=== PATIENT | female | born 1985 | race Caucasian/White ===

== ENCOUNTER → 2017-05-18 09:10 | Outpatient (CLI) | payer MEDICARE, MEDICAID, SELFPAY ==
--- NOTE | 2017-05-18 09:31 | MRI_ITS ---
STUDY: EXAMINATION - MRV BRAIN WITHOUT CONTRAST REASON FOR EXAM: Female, 31 years old. PSEUDOTUMOR CEREBRI, OPTIC DISC EDEMA -- vision changes,episodes of loss of vision, 1/2 months, patient of renal dialysis and having dialysis after MRI TECHNIQUE: 3D [id number] (TOF) imaging was performed in a chary MRI scanner. COMPARISON: None. FINDINGS: Normal flow within the superior sagittal sinus. Normal flow within the superficial cortical veins. Normal flow within the paired internal cerebral veins, vein of Iggy and straight sinus. Normal flow within the bilateral transverse and sigmoid sinuses. Normal flow within the bilateral jugular bulbs. MRI/MRV Head Without Contrast IMPRESSION: Normal unenhanced MRV of the brain. Electronically Signed: Arslan Link MD at 8:22 EDT Tel , Service support ,
--- NOTE | 2017-05-18 09:31 | MRI_ITS ---
STUDY: MRI BRAIN WITH AND WITHOUT CONTRAST REASON FOR EXAM: Female, 31 years old. PSEUDOTUMOR CEREBRI, OPTIC DISC EDEMA -- vision changes,episodes of loss of vision, 1/2 months, patient of renal dialysis and having dialysis after MRI TECHNIQUE: Standardized multiplanar fat and water weighted pulse sequences were obtained. 10 ml of Gadavist contrast material was administered intravenously for the contrast portion of the examination. COMPARISON: None. FINDINGS: Normal size of the ventricles and extra-axial spaces for the patient's age. Normal white matter tracts of the supratentorial brain. Normal bilateral basal ganglia. Normal thalami. There is no extra-axial fluid accumulation. Normal flow voids within the major intracranial circulation suggesting patency by spin echo criteria. Normal venous enhancement. There is no enhancing intra-axial or extra-axial abnormality. Normal sella turcica, pituitary gland, infundibular stalk, optic chiasm and hypothalamus. Normal tectal plate and pineal gland. Normal midbrain, joseph and medulla. Normal cerebellum. Normal basal cisterns. Normal bilateral temporal bones. Normal bilateral internal auditory canals. The optic sheaths are slightly prominent and slightly tortuous. There are no masses or infiltration. No demonstrated orbital abnormality, within the constraints of a routine brain study. Normal visualized paranasal sinuses. Normal calvarium and skull base. Normal visualized soft tissue structures. Normal visualized upper cervical spine. MRI/Brain W/WO Contrast IMPRESSION: Minimally prominent optic sheath. Otherwise unremarkable examination. Electronically Signed: Arslan Link MD at 13:53 EDT Tel , Service support ,
== END | disposition home or self-care (01) ==
PROVIDERS: Family Provider Internal Medicine; PCP Internal Medicine; Visit Provider Internal Medicine Nephrology
DX: G93.2 Benign intracranial hypertension (principal); H47.10 Unspecified papilledema
CPT/HCPCS: 70544; 70553; A9585

== ENCOUNTER 2018-12-06 02:56 | Emergency (ER) | payer MEDICARE, SELFPAY ==
[2018-12-06 02:58] VITALS: BP 197/125; PULSE 96; RESP 18; TEMP 36.7; O2SAT 99; BMI 55.0
--- NOTE | 2018-12-06 03:23 | CT_ITS ---
STUDY: CT BRAIN WITHOUT CONTRAST REASON FOR EXAM: Female, 33 years old. Worst headache ever, status post lumbar puncture Thursday for intracranial hypertension, dialysis patient, history of asthma and hypertension. RADIATION DOSAGE (If Supplied By Facility): CTDIvol = ( 44.99 ) mGy, DLP = ( 900.16 ) mGycm TECHNIQUE: Transaxial CT imaging of the brain was performed without administration of intravenous contrast material. Multiplanar coronal and sagittal images were reformatted. Individualized dose optimization techniques were used for this CT. COMPARISON: MRI brain 05/18/2017 FINDINGS: Normal soft tissue structures. Normal calvarium. Normal size ventricles and extra-axial spaces for the patient's age. Normal white matter tracts of the cerebral hemispheres. Normal basal ganglia and thalami. Normal brainstem. Normal cerebellum. There is no intracranial hemorrhage. There are no findings of an acute ischemic infarction. Normal visualized paranasal sinuses. The bilateral mastoid air cells are clear. CT/Brain/Head without Contrast IMPRESSION: There is no acute intracranial pathology. There is no significant interval change. Electronically Signed: Breanne Berger MD at 4:01 EST , Service support ,
--- NOTE | 2018-12-06 03:26 | ED.DCSUM_ITS ---
- ER Visit Summary Date of Service: 12/06/18 Chief Complaint: [] Headache History of Present Illness: The patient is a 33 F with a headache for the last 2 days. Actually she is been having daily headaches for the last couple months. She has a history of pseudotumor cerebri. She had a therapeutic LP 2 days ago. She is not sure how much fluid was removed. It is not positional. It is an intermittent headache that is been lasting hours. She tried Fioricet and Zofran. There is a diffuse headache. Worsened by light. No history of migraines. Associated nausea and one episode of emesis. She has photophobia. She does have chronic hypertension due to chronic kidney disease. She gets dialysis Thursday for end-stage kidney disease. Stated she had some abnormal vision prior to her therapeutic tap that resolved. This is how she was diagnosed with pseudotumor cerebri 18 months ago. Physical Examination: Vital signs reviewed General: Well-nourished well-developed Head: Normocephalic atraumatic Eyes: Pupils equal round and reactive to light extraocular movements intact ENT: TMs clear no hemotympanum no trauma Neck: Nontender. No meningeal signs. Her range of motion Cardiovascular: Regular rate rhythm no murmurs normal S1-S2 Respiratory: No distress clear to auscultation bilaterally chest nontender Abdomen: Soft nontender nondistended normal bowel sounds no masses Back: Nontender no CVA tenderness Extremities: Nontender active range of motion ?4 extremities no trauma Skin: Normal color no trauma Neuro alert oriented cranial nerves II through XII intact normal strength sensation reflexes Test Results: [] Emergency Department Course and Treatment: [] She given IV fluids, Compazine, Toradol, Benadryl. CT head obtained. CT head negative. Patient felt much better after treatment. Her headache has almost completely resolved. I do not think she has an intracranial hemorrhage. Nothing seen on CAT scan. I do not think she has meningitis. This could be a post LP headache but this sounds more like a migraine. It is not positional. Feel she has a meningitis. Due to the fact that it is better after migraine cocktail for the patient can be discharged to follow-up. Treatment Plan: [] Disposition: [] Impression: [] Acute on chronic headache This note was generated with [employer] software. It may contain incorrect words, spelling, and punctuation that were not noted in review of the chart prior to signing ED Disposition - Plan for ED Patient: Referrals: Bethany Coughlin MD [Primary Care Provider] -
[2018-12-06] MEDS: proCHLORPERazine 10 MG/2 ML Vial IV (03:28)
[2018-12-06] MEDS: DiphenhydrAMINE 50 MG/ML Syringe IV (03:28)
[2018-12-06] MEDS: Ketorolac 30 MG/ML Syringe IV (03:28)
--- NOTE | 2018-12-06 04:21 | ED.DEP ---
ED Disposition - Plan for ED Patient: Disposition: Home or Assisted Living Instructions: ED Headache Post Spinal Tap No Patc, ED Headache Migraine Referrals: Bethany Coughlin MD [Primary Care Provider] -
[2018-12-06 04:30] VITALS: BP 174/86; PULSE 85; RESP 15; O2SAT 96
== END 2018-12-06 04:34 | disposition home or self-care (01) ==
PROVIDERS: Emergency Provider Emergency Medicine; Family Provider Internal Medicine; PCP Internal Medicine
DX: R51 Headache (principal); G89.29 Other chronic pain; R11.2 Nausea with vomiting, unspecified; I12.0 Hypertensive chronic kidney disease with stage 5 chronic kidney disease or end stage renal disease; N18.6 End stage renal disease; Z99.2 Dependence on renal dialysis; E66.9 Obesity, unspecified; Z79.899 Other long term (current) drug therapy
CPT/HCPCS: 70450; 96361; 96374; 96375; 99284; J7040; A4216

== ENCOUNTER 2019-04-02 09:01 | Emergency (ER) | payer MEDICARE, MEDICAID, SELFPAY ==
[2019-04-02 09:02] VITALS: BP 158/105; PULSE 109; RESP 18; TEMP 37.2; O2SAT 98; BMI 51.4
[2019-04-02 09:18] VITALS: BP 152/98; PULSE 92; RESP 16; TEMP 37.2; O2SAT 98
--- NOTE | 2019-04-02 09:29 | EKG12_ITS ---
Test Reason : FEVER Blood Pressure : / mmHG Vent. Rate : 093 BPM Atrial Rate : 093 BPM P-R Int : 142 ms QRS Dur : 086 ms QT Int : 396 ms P-R-T Axes : 016 -39 064 degrees QTc Int : 492 ms Normal sinus rhythm Left axis deviation Low voltage QRS Septal infarct , age undetermined Abnormal ECG Confirmed by LINDA PATEL ([id number]), news videotape editor JAMES MARCELINO ([id number]) on 04/06/2019 2:01:47 PM Referred By: JAZMIN Confirmed By:LINDA PATEL
--- NOTE | 2019-04-02 09:37 | ED.DCSUM_ITS ---
History of Present Illness <Haleigh Hameed - Last Filed: 04/02/19 10:15> Informant: Patient Limited by: - Onset: Days Current Severity: Mild Worsened by: Movement Relieved by: Nothing Associated Symptoms: She denies chest pain or shortness of breath. Narrative: Left shoulder pain without injury. She has increased pain with movement of her shoulder. She denies chest pain or shortness of breath. Prior similar symptoms: Yes Recent Illness/Hospitalization: No <Fany Jacobson - Last Filed: 06/19/19 16:03> Chief Complaint: Fever Past Medical History <Haleigh Hameed - Last Filed: 04/02/19 10:15> Prior records reviewed: Yes - PCOS, HTN, CAP, ESRD Surgical History: - - Recent left arm AV fistula Smoking Status: Never smoker Alcohol: None Drugs: None - Family History Maternal Family History: Reports: No pertinent history Additional Family History: Maternal Aunt - renal disease. <Fany Jacobson - Last Filed: 06/19/19 16:03> - Allergies and Home Meds Allergies/Adverse Reactions: Allergies cat dander Allergy (Verified 04/02/19 09:05) Other hydrocodone Adverse Reaction (Verified 04/02/19 09:05) Nausea Primary Care Physician: Bethany Coughlin MD [Primary Care Provider] - Michael Krishna MD [STAFF PHYSICIAN] - Review of Systems All systems negative except as indicated General: Reports: Fever. Denies: Chills, Sweats Eyes: Denies: Visual changes - bilaterally, Diplopia ENT: Denies: Rhinorrhea, Sore throat Cardiovascular: Denies: Chest pain, Palpitations Respiratory: Denies: Dyspnea, Cough, Dyspnea on exertion Gastrointestinal: Denies: Abdominal pain, Nausea, Vomiting, Diarrhea, Melena, Hematochezia Genitourinary: Denies: Dysuria, Hematuria, Frequency Musculoskeletal: Reports: Extremity Pain, - - Left shoulder pain x4 to days with movement. No history of injury.. Denies: Back pain Skin: Denies: Rash, Wounds Neurological: Denies: Headache, Weakness, Numbness <Fany Jacobson - Last Filed: 06/19/19 16:03> Physical Exam Vital Signs/Narrative: Vital Signs Temp Pulse Resp BP Pulse Ox 04/02/19 09:18 98.9 F 92 16 152/98 H 98 04/02/19 09:02 98.9 F 109 H 18 158/105 H 98 <Haleigh Hameed - Last Filed: 04/02/19 10:15> Vital Signs/Narrative: Vital Signs Temp Pulse Resp BP Pulse Ox 04/02/19 09:18 98.9 F 92 16 152/98 H 98 04/02/19 09:02 98.9 F 109 H 18 158/105 H 98 General: Well nourished, Well developed, No Acute Distress Head: Normocephalic, Atraumatic Eyes: Perrl, EOMI ENT: Moist mucous membranes, No rhinorrhea Neck: Supple, Nontender Cardiovascular: Regular rate, Regular rhythm, No murmurs Respiratory: No distress, CTA bilaterally, Chest nontender Abdomen: Soft, Nontender, Nondistended, Normal bowel sounds Back: Nontender, Normal Inspection Extremities: No edema, Tenderness, - - Reproducible left shoulder pain to palpation mostly in the soft tissue area. No warmth or redness appreciated. Pain with any attempt of range of motion. Left forearm fistula has a good thrill without tenderness or warmth or redness. MSP is intact. Strong distal pulses present. No pain with range of motion of wrist or hand. Skin: Normal color, No rash Neurological: Alert, Oriented x3, Cranial nerves II-XII grossly intact, Normal Strength, Normal Sensation Psychological: Normal affect, Normal Mood <Fany Jacobson - Last Filed: 06/19/19 16:03> Diagnostic/Tx/Re-eval - Medical Decision Making The patient was seen with nurse practitioner I agree with history and physical exam as document above, she has extensive history of end-stage renal disease she complains of left shoulder pain and sense of fevers dialyzed recently without difficulty, Physical exam shows a very nonspecific diffuse left shoulder discomfort no signs of swelling trauma or infection distal hand exam fistula exam all unremarkable neurovascular function normal, screening labs other management options are obtained please see the full note for details <Haleigh Hameed - Last Filed: 04/02/19 10:15> Chest X-Ray - ED: 2 View, No Acute Disease - Rhythm Strip Rhythm Strip: Sinus Rhythm - Medical Decision Making She presents with left shoulder pain without injury. Has a history of diffuse arthralgias and she is scheduled to see a [facility] tutor nursery in June. Her PCP and reimbursement rep are aware of these diffuse arthralgias and have attempted to treat her pain. The concern is that she may have lupus versus rheumatoid arthritis according to the patient. This left shoulder pain is not new but it is exacerbated over the last several days. She denied chest pain or dyspnea concerning for cardiac origin of her pain. She was instructed to return for worsening fever this origin of her fever Thursday is unclear. She is afebrile nontoxic in the emergency department. She does have an elevation of her sed rate at 47 and her CRP at 64. EKG: Normal sinus rhythm Ventricular rate 93 [place] interval 142 QRS duration 86 QT/QTc 396/492 No acute STEMI or ectopy. Dr Hameed reviewed. She was treated with IV morphine and Zofran for her pain and nausea. She had mild elevation of inflammatory markers which would be consistent with her diffuse arthralgias. X-ray of her chest and shoulder showed no acute process. She had no evidence of cardiac disease or reason for fever. Her fistula site looked uninfected. She remained afebrile and nontoxic in the emergency department. She does have an upcoming appointment with rheumatology and she was encouraged to keep this appointment as well as call for cancellations to be seen earlier. She was also encouraged to talk with her primary care provider about her pain and possible pain management. She was requesting stronger pain medicine and Percocet for home. I explained to her that we do not write for stronger medicines and Percocet and that we do not manage chronic pain from the emergency department. She was instructed to return if she develops high fever or worsening symptoms. She is referred to orthopedics for her left shoulder pain and diffuse arthralgias as well. She was discharged home in stable condition. She is agreeable to discharge instructions. Final impression: Left shoulder sprain chronic arthralgias <Fany Jacobson - Last Filed: 06/19/19 16:03> ED Disposition <Haleigh Hameed - Last Filed: 04/02/19 10:15> <Fany Jacobson - Last Filed: 06/19/19 16:03> - Plan for ED Patient: Disposition: Home or Assisted Living Diagnosis: Left shoulder strain, Arthralgia Instructions: Shoulder Sprain Referrals: Bethany Coughlin MD [Primary Care Provider] - Michael Krishna MD [STAFF PHYSICIAN] -
[2019-04-02] MEDS: Ondansetron 4 MG/2 ML Vial IV (09:51)
[2019-04-02] MEDS: morphine 8 MG/ML Syringe IV (09:52)
[2019-04-02 09:57] LABS: Absolute Lymphocyte Count 2.08 X10^3/ul (0.83-4.51); Absolute Neutrophil Count 4.7 X10^3/uL (2.0-7.7); Basophil# 0.02 X10^3/uL; Basophil% 0.3 % (0-1); Eosinophil# 0.08 X10^3/uL; Eosinophils% 1.1 % (0-5); Hematocrit 37.7 % (37-47); Hemoglobin 12.2 g/dl (12.0-15.0); Lymphocyte # 2.08 X10^3/ul (4.0); Mean Corp Hgb Conc 32.4 g/gl (32-36); Mean Corpuscular Hgb 32.3 pg (27.0-32.0); Mean Corpuscular Volume 99.7 fL (81-99); Mean Platelet Vol. 9.6 fl (6.2-12.0); Monocyte# 0.56 X10^3/uL; Monocyte% 7.5 % (0-10); Neutrophil # 4.66 X10^3/uL (2.7-7.7); Neutrophil % 62.7 % (47-70); Platelet Count 213 K/mm3 (150-450); RBC Distribution Width CV 12.5 % (11.6-14.6); Red Blood Count 3.78 M/mm3 (4.2-5.4); White Blood Count 7.4 K/mm3 (4.4-11.0)
[2019-04-02 09:58] LABS: POSITIVE COUNT NO; POSITIVE DIFFERENTIAL NO; POSITIVE MORPHOLOGY NO
[2019-04-02 09:59] LABS: Erythrocyte Sedimentation Rate 47 mm/hr (0-20)
--- NOTE | 2019-04-02 10:00 | RAD_ITS ---
STUDY: X-RAY CHEST REASON FOR EXAM: Female, 33 years old. TECHNIQUE: 2 Views COMPARISON: February 15, 2016. FINDINGS: There is poor inspiration The lungs are clear and expanded. There is no demonstrated pleural abnormality. Normal size heart. Normal mediastinum and tyron. Normal visualized pulmonary arteries. Normal visualized aortic arch and descending thoracic aorta. Normal visualized thoracic spine. Normal visualized ribs, clavicles, and shoulders. There is no demonstrated abnormality of the visualized soft tissue structures of the upper abdomen. RAD/Chest PA and Lateral IMPRESSION: Normal x-ray examination of the chest with significant improvement since February 15, 2016. Electronically Signed: Matthew Agrawal, at 11:36 EDT Tel , Service support ,
--- NOTE | 2019-04-02 10:00 | RAD_ITS ---
STUDY: X-RAY - LEFT SHOULDER REASON FOR EXAM: Female, 33 years old. TECHNIQUE: 4 view(s) of the shoulder. COMPARISON: None. FINDINGS: Normal glenohumeral articulation. Normal acromioclavicular joint. Normal acromion. Normal humeral head and visualized proximal humerus. The soft tissue structures are unremarkable. Normal visualized pulmonary apex. RAD/Shoulder min 2 Views IMPRESSION: Normal x-ray examination of the shoulder. Electronically Signed: Matthew Agrawal, at 11:46 EDT Tel , Service support ,
[2019-04-02 10:21] LABS: Anion Gap 8 (5-15); BUN 42 mg/dL (7-18); BUN/Creat Ratio 4.8 RATIO (10-20); Calcium,Total 8.6 mg/dL (8.5-10.1); Chloride 96 mmol/L (98-107); Creatinine, Serum 8.76 mg/dL (0.55-1.02); EST Glomerular Filtration Rate 6 mL/min (>60); Est Glom Filt Rate - Afr Amer 7 mL/min (>60); Estimated Creatinine Clearance 9.21 ml/min; Glucose 96 mg/dL (74-106); Potassium 5.2 mmol/L (3.5-5.1); Sodium Level 137 mmol/L (136-145)
[2019-04-02] MEDS: Ketorolac 15 MG/ML Vial IV (12:17)
[2019-04-02 13:03] VITALS: BP 146/106; BP 149/106; RESP 17
== END 2019-04-02 13:04 | disposition home or self-care (01) ==
PROVIDERS: Emergency Provider Nurse Practitioner; Family Provider Internal Medicine; PCP Internal Medicine
DX: S46.912A Strain of unspecified muscle, fascia and tendon at shoulder and upper arm level, left arm, initial encounter (principal); X58.XXXA Exposure to other specified factors, initial encounter; Y93.9 Activity, unspecified; Y92.9 Unspecified place or not applicable; Y99.9 Unspecified external cause status; R50.9 Fever, unspecified; N18.6 End stage renal disease; Z79.899 Other long term (current) drug therapy; Z99.2 Dependence on renal dialysis
CPT/HCPCS: 71046; 73030; 80048; 84484; 85025; 85652; 86140; 93005; 96374; 96375; 99283; A4216; J2405

== ENCOUNTER 2020-03-02 04:21 | Emergency (ER) | payer MEDICARE, SELFPAY ==
[2020-03-02 04:21] VITALS: BP 113/63; PULSE 112; RESP 24; TEMP 36.9; O2SAT 98; BMI 58.6
[2020-03-02 04:26] VITALS: O2SAT 100
--- NOTE | 2020-03-02 04:46 | EKG12_ITS ---
Test Reason : DYSRHYTHMIA Blood Pressure : / mmHG Vent. Rate : 104 BPM Atrial Rate : 104 BPM P-R Int : 146 ms QRS Dur : 082 ms QT Int : 382 ms P-R-T Axes : 003 -35 042 degrees QTc Int : 502 ms Sinus tachycardia Left axis deviation Low voltage QRS Abnormal ECG Confirmed by KLAUS LOZANO, VENKATESH ([id number]), associate entertainment editor KAREN PIEDRA ([id number]) on 03/06/2020 3:25:35 PM Referred By: LUZ MARINA Confirmed By:VENKATESH ENRIQUE MD
--- NOTE | 2020-03-02 04:50 | ED.VISSUMM ---
- ER Visit Summary Date of Service: 03/02/20 Chief Complaint: Shortness of breath History of Present Illness: The patient is a 34 F who presents with shortness of breath that began today. Patient states she feels like she has an infection in her low back that is causing her to become more short of breath. Patient states nothing makes her breathing better or worse. Patient denies any fevers or chills. Patient denies any cough. Patient denies any sore throat or rhinorrhea. Patient does admit to some chest pain and palpitations. Patient admits to nausea but denies any vomiting. Patient admits to a headache. Physical Examination: Vital signs are stable except for mild tachycardia of 112 and a mild tachypnea of 24. Patient is afebrile. Patient is in no acute distress. Oral mucosa is pink and moist. Neck is supple. Trachea is midline. There is no JVD. Heart was regular rate and rhythm. Lungs are clear but diminished bilaterally. There is good respiratory effort noted. Abdomen is soft. Bowel sounds are normal. There is mild diffuse tenderness. There is no rebound or guarding noted. Cranial nerves II through XII are intact. There are no focal motor or sensory deficits noted. Skin is warm and dry. There is a tender indurated area over the lower lumbar area. There is no fluctuance. There is no definite abscess formation. There is a small erythematous area approximately 5 mm in diameter. There is tenderness over this area. Test Results: EKG showed sinus tachycardia with a rate of 104. There is left axis deviation. There is no acute ST or T wave changes. It was unchanged compared to previous EKG dated 04/02/2019. Portable chest x-ray shows a right lower lobe pneumonia. CBC shows a slight leukocytosis of 13.5. There is a mild anemia with a hemoglobin of 9.1 and hematocrit 27.4. Creatinine was elevated at 10.5 which is chronic. BUN was 69. Troponin was normal. hCG was negative. RSV and influenza swabs were obtained were negative. Rapid strep was negative. Emergency Department Course and Treatment: Patient was initially started on Keflex for the possible skin infection in her back. Patient was also given a dose of Zithromax for her pneumonia. Patient was given a dose of morphine for her joint pain. Patient was given a prescription for Zithromax. Patient was instructed to follow-up with her primary care physician in 5 to 7 days. Patient was instructed to continue her dialysis as scheduled. Patient understood and was agreeable with the plan. All questions were answered. Disposition: Discharge home Impression: 1. Pneumonia This note was generated with [employer] dictation software. It may contain incorrect words, spelling, and punctuation that were not noted in review of the chart prior to signing ED Disposition - Plan for ED Patient: Disposition: Home or Assisted Living Diagnosis: Pneumonia Instructions: ED PNEUMONITIS Adult Prescriptions: Azithromycin [Zithromax] 250 mg PO DAILY #4 tab Prescription Printed Referrals: Bethany Coughlin MD [Primary Care Provider] - 3-5 Days
[2020-03-02 04:54] LABS: Absolute Lymphocyte Count 2.15 X10^3/uL (0.83-4.51); Absolute Neutrophil Count 10.3 X10^3/uL (2.0-7.7); Basophil# 0.04 X10^3/uL; Basophil% 0.3 % (0-1); Eosinophil# 0.09 X10^3/uL; Eosinophils% 0.7 % (0-5); Hematocrit 27.4 % (37-47); Hemoglobin 9.1 g/dL (12.0-15.0); Lymphocyte # 2.15 X10^3/ul (4.0); Lymphocyte % 15.9 % (19-41); Mean Corp Hgb Conc 33.2 g/dL (32-36); Mean Corpuscular Hgb 35.4 pg (27.0-32.0); Mean Corpuscular Volume 106.6 fL (81-99); Mean Platelet Vol. 9.7 fl (6.2-12.0); Monocyte# 0.62 X10^3/uL; Monocyte% 4.6 % (0-10); NRBC Flagged by Analyzer 0.1 % (0-5); Neutrophil # 10.34 X10^3/uL (2.7-7.7); Neutrophil % 76.4 % (47-70); Platelet Count 262 K/mm3 (150-450); RBC Distribution Width CV 13.8 % (11.6-14.6); RBC Distribution Width SD 52.1 fl (35.1-43.9); Red Blood Count 2.57 M/mm3 (4.2-5.4); White Blood Count 13.5 K/mm3 (4.4-11.0)
[2020-03-02] MEDS: Cephalexin 250 MG Capsule 500 MG PO (05:00)
[2020-03-02 05:05] LABS: Internal QC Validated? YES +Cl - CLEAR BKGD; Pregnancy, Serum, hCG Quali. NEGATIVE Negative
--- NOTE | 2020-03-02 05:10 | RAD_ITS ---
STUDY: X-RAY CHEST REASON FOR EXAM: Female, 34 years old. Shortness of breath TECHNIQUE: Frontal view COMPARISON: 04/02/2019 FINDINGS: Lungs are expanded. There are opacities at the RIGHT lung base which could be infiltrates. There are NO pleural effusions. There is NO pneumothorax. Normal size heart. Normal mediastinum and tyron. Normal visualized pulmonary arteries. Normal visualized aortic arch and descending thoracic aorta. Normal visualized thoracic spine. Normal visualized ribs, clavicles, and shoulders. There is no demonstrated abnormality of the visualized soft tissue structures of the upper abdomen. RAD/Chest 1 View (Portable) IMPRESSION: Suspected RIGHT lower lobe infiltrates. Electronically Signed: Gabriel Warner MD at 5:25 EDT , Service support ,
[2020-03-02 05:14] LABS: Anion Gap 14 (5-15); BUN 69 mg/dL (7-18); BUN/Creat Ratio 6.6 RATIO (10-20); Calcium,Total 7.1 mg/dL (8.5-10.1); Chloride 94 mmol/L (98-107); EST Glomerular Filtration Rate 5 mL/min (>60); Est Glom Filt Rate - Afr Amer 5 mL/min (>60); Estimated Creatinine Clearance 7.62 ml/min; Glucose 133 mg/dL (74-106); Potassium 4.9 mmol/L (3.5-5.1); Sodium Level 136 mmol/L (136-145)
[2020-03-02 05:24] VITALS: BP 118/73; PULSE 94; RESP 24; TEMP 36.6; O2SAT 98
[2020-03-02] MEDS: Azithromycin 250 MG Tablet 500 MG PO (05:45)
[2020-03-02 05:49] VITALS: BP 102/65; PULSE 92; RESP 24; TEMP 37.3; O2SAT 95
[2020-03-02] MEDS: Morphine 4 MG/ML Syringe IV (05:52)
[2020-03-02 06:17] VITALS: BP 134/71; PULSE 92; RESP 18; O2SAT 94
== END 2020-03-02 06:18 | disposition home or self-care (01) ==
PROVIDERS: Emergency Provider Emergency Medicine; PCP Internal Medicine
DX: J18.9 Pneumonia, unspecified organism (principal); N18.6 End stage renal disease; R00.0 Tachycardia, unspecified; R06.82 Tachypnea, not elsewhere classified; M25.50 Pain in unspecified joint; D64.9 Anemia, unspecified; Z99.2 Dependence on renal dialysis; E66.9 Obesity, unspecified; Z79.899 Other long term (current) drug therapy
CPT/HCPCS: 71045; 80048; 84484; 84703; 85025; 87804; 87807; 87880; 93005; 96374; 99285; A4216

== ENCOUNTER → 2020-06-07 10:00 | Outpatient (CLI) | payer MEDICARE, MEDICAID, SELFPAY | PROVIDERS: PCP Internal Medicine | DX: Z11.59 Encounter for screening for other viral diseases (principal) | CPT/HCPCS: 87635; 94799; U0003 ==

== ENCOUNTER 2020-12-27 22:05 | Inpatient (IN) | payer MEDICARE, MEDICAID, SELFPAY ==
[2020-12-27 22:06] VITALS: BP 122/76; PULSE 116; RESP 20; TEMP 37.7; O2SAT 92; BMI 53.4
--- NOTE | 2020-12-27 22:15 | EKG12_ITS ---
Test Reason : FEVER Blood Pressure : / mmHG Vent. Rate : 106 BPM Atrial Rate : 106 BPM P-R Int : 150 ms QRS Dur : 092 ms QT Int : 360 ms P-R-T Axes : -06 -28 041 degrees QTc Int : 478 ms Sinus tachycardia Otherwise normal ECG Confirmed by KLAUS LOZANO, VENKATESH ([id number]), film or videotape editor MARTHA NERI ([id number]) on 12/31/2020 10:31:43 AM Referred By: CL Confirmed By:VENKATESH ENRIQUE MD
--- NOTE | 2020-12-27 22:17 | ED.VIS.GEN ---
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 States is been intermittent in nature. Admits to cough. Admits to nausea without vomiting. Denies any urinary symptoms. Patient received dialysis today. Patient was getting dialysis at home but feels that she may not have been doing this correctly. Did receive her coronavirus vaccine yesterday. Past Medical History - Allergies and Home Meds Allergies/Adverse Reactions: Allergies cat dander Allergy (Verified 12/27/20 22:09) Other hydrocodone Adverse Reaction (Verified 12/27/20 22:09) Nausea Primary Care Physician: Bethany Coughlin MD [Primary Care Provider] - Prior records reviewed: Yes Past Medical History: - - FSGS, ESRD, IIH Surgical History: - - Recent left arm AV fistula Lives: Spouse/ Significant Other Smoking Status: Never smoker Alcohol: None Drugs: None - Family History Maternal Family History: Reports: No pertinent history Additional Family History: Maternal Aunt - renal disease. Review of Systems General: Reports: Fever. Denies: Chills, Sweats Eyes: Denies: Visual changes - bilaterally, Diplopia ENT: Denies: Rhinorrhea, Sore throat Cardiovascular: Denies: Chest pain, Palpitations Respiratory: Denies: Dyspnea, Cough, Dyspnea on exertion Gastrointestinal: Reports: Nausea. Denies: Abdominal pain, Vomiting, Diarrhea, Melena, Hematochezia Genitourinary: Denies: Dysuria, Hematuria, Frequency Musculoskeletal: Denies: Back pain, Extremity Pain Skin: Denies: Rash, Wounds Neurological: Denies: Headache, Weakness, Numbness Physical Exam Vital Signs/Narrative: Vital Signs Temp Pulse Resp BP Pulse Ox 12/27/20 22:06 100 F H 116 H 20 H 122/76 H 92 Inital Vital Signs reviewed: Yes General: Well nourished, Well developed, No Acute Distress Head: Normocephalic, Atraumatic Eyes: Perrl, EOMI ENT: Moist mucous membranes, No rhinorrhea Neck: Supple, Nontender Cardiovascular: Regular rhythm, No murmurs, Tachycardia Respiratory: No distress, CTA bilaterally, Chest nontender Abdomen: Soft, Nontender, Nondistended, Normal bowel sounds Back: Nontender, Normal Inspection Extremities: Nontender, No edema Skin: Normal color, No rash Neurological: Alert, Oriented x3, Cranial nerves II-XII grossly intact, Normal Strength, Normal Sensation Psychological: Normal affect, Normal Mood Diagnostic/Tx/Re-eval Chest X-Ray - ED: 1 View, Read by ED Physician, Read by Radiologist, - - Bilateral diffuse patchy infiltrates. - Rhythm Strip Rhythm Strip: Sinus Tach Rate: 106 Ectopy: None - EKG Initial EKG Interpretation: Sinus Tachycardia - Sinus tachycardia at 106 bpm. AK interval of 150 ms. QTC of 478 ms. No evidence of acute ischemia. - Medical Decision Making Patient tachycardic and normotensive upon arrival. Febrile. Patient given small fluid bolus and Tylenol. Chest x-ray concerning for bilateral viral pneumonia. Patient coronavirus positive. Patient desaturated to 88% on room air and was given Decadron. Lactic acidosis. Patient will require gentle hydration given her end-stage renal disease. Spoke with hospitalist who is agreeable with admission. Patient admitted in stable condition. Impression: 1. COVID-19 2. Hypoxemia 3. Lactic acidosis ED Disposition - Plan for ED Patient: Disposition: Acute Care Hospital [facility] Referrals: Bethany Coughlin MD [Primary Care Provider] -
[2020-12-27 22:19] VITALS: PULSE 108; RESP 29; TEMP 37.7; O2SAT 88; O2SAT 96
[2020-12-27] MEDS: Acetaminophen 500 MG Tablet 1000 MG PO (22:29)
[2020-12-27 22:33] LABS: Absolute Lymphocyte Count 0.57 X10^3/uL (0.83-4.51); Absolute Neutrophil Count 3.2 X10^3/uL (2.0-7.7); Basophil# 0.01 X10^3/uL; Basophil% 0.2 % (0-1); Eosinophil# 0.01 X10^3/uL; Eosinophils% 0.2 % (0-5); Hematocrit 30.3 % (37-47); Lymphocyte # 0.57 X10^3/ul (4.0); Mean Corpuscular Hgb 32.1 pg (27.0-32.0); Mean Corpuscular Volume 97.1 fL (81-99); Mean Platelet Vol. 10.1 fl (6.2-12.0); Monocyte# 0.18 X10^3/uL; Monocyte% 4.4 % (0-10); NRBC Flagged by Analyzer 0 % (0-5); Neutrophil # 3.22 X10^3/uL (2.7-7.7); POSITIVE DIFFERENTIAL YES; Platelet Count 145 K/mm3 (150-450); RBC Distribution Width CV 13.5 % (11.6-14.6); RBC Distribution Width SD 48.2 fl (35.1-43.9); Red Blood Count 3.12 M/mm3 (4.2-5.4); White Blood Count 4.1 K/mm3 (4.4-11.0)
[2020-12-27 22:34] LABS: Differential Indicated SCAN CRITERIA MET
--- NOTE | 2020-12-27 22:36 | RAD_ITS ---
STUDY: X-RAY CHEST REASON FOR EXAM: Female, 35 years old. fever TECHNIQUE: Single AP portable view of the chest. COMPARISON: 03/02/2020 FINDINGS: Development of masslike consolidation in the right lower lobe compatible with infection. Lungs are otherwise clear. There is no demonstrated pleural abnormality. Normal size heart. Normal mediastinum and tyron. Normal visualized pulmonary arteries. Normal visualized aortic arch and descending thoracic aorta. Normal visualized thoracic spine. Normal visualized ribs, clavicles, and shoulders. There is no demonstrated abnormality of the visualized soft tissue structures of the upper abdomen. RAD/Chest 1 View (Portable) IMPRESSION: Masslike consolidation in the right lower lobe. Compatible with infection. Repeat chest x-ray to resolution is recommended Electronically Signed: José Antonio Max DO at 23:25 EDT Tel , Service support ,
[2020-12-27 22:42] LABS: Prothrombin Time (Protime)PT. 12.9 SECONDS (11.7-14.9)
[2020-12-27 22:43] LABS: Partial Thromboplast Time 32.4 Seconds (24.1-36.2)
[2020-12-27 22:54] LABS: Anisocytosis RARE; Macrocytosis RARE; Platelet Estimate SLT DEC (ADEQ); Red Cell Morphology N CHROM NORMAL (NORM C&C)
[2020-12-27 23:04] VITALS: BP 120/66; PULSE 95; RESP 20; TEMP 38.1; O2SAT 96
[2020-12-27 23:05] LABS: ALB/GLOB Ratio 0.9 RATIO (0.9-2.4); AST(SGOT) 42 U/L (15-37); Alanine Aminotransfer ALT/SGPT 59 U/L (13-56); Albumin, Serum 3.7 g/dL (3.2-5.0); Alkaline Phosphatase 52 U/L (45-117); Anion Gap 10 (5-15); BUN 31 mg/dL (7-18); BUN/Creat Ratio 3.6 RATIO (10-20); Calcium,Total 8.2 mg/dL (8.5-10.1); Chloride 89 mmol/L (98-107); Creatinine, Serum 8.56 mg/dL (0.55-1.02); EST Glomerular Filtration Rate 6 mL/min (>60); Est Glom Filt Rate - Afr Amer 7 mL/min (>60); Estimated Creatinine Clearance 9.59 ml/min; Globulin 4.3 g/dL (2.2-4.2); Glucose 117 mg/dL (74-106); Potassium 3.2 mmol/L (3.5-5.1); Sodium Level 129 mmol/L (136-145)
[2020-12-27 23:10] LABS: Lactic Acid 4.3 mmol/L (0.4-1.9)
[2020-12-27 23:31] VITALS: BP 120/66; PULSE 97; RESP 19; TEMP 38.1; O2SAT 96
[2020-12-27] MEDS: dexAMETHasone 10 MG/ML Vial 6 MG IV (23:32)
--- NOTE | 2020-12-27 23:41 | ED.RN ---
pt triggers sepsis protocol for fluid resuscitation but due to ESRD fluid resuscitation is contraindicated
[2020-12-27 23:47] VITALS: BP 113/65; PULSE 97; RESP 22; O2SAT 96
--- NOTE | 2020-12-27 23:54 | PCM.HP.STD ---
Problem List (1) FSGS (focal segmental glomerulosclerosis) Status: Acute (2) Community acquired bacterial pneumonia Status: Acute (3) Chronic kidney disease (CKD) Status: Chronic Qualifiers: Chronic kidney disease stage: stage 5 History of Present Illness Date of Admission: 12/27/20 Chief Complaint: fever The patient is a 35 year old F with a significant history of end-stage renal disease secondary to FSGS; idiopathic intracranial hypertension; multiple pneumonia; and morbid obesity who presents to the emergency department with 1 week history of episodic fever. Associated with her symptoms is malaise; shortness of breath; nonproductive cough; and headaches. Of note, patient had Covid vaccination a day before presentation. Past Medical History Past Medical History (Chronic Problems): Chronic Problems Chronic kidney disease (CKD) (Chronic) Allergies cat dander Allergy (Verified 12/27/20 22:09) Other hydrocodone Adverse Reaction (Verified 12/27/20 22:09) Nausea Home Medications: Ambulatory Orders Medication Instructions Recorded Albuterol Inhaler [Ventolin Hfa] 1 - 2 puff INHALATION Q4H PRN PRN 11/26/13 Amlodipine [Norvasc] 10 mg PO QHS 06/30/14 Oxycodone HCl/Acetaminophen 2 tablet PO Q4H PRN PRN #30 tablet 01/31/15 [Percocet 5-325] Butalb/Acetaminophen/Caffeine 1 tab PO Q12H PRN PRN 12/06/18 [Ogbddh-Nilflhiu-Dxqq 50-325-40] Ondansetron [Zofran Odt] 4 mg PO Q8H PRN PRN 12/06/18 Zonisamide 150 mg PO QHS 12/06/18 Diazepam [Valium] 5 mg PO DAILY PRN 12/27/20 Surgical History: - - Recent left arm AV fistula; parathyroidectomy; IUD Lives: Spouse/ Significant Other Smoking Status: Never smoker Alcohol: None Drugs: None - *Family History Maternal History Items: - - Denies knowledge of maternal medical history Paternal History Items: - - Denies knowledge of paternal medical history Review of Systems Constitutional: Reports: Anorexia, Fever, Malaise, Fatigue. Denies: Chills, Weight Change HEENT: Reports: Head Aches. Denies: Sinus Congestion, Sinus Drainage Cardiovascular: Denies: Chest Pain, Palpitations Respiratory: Reports: Cough, Shortness of Breath. Denies: Shortness of breath at rest Gastrointestinal: Denies: Abdominal Pain, Nausea, Vomiting Genitourinary: Denies: Dysuria Musculoskeletal: Denies: Joint Pain, Joint Tenderness Skin: Denies: Rash, Wounds Neurological: Denies: Numbness, Tingling, Focal weakness Psychiatric: Denies: Anxiety, Depression, Homicidal Ideations, Suicidal Ideations Hematologic/ Lymphatic: Denies: Easy Bruising, Easy Bleeding VTE Information - Inpt Only VTE Present on Admission: No VTE Mechan Device Prophylaxis: None VTE Pharm Prophylaxis ordered?: Yes Patient Problems: Active and Suspected Problems FSGS (focal segmental glomerulosclerosis) (Acute) Community acquired bacterial pneumonia (Acute) - Physical Exam Vitals/I&O's: Vital Signs Temp Pulse Resp BP Pulse Ox 100.6 F H 97 22 H 113/65 96 12/27/20 23:31 12/27/20 23:47 12/27/20 23:47 12/27/20 23:47 12/27/20 23:47 Oxygen Flow Rate (L/min) 2 Oxygen Delivery Method Nasal Cannula Weight: 164.1 kg Body Mass Index (BMI) 53.4 Intake and Output for Last 24 Hours 12/25/20 12/26/20 12/27/20 23:59 23:59 23:59 Intake Total 500 / 500 Balance 500 / 500 General: Alert, Oriented x3, Cooperative HEENT: Atraumatic, PERRLA, EOMI, Normocephalic Neck: Supple, Trachea Midline Lungs: Diminished Cardiovascular: Normal S1, Normal S2, No murmurs Abdomen: Bowel Sounds Present, Soft, Non Tender Extremities: No edema, Capillary Refill Less than 3 Seconds Skin: No rashes, No breakdown Musculoskeletal: No Tenderness to Palpation of Joints or Extremities Neurological: Cranial nerves II-XII grossly intact Psych/Mental Status: Normal Affect, Appropriate Microbiology Past 72 Hours 12/27/20 22:20 Mucosa - Nasopharyngeal SARS-CoV-2 Antigen (Rapid) - Final SARS-CoV-2 (COVID 19) 12/27/20 22:20 Mucosa - Nasopharyngeal Influenza Types A,B Direct FA ([facility]) - Final Laboratory Results 12/27/20 22:15: WBC 4.1 L, RBC 3.12 L, Hgb 10.0 L, Hct 30.3 L, MCV 97.1, MCH 32.1 H, MCHC 33.0, RDW Std Deviation 48.2 H, RDW Coeff of Braulio 13.5, Plt Count 145 L, MPV 10.1, Immature Gran % (Auto) 2.200 H, Neut % (Auto) 79.0 H, Lymph % (Auto) 14.0 L, [place] % (Auto) 4.4, Eos % (Auto) 0.2, Baso % (Auto) 0.2, Absolute Neuts (auto) 3.2, Absolute Lymphs (auto) 0.57 L, Nucleated RBC % 0, Differential Comment SEE COMMENT, Diff Path Review February foll, Platelet Estimate SLT DEC, RBC Morphology N CHROM, Anisocytosis RARE, Macrocytosis RARE 12/27/20 22:15: PT 12.9, INR 1.0, APTT 32.4 12/27/20 22:15: Sodium 129 L, Potassium 3.2 L, Chloride 89 L, Carbon Dioxide 30.0, Anion Gap 10, BUN 31 H, Creatinine 8.56 H*, Estim Creat Clear Calc 9.59, Est GFR (MDRD) Af Amer 7 L, Est GFR (MDRD) Non-Af 6 L, BUN/Creatinine Ratio 3.6 L, Glucose 117 H, Calcium 8.2 L, Total Bilirubin 0.40, AST 42 H, ALT 59 H, Alkaline Phosphatase 52, Total Protein 8.0, Albumin 3.7, Globulin 4.3 H, Albumin/Globulin Ratio 0.9 12/27/20 22:15: Lactic Acid 4.3 H* Assessment/Plan All Active Problems Septic shock (Acute) FSGS (focal segmental glomerulosclerosis) (Acute) Community acquired bacterial pneumonia (Acute) The patient is a 35 year old F with a significant history of end-stage renal disease FSGS; idiopathic intracranial hypertension; multiple pneumonia; and morbid obesity who presents emergency department with 1 week history of episodic fever; malaise; shortness of breath; nonproductive cough; and headaches; and with radiographic evidence of masslike consolidation in the right lower lobe; and some diffuse opacities. Acute hypoxemic respiratory insufficiency secondary to Community Acquired pneumonia and Covid 19 pneumonia/septic shock SIRS CRITERIA: Respiratory rate of more than 20; heart rate of more than 90. T-max of 100.6 F. Lactic acid of 4.3. Trend lactic acid. Noted to have 2.2% bands. Reportedly her oxygen saturation was 88 % on room air at the emergency department. Patient required nasal cannula oxygen at the ED. Oxygen supplementation continued. Rapid Covid antigen was positive at the ED. Rapid influenza test was negative at the ED. Impression of chest x-ray by radiologist: Masslike consolidation in the right lower lobe. Compatible with infection. Actual chest x-ray image was independently interpreted. Masslike consolidation in the right lower lobe noted. Also there are some diffuse opacities. Procalcitonin ordered. However procalcitonin will be likely elevated in the setting of end-stage renal disease. However could trend. Received dexamethasone IV at emergency department. Dexamethasone 6 mg p.o. daily ordered. Patient is not a candidate of remdesivir in the setting of end-stage renal disease. Strep pneumonia antigen and Legionella urine antigen ordered: Patient is a dialysis patient but this can be obtained at dialysis. We will start patient on ceftriaxone and azithromycin. Blood culture x2 was obtained at emergency department. Received normal saline bolus 500 mL at emergency department. Because patient is a dialysis patient who gets dialysis at home 5 times in a week will avoid further IV fluids at this time. Medical contraindication to give IV fluid boluses Noted to have elevated liver enzymes; likely secondary to Covid; trend. Hyponatremia; likely secondary to pulmonary infection; Trend BMP. Mucinex ordered Hypertension Blood pressure is not within goal Amlodipine continued. Trend blood pressure and adjust blood pressure medications. Hypokalemia Replace. Trend CMP. Anxiety disorder Valium as needed continued End-stage renal disease secondary to FSGS Renal diet ordered Nephrology consult Chronic anemia secondary to end-stage renal disease Stable DVT prophylaxis Heparin subcutaneous ordered. Inpatient E&M: 18424 Init Hosp L3
[2020-12-28] VITALS (12 sets, daily range): BP systolic 115–138; BP diastolic 49–73; PULSE 75–105; RESP 16–22; TEMP 36.6–37.3; O2SAT 95–98; BMI 52.2; BMI 52.3
--- NOTE | 2020-12-28 00:19 | SEPSISNOTE ---
Sepsis Note - Physical Exam/Vitals Objective: Chest X-Ray 12/27/20 22:36 IMPRESSION: Masslike consolidation in the right lower lobe. Compatible with infection. Repeat chest x-ray to resolution is recommended Electronically Signed: José Antonio Max DO at 23:25 EDT Tel , Service support , Temp Pulse Resp BP Pulse Ox 100.6 F H 97 22 H 113/65 96 12/27/20 23:31 12/27/20 23:47 12/27/20 23:47 12/27/20 23:47 12/27/20 23:47 12/27/20 12/27/20 12/27/20 22:15 22:15 22:15 WBC RBC Hgb Hct MCV MCH MCHC RDW Std Deviation RDW Coeff of Braulio Plt Count MPV Immature Gran % (Auto) Neut % (Auto) Lymph % (Auto) [place] % (Auto) Eos % (Auto) Baso % (Auto) Absolute Neuts (auto) Absolute Lymphs (auto) Nucleated RBC % Differential Comment Diff Path Review Platelet Estimate RBC Morphology Anisocytosis Macrocytosis PT 12.9 INR 1.0 APTT 32.4 Sodium 129 L Potassium 3.2 L Chloride 89 L Carbon Dioxide 30.0 Anion Gap 10 BUN 31 H Creatinine 8.56 H* Estim Creat Clear Calc 9.59 Est GFR (MDRD) Af Amer 7 L Est GFR (MDRD) Non-Af 6 L BUN/Creatinine Ratio 3.6 L Glucose 117 H Lactic Acid 4.3 H* Calcium 8.2 L Total Bilirubin 0.40 AST 42 H ALT 59 H Alkaline Phosphatase 52 Total Protein 8.0 Albumin 3.7 Globulin 4.3 H Albumin/Globulin Ratio 0.9 12/27/20 22:15 WBC 4.1 L RBC 3.12 L Hgb 10.0 L Hct 30.3 L MCV 97.1 MCH 32.1 H MCHC 33.0 RDW Std Deviation 48.2 H RDW Coeff of Braulio 13.5 Plt Count 145 L MPV 10.1 Immature Gran % (Auto) 2.200 H Neut % (Auto) 79.0 H Lymph % (Auto) 14.0 L [place] % (Auto) 4.4 Eos % (Auto) 0.2 Baso % (Auto) 0.2 Absolute Neuts (auto) 3.2 Absolute Lymphs (auto) 0.57 L Nucleated RBC % 0 Differential Comment SEE COMMENT Diff Path Review May foll Platelet Estimate SLT DEC RBC Morphology N CHROM Anisocytosis RARE Macrocytosis RARE PT INR APTT Sodium Potassium Chloride Carbon Dioxide Anion Gap BUN Creatinine Estim Creat Clear Calc Est GFR (MDRD) Af Amer Est GFR (MDRD) Non-Af BUN/Creatinine Ratio Glucose Lactic Acid Calcium Total Bilirubin AST ALT Alkaline Phosphatase Total Protein Albumin Globulin Albumin/Globulin Ratio - Attestation Sepsis Attestation: Sepsis re-evaluation was performed
[2020-12-28] MEDS: Potassium Chloride Oral Tablet 10 MEQ PO (00:44)
[2020-12-28] MEDS: Ceftriaxone 1 GM/50 ML BAG IV (00:45)
[2020-12-28] MEDS: guaiFENesin 1,200 MG Tablet 1200 MG PO ×3 (01:17→20:33)
[2020-12-28] MEDS: Zonisamide 50 MG Capsule 150 MG PO ×2 (01:17→20:33)
[2020-12-28] MEDS: amLODIPine 10 MG Tablet PO ×2 (01:18→20:34)
[2020-12-28 01:34] LABS: Procalcitonin 1.09 ng/mL (0.00-0.09)
[2020-12-28] MEDS: diazePAM 5 MG Tablet PO (02:21)
[2020-12-28 02:28] LABS: Reflex Lactate? Y
[2020-12-28 03:33] LABS: Lactic Acid 1.1 mmol/L (0.4-1.9)
[2020-12-28] MEDS: Heparin Injection (Vial) 5,000 UNIT/ML VIAL 5000 UNIT SC ×3 (04:39→20:34)
[2020-12-28 04:55] LABS: Absolute Lymphocyte Count 0.42 X10^3/uL (0.83-4.51); Absolute Neutrophil Count 2.4 X10^3/uL (2.0-7.7); Basophil# 0.01 X10^3/uL; Basophil% 0.3 % (0-1); Hematocrit 32.3 % (37-47); Hemoglobin 10.9 g/dL (12.0-15.0); Lymphocyte # 0.42 X10^3/ul (4.0); Lymphocyte % 13.6 % (19-41); Mean Corp Hgb Conc 33.7 g/dL (32-36); Mean Corpuscular Hgb 32.3 pg (27.0-32.0); Mean Corpuscular Volume 95.8 fL (81-99); Monocyte# 0.11 X10^3/uL; Monocyte% 3.6 % (0-10); NRBC Flagged by Analyzer 0 % (0-5); Neutrophil # 2.44 X10^3/uL (2.7-7.7); Neutrophil % 79.3 % (47-70); POSITIVE DIFFERENTIAL YES; Platelet Count 105 K/mm3 (150-450); RBC Distribution Width CV 13.2 % (11.6-14.6); RBC Distribution Width SD 46.5 fl (35.1-43.9); Red Blood Count 3.37 M/mm3 (4.2-5.4); White Blood Count 3.1 K/mm3 (4.4-11.0)
[2020-12-28 05:23] LABS: ALB/GLOB Ratio 0.8 RATIO (0.9-2.4); AST(SGOT) 33 U/L (15-37); Alanine Aminotransfer ALT/SGPT 53 U/L (13-56); Albumin, Serum 3.3 g/dL (3.2-5.0); Alkaline Phosphatase 48 U/L (45-117); Anion Gap 12 (5-15); BUN 35 mg/dL (7-18); BUN/Creat Ratio 3.7 RATIO (10-20); Calcium,Total 7.7 mg/dL (8.5-10.1); Chloride 89 mmol/L (98-107); Differential Indicated SCAN CRITERIA MET; EST Glomerular Filtration Rate 5 mL/min (>60); Est Glom Filt Rate - Afr Amer 6 mL/min (>60); Estimated Creatinine Clearance 8.64 ml/min; Globulin 3.9 g/dL (2.2-4.2); Glucose 174 mg/dL (74-106); Potassium 3.4 mmol/L (3.5-5.1); Protein, Total 7.2 g/dL (6.4-8.2); Sodium Level 133 mmol/L (136-145)
[2020-12-28 05:27] LABS: Differential Comment SCANNED; Platelet Estimate SLT DEC (ADEQ); Stomatocyte RARE
[2020-12-28] MEDS: dexAMETHasone 2 MG TABLET 6 MG PO (08:27)
[2020-12-28] MEDS: 0.9% Saline Lock 10 ML Syringe IV ×2 (08:27→10:35)
[2020-12-28] MEDS: Loperamide 2 MG Capsule PO (10:29)
[2020-12-28] MEDS: Ondansetron 4 MG/2 ML Vial IV (10:35)
[2020-12-28] MEDS: Acetaminophen 325 MG Tablet 650 MG PO (10:35)
[2020-12-28 10:57] LABS: D-Dimer Quantitative (DVT/PE) 0.89 FEU/ug/m (0.27-0.49)
[2020-12-28 11:21] LABS: Pathologist Review Reviewed
--- NOTE | 2020-12-28 11:23 | CASEMGMT ---
Attempted to call pt in room due to isolation precautions. Pt states she would prefer not to talk at this time as she needs to rest. CM to call after lunch.
[2020-12-28 11:24] LABS: Pathologist Review Reviewed
--- NOTE | 2020-12-28 11:28 | CON.PCM_ITS ---
Consultation - Renal 12/28/20 PCP/ Referring MD: Requesting physician: [] Primary care physician: Dr. Bethany Coughlin MD Reason for Consultation:: ESRD on HHD - History of Present Illness History of Present Illness: The patient is a 35 year old F with a significant history of end-stage renal disease secondary to FSGS; idiopathic intracranial hypertension; multiple pneumonia; and morbid obesity who presents to the emergency department with 1 week history of episodic fever. Associated with her symptoms is malaise; shortness of breath; nonproductive cough; and headaches. Of note, patient had Covid vaccination a day before presentation.She is now COVI19 +, has RLML PNA.[] - Allergies Allergies: Allergies cat dander Allergy (Verified 12/27/20 22:09) Other hydrocodone Adverse Reaction (Verified 12/27/20 22:09) Nausea - Current Medications Current Medications: Current Medications Acetaminophen (Acetaminophen 325 Mg Tablet) 650 mg PO Q6H PRN PRN PRN Reason: Pain Score 1-10/Temp > 100.7 F Last Admin: 12/28/20 10:35 Dose: 650 mg Documented by: Albuterol Sulfate (Albuterol Sulfate 18 Gm Inhaler (200 Puffs)) 2 puff INHALATION Q2H PRN PRN PRN Reason: sob/wheezing Amlodipine Besylate (Amlodipine 10 Mg Tablet) 10 mg PO QHS [facility] Last Admin: 12/28/20 01:18 Dose: 10 mg Documented by: Dexamethasone (Dexamethasone 2 Mg Tablet) 6 mg PO DAILY [facility] Last Admin: 12/28/20 08:27 Dose: 6 mg Documented by: Diazepam (Diazepam 5 Mg Tablet) 5 mg PO DAILY PRN PRN PRN Reason: ANXIETY Last Admin: 12/28/20 02:21 Dose: 5 mg Documented by: Guaifenesin (Guaifenesin 1,200 Mg Tablet) 1,200 mg PO BID [facility] Last Admin: 12/28/20 08:27 Dose: 1,200 mg Documented by: Heparin Sodium (Porcine) (Heparin Injection (Vial) 5,000 Unit/Ml Vial) 5,000 unit SC Q8 [facility] Last Admin: 12/28/20 04:39 Dose: 5,000 unit Documented by: Azithromycin 500 mg/ Dextrose 255 mls @ 250 mls/hr IV Q24@2200 [facility] Last Infusion: 12/28/20 02:20 Dose: Infused Documented by: Ceftriaxone Sodium (Rocephin) 1 gm in 50 mls @ 100 mls/hr IV Q24@2200 [facility] Last Infusion: 12/28/20 01:15 Dose: Infused Documented by: Sodium Chloride () 250 mls @ 15 mls/hr IV .[id number] PRN PRN Reason: Saline Flush Last Infusion: 12/28/20 08:34 Dose: 0 mls/hr Documented by: Loperamide HCl (Loperamide 2 Mg Capsule) 2 mg PO Q4H PRN PRN PRN Reason: DIARRHEA Last Admin: 12/28/20 10:29 Dose: 2 mg Documented by: Miscellaneous Information (Inhaler, Assist Devices 1 Each Spacer) 1 each INHALATION PRN PRN PRN Reason: WITH ALBUTEROL INHALER Ondansetron HCl (Ondansetron 4 Mg/2 Ml Vial) 4 mg IV Q8H PRN PRN PRN Reason: NAUSEA/VOMITING Last Admin: 12/28/20 10:35 Dose: 4 mg Documented by: Oxycodone HCl (Oxycodone 5 Mg Tablet) 10 mg PO Q4H PRN PRN PRN Reason: PAIN 1-10 Sevelamer Carbonate (Sevelamer Carbonate 800 Mg Tablet) 2,400 mg PO TIDCM [facility] Sodium Chloride (0.9% Saline Lock 10 Ml Syringe) 10 - 40 ml IV UD PRN PRN Reason: SALINE FLUSH Last Admin: 12/28/20 10:35 Dose: 10 ml Documented by: Zonisamide (Zonisamide 50 Mg Capsule) 150 mg PO QHS [facility] Last Admin: 12/28/20 01:17 Dose: 150 mg Documented by: - Past Medical History Past Medical History (Chronic Problems): Chronic Problems Chronic kidney disease (CKD) (Chronic) - Past Surgical History Surgical History: - - Recent left arm AV fistula; parathyroidectomy; IUD - Social History Smoking Status: Never smoker Alcohol: None Drugs: None - Family History Maternal History Items: - - Denies knowledge of maternal medical history Paternal History Items: - - Denies knowledge of paternal medical history Review of Systems Constitutional: Denies: Chills, Fever, Weight Change Patient Problems: Active and Suspected Problems FSGS (focal segmental glomerulosclerosis) (Acute) Community acquired bacterial pneumonia (Acute) Objective: cannot examine in COVID contact precaution - Physical Exam Vitals/I&O's: Vital Signs Temp Pulse Resp BP Pulse Ox 99.2 F H 86 16 138/63 H 98 12/28/20 08:30 12/28/20 08:30 12/28/20 08:30 12/28/20 08:30 12/28/20 08:30 Oxygen Flow Rate (L/min) 2 Oxygen Delivery Method Nasal Cannula Weight: 160.6 kg Body Mass Index (BMI) 52.2 Intake and Output for Last 24 Hours 12/26/20 12/27/20 12/28/20 23:59 23:59 23:59 Intake Total 500 / 500 306.75 / 306.75 Balance 500 / 500 306.75 / 306.75 Microbiology Past 72 Hours 12/27/20 22:20 Mucosa - Nasopharyngeal SARS-CoV-2 Antigen (Rapid) - Final SARS-CoV-2 (COVID 19) 12/27/20 22:20 Mucosa - Nasopharyngeal Influenza Types A,B Direct FA ([facility]) - Final Laboratory Results 12/27/20 22:15: WBC 4.1 L, RBC 3.12 L, Hgb 10.0 L, Hct 30.3 L, MCV 97.1, MCH 32.1 H, MCHC 33.0, RDW Std Deviation 48.2 H, RDW Coeff of Braulio 13.5, Plt Count 14 5 L, MPV 10.1, Immature Gran % (Auto) 2.200 H, Neut % (Auto) 79.0 H, Lymph % (Auto) 14.0 L, [place] % (Auto) 4.4, Eos % (Auto) 0.2, Baso % (Auto) 0.2, Absolute Neuts (auto) 3.2, Absolute Lymphs (auto) 0.57 L, Nucleated RBC % 0, Differential Comment SEE COMMENT, Diff Path Review Reviewed, Platelet Estimate SLT DEC, RBC Morphology N CHROM, Anisocytosis RARE, Macrocytosis RARE 12/27/20 22:15: PT 12.9, INR 1.0, APTT 32.4 12/27/20 22:15: Sodium 129 L, Potassium 3.2 L, Chloride 89 L, Carbon Dioxide 30.0, Anion Gap 10, BUN 31 H, Creatinine 8.56 H*, Estim Creat Clear Calc 9.59, Est GFR (MDRD) Af Amer 7 L, Est GFR (MDRD) Non-Af 6 L, BUN/Creatinine Ratio 3.6 L, Glucose 117 H, Calcium 8.2 L, Total Bilirubin 0.40, AST 42 H, ALT 59 H, Alkaline Phosphatase 52, Total Protein 8.0, Albumin 3.7, Globulin 4.3 H, Albumin/Globulin Ratio 0.9 12/27/20 22:15: Lactic Acid 4.3 H* 12/28/20 00:40: Procalcitonin 1.09 H 12/28/20 03:00: Lactic Acid 1.1 12/28/20 04:45: WBC 3.1 L, RBC 3.37 L, Hgb 10.9 L, Hct 32.3 L, MCV 95.8, MCH 32.3 H, MCHC 33.7, RDW Std Deviation 46.5 H, RDW Coeff of Braulio 13.2, Plt Count 105 L, MPV 10.0, Immature Gran % (Auto) 3.200 H, Neut % (Auto) 79.3 H, Lymph % (Auto) 13.6 L, [place] % (Auto) 3.6, Eos % (Auto) 0.0, Baso % (Auto) 0.3, Absolute Neuts (auto) 2.4, Absolute Lymphs (auto) 0.42 L, Nucleated RBC % 0, Differential Comment SCANNED, Diff Path Review Reviewed, Platelet Estimate SLT DEC, Stomatocytes RARE 12/28/20 04:45: Sodium 133 L, Potassium 3.4 L, Chloride 89 L, Carbon Dioxide 32.0, Anion Gap 12, BUN 35 H, Creatinine 9.50 H*, Estim Creat Clear Calc 8.64, Est GFR (MDRD) Af Amer 6 L, Est GFR (MDRD) Non-Af 5 L, BUN/Creatinine Ratio 3.7 L, Glucose 174 H, Calcium 7.7 L, Total Bilirubin 0.40, AST 33, ALT 53, Alkaline Phosphatase 48, Total Protein 7.2, Albumin 3.3, Globulin 3.9, Albumin/Globulin Ratio 0.8 L 12/28/20 10:30: D-Dimer Quant (PE/DVT) 0.89 H* Current Medications Acetaminophen (Acetaminophen 325 Mg Tablet) 650 mg PO Q6H PRN PRN PRN Reason: Pain Score 1-10/Temp > 100.7 F Last Admin: 12/28/20 10:35 Dose: 650 mg Documented by: Albuterol Sulfate (Albuterol Sulfate 18 Gm Inhaler (200 Puffs)) 2 puff IN HALATION Q2H PRN PRN PRN Reason: sob/wheezing Amlodipine Besylate (Amlodipine 10 Mg Tablet) 10 mg PO QHS [facility] Last Admin: 12/28/20 01:18 Dose: 10 mg Documented by: Dexamethasone (Dexamethasone 2 Mg Tablet) 6 mg PO DAILY [facility] Last Admin: 12/28/20 08:27 Dose: 6 mg Documented by: Diazepam (Diazepam 5 Mg Tablet) 5 mg PO DAILY PRN PRN PRN Reason: ANXIETY Last Admin: 12/28/20 02:21 Dose: 5 mg Documented by: Guaifenesin (Guaifenesin 1,200 Mg Tablet) 1,200 mg PO BID [facility] Last Admin: 12/28/20 08:27 Dose: 1,200 mg Documented by: Heparin Sodium (Porcine) (Heparin Injection (Vial) 5,000 Unit/Ml Vial) 5,000 unit SC Q8 [facility] Last Admin: 12/28/20 04:39 Dose: 5,000 unit Documented by: Azithromycin 500 mg/ Dextrose 255 mls @ 250 mls/hr IV Q24@2200 [facility] Last Infusion: 12/28/20 02:20 Dose: Infused Documented by: Ceftriaxone Sodium (Rocephin) 1 gm in 50 mls @ 100 mls/hr IV Q24@2200 [facility] Last Infusion: 12/28/20 01:15 Dose: Infused Documented by: Sodium Chloride () 250 mls @ 15 mls/hr IV .[id number] PRN PRN Reason: Saline Flush Last Infusion: 12/28/20 08:34 Dose: 0 mls/hr Documented by: Loperamide HCl (Loperamide 2 Mg Capsule) 2 mg PO Q4H PRN PRN PRN Reason: DIARRHEA Last Admin: 12/28/20 10:29 Dose: 2 mg Documented by: Miscellaneous Information (Inhaler, Assist Devices 1 Each Spacer) 1 each INHALATION PRN PRN PRN Reason: WITH ALBUTEROL INHALER Ondansetron HCl (Ondansetron 4 Mg/2 Ml Vial) 4 mg IV Q8H PRN PRN PRN Reason: NAUSEA/VOMITING Last Admin: 12/28/20 10:35 Dose: 4 mg Documented by: Oxycodone HCl (Oxycodone 5 Mg Tablet) 10 mg PO Q4H PRN PRN PRN Reason: PAIN 1-10 Sevelamer Carbonate (Sevelamer Carbonate 800 Mg Tablet) 2,400 mg PO TIDCM [facility] Sodium Chloride (0.9% Saline Lock 10 Ml Syringe) 10 - 40 ml IV UD PRN PRN Reason: SALINE FLUSH Last Admin: 12/28/20 10:35 Dose: 10 ml Documented by: Zonisamide (Zonisamide 50 Mg Capsule) 150 mg PO QHS [facility] Last Admin: 12/28/20 01:17 Dose: 150 mg Documented by: Assessment/Plan All Active Problems Septic shock (Acute) FSGS (focal segmental glomerulosclerosis) (Acute) Community acquired bacterial pneumonia (Acute) The patient is a 35 year old F with a significant history of end-stage renal disease secondary to FSGS; idiopathic intracranial hypertension; multiple pneumonia; and morbid obesity who presents to the emergency department with 1 week history of episodic fever. Associated with her symptoms is malaise; shortness of breath; nonproductive cough; and headaches. Of note, patient had Covid vaccination a day before presentation ESRD on HHD- no HHD for 2 days solute and volume overload-we will do HD regular today-in house she will get HD today and tomorrow for 3 Hrd 3K bath IUF 2L PNA +COVID 19 ok to use remdesvir dose [id number] Agree with IV steriod Anema on epo we I'll hold in setting of infection HTn controlled
--- NOTE | 2020-12-28 11:48 | PCM.PN.HOSP ---
Subjective: Breathing well on oxygen. Developed diarrhea. Vitals/I&O's: Vital Signs Temp Pulse Resp BP Pulse Ox 37.3 C H 86 16 138/63 H 98 12/28/20 08:30 12/28/20 08:30 12/28/20 08:30 12/28/20 08:30 12/28/20 08:30 Oxygen Flow Rate (L/min) 2 Oxygen Delivery Method Nasal Cannula Weight: 160.6 kg Body Mass Index (BMI) 52.2 Intake and Output for Last 24 Hours 12/26/20 12/27/20 12/28/20 23:59 23:59 23:59 Intake Total 500 / 500 306.75 / 306.75 Balance 500 / 500 306.75 / 306.75 General: Alert, No apparent distress HEENT: Atraumatic, Normocephalic Oral: Moist Mucosa, No Gingival or Mucosal Lesions/ Ulcerations Neck: No Nodes, Thyroid Normal Size and Texture Lungs: Diminished, - - coarse breath sounds bilaterally. Cardiovascular: Regular rate, Regular Rhythm, Normal S1, Normal S2 Abdomen: Bowel Sounds Present, Soft, Non Tender, Non-Distended Extremities: No edema, No Calf Tenderness Skin: No rashes, No breakdown Psych/Mental Status: Normal Affect, Appropriate Microbiology Past 72 Hours 12/27/20 22:20 Mucosa - Nasopharyngeal SARS-CoV-2 Antigen (Rapid) - Final SARS-CoV-2 (COVID 19) 12/27/20 22:20 Mucosa - Nasopharyngeal Influenza Types A,B Direct FA ([facility]) - Final Laboratory Results 12/27/20 22:15: WBC 4.1 L, RBC 3.12 L, Hgb 10.0 L, Hct 30.3 L, MCV 97.1, MCH 32.1 H, MCHC 33.0, RDW Std Deviation 48.2 H, RDW Coeff of Braulio 13.5, Plt Count 145 L, MPV 10.1, Immature Gran % (Auto) 2.200 H, Neut % (Auto) 79.0 H, Lymph % (Auto) 14.0 L, [place] % (Auto) 4.4, Eos % (Auto) 0.2, Baso % (Auto) 0.2, Absolute Neuts (auto) 3.2, Absolute Lymphs (auto) 0.57 L, Nucleated RBC % 0, Differential Comment SEE COMMENT, Diff Path Review Reviewed, Platelet Estimate SLT DEC, RBC Morphology N CHROM, Anisocytosis RARE, Macrocytosis RARE 12/27/20 22:15: PT 12.9, INR 1.0, APTT 32.4 12/27/20 22:15: Sodium 129 L, Potassium 3.2 L, Chloride 89 L, Carbon Dioxide 30.0, Anion Gap 10, BUN 31 H, Creatinine 8.56 H*, Estim Creat Clear Calc 9.59, Est GFR (MDRD) Af Amer 7 L, Est GFR (MDRD) Non-Af 6 L, BUN/Creatinine Ratio 3.6 L, Glucose 117 H, Calcium 8.2 L, Total Bilirubin 0.40, AST 42 H, ALT 59 H, Alkaline Phosphatase 52, Total Protein 8.0, Albumin 3.7, Globulin 4.3 H, Albumin/Globulin Ratio 0.9 12/27/20 22:15: Lactic Acid 4.3 H* 12/28/20 00:40: Procalcitonin 1.09 H 12/28/20 03:00: Lactic Acid 1.1 12/28/20 04:45: WBC 3.1 L, RBC 3.37 L, Hgb 10.9 L, Hct 32.3 L, MCV 95.8, MCH 32.3 H, MCHC 33.7, RDW Std Deviation 46.5 H, RDW Coeff of Braulio 13.2, Plt Count 105 L, MPV 10.0, Immature Gran % (Auto) 3.200 H, Neut % (Auto) 79.3 H, Lymph % (Auto) 13.[address] L, [place] % (Auto) 3.6, Eos % (Auto) 0.0, Baso % (Auto) 0.3, Absolute Neuts (auto) 2.4, Absolute Lymphs (auto) 0.42 L, Nucleated RBC % 0, Differential Comment SCANNED, Diff Path Review Reviewed, Platelet Estimate SLT DEC, Stomatocytes RARE 12/28/20 04:45: Sodium 133 L, Potassium 3.4 L, Chloride 89 L, Carbon Dioxide 32.0, Anion Gap 12, BUN 35 H, Creatinine 9.50 H*, Estim Creat Clear Calc 8.64, Est GFR (MDRD) Af Amer 6 L, Est GFR (MDRD) Non-Af 5 L, BUN/Creatinine Ratio 3.7 L, Glucose 174 H, Calcium 7.7 L, Total Bilirubin 0.40, AST 33, ALT 53, Alkaline Phosphatase 48, Total Protein 7.2, Albumin 3.3, Globulin 3.9, Albumin/Globulin Ratio 0.8 L 12/28/20 10:30: D-Dimer Quant (PE/DVT) 0.89 H* Current Medications Acetaminophen (Acetaminophen 325 Mg Tablet) 650 mg PO Q6H PRN PRN PRN Reason: Pain Score 1-10/Temp > 100.7 F Last Admin: 12/28/20 10:35 Dose: 650 mg Documented by: Albuterol Sulfate (Albuterol Sulfate 18 Gm Inhaler (200 Puffs)) 2 puff INHALATION Q2H PRN PRN PRN Reason: sob/wheezing Amlodipine Besylate (Amlodipine 10 Mg Tablet) 10 mg PO QHS [facility] Last Admin: 12/28/20 01:18 Dose: 10 mg Documented by: Dexamethasone (Dexamethasone 2 Mg Tablet) 6 mg PO DAILY [facility] Last Admin: 12/28/20 08:27 Dose: 6 mg Documented by: Diazepam (Diazepam 5 Mg Tablet) 5 mg PO DAILY PRN PRN PRN Reason: ANXIETY Last Admin: 12/28/20 02:21 Dose: 5 mg Documented by: Guaifenesin (Guaifenesin 1,200 Mg Tablet) 1,200 mg PO BID [facility] Last Admin: 12/28/20 08:27 Dose: 1,200 mg Documented by: Heparin Sodium (Porcine) (Heparin Injection (Vial) 5,000 Unit/Ml Vial) 5,000 unit SC Q8 [facility] Last Admin: 12/28/20 04:39 Dose: 5,000 unit Documented by: Azithromycin 500 mg/ Dextrose 255 mls @ 250 mls/hr IV Q24@2200 [facility] Last Infusion: 12/28/20 02:20 Dose: Infused Documented by: Ceftriaxone Sodium (Rocephin) 1 gm in 50 mls @ 100 mls/hr IV Q24@2200 [facility] Last Infusion: 12/28/20 01:15 Dose: Infused Documented by: Sodium Chloride () 250 mls @ 15 mls/hr IV .[id number] PRN PRN Reason: Saline Flush Last Infusion: 12/28/20 08:34 Dose: 0 mls/hr Documented by: Loperamide HCl (Loperamide 2 Mg Capsule) 2 mg PO Q4H PRN PRN PRN Reason: DIARRHEA Last Admin: 12/28/20 10:29 Dose: 2 mg Documented by: Miscellaneous Information (Inhaler, Assist Devices 1 Each Spacer) 1 each INHALATION PRN PRN PRN Reason: WITH ALBUTEROL INHALER Ondansetron HCl (Ondansetron 4 Mg/2 Ml Vial) 4 mg IV Q8H PRN PRN PRN Reason: NAUSEA/VOMITING Last Admin: 12/28/20 10:35 Dose: 4 mg Documented by: Oxycodone HCl (Oxycodone 5 Mg Tablet) 10 mg PO Q4H PRN PRN PRN Reason: PAIN 1-10 Sevelamer Carbonate (Sevelamer Carbonate 800 Mg Tablet) 2,400 mg PO TIDCM [facility] Sodium Chloride (0.9% Saline Lock 10 Ml Syringe) 10 - 40 ml IV UD PRN PRN Reason: SALINE FLUSH Last Admin: 12/28/20 10:35 Dose: 10 ml Documented by: Zonisamide (Zonisamide 50 Mg Capsule) 150 mg PO QHS [facility] Last Admin: 12/28/20 01:17 Dose: 150 mg Documented by: STROKE Vital Signs/Narrative: Vital Signs Temp Pulse Resp BP Pulse Ox 12/28/20 08:30 37.3 C H 86 16 138/63 H 98 Medical Necessity - Tobacco Use Smoking Status: Never smoker Assessment/Plan All Active Problems COVID-19 (Acute) Septic shock (Acute) 1. acute COVID-19 pneumonia date of onset of symptoms was 12/20/2020. Had 1st vaccination two days ago. on dexamethasone not a candidate for remdesivir given ESRD D-dimer elevated. 2. Septic shock 2/2 COVID 19. lactic acidosis likely partly due to hypoxia stable did receive IVF. hold additional fluids for now 3. Acute hypoxic respiratory insufficiency 2/2 COVID-19. doubt PE, however D-dimer elevated. Check CTA. 4. 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 resume sevelamer 5. Diarrhea: 2/2 COVID-19. PRN imodium. 6. VTE prophylaxis: SQ heparin. Inpatient E&M: 47450 Subs Hosp L2
--- NOTE | 2020-12-28 12:01 | CT_ITS ---
STUDY: CTA PULMONARY ARTERIES REASON FOR EXAM: Female, 35 years old. Septic shock RADIATION DOSAGE (If Supplied By Facility): CTDIvol = ( 49.35 ) mGy, DLP = ( 734.38 ) mGycm TECHNIQUE: Axial CT angiographic images of the chest were obtained. 3D rendering reconstructions of the pulmonary arteries were also performed. The protocol utilizes one or more of the following does reduction techniques: automated exposure control, adjustment of mA and /or kv according to patient size, and/or use of iterative reconstruction technique. Individualized dose optimization techniques were used for this CT. COMPARISON: No relevant priors. FINDINGS: Significantly limited by patient size. Pulmonary Arteries: There is limited enhancement of the main pulmonary artery and right and left pulmonary arteries. There is limited enhancement of the bilateral peripheral pulmonary arteries. Specifically, most of the contrast is seen in the right brachiocephalic vein and SVC, and the aorta is enhanced almost as much as the pulmonary arteries. This indicates a much too broad contrast bolus with improper timing. Pulmonary emboli cannot be excluded beyond the pulmonary trunk. Aorta: Aortic Arch T Great Vessels: Normal. Descending Aorta: Normal. Lungs T Large Airways: Very low lung volumes. There are bilateral widespread streaky and patchy pulmonary opacities, especially in the perihilar regions, consistent with nonspecific multifocal pneumonia. 6 cm bulla of the left apex. Pleura: Normal. Heart T Pericardium: Cardiomegaly. Calcified coronary arteries. Probable left ventricular hypertrophy. All these findings are unusual for a patient this age. Calli: Although no gross mediastinal or hilar mass or adenopathy is seen, adenopathy is difficult to exclude, because of adjacent infiltrates/atelectasis. Mediastinum: Normal. No adenopathy. Normal esophagus and no hiatal hernia. Chest Wall: Ribs: Normal. Muscles: Normal. Spine: Normal. Upper Abdomen: No demonstrated acute abnormality. CT/CTA Chest W/WO Contrast IMPRESSION: Technically inadequate exam for confirming or excluding pulmonary emboli beyond the main pulmonary arteries. Very low lung volumes. Widespread bilateral pulmonary opacifications consistent with nonspecific multifocal bilateral pneumonia. Electronically Signed: Parvez Amaral MD at 13:14 EDT , Service support ,
[2020-12-28] MEDS: SEVELAMER CARBONATE 800 MG TABLET 2400 MG PO ×2 (12:55→17:09)
--- NOTE | 2020-12-28 14:03 | CASEMGMT ---
TC attempt multiple times with no success of reaching pt. Chart review- Pt from home. Currently on 2L O2. [facility] Spoke with nurse Haily. She states pt does dialysis at home. The order is for 5 days/wk. Pt usually gets on 4 days/wk. Her days vary by her sig other's availability. Requested positive covid result faxed. Faxed at this time.
--- NOTE | 2020-12-28 14:07 | CON.PCM_ITS ---
Problem List (1) COVID-19 Status: Acute Reason for Consult: covid Consulted by: Dr. 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 Got 1st dose covid vaccine 12/19. Developed fever, chills, headache, sore throat, cough, dyspnea, aches, fatigue, nausea, diarrhea. No change in taste or smell. Sx worsened, came to ED, found to be hypoxic with high lactate. No sputum. Admitted on dex, azithro, ceftriaxone. Full ROS performed and neg except as noted above. - Medical History Past Medical History (Chronic Problems): Chronic Problems FSGS (focal segmental glomerulosclerosis) (Chronic) Chronic kidney disease (CKD) (Chronic) Allergies/Adverse Reactions: Allergies cat dander Allergy (Verified 12/27/20 22:09) Other hydrocodone Adverse Reaction (Verified 12/27/20 22:09) Nausea Home Medications: Ambulatory Orders Medication Instructions Recorded Albuterol Inhaler [Ventolin Hfa] 1 - 2 puff INHALATION Q4H PRN PRN 11/26/13 Amlodipine [Norvasc] 10 mg PO QHS 06/30/14 Oxycodone HCl/Acetaminophen 2 tablet PO Q4H PRN PRN #30 tablet 01/31/15 [Percocet 5-325] Butalb/Acetaminophen/Caffeine 1 tab PO Q12H PRN PRN 12/06/18 [[id number]-Lqwi 50-325-40] Ondansetron [Zofran Odt] 4 mg PO Q8H PRN PRN 12/06/18 Zonisamide 150 mg PO QHS 12/06/18 Diazepam [Valium] 5 mg PO DAILY PRN 12/27/20 Sevelamer Carbonate [Renvela] 2,400 mg PO 12/28/20 - Social History Tobacco Use: non-smoker Vital Signs Temp Pulse Resp BP Pulse Ox 99.0 F 81 17 134/57 H 95 12/28/20 13:00 12/28/20 13:00 12/28/20 13:00 12/28/20 13:00 12/28/20 13:00 Oxygen Flow Rate (L/min) 2 Oxygen Delivery Method Nasal Cannula Weight: 160.6 kg Body Mass Index (BMI) 52.2 Microbiology Past 72 Hours 12/27/20 22:20 SARS-CoV-2 Antigen (Rapid) - Final Mucosa - Nasopharyngeal SARS-CoV-2 (COVID 19) 12/27/20 22:20 Influenza Types A,B Direct FA ([facility]) - Final Mucosa - Nasopharyngeal Laboratory Tests Past 24 Hrs 12/27/20 12/27/20 12/27/20 22:15 22:15 22:15 WBC 4.1 L RBC 3.12 L Hgb 10.0 L Hct 30.3 L MCV 97.1 MCH 32.1 H MCHC 33.0 RDW Std Deviation 48.2 H RDW Coeff of Braulio 13.5 Plt Count 145 L MPV 10.1 Immature Gran % (Auto) 2.200 H Neut % (Auto) 79.0 H Lymph % (Auto) 14.0 L [place] % (Auto) 4.4 Eos % (Auto) 0.2 Baso % (Auto) 0.2 Absolute Neuts (auto) 3.2 Absolute Lymphs (auto) 0.57 L Nucleated RBC % 0 Differential Comment SEE COMMENT Diff Path Review Reviewed Platelet Estimate SLT DEC RBC Morphology N CHROM Anisocytosis RARE Macrocytosis RARE Stomatocytes PT 12.9 INR 1.0 APTT 32.4 D-Dimer Quant (PE/DVT) Sodium 129 L Potassium 3.2 L Chloride 89 L Carbon Dioxide 30.0 Anion Gap 10 BUN 31 H Creatinine 8.56 H* Estim Creat Clear Calc 9.59 Est GFR (MDRD) Af Amer 7 L Est GFR (MDRD) Non-Af 6 L BUN/Creatinine Ratio 3.6 L Glucose 117 H Lactic Acid Calcium 8.2 L Total Bilirubin 0.40 AST 42 H ALT 59 H Alkaline Phosphatase 52 Total Protein 8.0 Albumin 3.7 Globulin 4.3 H Albumin/Globulin Ratio 0.9 Procalcitonin 12/27/20 12/28/20 12/28/20 22:15 00:40 03:00 WBC RBC Hgb Hct MCV MCH MCHC RDW Std Deviation RDW Coeff of Braulio Plt Count MPV Immature Gran % (Auto) Neut % (Auto) Lymph % (Auto) [place] % (Auto) Eos % (Auto) Baso % (Auto) Absolute Neuts (auto) Absolute Lymphs (auto) Nucleated RBC % Differential Comment Diff Path Review Platelet Estimate RBC Morphology Anisocytosis Macrocytosis Stomatocytes PT INR APTT D-Dimer Quant (PE/DVT) Sodium Potassium Chloride Carbon Dioxide Anion Gap BUN Creatinine Estim Creat Clear Calc Est GFR (MDRD) Af Amer Est GFR (MDRD) Non-Af BUN/Creatinine Ratio Glucose Lactic Acid 4.3 H* 1.1 Calcium Total Bilirubin AST ALT Alkaline Phosphatase Total Protein Albumin Globulin Albumin/Globulin Ratio Procalcitonin 1.09 H 12/28/20 12/28/20 12/28/20 04:45 04:45 10:30 WBC 3.1 L RBC 3.37 L Hgb 10.9 L Hct 32.3 L MCV 95.8 MCH 32.3 H MCHC 33.7 RDW Std Deviation 46.5 H RDW Coeff of Braulio 13.2 Plt Count 105 L MPV 10.0 Immature Gran % (Auto) 3.200 H Neut % (Auto) 79.3 H Lymph % (Auto) 13.6 L [place] % (Auto) 3.6 Eos % (Auto) 0.0 Baso % (Auto) 0.3 Absolute Neuts (auto) 2.4 Absolute Lymphs (auto) 0.42 L Nucleated RBC % 0 Differential Comment SCANNED Diff Path Review Reviewed Platelet Estimate SLT DEC RBC Morphology Anisocytosis Macrocytosis Stomatocytes RARE PT INR APTT D-Dimer Quant (PE/DVT) 0.89 H* Sodium 133 L Potassium 3.4 L Chloride 89 L Carbon Dioxide 32.0 Anion Gap 12 BUN 35 H Creatinine 9.50 H* Estim Creat Clear Calc 8.64 Est GFR (MDRD) Af Amer 6 L Est GFR (MDRD) Non-Af 5 L BUN/Creatinine Ratio 3.7 L Glucose 174 H Lactic Acid Calcium 7.7 L Total Bilirubin 0.40 AST 33 ALT 53 Alkaline Phosphatase 48 Total Protein 7.2 Albumin 3.3 Globulin 3.9 Albumin/Globulin Ratio 0.8 L Procalcitonin - Other Studies Radiology: [] reviewed images of cxr and CT Other Studies: [] Route of nutrition/ use of supplements: [] Nutritional Intake: [] IV Site: [] [place] Catheter: [] - Physical Exam General: Alert, Oriented x3, Cooperative HEENT: Atraumatic, PERRLA, EOMI Neck: Supple, No Nodes Lungs: Diminished Cardiovascular: Regular rate, Regular Rhythm Abdomen: Soft, Non Tender, Non-Distended, Obese Extremities: No cyanosis, Edema Skin: No rashes IV Site: Peripheral, without redness Musculoskeletal: No Tenderness to Palpation of Joints or Extremities Neurological: Cranial nerves II-XII grossly intact - Assessment/Plan Antibiotics: [] Assessment/Plan: [] covid with hypoxia, ESRD - 1st covid vaccine 12/19. Sx started 12/20. On 10 day course of dex. D-dimer at 0.9. Given early in the course of covid and severity of illness, risks of remdesivir in someone on HD is far outweighed by potential benefit. Discussed with her and she is in agreement. Will start remdesivir, closely follow daily labs, ordered cbc and cmp. Quarantine for 20 days until 01/09. Ok for 2nd dose of vaccine at that point. Low suspicion for bacterial pneumonia given symptoms and chest imaging, will stop azithro and ceftriaxone. Will follow, thank you. D/w Dr. Drake.
--- NOTE | 2020-12-28 14:20 | NURSING ---
Spoke with Madelaine at [facility], she will contact Acute dialysis and have them call unit for ETA.
[2020-12-28 15:28] LABS: Alkaline Phosphatase 43 U/L (45-117)
--- NOTE | 2020-12-28 17:33 | NURSING ---
1727-Called [facility] for ETA of dialysis, spoke with Madelaine who was calling Acute Dialysis at this time 1730- Madelaine called back and stated she talked to Acute Dialysis and they will call this unit in approx 15 minutes
--- NOTE | 2020-12-28 18:02 | NURSING ---
9532-called Acute Dialysis unit at [phone], with no response, voicemail left. Call placed to [phone] to Acute nurse control systems developer, nurse communicated that Dr. Mcgraw did not inform Acute Center that dialysis was needing to be ran today, unable to run dialysis tonight, this RN reviewed labs with control systems developer dialysis nurse who then called Marylu to inform of current labs and situation, Marylu stated ok to run first thing tomorrow morning.
[2020-12-29] VITALS (13 sets, daily range): BP systolic 132–168; BP diastolic 47–76; PULSE 75–99; RESP 14–21; TEMP 36.2–37.8; O2SAT 94–100
[2020-12-29] MEDS: Acetaminophen 325 MG Tablet 650 MG PO (01:42)
[2020-12-29] MEDS: diazePAM 5 MG Tablet PO ×2 (01:42→09:19)
[2020-12-29] MEDS: Heparin Injection (Vial) 5,000 UNIT/ML VIAL 5000 UNIT SC ×2 (04:50→20:50)
[2020-12-29 07:20] LABS: Hematocrit 25.5 % (37-47); Hemoglobin 8.4 g/dL (12.0-15.0); Mean Corp Hgb Conc 32.9 g/dL (32-36); Mean Corpuscular Hgb 32.2 pg (27.0-32.0); Mean Corpuscular Volume 97.7 fL (81-99); Mean Platelet Vol. 10.2 fl (6.2-12.0); Platelet Count 140 K/mm3 (150-450); RBC Distribution Width SD 46.3 fl (35.1-43.9); Red Blood Count 2.61 M/mm3 (4.2-5.4); White Blood Count 5.1 K/mm3 (4.4-11.0)
[2020-12-29 08:05] LABS: ALB/GLOB Ratio 0.9 RATIO (0.9-2.4); AST(SGOT) 20 U/L (15-37); Alanine Aminotransfer ALT/SGPT 41 U/L (13-56); Albumin, Serum 3.1 g/dL (3.2-5.0); Alkaline Phosphatase 43 U/L (45-117); Anion Gap 13 (5-15); BUN 51 mg/dL (7-18); BUN/Creat Ratio 4.2 RATIO (10-20); Calcium,Total 6.5 mg/dL (8.5-10.1); Chloride 89 mmol/L (98-107); EST Glomerular Filtration Rate 4 mL/min (>60); Est Glom Filt Rate - Afr Amer 5 mL/min (>60); Estimated Creatinine Clearance 6.78 ml/min; Globulin 3.6 g/dL (2.2-4.2); Glucose 110 mg/dL (74-106); Potassium 3.3 mmol/L (3.5-5.1); Protein, Total 6.7 g/dL (6.4-8.2); Sodium Level 130 mmol/L (136-145)
[2020-12-29] MEDS: dexAMETHasone 2 MG TABLET 6 MG PO (08:34)
[2020-12-29] MEDS: guaiFENesin 1,200 MG Tablet 1200 MG PO ×2 (08:34→20:49)
[2020-12-29] MEDS: oxyCODONE 5 MG Tablet 10 MG PO ×2 (09:19→21:26)
--- NOTE | 2020-12-29 09:57 | DIALYSIS ---
Report from primary RNBenji Access: Left forearm AVF: Site bruised, thrill and bruit present, cannulated with 15 gauge needles x 2. [place] secured to patient's arm with tape.
--- NOTE | 2020-12-29 10:42 | PCM.PN.HOSP ---
Patient Problems: Active and Suspected Problems COVID-19 (Acute) Subjective: Slept well last night. Still on 2 liters NC, breathing well. Vitals/I&O's: Vital Signs Temp Pulse Resp BP Pulse Ox 37.0 C 91 21 H 150/47 H 100 12/29/20 09:12 12/29/20 09:12 12/29/20 09:12 12/29/20 09:12 12/29/20 09:12 Oxygen Flow Rate (L/min) 1 Oxygen Delivery Method Nasal Cannula Weight: 161.6 kg Body Mass Index (BMI) 52.2 Intake and Output for Last 24 Hours 12/27/20 12/28/20 12/29/20 23:59 23:59 23:59 Intake Total 500 / 500 866.75 / 866.75 Balance 500 / 500 866.75 / 866.75 General: Alert, No apparent distress HEENT: Atraumatic, Normocephalic Oral: Moist Mucosa, No Gingival or Mucosal Lesions/ Ulcerations Neck: No Nodes, Thyroid Normal Size and Texture Lungs: Normal air movement, No rhonchi, No wheeze, Diminished Cardiovascular: Regular rate, Regular Rhythm, Normal S1, Normal S2, No murmurs Abdomen: Bowel Sounds Present, Soft, Non Tender, Non-Distended, No Hepato-splenomegaly Extremities: No edema, No Calf Tenderness Psych/Mental Status: Normal Affect, Appropriate Microbiology Past 72 Hours 12/27/20 22:20 Mucosa - Nasopharyngeal SARS-CoV-2 Antigen (Rapid) - Final SARS-CoV-2 (COVID 19) 12/27/20 22:20 Mucosa - Nasopharyngeal Influenza Types A,B Direct FA ([facility]) - Final Laboratory Results 12/27/20 22:15: Diff Path Review Reviewed 12/28/20 04:45: Diff Path Review Reviewed 12/28/20 10:30: D-Dimer Quant (PE/DVT) 0.89 H* 12/28/20 14:45: Alkaline Phosphatase 43 L 12/29/20 06:00: WBC 5.1, RBC 2.61 L, Hgb 8.4 L, Hct 25.5 L, MCV 97.7, MCH 32.2 H, MCHC 32.9, RDW Std Deviation 46.3 H, RDW Coeff of Braulio 13.0, Plt Count 140 L, MPV 10.2 12/29/20 06:00: Sodium 130 L, Potassium 3.3 L, Chloride 89 L, Carbon Dioxide 28.0, Anion Gap 13, BUN 51 H, Creatinine 12.10 H*, Estim Creat Clear Calc 6.78, Est GFR (MDRD) Af Amer 5 L, Est GFR (MDRD) Non-Af 4 L, BUN/Creatinine Ratio 4.2 L, Glucose 110 H, Calcium 6.5 L*, Total Bilirubin 0.60, AST 20, ALT 41, Alkaline Phosphatase 43 L, Total Protein 6.7, Albumin 3.1 L, Globulin 3.6, Albumin/Globulin Ratio 0.9 Current Medications Acetaminophen (Acetaminophen 325 Mg Tablet) 650 mg PO Q6H PRN PRN PRN Reason: Pain Score 1-10/Temp > 100.7 F Last Admin: 12/29/20 01:42 Dose: 650 mg Documented by: Albuterol Sulfate (Albuterol Sulfate 18 Gm Inhaler (200 Puffs)) 2 puff INHALATION Q2H PRN PRN PRN Reason: sob/wheezing Amlodipine Besylate (Amlodipine 10 Mg Tablet) 10 mg PO QHS [facility] Last Admin: 12/28/20 20:34 Dose: 10 mg Documented by: Dexamethasone (Dexamethasone 2 Mg Tablet) 6 mg PO DAILY [facility] Stop: 01/05/21 10:01 Last Admin: 12/29/20 08:34 Dose: 6 mg Documented by: Diazepam (Diazepam 5 Mg Tablet) 5 mg PO DAILY PRN PRN PRN Reason: ANXIETY Last Admin: 12/29/20 09:19 Dose: 5 mg Documented by: Guaifenesin (Guaifenesin 1,200 Mg Tablet) 1,200 mg PO BID [facility] Last Admin: 12/29/20 08:34 Dose: 1,200 mg Documented by: Heparin Sodium (Porcine) (Heparin Injection (Vial) 5,000 Unit/Ml Vial) 5,000 unit SC Q8 [facility] Last Admin: 12/29/20 04:50 Dose: 5,000 unit Documented by: Sodium Chloride () 250 mls @ 15 mls/hr IV .[id number] PRN PRN Reason: Saline Flush Last Infusion: 12/28/20 08:34 Dose: 0 mls/hr Documented by: Remdesivir 100 mg/ Sodium (Chloride) 250 mls @ 125 mls/hr IV DAILY [facility] Stop: 01/01/21 11:59 Loperamide HCl (Loperamide 2 Mg Capsule) 2 mg PO Q4H PRN PRN PRN Reason: DIARRHEA Last Admin: 12/28/20 10:29 Dose: 2 mg Documented by: Miscellaneous Information (Inhaler, Assist Devices 1 Each Spacer) 1 each INHALATION PRN PRN PRN Reason: WITH ALBUTEROL INHALER Ondansetron HCl (Ondansetron 4 Mg/2 Ml Vial) 4 mg IV Q8H PRN PRN PRN Reason: NAUSEA/VOMITING Last Admin: 12/28/20 10:35 Dose: 4 mg Documented by: Oxycodone HCl (Oxycodone 5 Mg Tablet) 10 mg PO Q4H PRN PRN PRN Reason: PAIN 1-10 Last Admin: 12/29/20 09:19 Dose: 10 mg Documented by: Sevelamer Carbonate (Sevelamer Carbonate 800 Mg Tablet) 2,400 mg PO TIDCM [facility] Last Admin: 12/29/20 08:34 Dose: 2,400 mg Documented by: Sodium Chloride (0.9% Saline Lock 10 Ml Syringe) 10 - 40 ml IV UD PRN PRN Reason: SALINE FLUSH Last Admin: 12/28/20 10:35 Dose: 10 ml Documented by: Zonisamide (Zonisamide 50 Mg Capsule) 150 mg PO QHS [facility] Last Admin: 12/28/20 20:33 Dose: 150 mg Documented by: STROKE Vital Signs/Narrative: Vital Signs Temp Pulse Resp BP Pulse Ox 12/29/20 09:12 37.0 C 91 21 H 150/47 H 100 12/29/20 08:13 96 12/29/20 08:00 36.2 C L 92 18 134/71 H 100 Medical Necessity - Tobacco Use Smoking Status: Never smoker Assessment/Plan All Active Problems COVID-19 (Acute) Septic shock (Acute) 1. acute COVID-19 pneumonia date of onset of symptoms was 12/20/2020. Had 1st vaccination two days ago. on dexamethasone on remdesivir ID following. 2. Septic shock improving 2/2 COVID 19. lactic acidosis likely partly due to hypoxia stable did receive IVF. hold additional fluids for now 3. Acute hypoxic respiratory insufficiency 2/2 COVID-19. doubt PE, however D-dimer elevated. CTA incomplete opacification, but no large PE 4. 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 resume sevelamer 5. Diarrhea: 2/2 COVID-19. PRN imodium. 6. VTE prophylaxis: SQ heparin. Inpatient E&M: 28812 Subs Hosp L2
--- NOTE | 2020-12-29 13:49 | CM.UR ---
Attempted to call patient a couple times throughout today to perform Case mgmt assessment however no answer. Pricilla Hewitt RN, CCM.
--- NOTE | 2020-12-29 14:30 | DIALYSIS ---
Hemodialysis complete. 4 hour run, net fuid removed = 1800 ml. Patient tolerated HD tx fairly well. Patient cramping during HD tx. Left forearm AVF: Site benign, thrill and bruit present, needle site pressure held 10 min each. Hemostasis achieved. Patient's temp 100.1f oral. Next HD tx Thursday Report given to primary RN, Benji Blackman
--- NOTE | 2020-12-29 15:51 | PCM.PN.REN ---
Patient Problems: Active and Suspected Problems COVID-19 (Acute) Subjective: No new events - Physical Exam Vitals/I&O's: Vital Signs Temp Pulse Resp BP Pulse Ox 100.1 F H 89 15 142/75 H 95 12/29/20 14:28 12/29/20 14:28 12/29/20 14:28 12/29/20 14:28 12/29/20 12:39 Oxygen Flow Rate (L/min) 2 Oxygen Delivery Method Nasal Cannula Weight: 161.6 kg Body Mass Index (BMI) 52.2 Intake and Output for Last 24 Hours 12/27/20 12/28/20 12/29/20 23:59 23:59 23:59 Intake Total 500 / 500 866.75 / 866.75 Output Total 1800 / 1800 Balance 500 / 500 866.75 / 866.75 -1800 / -1800 Comment: Exam minimalized due to Covid status. On 1 L of nasal cannula. Had dialys Microbiology Past 72 Hours 12/27/20 22:20 Mucosa - Nasopharyngeal SARS-CoV-2 Antigen (Rapid) - Final SARS-CoV-2 (COVID 19) 12/27/20 22:20 Mucosa - Nasopharyngeal Influenza Types A,B Direct FA ([facility]) - Final Laboratory Results 12/29/20 06:00: WBC 5.1, RBC 2.61 L, Hgb 8.4 L, Hct 25.5 L, MCV 97.7, MCH 32.2 H, MCHC 32.9, RDW Std Deviation 46.3 H, RDW Coeff of Braulio 13.0, Plt Count 140 L, MPV 10.2 12/29/20 06:00: Sodium 130 L, Potassium 3.3 L, Chloride 89 L, Carbon Dioxide 28.0, Anion Gap 13, BUN 51 H, Creatinine 12.10 H*, Estim Creat Clear Calc 6.78, Est GFR (MDRD) Af Amer 5 L, Est GFR (MDRD) Non-Af 4 L, BUN/Creatinine Ratio 4.2 L, Glucose 110 H, Calcium 6.5 L*, Total Bilirubin 0.60, AST 20, ALT 41, Alkaline Phosphatase 43 L, Total Protein 6.7, Albumin 3.1 L, Globulin 3.6, Albumin/Globulin Ratio 0.9 Current Medications Acetaminophen (Acetaminophen 325 Mg Tablet) 650 mg PO Q6H PRN PRN PRN Reason: Pain Score 1-10/Temp > 100.7 F Last Admin: 12/29/20 01:42 Dose: 650 mg Documented by: Albuterol Sulfate (Albuterol Sulfate 18 Gm Inhaler (200 Puffs)) 2 puff INHALATION Q2H PRN PRN PRN Reason: sob/wheezing Amlodipine Besylate (Amlodipine 10 Mg Tablet) 10 mg PO QHS [facility] Last Admin: 12/28/20 20:34 Dose: 10 mg Documented by: Dexamethasone (Dexamethasone 2 Mg Tablet) 6 mg PO DAILY [facility] Stop: 01/05/21 10:01 Last Admin: 12/29/20 08:34 Dose: 6 mg Documented by: Diazepam (Diazepam 5 Mg Tablet) 5 mg PO DAILY PRN PRN PRN Reason: ANXIETY Last Admin: 12/29/20 09:19 Dose: 5 mg Documented by: Guaifenesin (Guaifenesin 1,200 Mg Tablet) 1,200 mg PO BID [facility] Last Admin: 12/29/20 08:34 Dose: 1,200 mg Documented by: Heparin Sodium (Porcine) (Heparin Injection (Vial) 5,000 Unit/Ml Vial) 5,000 unit SC Q8 [facility] Last Admin: 12/29/20 14:15 Dose: Not Given Documented by: Sodium Chloride () 250 mls @ 15 mls/hr IV .[id number] PRN PRN Reason: Saline Flush Last Infusion: 12/28/20 08:34 Dose: 0 mls/hr Documented by: Remdesivir 100 mg/ Sodium (Chloride) 250 mls @ 125 mls/hr IV DAILY [facility] Stop: 01/01/21 11:59 Last Admin: 12/29/20 13:59 Dose: 125 mls/hr Documented by: Fentanyl Citrate 1,000 mcg/ (Sodium Chloride) 100 mls @ 5 mls/hr CONT INF .Q20H [facility]; Protocol Loperamide HCl (Loperamide 2 Mg Capsule) 2 mg PO Q4H PRN PRN PRN Reason: DIARRHEA Last Admin: 12/28/20 10:29 Dose: 2 mg Documented by: Miscellaneous Information (Inhaler, Assist Devices 1 Each Spacer) 1 each INHALATION PRN PRN PRN Reason: WITH ALBUTEROL INHALER Ondansetron HCl (Ondansetron 4 Mg/2 Ml Vial) 4 mg IV Q8H PRN PRN PRN Reason: NAUSEA/VOMITING Last Admin: 12/28/20 10:35 Dose: 4 mg Documented by: Oxycodone HCl (Oxycodone 5 Mg Tablet) 10 mg PO Q4H PRN PRN PRN Reason: PAIN 1-10 Last Admin: 12/29/20 09:19 Dose: 10 mg Documented by: Sevelamer Carbonate (Sevelamer Carbonate 800 Mg Tablet) 2,400 mg PO TIDCM [facility] Last Admin: 12/29/20 14:16 Dose: Not Given Documented by: Sodium Chloride (0.9% Saline Lock 10 Ml Syringe) 10 - 40 ml IV UD PRN PRN Reason: SALINE FLUSH Last Admin: 12/28/20 10:35 Dose: 10 ml Documented by: Zonisamide (Zonisamide 50 Mg Capsule) 150 mg PO QHS [facility] Last Admin: 12/28/20 20:33 Dose: 150 mg Documented by: Medical Necessity - Tobacco Use Smoking Status: Never smoker Assessment/Plan All Active Problems COVID-19 (Acute) Septic shock (Acute) ESRD. Dialysis was done earlier this morning. Next dialysis Thursday. Covid pneumonia. Treatment as per primary service.
[2020-12-29] MEDS: amLODIPine 10 MG Tablet PO (20:49)
[2020-12-29] MEDS: Zonisamide 50 MG Capsule 150 MG PO (20:49)
[2020-12-30] VITALS: PULSE 86
[2020-12-30] MEDS: Ondansetron 4 MG/2 ML Vial IV ×2 (00:18→08:38)
[2020-12-30 02:00] VITALS: BP 122/62; PULSE 81; RESP 16; TEMP 36.7; O2SAT 94
[2020-12-30 04:00] VITALS: PULSE 87
[2020-12-30] MEDS: Heparin Injection (Vial) 5,000 UNIT/ML VIAL 5000 UNIT SC (04:54)
[2020-12-30 05:10] LABS: Hematocrit 26.9 % (37-47); Hemoglobin 8.8 g/dL (12.0-15.0); Mean Corp Hgb Conc 32.7 g/dL (32-36); Mean Corpuscular Hgb 32.7 pg (27.0-32.0); Platelet Count 186 K/mm3 (150-450); RBC Distribution Width CV 13.2 % (11.6-14.6); RBC Distribution Width SD 48.1 fl (35.1-43.9); Red Blood Count 2.69 M/mm3 (4.2-5.4); White Blood Count 3.9 K/mm3 (4.4-11.0)
[2020-12-30 06:07] LABS: ALB/GLOB Ratio 0.8 RATIO (0.9-2.4); AST(SGOT) 33 U/L (15-37); Alanine Aminotransfer ALT/SGPT 50 U/L (13-56); Albumin, Serum 3.2 g/dL (3.2-5.0); Alkaline Phosphatase 46 U/L (45-117); Anion Gap 10 (5-15); BUN 33 mg/dL (7-18); Calcium,Total 6.9 mg/dL (8.5-10.1); Chloride 96 mmol/L (98-107); Creatinine, Serum 8.21 mg/dL (0.55-1.02); EST Glomerular Filtration Rate 6 mL/min (>60); Est Glom Filt Rate - Afr Amer 7 mL/min (>60); Globulin 3.9 g/dL (2.2-4.2); Glucose 103 mg/dL (74-106); Potassium 3.8 mmol/L (3.5-5.1); Protein, Total 7.1 g/dL (6.4-8.2); Sodium Level 136 mmol/L (136-145)
[2020-12-30 07:07] VITALS: PULSE 76
[2020-12-30 08:32] VITALS: BP 133/60; PULSE 78; RESP 16; TEMP 36.8; O2SAT 94
[2020-12-30] MEDS: SEVELAMER CARBONATE 800 MG TABLET 2400 MG PO (08:38)
[2020-12-30] MEDS: dexAMETHasone 2 MG TABLET 6 MG PO (08:38)
[2020-12-30] MEDS: oxyCODONE 5 MG Tablet 10 MG PO (08:38)
[2020-12-30] MEDS: 0.9% Saline Lock 10 ML Syringe IV (08:38)
[2020-12-30] MEDS: guaiFENesin 1,200 MG Tablet 1200 MG PO (08:38)
--- NOTE | 2020-12-30 09:01 | DCINST_ITS ---
- Discharge Diagnoses Current Active Problems: Current Active and Chronic Problems COVID-19 (Acute) FSGS (focal segmental glomerulosclerosis) (Chronic) Chronic kidney disease (CKD) (Chronic) You will use the following diet at home:: Renal (restricted protein/sodium) Your food should be the consistency of: Regular Your liquids should be the consistency of: Regular/Thin Discharge Activity: Return to Normal Activity Call your doctor if you observe: Fever of 101 or Higher, Shortness of breath Additional Instructions: Self isolate for at least 21 days since symptoms began 12/20-01/08/2021 AND at least one day (24 hours) have passed since resolution of fever without the use of fever-reducing agents AND improvement of symptoms (e.g., cough, shortness of breath) When around people in the same room, wear a face mask. Individuals also in the room should wear a mask. If possible, use a different bathroom and bedroom. Perform adequate hand hygiene. Avoid sharing dishes, glasses, etc. When you are due for your second COVID-19 vaccination, you may do so as long as you are no longer in isolation. Continue home dialysis as you were previously doing. Allergies/Adverse Reactions: Allergies cat dander Allergy (Verified 12/27/20 22:09) Other hydrocodone Adverse Reaction (Verified 12/27/20 22:09) Nausea Medications to take at Discharge Albuterol Inhaler [Ventolin Hfa] 1 - 2 puff INHALATION Q4H PRN PRN 11/26/13 Amlodipine [Norvasc] 10 mg PO QHS 06/30/14 Oxycodone HCl/Acetaminophen [Percocet 5-325] 2 tablet PO Q4H PRN PRN #30 tablet 01/31/15 Butalb/Acetaminophen/Caffeine [Nftsrj-Dogmnowa-Yvys 50-325-40] 1 tab PO Q12H PRN PRN 12/06/18 Ondansetron [Zofran Odt] 4 mg PO Q8H PRN PRN 12/06/18 Zonisamide 150 mg PO QHS 12/06/18 Diazepam [Valium] 5 mg PO DAILY PRN 12/27/20 Sevelamer Carbonate [Renvela] 2,400 mg PO 12/28/20 Dexamethasone [Decadron] 6 mg PO DAILY 5 Days #5 tablet 12/30/20 Loperamide [Imodium] 2 mg PO Q4H PRN PRN capsule 12/30/20 The following prescriptions were given: Dexamethasone [Decadron] 6 mg PO DAILY 5 Days #5 tablet Transmission Status: Pending to [facility] Primary Care Physician: Bethany Coughlin MD [Primary Care Provider] - Within 2 Weeks Test Results: Test results from this visit will be discussed in further detail at your follow- up appointment, if applicable. Proposed Discharge Date: 12/30/20
--- NOTE | 2020-12-30 09:04 | DS.PCM_ITS ---
Discharge Date and Diagnosis - Problem List Patient Problems: Active and Suspected Problems COVID-19 (Acute) Date of Admission: 12/27/20 Date of Discharge: 12/30/20 - Primary Discharge Diagnosis Acute Problems: Active Problems COVID-19 (Acute) - Secondary Discharge Diagnosis Chronic Problems: Chronic Problems FSGS (focal segmental glomerulosclerosis) (Chronic) Chronic kidney disease (CKD) (Chronic) Hospital Course and Treatment Imaging Results: Clinical Impression(s) from Imaging Studies Chest X-Ray 12/27/20 22:36 IMPRESSION: Masslike consolidation in the right lower lobe. Compatible with infection. Repeat chest x-ray to resolution is recommended Electronically Signed: José Antonio Max DO at 23:25 EDT Tel , Service support , Chest CTA 12/28/20 12:01 IMPRESSION: Technically inadequate exam for confirming or excluding pulmonary emboli beyond the main pulmonary arteries. Very low lung volumes. Widespread bilateral pulmonary opacifications consistent with nonspecific multifocal bilateral pneumonia. Electronically Signed: Parvez Amaral MD at 13:14 EDT , Service support , Zuleyka Bradford, infectious disease Operations: None Procedures: None Summary of Care Provided: The patient is a 35 year old F presented on the with fever. 2 days prior to arrival, patient had a COVID-19 vaccination, however, patient was having symptoms with fever even before her vaccination. Patient was positive for COVID-19. Patient chest x-ray showed patchy infiltrates consider viral pneu monia. Patient was started on dexamethasone and then later started on remdesivir. Patient did receive 2 doses of a remdesivir during this hospitalization. Patient has steadily improved during the course of her hospitalization. Patient is currently on room air and is not having issues ambulating to the bathroom. Patient advised to continue with quarantine for a total of 20 days after onset of her symptoms. The onset of her symptoms was 20 December and patient wanted to quarantine through the . Patient lives with her boyfriend who has had both of his vaccinations. So started that he wear a mask around her. [] Patient Problems: Active and Suspected Problems COVID-19 (Acute) - Physical Exam Vitals/I&O's: Vital Signs Temp Pulse Resp BP Pulse Ox 36.8 C 78 16 133/60 H 94 12/30/20 08:32 12/30/20 08:32 12/30/20 08:32 12/30/20 08:32 12/30/20 08:32 Oxygen Flow Rate (L/min) 2 Oxygen Delivery Method Room Air Weight: 160.2 kg Body Mass Index (BMI) 52.2 Intake and Output for Last 24 Hours 12/28/20 12/29/20 12/30/20 23:59 23:59 23:59 Intake Total 866.75 / 866.75 250 / 370 120 / 120 Output Total 1800 / 1800 Balance 866.75 / 866.75 -1550 / -1430 120 / 120 General: Alert, No apparent distress, - - Patient very focused on TV show on her phone. Had to be asked to turn it off still it could interact with her. Hirsute HEENT: Atraumatic, Normocephalic Oral: Moist Mucosa, No Gingival or Mucosal Lesions/ Ulcerations Neck: No Nodes, Thyroid Normal Size and Texture Lungs: Clear to auscultation, Normal air movement, No rhonchi, No wheeze, No rales Cardiovascular: Regular rate, Regular Rhythm, Normal S1, Normal S2 Abdomen: Bowel Sounds Present, Soft, Non Tender, Non-Distended, No Hepato- splenomegaly Extremities: No edema, No Calf Tenderness Microbiology Past 72 Hours 12/27/20 22:15 Blood Culture (Wb) - Anticubital Right Blood Culture - Preliminary No growth in 48 hours. 12/27/20 22:30 Blood Culture (Wb) - Left Wrist Blood Culture - Preliminary No growth in 48 hours. 12/27/20 22:20 Mucosa - Nasopharyngeal SARS-CoV-2 Antigen (Rapid) - Final SARS-CoV-2 (COVID 19) 12/27/20 22:20 Mucosa - Nasopharyngeal Influenza Types A,B Direct FA ([facility]) - Final Laboratory Results 12/30/20 04:55: WBC 3.9 L, RBC 2.69 L, Hgb 8.8 L, Hct 26.9 L, MCV 100.0 H, MCH 32.7 H, MCHC 32.7, RDW Std Deviation 48.1 H, RDW Coeff of Braulio 13.2, Plt Count 186, MPV 10.0 12/30/20 04:55: Sodium 136, Potassium 3.8, Chloride 96 L, Carbon Dioxide 30.0, Anion Gap 10, BUN 33 H, Creatinine 8.21 H*, Estim Creat Clear Calc 10.00, Est GFR (MDRD) Af Amer 7 L, Est GFR (MDRD) Non-Af 6 L, BUN/Creatinine Ratio 4.0 L, Glucose 103, Calcium 6.9 L, Total Bilirubin 0.60, AST 33, ALT 50, Alkaline Phosphatase 46, Total Protein 7.1, Albumin 3.2, Globulin 3.9, Albumin/Globulin Ratio 0.8 L Current Medications Acetaminophen (Acetaminophen 325 Mg Tablet) 650 mg PO Q6H PRN PRN PRN Reason: Pain Score 1-10/Temp > 100.7 F Last Admin: 12/29/20 01:42 Dose: 650 mg Documented by: Albuterol Sulfate (Albuterol Sulfate 18 Gm Inhaler (200 Puffs)) 2 puff INHALATION Q2H PRN PRN PRN Reason: sob/wheezing Amlodipine Besylate (Amlodipine 10 Mg Tablet) 10 mg PO QHS [facility] Last Admin: 12/29/20 20:49 Dose: 10 mg Documented by: Dexamethasone (Dexamethasone 2 Mg Tablet) 6 mg PO DAILY [facility] Stop: 01/05/21 10:01 Last Admin: 12/30/20 08:38 Dose: 6 mg Documented by: Diazepam (Diazepam 5 Mg Tablet) 5 mg PO DAILY PRN PRN PRN Reason: ANXIETY Last Admin: 12/29/20 09:19 Dose: 5 mg Documented by: Guaifenesin (Guaifenesin 1,200 Mg Tablet) 1,200 mg PO BID [facility] Last Admin: 12/30/20 08:38 Dose: 1,200 mg Documented by: Heparin Sodium (Porcine) (Heparin Injection (Vial) 5,000 Unit/Ml Vial) 5,000 unit SC Q8 [facility] Last Admin: 12/30/20 04:54 Dose: 5,000 unit Documented by: Sodium Chloride () 250 mls @ 15 mls/hr IV .[id number] PRN PRN Reason: Saline Flush Last Infusion: 12/28/20 08:34 Dose: 0 mls/hr Documented by: Remdesivir 100 mg/ Sodium (Chloride) 250 mls @ 125 mls/hr IV DAILY [facility] Stop: 01/01/21 11:59 Last Infusion: 12/29/20 15:59 Dose: Infused Documented by: Loperamide HCl (Loperamide 2 Mg Capsule) 2 mg PO Q4H PRN PRN PRN Reason: DIARRHEA Last Admin: 12/28/20 10:29 Dose: 2 mg Documented by: Miscellaneous Information (Inhaler, Assist Devices 1 Each Spacer) 1 each INHALATION PRN PRN PRN Reason: WITH ALBUTEROL INHALER Ondansetron HCl (Ondansetron 4 Mg/2 Ml Vial) 4 mg IV Q8H PRN PRN PRN Reason: NAUSEA/VOMITING Last Admin: 12/30/20 08:38 Dose: 4 mg Documented by: Oxycodone HCl (Oxycodone 5 Mg Tablet) 10 mg PO Q4H PRN PRN PRN Reason: PAIN 1-10 Last Admin: 12/30/20 08:38 Dose: 10 mg Documented by: Sevelamer Carbonate (Sevelamer Carbonate 800 Mg Tablet) 2,400 mg PO TIDCM [facility] Last Admin: 12/30/20 08:38 Dose: 2,400 mg Documented by: Sodium Chloride (0.9% Saline Lock 10 Ml Syringe) 10 - 40 ml IV UD PRN PRN Reason: SALINE FLUSH Last Admin: 12/30/20 08:38 Dose: 10 ml Documented by: Zonisamide (Zonisamide 50 Mg Capsule) 150 mg PO QHS [facility] Last Admin: 12/29/20 20:49 Dose: 150 mg Documented by: Discharge Diet: Renal Diet Discharge Activity: Return to Normal Activity Call your doctor if you observe: Fever of 101 or Higher, Shortness of breath Home Medications: Medications to take at Discharge Albuterol Inhaler [Ventolin Hfa] 1 - 2 puff INHALATION Q4H PRN PRN 11/26/13 Amlodipine [Norvasc] 10 mg PO QHS 06/30/14 Oxycodone HCl/Acetaminophen [Percocet 5-325] 2 tablet PO Q4H PRN PRN #30 tablet 01/31/15 Butalb/Acetaminophen/Caffeine [Nyyywd-Plevhrjy-Zgxn 50-325-40] 1 tab PO Q12H PRN PRN 12/06/18 Ondansetron [Zofran Odt] 4 mg PO Q8H PRN PRN 12/06/18 Zonisamide 150 mg PO QHS 12/06/18 Diazepam [Valium] 5 mg PO DAILY PRN 12/27/20 Sevelamer Carbonate [Renvela] 2,400 mg PO 12/28/20 Dexamethasone [Decadron] 6 mg PO DAILY 5 Days #5 tablet 12/30/20 Loperamide [Imodium] 2 mg PO Q4H PRN PRN capsule 12/30/20 Following Prescriptions Were Given to Patient: Dexamethasone [Decadron] 6 mg PO DAILY 5 Days #5 tablet Transmission Status: Pending to [facility] [facility] Primary Care Physician: Bethany Coughlin MD [Primary Care Provider] - Within 2 Weeks Disposition: Home Minutes spent on discharge:: 28 Patient Condition:: Good Medical Necessity - Tobacco Use Smoking Status: Never smoker Meaningful Use Info Meaningful Use Diagnoses (Choose all that apply): None applicable Inpatient E&M: [id number] [facility]
--- NOTE | 2020-12-30 09:52 | NURSING ---
per dr stephen pt does not need to receive Remdesivir.
--- NOTE | 2020-12-31 14:20 | CASEMGMT ---
SOFÍA DAVIS Discharge Follow-up Phone Call: LADONNA: Michelle Strata: 3 Call Date: 12/31/20 Discharge Date: 12/30/20 Time of Call: 1420 Duration: 1 min Admitting Diagnosis: Covid SOFÍA DAVIS attempted to complete follow-up phone call after recent hospitalization. No answer, voice message left with return contact information.
== END 2020-12-30 10:08 | disposition home or self-care (01) | DRG 871 ==
LOC: ED 23:35 → ICU 23:37
PROVIDERS: Internal Medicine Infectious Disease; Admitting Provider Hospitalist; Emergency Provider Emergency Medicine; PCP Internal Medicine
DX: A41.89 Other specified sepsis (principal); U07.1 COVID-19; J12.82 Pneumonia due to coronavirus disease 2019; R65.21 Severe sepsis with septic shock; N18.6 End stage renal disease; I12.0 Hypertensive chronic kidney disease with stage 5 chronic kidney disease or end stage renal disease; E87.2 Acidosis; E87.1 Hypo-osmolality and hyponatremia; Z68.43 Body mass index [BMI] 50.0-59.9, adult; D63.1 Anemia in chronic kidney disease; E87.6 Hypokalemia; R19.7 Diarrhea, unspecified; R09.02 Hypoxemia; G93.2 Benign intracranial hypertension; Z99.2 Dependence on renal dialysis; E66.01 Morbid (severe) obesity due to excess calories; F41.9 Anxiety disorder, unspecified; Z79.899 Other long term (current) drug therapy
CPT/HCPCS: 36415; 71045; 71275; 80053; 83605; 84075; 84145; 85025; 85027; 85379; 85610; 85730; 87040; 87426; 87804; 90937; 93005; 99285; J7040; J7050; Q9967; A4216; G0257; J2405

== ENCOUNTER → 2021-07-03 | Outpatient (CLI) | payer MEDICARE, MEDICAID, SELFPAY ==
[2021-07-10 09:28] LABS: HPV APTIMA, High Risk Negative (Negative)
[2021-07-10 09:34] LABS: HPV Reflexed? YES, CHARGE PATIENT
== END | disposition home or self-care (01) ==
PROVIDERS: PCP Internal Medicine; Visit Provider Obstetrics & Gynecology
DX: Z12.4 Encounter for screening for malignant neoplasm of cervix (principal); Z11.3 Encounter for screening for infections with a predominantly sexual mode of transmission
CPT/HCPCS: 87624; 88175; G0145

== ENCOUNTER 2021-09-02 09:14 | Day surgery (SDC) | payer MEDICARE, MEDICAID, SELFPAY ==
[2021-08-29 15:35] LABS: Hematocrit 38.4 % (37-47); Hemoglobin 12.9 g/dL (12.0-15.0); Mean Corp Hgb Conc 33.6 g/dL (32-36); Mean Corpuscular Hgb 34.7 pg (27.0-32.0); Mean Corpuscular Volume 103.2 fL (81-99); Mean Platelet Vol. 9.8 fl (6.2-12.0); Platelet Count 261 K/mm3 (150-450); RBC Distribution Width CV 14.1 % (11.6-14.6); RBC Distribution Width SD 53.1 fl (35.1-43.9); Red Blood Count 3.72 M/mm3 (4.2-5.4); White Blood Count 10.1 K/mm3 (4.4-11.0)
[2021-08-29 15:45] LABS: International Normalized Ratio 0.9
[2021-08-29 16:12] LABS: Magnesium 2.4 mg/dL (1.6-2.6)
[2021-08-29 16:18] LABS: AST(SGOT) 24 U/L (15-37); Alanine Aminotransfer ALT/SGPT 51 U/L (13-56); Albumin, Serum 3.9 g/dL (3.2-5.0); Alkaline Phosphatase 66 U/L (45-117); Anion Gap 14 (5-15); BUN 48 mg/dL (7-18); BUN/Creat Ratio 6.1 RATIO (10-20); Calcium,Total 8.8 mg/dL (8.5-10.1); Chloride 95 mmol/L (98-107); Creatinine, Serum 7.91 mg/dL (0.55-1.02); EST Glomerular Filtration Rate 6 mL/min (>60); Est Glom Filt Rate - Afr Amer 7 mL/min (>60); Globulin 4.1 g/dL (2.2-4.2); Glucose 114 mg/dL (74-106); Potassium 3.3 mmol/L (3.5-5.1); Sodium Level 135 mmol/L (136-145)
[2021-08-29 17:17] LABS: Partial Thromboplast Time 31.5 Seconds (24.1-36.2)
[2021-08-30 09:07] LABS: Thyroid Stim Hormone (TSH) 2.13 uIU/mL (0.358-3.74)
--- NOTE | 2021-08-30 14:36 | RAD_ITS ---
STUDY: X-RAY CHEST REASON FOR EXAM: Female, 36 years old. Preop for pelvic surgery TECHNIQUE: PA and lateral views of the chest. COMPARISON: None. FINDINGS: The lungs are clear and expanded. There is no demonstrated pleural abnormality. Normal size heart. Normal mediastinum and tyron. Normal visualized pulmonary arteries. Normal visualized aortic arch and descending thoracic aorta. Normal visualized thoracic spine. Normal visualized ribs, clavicles, and shoulders. There is no demonstrated abnormality of the visualized soft tissue structures of the upper abdomen. RAD/Chest PA and Lateral IMPRESSION: Normal x-ray examination of the chest. Electronically Signed: Valdemar Ballard MD at 16:28 EST , Service support ,
--- NOTE | 2021-09-01 14:13 | PCM.HP.BLA ---
History and Physical Date of Admission: 09/02/21 Surgical History and Physical Ingris Saez, a 36 year old female 0 1 1 0 0, presents for RAVH/BSO on September 02, 2021. -- Menorrhagia; Renal Failure on Home Dialysis -- Did not get menses after taking provera but likely did not take entire course as felt psychotic on provera. She has not had menses since last May. US with thickened lining. Discussed risks of amenorrhea and endometrial pathology. Mirrena IUD in place for control and cycle control. It always feels like IUD is trying to come out and is rory painful. In 2013 she was diagnosised with FSGS (End Stage Renal Failure). Ingris wants her IUD removed and Hysterectomy. Medical Marijuana to help with pain control. Dialysis patient and adds that she has a brain disease as well. Cardiac Clearance with Dr. Rosa was 08-28-21. Neurologist insists that IUD be removed despite this being the only means of controlling her extremely heavy periods prior to Mirena placement. MEDICATIONS HISTORY: Current medications prescribed by our practice are: 1. estradiol 1 mg tablet, One pill by mouth once a day to start after hysterectomy 2. Ventolin HFA 90 mcg/actuation HFA aerosol inhaler, two puffs q 4 hours prn Patient is also takin. Percocet 5-325 mg tablet, One tablet by mouth twice daily as needed 2. calcium acetate 667 mg capsule, Two caps tid and prn 3. heparin (porcine) 10,000 unit/mL injection solution, As Directed with Dialysis 4. Norvasc 5 mg tablet, One pill by mouth once a day 5. Renvela 800 mg tablet, Three po tid 6. Zofran 4 mg tablet, As Directed prn 7. zonisamide 100 mg capsule, with two 25 mg cap once daily ALLERGIES: Cats, Itchy, stuffy nose, cat dander, Itching of skin, Vicodin and Severe nausea & vomiting Infections - Chicken pox and Pneumonia Illnesses - Morbid Obesity, PCOS, Allergic Rhinitis, Hypertension and Hypothyroidism Accidents - no injuries of consequence Hospitalizations - see surgery Migraine, Intertrigo, Central Sleep Apnea, Bipolar and ADHD; Review of Systems: GENERAL - Denies fever, or chills SKIN - Denies skin changes EYES - Denies visual changes EARS - Denies difficulty hearing NOSE - Denies nasal congestion or bleeding MOUTH - Denies sore throat or difficulty swallowing NECK - Denies pain or swelling RESPIRATORY - Denies shortness of breath or wheezing CARDIOVASCULAR - Denies palpitations or chest pain GASTROINTESTINAL - Denies nausea, vomiting, diarrhea, constipation GENITOURINARY - Denies dysuria, frequency of urination, incontinence of urine MUSCULOSKELETAL - Denies joint or muscle pain NEUROLOGICAL - Denies localized numbness or weakness PSYCHIATRIC - Denies depression or anxiety ENDOCRINE - Denies heat or cold intolerance, weight loss or gain HEMATO-IMMUNOLOGIC - Denies excesive bleeding with cuts SOCIAL HISTORY: Alcohol Use - RARELY Smoking - used to smoke but quit Diet - balanced Diet Lifestyle - engaged Exercise - minimal Seat Belt Use - always Employer - Disability Illicit Drug Use - Medical [place] Sexual Activity - multiple sexual partners Residence - [facility] [facility] - [place] Spouse-Sig Other Name - Ross Arias Spouse-Sig Other Occupation - [employer] -- [employer] Spouse-Sig Other Phone No - [phone] [facility] FAMILY HISTORY: Family history of only child and DM II. Maternal Grandfather: Hypertension. MENSTRUAL HISTORY: LMP Known?- AmenorrheaAmount/Duration - 3 days, Regularity - Regular, LMP - 10/26/16, Age Onset Menarche - 12 PAST PREGNANCIES: Total Pregnancies - 2; Full Term Pregnancies - 0; Premature - 1; Abortions, Induced - 0; Abortions, Spontaneous - 1; Ectopics - 0; Multiple Births - 0; Living Children - 0 SURGICAL HISTORY: 1. 01/31/2015 hysteroscopy, D and C, Mirena IUD and pap ; Dr Aries Payton 2. 09/10/2014 D and E products conception, retained placenta ; Dr. Aries Payton - 16-18 wk fetus, 2nd Trimester Miscarriage 3. 2015 Fistula (L) arm x 2 4. 2016 Port Placed ; Dr. Hanks 5. 2018 Parathyroidectomy 6. Tonsillectomy + Adenoidectomy PHYSICAL EXAM BP- 128/70 Sitting, Right arm, large cuff Weight- 335.0 lbs Height- 68 inch BMI:51.0 CONSTITUTIONAL - NAD, well nourished, and well developed SKIN - Hirsuit HEENT - Normocephalic, PERRLA, EOMI NECK - No nodes, no nuchal rigidity and thyroid normal size and texture LYMPH NODES - Palpation of lymph nodes in neck and groins within normal limits LUNGS - CTA x2 without wheezes, crackles or rales CARDIAC - Regular rate and rhythm without rubs, murmurs, or gallops BREAST - No dominant masses, no tenderness, no axillary adenopathy, no nipple discharge, no skin changes ABDOMEN - Without hepatosplenomegaly, distention, masses, rebound, or guarding; normal bowel sounds; no hernias EXTREMITIES - No edema or calf tenderness NEUROLOGICAL - Cranial nerves II-XII grossly intact PSYCHIATRIC - A and O to time, place, person, mood and affect External Genitial Vagina - non-tender without lesions Urethra/Urethral Meatus - non-tender Bladder - non-tender Vagina - vaginal lovell are pink and moist without loss of rugae and no evidence of atropy Cervix - without cervical motion tenderness and has normal size and features without evident lesions and IUD string in place Uterus - multiparous size 6 cm & wt 75-125 g Adnexa - clear without massess or tenderness ASSESSMENT/PLAN:Premenopause Menorrhagia Well-controlled with Mirena IUD but neurologist desires that she stop all medications including Mirena IUD which she is using for control and menorrhagia control. We discussed options for treatment and patient strongly desires proceeding with hysterectomy. We discussed the risks, benefits, and alternatives of a robotic assisted vaginal hysterectomy and BSO and all questions were answered. We also discussed the possibility of laparotomy should we be unable to complete the procedure with the robot.
[2021-09-02] VITALS (13 sets, daily range): BP systolic 103–131; BP diastolic 53–88; PULSE 80–103; RESP 14–17; TEMP 36.1–36.8; O2SAT 16–100; BMI 50.9
--- NOTE | 2021-09-02 | HYST_PTH ---
PATIENT: LOBO REYES LOC: [facility] [place] U#:[id number] AGE/SX: 36/F ROOM: RE09/02/[address]: Dr. Jerry Burroughs MD : 1985 BED: DIS: 09/02/2021 SPEC #: [id number] RECD: 09/02/21 14:36 STATUS: DORIS JASMINE #: [id number] RIGO: 09/02/21 00:[address]: Jerry Burroughs DEPT: SURGICAL PATHOLOGY RECD BY: Benji Holliday ENTERED: 09/03/21 09:11 SP TYPE: HYSTERECT OTHR DR: Dr. Bethany Coughlin MD Tissues: Uterus, NOS Procedures: Surgery Specimen Level V HEADER OPERATION: ERAS, laparoscopic robotic assisted vaginal hysterectomy PRE-OP DIAGNOSIS: Menorrhagia, renal failure on home dialysis TISSUE SUBMITTED: Uterus, cervix, bilateral fallopian tubes, bilateral ovaries MICROSCOPIC DIAGNOSIS Uterus, hysterectomy: Cervix ? Nabothian cysts, squamous ,metaplasia and mil chronic inflammation. Endometrium ? Weakly proliferative with focal cystic change. Intact IUD. Myometrium - Leiomyoma and focal adenomyosis. Right and left fallopian tubes ? no pathologic change. Right and left ovaries ? Follicular cysts and follicular cysts AM:ovidio 09/04/21 MICROSCOPIC DESCRIPTION Slides are reviewed. GROSS DESCRIPTION Received in fixative is one container labeled with the patient's name and designated uterus, cervix, bilateral fallopian tubes, bilateral ovaries. The specimen consists of a hysterectomy specimen consisting of uterus with cervix, attached right fallopian tube and right ovary, attached left fallopian tube and detached left ovary. Also present in the container is a detached piece of pink soft tissue measuring 4 x 3 x 0.2 cm. The uterus with cervix weighs 67 gm and measures 8.5 x 6 x 4 cm. The serosal surface is euceda, glistening. The subserosal nodule is noted. The external os is circular in contour. The endocervical canal measures 3 cm in length. Sections reveal a few cysts filled with mucoid material. The triangular endometrial cavity measures 4.5 cm in length and up to 1.5 cm in width. The endometrium is euceda, glistening without any mass lesion and measures <0.1 cm in thickness. Serial sections of the uterine wall reveal an intramural to subserosal nodular mass measuring 1.2 cm in diameter. Sections of this mass reveals euceda whorled cut surfaces without areas of hemorrhage, necrosis or cystic degeneration. The uninvolved uterine wall measures up to 2 cm in thickness. The right fallopian tube measures 6 cm in length and up to 0.6 cm in diameter. The fimbrial end is identified. Sections reveal unremarkable cut surfaces. The soft to cystic right ovary measures 4 x 4 x 3 cm. Sections reveal multiple cysts filled with clear to hemorrhagic fluid. The largest cyst measures 0.5 cm in greatest dimension. The left fallopian tube is similar appearance to right and measures 5 cm in length and 0.5 cm in diameter. The soft to cystic left ovary measures 6 x 4 x 3.5 cm. Sections reveal multiple cysts filled with clear to hemorrhagic fluid. The largest cyst measures 0.5 cm in greatest dimension. Several hemorrhagic corpus lutea are also noted, the largest measuring 1.5 cm in greatest dimension. A T-shaped intrauterine device is noted in the container. The horizontal part measures 2.5 cm in greatest length and vertical part measures 2.2 cm in length and a string is also attached to it. Paraprofessional Education Assistant sections are submitted in 12 cassettes as follows: 1 - anterior cervix, 2 - posterior cervix, 3 & 4 - anterior uterine wall, 5 & 6 - posterior uterine wall, 7 ? nodular mass, 8 ? right fallopian tube and ovary, 9 ? more section of right ovary, 10 ? left fallopian tube and ovary, 11 & 12 ? more sections of left ovary. / EM:lacie 09/03/2021 TC:5 CPT: 95184,76411
[2021-09-02] MEDS: Acetaminophen 500 MG Tablet 1000 MG PO ×2 (07:00→16:16)
[2021-09-02] MEDS: Gabapentin 600 MG Tablet PO (07:00)
[2021-09-02] MEDS: Lactated Ringers 1,000 ML 40 ML IV (07:00)
[2021-09-02] MEDS: 0.9% Normal Saline 1,000 ML 15 ML IV (10:18)
[2021-09-02 10:41] LABS: Bedside Glucose 140 mg/dL (70-110)
[2021-09-02 10:43] LABS: Anion Gap 15 (5-15); BUN 59 mg/dL (7-18); BUN/Creat Ratio 6.7 RATIO (10-20); Calcium,Total 8.2 mg/dL (8.5-10.1); Chloride 100 mmol/L (98-107); Creatinine, Serum 8.81 mg/dL (0.55-1.02); EST Glomerular Filtration Rate 5 mL/min (>60); Est Glom Filt Rate - Afr Amer 7 mL/min (>60); Estimated Creatinine Clearance 8.91 ml/min; Glucose 126 mg/dL (74-106); Potassium 3.6 mmol/L (3.5-5.1); Sodium Level 138 mmol/L (136-145)
[2021-09-02 10:45] LABS: Internal QC Validated? YES +Cl - CLEAR BKGD; Pregnancy, Serum, hCG Quali. NEGATIVE Negative
[2021-09-02] MEDS: Ropivacaine 0.5% 30 ML Vial (11:35)
--- NOTE | 2021-09-02 13:04 | PCM.OPRPT ---
Report of Operation Date of Procedure: 09/02/21 Pre-Operative Diagnosis: Menorrhagia, Polycystic Ovarian Syndrome, Renal Failure Post-Operative Diagnosis: Menorrhagia, Polycystic Ovarian Syndrome, Renal Failure Surgery/Procedure Performed:: Robotic Assisted Vaginal Hysterectomy and Bilateral Salpingo-Oophorectomy Description of Surgical Findings:: 10 cm uterus with polycystic appearing ovaries bilaterally. Normal fallopian tubes. Small adhesion of the rectosigmoid to the left ovary. Mirena IUD in place and removed at the beginning of surgery. Surgeon: Jerry Burroughs air launch weapons technician: Palma Benavidez Type of Anesthesia: General (Endotracheal) Anesthesiologist: Veronica Motley Specimen's removed: Uterus and bilateral fallopian tubes and ovaries Drains: Stallworth to straight drain removed at end of case Estimated Blood Loss (mL): Minimal Fluids Replaced: 150 cc of crystalloid Description of Procedure: Surgeon: Jerry Burroughs MD, FACOG Indication: This is a 36 year old patient who has been having problems with menorrhagia. A Mirena IUD control her bleeding but her neurologist recommended this be removed. Patient has end-stage renal disease and does dialysis at home with a left arm shunt. Conservative measures have not been helpful. The patient has been counseled regarding the risks, benefits and alternatives of this procedure including the possibility of bleeding, infection, and injury to surrounding structures such as bowel bladder and all questions were answered. She understands that if BSO is needed that she will need to be on HRT for an indefinite period of time. Procedure: Pt taken to the operating room where, after induction of general anesthesia, the patient was prepped and draped in the usual sterile fashion and placed on a non-slip Huggy-u-vac device. Trendelenburg test was satisfactory. Bladder was drained of urine with a Stallworth catheter which was left in place. Anterior cervix grasped and cervix was dilated to about 3-4 mm. Uterus sounded to 8 cms. 0-Vicryl suture was placed at the 3:00 and 9:00 position of the cervix. A small Advincula Consumer Lender Uterine Manipulator was then placed in the uterus and attention was turned to the laparoscopic portion of the procedure. Ropivocaine 0.5% was injected approximately 2-3 cm superior to the umbilicus and an 8 mm robotic camera port was introduced directly with intraperitoneal placement confirmed with CO2 insufflation. 8 mm robotic side ports were introduced under direct visualization approximately 11 cm lateral and 2 cm inferior to the umbilical port. A 5 mm left upper quadrant port was introduced and airseal insufflation with CO2 was started. The above findings were noted. Robot was docked without difficulty and attention turned to the robotic portion of the procedure. Approximately 30 cc of Ropivicaine was used. Bilateral infundibulopelvic ligaments were ligated with 35 regan bipolar coagulation to the level of the round ligament. The posterior aspect of the cervix was identified and then opened for about 1 cm using 25 watt monopolar cautery. Bladder flap was opened and divided to the level of the round ligaments using monopolar cautery. Progressive bites were then ligated on each side of the cervix with 35 regan bipolar cautery to the uterine arteries. The anterior vaginal mucosa was entered and cervix circumscribed with monopolar cautery. Uterus and attached tubes and ovaries were removed through the vagina. Vaginal cuff was closed first with 0-Vicryl Jordan stitches placed at each angle followed by closure of the mid-cuff with 0-Monocryl V-lock suture in two layers. Pelvis was minimally irrigated with saline. A small amount of Anabel was placed across the vaginal cuff to help with postoperative hemostasis. Robot was undocked and trocars were removed with as much gas as possible. Incisions were closed with 4-0 Monocryl subcuticular sutures and incisions covered with steri-strips. The patient tolerated the procedure well and was taken to the recovery room in satisfactory condition. Sponge, instruments and needle counts were all correct. There were no apparent complications of the surgery. Ancef 3 gms IV was given prior to the procedure. Estimated Blood Loss: Minimal Grafts/Implants Used: None Complications None Admit VTE Documentation VTE Present on Admission: Yes VTE Mechan Device Prophylaxis: SCD's
--- NOTE | 2021-09-02 13:11 | PCM.DC ---
Discharge Instructions Diet Discharge Diet: No restrictions Activity Discharge Activity: May Shower and May Take a Tub Bath May resume sexual activity in: 6 weeks (nothing in the vagina.) Lifting Restrictions: 25 pounds for 6 weeks. Additional Activity Instructions:: Nothing in the vagina for 6 weeks please; no lifting more than 20-25 lbs for 6 weeks. Can also add Tylenol 1000 mg every 8 hours if needed for pain. If Tylenol is not effective then use the Oxycodone but keep in mind it can cause serious constipation issues. Drink water and dialyze consistent with your renal balance needs. Call if bleeding more than a pad per hour. Use the colace as constipation is a big issue after this type of surgery. Steps and walking are OK. Activity is encouraged but do not over do it !! Dressing / Incision Call your doctor if your incision/area has: Continuous Slow Oozing, Sudden Increased Bleeding, Increased Pain/ Swelling, Increased Redness and Foul Smelling Discharge Call your doctor if you observe: Fever of 101 or Higher, Inability to urinate, Inability to have a bowel movement, Using more than 1 pad per hour and - (Some vaginal bleeding may be noted for up to 4-8 weeks.) Cleanse incision/area with: - (Let the soapy water run over your incision, rinse and pat dry.) Additional Dressing/Incision Instructions:: The white strips (Steri Strips) on your incisions will fall off on their own. If they fall off and it bothers you it is okay to put Band-Aids across the incisions. Follow Up Care Please Follow Up With: Jerry Burroughs MD When: Call [phone] for an appointment to be seen in 2 weeks. Test Results: Test results from this visit will be discussed in further detail at your follow-up appointment, if applicable. Discharge Plan Admission Primary Reason for Your Visit: Robotic Vaginal Hysterectomy Attending Provider: Jerry Burroughs Primary Care Provider: Bethany Coughlin Discharge Orders/Prescriptions Prescriptions: New oxycodone 5 mg capsule 5 mg PO Q6H PRN (Reason: pain) 7 Days Qty: 10 RF: 0 docusate sodium 100 mg tablet 100 mg PO BID PRN (Reason: constipation) Qty: 60 RF: 1 Continued calcium acetate 667 mg tablet 1,334 mg PO TID PRN (Reason: Systemic Signs And Symptoms) RF: 0 albuterol sulfate [Ventolin HFA] 1 INHALER inhaler 1 - 2 puff inhalation Q4H PRN PRN (Reason: Sob Or Anxiety) RF: 0 oxycodone-acetaminophen 1 TABLET tablet 2 tab PO Q4H PRN PRN (Reason: Pain) Qty: 30 RF: 0 zonisamide 100 MG capsule 150 mg PO QHS RF: 0 ondansetron 4 MG tablet 4 mg PO Q8H PRN PRN (Reason: Nausea) RF: 0 ayjojygwzd-xamajlznrhyzc-dzrc 50-325-40 mg tablet 1 tab PO Q12H PRN PRN (Reason: Headache) RF: 0 diazepam 5 MG tablet 5 mg PO DAILY PRN (Reason: Anxiety) RF: 0 loperamide 2 MG capsule 2 mg PO Q4H PRN PRN (Reason: DIARRHEA) RF: 0 sevelamer carbonate 800 mg tablet 2,400 mg PO TIDCM RF: 0 heparin (porcine) in 0.9% NaCl 2 unit/mL Parenteral Solution 3 ml IV MOTUWETHFR RF: 0 Marijuana 10 mg PO/SL Q4H PRN PRN (Reason: Pain) RF: 0 Other Ambulatory Orders: 12 Lead EKG (Routine) Timeframe: [id number] Facility: [facility] - Location: Cardiovascular Services Ordered By: Dr. Chad Castro Referrals / Follow Up: Bethany Coughlin MD [Primary Care Provider] - Disposition Disposition (needs filled in before D/C Order can be placed): Home, Self Care
[2021-09-02] MEDS: Ondansetron 4 MG/2 ML Vial IV (13:54)
== END 2021-09-02 17:27 | disposition home or self-care (01) ==
LOC: SDC 09:15 → AC 09:16
PROVIDERS: Anesthesiology; PCP Internal Medicine; Referring Provider Obstetrics & Gynecology; Visit Provider Obstetrics & Gynecology
PROC: 0UT90ZZ Resection of Uterus, Open Approach (ICD-10-PCS; CPT 58571; principal; 2021-09-02 11:05)
DX: D25.9 Leiomyoma of uterus, unspecified (principal); E28.2 Polycystic ovarian syndrome; N92.0 Excessive and frequent menstruation with regular cycle; N88.8 Other specified noninflammatory disorders of cervix uteri; N85.8 Other specified noninflammatory disorders of uterus; I12.0 Hypertensive chronic kidney disease with stage 5 chronic kidney disease or end stage renal disease; N18.6 End stage renal disease; E03.9 Hypothyroidism, unspecified; J30.9 Allergic rhinitis, unspecified; G47.31 Primary central sleep apnea; G43.909 Migraine, unspecified, not intractable, without status migrainosus; F31.9 Bipolar disorder, unspecified; F90.9 Attention-deficit hyperactivity disorder, unspecified type; Z99.2 Dependence on renal dialysis; Z79.899 Other long term (current) drug therapy; E66.01 Morbid (severe) obesity due to excess calories; Z68.43 Body mass index [BMI] 50.0-59.9, adult; Z97.5 Presence of (intrauterine) contraceptive device; Z86.16 Personal history of COVID-19; Z87.891 Personal history of nicotine dependence
CPT/HCPCS: 00840; 58571; S2900; 36415; 71046; 80048; 80053; 82962; 83735; 84443; 84703; 85027; 85610; 85730; 86850; 86900; 86901; 88307; J7030; J7120; A4216; J2405

== ENCOUNTER → 2021-10-03 | Outpatient (CLI) | payer MEDICARE, MEDICAID, SELFPAY | END | disposition home or self-care (01) | LOC: LABSPEC 10:52 | PROVIDERS: PCP Internal Medicine; Referring Provider Physician Assistant Medical; Visit Provider Physician Assistant Medical | DX: Z11.52 Encounter for screening for COVID-19 (principal) | CPT/HCPCS: 87635; U0005; U0003 ==

== ENCOUNTER 2022-06-23 15:29 | Emergency (ER) | payer MEDICARE, MEDICAID, SELFPAY ==
[2022-06-23 15:30] VITALS: BP 124/79; PULSE 110; RESP 15; TEMP 36.1; O2SAT 97; BMI 53.9
--- NOTE | 2022-06-23 15:53 | EX.ED.DYSGE1 ---
HPI History of Present Illness Chief Complaint: Abscess PFSH [facility] Medical History (Updated 09/02/21 @ 13:[address] Jerry Burroughs MD) Anxiety Asthma Cardiology follow-up encounter Chronic kidney disease (CKD) CKD (chronic kidney disease) stage 4, GFR 15-29 ml/min COVID-19 Depression ESRD (end stage renal disease) on dialysis Essential hypertension Exercise-induced asthma FSGS (focal segmental glomerulosclerosis) Herniated disc History of renal dialysis History of renal disease History of stress test History of use of contraceptive intrauterine device (IUD) IIH (idiopathic intracranial hypertension) Left ventricular hypertrophy Loss of consciousness Non-smoker Pre-op evaluation Shortness of breath on exertion Wears glasses Home Medications albuterol sulfate 90 mcg/actuation aerosol inhaler (Ventolin HFA) 1 - 2 puff inhalation Q4H PRN PRN Sob Or Anxiety 11/26/13 [History Last Taken 04/02/19] oxycodone-acetaminophen 5 mg-325 mg tablet 2 tab PO Q4H PRN PRN Pain #30 TABLETS 01/31/15 [Rx Last Taken 04/02/19] ondansetron 4 mg disintegrating tablet 4 mg PO Q8H PRN PRN Nausea 12/06/18 [History Last Taken 04/02/19] zonisamide 100 mg capsule 150 mg PO QHS IIH 12/06/18 [History Last Taken 04/02/19] diazepam 5 mg tablet 5 mg PO DAILY PRN Anxiety 12/27/20 [History Last Taken Unknown] loperamide 2 mg capsule 2 mg PO Q4H PRN PRN DIARRHEA 12/30/20 [Rx Last Taken Unknown] Marijuana 10 mg PO/SL Q4H PRN PRN Pain 08/26/21 [History Last Taken Unknown] calcium acetate 667 mg tablet 1,334 mg PO TID PRN Systemic Signs And Symptoms 08/26/21 [History Last Taken Unknown] heparin (porcine) 2 unit/mL in 0.9 % sodium chloride intravenous soln 3 ml IV MOTUWETHFR with dialysis 08/26/21 [History Last Taken Unknown] sevelamer carbonate 800 mg tablet 2,400 mg PO TIDCM binds with phosphorus 08/26/21 [History Last Taken Unknown] bqgdyopvts-ssqbqohfphxox-elgdyhuu 50 mg-325 mg-40 mg tablet 1 tab PO Q12H PRN PRN Headache 08/28/21 [History Last Taken Unknown] docusate sodium 100 mg tablet 100 mg PO BID PRN constipation #60 tabs 09/02/21 [Rx Last Taken Unknown] oxycodone 5 mg capsule 5 mg PO Q6H PRN pain 7 days #10 caps 09/02/21 [Rx Last Taken Unknown] Allergy/AdvReac Type Severity Reaction Status Date / Time cat dander Allergy Other Verified 06/23/22 15:30 hydrocodone AdvReac Nausea Verified 06/23/22 15:30 Surgical History History of arteriovenostomy for renal dialysis History of D&C History of parathyroidectomy History of tonsillectomy Social History Smoking Status: Never smoker alcohol intake: current details: Rare caffeine: Yes EXAM Physical Exam Const Vital Signs: 06/23/22 15:30 Temperature 96.9 F L Temperature Source Temporal Pulse Rate 110 H Respiratory Rate 15 Blood Pressure 124/79 H Blood Pressure Mean 94 Pulse Ox 97 Oxygen Delivery Method Room Air Positive well nourished General Appearance ED: NAD HEENT Reports moist mucous membranes trauma Eyes PERRL and EOMs intact bilaterally Chest Wall inspection of chest normal Resp normal respiratory effort Auscultation: Negative for rales, rhonchi or wheezes Cardio regular rhythm Rate: tachycardic GI normal to inspection, nondistended, normoactive bowel sounds Neuro oriented x3 and CN's II-XII intact bilaterally Sensorium / Orientation: alert Skin Skin Narrative: Mild cellulitis overlying the right cheek. There is focal area of abscess beginning above the top lip on the right which extends down around the side of her mouth and down into the angle of the mandible. There is no drainage. There is tenderness to palpation and lymphadenopathy in the right cervical anterior lymph nodes. MDM MDM MDM Narrative Medical decision making narrative: Patient was sent in for IV antibiotics and surgical consult by general surgery. I spoke with Dr. Mckeon who is on-call that states he does not do facial surgery. He recommended calling Dr. Jurado back. I spoke with Dr. Jurado who stated she did not facial surgery either. She recommended transfer to a tertiary facility where she could see a plastic surgeon or something similar. The patient does not want to be transferred by ambulance. She states that she can drive wherever she needs to go. She did already have several days of Bactrim already and is not improving. She is not toxic appearing. She is alert and awake and in no acute distress. I feel she has the capacity to make this decision and there is not necessarily a need to transfer her by ambulance. I spoke with [facility] and the patient was declined by plastic surgery and by maxillofacial surgery but was excepted by Dr. Oh the general surgeon from ER to ER. I spoke with Dr. Moises Hobson the on-call ER physician to give report. Patient counseled not to eat or drink on the way to the ER because she made a conscious sedation. They will get blood work and imaging as needed. Patient stable on transfer. Impression: 1. Right-sided facial abscess 2. Right-sided facial cellulitis 3. Failure of outpatient Discharge Plan Triage Chief Complaint: Abscess ED Provider: Tarik Marks Dx/Rx/DC Orders Instructions: ED Abscess Antibiotic Treatment Only Prescriptions: No Action calcium acetate 667 mg tablet 1,334 mg PO TID PRN (Reason: Systemic Signs And Symptoms) albuterol sulfate [Ventolin HFA] 1 INHALER inhaler 1 - 2 puff inhalation Q4H PRN PRN (Reason: Sob Or Anxiety) Label Comments: sob oxycodone-acetaminophen 1 TABLET tablet 2 tab PO Q4H PRN PRN (Reason: Pain) Qty: 30 0RF Label Comments: pain zonisamide 100 MG capsule 150 mg PO QHS Label Comments: take 1 capsule by mouth once daily ondansetron 4 MG tablet 4 mg PO Q8H PRN PRN (Reason: Nausea) mwlotlyisu-ahehdqlhtyrjs-dlcl 50-325-40 mg tablet 1 tab PO Q12H PRN PRN (Reason: Headache) Label Comments: take 1 tablet by mouth every 12 hours if needed diazepam 5 MG tablet 5 mg PO DAILY PRN (Reason: Anxiety) loperamide 2 MG capsule 2 mg PO Q4H PRN PRN (Reason: DIARRHEA) 0RF sevelamer carbonate 800 mg tablet 2,400 mg PO TIDCM Rx Instructions: TID with each meal, take 30 minutes before or 30 minutes after meals heparin (porcine) in 0.9% NaCl 2 unit/mL Parenteral Solution 3 ml IV MOTUWETHFR Marijuana 10 mg PO/SL Q4H PRN PRN (Reason: Pain) oxycodone 5 mg capsule 5 mg PO Q6H PRN (Reason: pain) 7 Days Qty: 10 0RF docusate sodium 100 mg tablet 100 mg PO BID PRN (Reason: constipation) Qty: 60 1RF Primary Care Provider: Bethany Coughlin Referrals: Bethany Coughlin MD [Primary Care Provider] - Activity Restrictions/Additional Instructions: Dr. Oh the general surgeon excepting do in transfer from ER to ER. You are to go directly to the emergency room. I spoke with the emergency room physician Dr. Moises Hobson who is aware that you are coming. Please do not eat or drink in route. Disposition Disposition: Acute Care Hospital Discharge Location: [facility]
== END 2022-06-23 17:11 | disposition short-term general hospital (02) ==
PROVIDERS: Emergency Provider Student in an Organized Health Care Education/Training Program; PCP Internal Medicine; Visit Provider Student in an Organized Health Care Education/Training Program
DX: L02.01 Cutaneous abscess of face (principal); Z99.2 Dependence on renal dialysis; N18.6 End stage renal disease; I12.0 Hypertensive chronic kidney disease with stage 5 chronic kidney disease or end stage renal disease; L03.211 Cellulitis of face
CPT/HCPCS: 99282

== ENCOUNTER 2022-10-16 07:29 | Outpatient (CLI) | payer MEDICARE, MEDICAID, SELFPAY ==
[2022-10-16 08:21] LABS: Estradiol 50.3 pg/mL
[2022-10-16 08:22] LABS: Progesterone Level 27.31 ng/mL (See Comment)
[2022-10-22 11:08] LABS: Testosterone, Free 0.15 ng/dL (0.10-0.85); Testosterone, Total 7 ng/dL (8-60)
[2022-10-23 21:44] LABS: Testosterone, % Free 2.14 % (0.50-2.80)
== END 2022-10-16 23:59 | disposition home or self-care (01) ==
LOC: LAB 07:33
PROVIDERS: PCP Internal Medicine; Referring Provider Obstetrics & Gynecology; Visit Provider Obstetrics & Gynecology
DX: E66.01 Morbid (severe) obesity due to excess calories (principal); Z79.890 Hormone replacement therapy
CPT/HCPCS: 36415; 82670; 84144; 84402; 84403

== ENCOUNTER 2022-11-21 07:21 | Outpatient (CLI) | payer MEDICARE, MEDICAID, SELFPAY ==
[2022-11-26 12:08] LABS: Testosterone, Free 0.15 ng/dL (0.10-0.85); Testosterone, Total 6 ng/dL (8-60)
[2022-11-28 19:00] LABS: Testosterone, % Free 2.45 % (0.50-2.80)
== END 2022-11-21 23:59 | disposition home or self-care (01) ==
LOC: LAB 07:23
PROVIDERS: PCP Internal Medicine; Visit Provider Obstetrics & Gynecology
DX: R68.82 Decreased libido (principal); Z79.890 Hormone replacement therapy
CPT/HCPCS: 36415; 82670; 84144; 84402; 84403

== ENCOUNTER 2023-01-09 10:11 | Outpatient (CLI) | payer MEDICARE, MEDICAID, SELFPAY ==
[2023-01-09 11:23] LABS: Estradiol 30.2 pg/mL
[2023-01-13 12:09] LABS: Testosterone, Total 171 ng/dL (8-60)
[2023-01-13 16:35] LABS: Testosterone, % Free 3.04 % (0.50-2.80)
== END 2023-01-09 23:59 | disposition home or self-care (01) ==
LOC: LAB 10:14
PROVIDERS: PCP Internal Medicine; Referring Provider Obstetrics & Gynecology; Visit Provider Obstetrics & Gynecology
DX: R68.82 Decreased libido (principal); Z79.890 Hormone replacement therapy
CPT/HCPCS: 36415; 82670; 84402; 84403

== ENCOUNTER → 2023-03-20 | Outpatient (CLI) | payer MEDICARE, MEDICAID, SELFPAY ==
[2023-03-20 09:02] LABS: Estradiol 40.3 pg/mL
[2023-03-26 12:09] LABS: Testosterone, % Free 3.66 % (0.50-2.80); Testosterone, Free < 0.11 ng/dL (0.10-0.85); Testosterone, Total < 3 ng/dL (8-60)
== END | disposition home or self-care (01) ==
LOC: LAB 07:35
PROVIDERS: PCP Internal Medicine; Referring Provider Obstetrics & Gynecology; Visit Provider Obstetrics & Gynecology
DX: R68.82 Decreased libido (principal); Z79.890 Hormone replacement therapy
CPT/HCPCS: 36415; 82670; 84402; 84403

== ENCOUNTER → 2023-04-25 | Outpatient (CLI) | payer MEDICARE, MEDICAID, SELFPAY ==
[2023-05-03 18:07] LABS: Testosterone, % Free 2.06 % (0.50-2.80); Testosterone, Free 0.33 ng/dL (0.10-0.85); Testosterone, Total 16 ng/dL (8-60)
== END | disposition home or self-care (01) ==
LOC: LAB 07:55
PROVIDERS: PCP Internal Medicine; Visit Provider Obstetrics & Gynecology
DX: R68.82 Decreased libido (principal); Z79.890 Hormone replacement therapy
CPT/HCPCS: 36415; 82670; 84402; 84403

== ENCOUNTER → 2023-08-05 | Outpatient (CLI) | payer MEDICARE, MEDICAID, SELFPAY ==
[2023-08-05 09:56] LABS: Progesterone Level 6.71 ng/mL (See Comment)
[2023-08-05 10:04] LABS: Estradiol < 11.0 pg/mL
[2023-08-11 12:09] LABS: DHEA Sulfate 62.6 ug/dL (57.3-279.2); Sex Hormone-binding Globulin 20.2 nmol/L (24.6-122.0); Testosterone, % Free 3.28 % (0.50-2.80); Testosterone, Free 6.86 ng/dL (0.10-0.85); Testosterone, Total 209 ng/dL (8-60)
== END | disposition home or self-care (01) ==
LOC: LAB 08:58
PROVIDERS: PCP Internal Medicine; Referring Provider Obstetrics & Gynecology; Visit Provider Obstetrics & Gynecology
DX: R68.82 Decreased libido (principal); R79.89 Other specified abnormal findings of blood chemistry; F41.9 Anxiety disorder, unspecified; Z79.890 Hormone replacement therapy
CPT/HCPCS: 36415; 82627; 82670; 84144; 84270; 84402; 84403; 82626

== ENCOUNTER → 2023-10-22 | Outpatient (CLI) | payer MEDICARE, MEDICAID, SELFPAY ==
[2023-10-22 10:44] LABS: Hematocrit 35.1 % (37-47); Hemoglobin 11.1 g/dL (12.0-15.0); Mean Corp Hgb Conc 31.6 g/dL (32-36); Mean Corpuscular Hgb 30.7 pg (27.0-32.0); Mean Platelet Vol. 9.4 fl (6.2-12.0); Platelet Count 327 K/mm3 (150-450); RBC Distribution Width CV 13.6 % (11.6-14.6); RBC Distribution Width SD 47.8 fl (35.1-43.9); Red Blood Count 3.62 M/mm3 (4.2-5.4); White Blood Count 13.8 K/mm3 (4.4-11.0)
[2023-10-22 11:09] LABS: Progesterone Level 5.49 ng/mL (See Comment)
--- OUTSIDE RECORDS SUMMARY | 2023-10-22 11:22 | XMS RPT_ITS | CCD ---
Author Name Unknown Address [id number] [place] [address] Organization [facility] Care Team Providers Care Turnstile Attendant Name Role Phone ED, ANTOINE Unavailable Unavailable TETYUK, ANTOINE Unavailable Unavailable IMCA Unavailable Unavailable LORE GRAY Unavailable Unavailable Guicho Dennis Unavailable Unavailable TANPHAICHIJAGRUTI, NATTHAVAT Unavailable Unavaila Zuleyka Carrizales MD Primary Care Provider Sam LOZANO, Andres Unavailable Zuleyka Coughlin MD Primary Care Provider Sam LOZANO, Andres Unavailable Sam LOZANO, Andres Unavailable Zuleyka Coughlin MD Primary Care Provider Sam LOZANO, Andres Unavailable SERGE ORELLANA Consulting Unavailable VICKY TOMAS Admitting Unavailable TALAMPAS, ZULEYKA D Primary Care Unavailable REJI HAWK Attending Unavailable TALAMPAS, ZULEYKA D Primary Care Unavailable KERVIN ALONZO Attending Unavailable TALAMPAS, ZULEYKA D Primary Care Unavailable FESTUS MARTIN Attending Unavailable Sam LOZANO, Andres Unavailable TALAMPAS, ZULEYKA D Attending Unavailable TALAMPAS, ZULEYKA D Primary Care Unavailable TALAMPAS, ZULEYKA D Attending Unavailable TALAMPAS, ZULEYKA D Primary Care Unavailable TALAMPAS, ZULEYKA D Primary Care Unavailable ZEESHAN ROCK Attending Unavailable ZEESHAN ROCK Referring Unavailable TALAMPAS, ZULEYKA D Attending Unavailable TALAMPAS, ZULEYKA D Primary Care Unavailable TALAMPAS, ZULEYKA D Attending Unavailable TALAMPAS, ZULEYKA D Primary Care Unavailable Allergies Allergy Classification Reported Allergen(s) Allergy Type Date of Onset Reaction(s) Facility (20 sources) Cat; Translations: [CATS] Allergy to substance 07-26-2013 Itching [facility] Work Phone: (20 sources) HYDROcodone; Translations: [HYDROCODONE] Drug Allergy 08-26-2016 GI Upset [facility] Medications Current Medications Medication Drug Class(es) Dates Sig (Normalized) Sig (Original) diazePAM 5 mg oral tablet (14 sources) Benzodiazepine Start: 09-12-2023 End: 12-11-2023 take 1-2 tablets by mouth twice daily as needed for anxiety diazePAM (VALIUM) 5 mg tablet Indications: Generalized anxiety disorder with panic attacks , Surgical menopause on hormone replacement therapy , Postmenopausal disorder Take 1-2 tablets by mouth two times a day as needed for anxiety (panic attacks) for up to 90 days. 40 tablet 2 09/12/2023 12/11/2023 Active Completed/Discontinued Medications Medication Drug Class(es) Dates Sig (Normalized) Sig (Original) acetaminophen 325 mg / butalbital 50 mg / caffeine 40 mg oral tablet (20 sources) Barbiturate, Central Nervous System Stimulant, Methylxanthine Start: 01-06-2020 End: 06-25-2023 take 1 tablet by mouth every twelve hours as needed acetaminophen 325 mg-caffeine 40 mg-butalbital 50 mg (FIORICET) per tablet Indications: Headache disorder Take 1 tablet by mouth every 12 hours as needed. 30 tablet 3 06/25/2023 Active Problems Active Problems Problem Classification Problem Date Documented Date Episodic/Chronic Administrative/socia l admission (1 source) Patient encounter status; Translations: [Dietary counseling and surveillance] Episodic Anxiety disorders (6 sources) Generalized anxiety disorder; Translations: [Generalized anxiety disorder] Onset: 3 Chronic Aortic; peripheral; and visceral artery aneurysms (1 source) Aneurysm of artery of lower extremity; Translations: [Aneurysm of artery of lower extremity] Chronic Asthma (20 sources) Asthma; Translations: [Unspecified asthma, uncomplicated] Onset: 2 05-20-2022 Chronic Chronic kidney disease (20 sources) End stage renal disease; Translations: [Dependence on renal dialysis] Onset: 5 07-06-2015 Chronic Complications of surgical procedures or medical care (20 sources) History of parathyroidectomy; Translations: [Postprocedural hypoparathyroidism] Onset: 2 03-03-2022 Chronic Conditions associated with dizziness or vertigo (1 source) Lightheadedness; Translations: [Dizziness and giddiness] Episodic Deficiency and other anemia (1 source) Anemia in chronic kidney disease; Translations: [ANEMIA IN CHRONIC KIDNEY] Onset: 6 Chronic Diabetes mellitus without complication (2 sources) Hyperglycemia; Translations: [Hyperglycemia, unspecified] Onset: 3 Episodic Essential hypertension (20 sources) Hypertensive disorder; Translations: [Essential (primary) hypertension] Onset: 6 11-13-2015 Chronic Headache; including migraine (2 sources) Headache disorder; Translations: [Headache disorder] Episodic Hypertension with complications and secondary hypertension (1 source) Hypertensive chronic kidney disease with stage 5 chronic kidney disease or end stage renal disease; Translations: [HYPERTENSIVE CKD W/STAGE] Onset: 6 Chronic Menopausal disorders (5 sources) Menopausal and postmenopausal disorders; Translations: [Menopausal and female climacteric states] Onset: 3 Chronic Menopausal disorders (1 source) Hormone replacement therapy; Translations: [Surgical menopause on hormone replacement therapy] Onset: 3 Episodic Nephritis; nephrosis; renal sclerosis (20 sources) Focal segmental glomerulosclerosis; Translations: [Unspecified nephritic syndrome with focal and segmental glomerular lesions] Onset: 2 05-20-2022 Chronic Other aftercare (1 source) Other retirement (current) drug therapy; Translations: [Medical marijuana use] Onset: 3 Episodic Other connective tissue disease (1 source) Recurrent falls ; Translations: [Repeated falls] Episodic Other diseases of kidney and ureters (1 source) Secondary hyperparathyroidism of renal origin; Translations: [SEC HYPERPARATHYROIDISM] Onset: 6 Chronic Other endocrine disorders (20 sources) Polycystic ovary syndrome; Translations: [Polycystic ovarian syndrome] Onset: 2 06-24-2022 Chronic Other endocrine disorders (1 source) Polycystic ovarian syndrome; Translations: [PCOS (polycystic ovarian syndrome)] Onset: 2 Chronic Other female genital disorders (1 source) Disorder of female genital organs; Translations: [Other specified conditions associated with female genital organs and menstrual cycle] Episodic Other hereditary and degenerative nervous system conditions (1 source) Myoclonus; Translations: [MYOCLONUS] Onset: 6 Chronic Other lower respiratory disease (2 sources) Wheezing; Translations: [Wheezing] Episodic Other lower respiratory disease (1 source) Dyspnea on exertion; Translations: [Dyspnea, unspecified] Episodic Other nervous system disorders (20 sources) Benign intracranial hypertension; Translations: [Benign intracranial hypertension] Onset: 7 07-14-2017 Chronic Other nervous system disorders (1 source) Benign intracranial hypertension; Translations: [IIH (idiopathic intracranial hypertension)] Onset: 7 Chronic Other nervous system disorders (1 source) Other chronic pain; Translations: [Chronic bilateral low back pain without sciatica] Onset: 6 Chronic Other nervous system disorders (1 source) Abnormal gait; Translations: [Unsteadiness on feet] Episodic Other nutritional; endocrine; and metabolic disorders (3 sources) Morbid (severe) obesity due to excess calories; Translations: [MORBID SEVERE OBES D/T E] Onset: 6 Chronic Other nutritional; endocrine; and metabolic disorders (20 sources) Body mass index 40+ - severely obese; Translations: [Morbid (severe) obesity due to excess calories] Onset: 5 10-07-2021 Chronic Other nutritional; endocrine; and metabolic disorders (1 source) Severe obesity; Translations: [Morbid (severe) obesity due to excess calories] Chronic Other nutritional; endocrine; and metabolic disorders (1 source) Body mass index (BMI) 50.0-59.9, adult; Translations: [Morbid obesity with BMI of 50.0-59.9, adult ([facility])] Onset: 2 Chronic Residual codes; unclassified (1 source) Obstructive sleep apnea (adult) (pediatric); Translations: [TUCKER (obstructive sleep apnea)] Onset: 3 Chronic Residual codes; unclassified (1 source) Insomnia, unspecified; Translations: [Persistent disorder of initiating or maintaining sleep] Onset: 3 Episodic Spondylosis; intervertebral disc disorders; other back problems (20 sources) Prolapsed lumbar intervertebral disc; Translations: [Other intervertebral disc displacement, lumbar region] Onset: 6 10-07-2021 Chronic Spondylosis; intervertebral disc disorders; other back problems (20 sources) Intervertebral disc disorders with radiculopathy, lumbosacral region; Translations: [Dorsalgia, unspecified] Onset: 6 11-21-2015 Episodic Unclassified (1 source) Chronic bilateral low back pain without sciatica; Translations: [Chronic bilateral low back pain without sciatica] Onset: 6 Past or Other Problems Problem Classification Problem Date Documented Date Episodic/Chronic Abdominal pain (1 source) Generalized abdominal pain; Translations: [GENERALIZED ABDOMINAL PA] Onset: 02-21-2016 Episodic Deficiency and other anemia (1 source) Iron deficiency anemia, unspecified; Translations: [IRON DEFICIENCY ANEMIA U] Onset: 02-21-2016 Episodic Deficiency and other anemia (20 sources) Anemia; Translations: [Anemia, unspecified] Onset: 05-20-2022 05-20-2022 Episodic Diseases of mouth; excluding dental (1 source) Diseases of lips; Translations: [Cellulitis of lip] Onset: 06-23-2022 Episodic Immunizations and screening for infectious disease (1 source) Encounter for immunization; Translations: [ENCOUNTER FOR IMMUNIZATI] Onset: 02-21-2016 Episodic Nonspecific chest pain (2 sources) Precordial pain; Translations: [Precordial pain] Onset: 04-24-2022 Episodic Other circulatory disease (20 sources) Low blood pressure; Translations: [Hypotension, unspecified] Onset: 05-20-2022 05-20-2022 Episodic Other hematologic conditions (20 sources) H/O: blood disorder; Translations: [Personal history of diseases of the blood and blood-forming organs and certain disorders involving the immune mechanism] Onset: 05-20-2022 05-20-2022 Episodic Other screening for suspected conditions (not mental disorders or infectious disease) (2 sources) Echocardiogram abnormal; Translations: [Abnormal findings on diagnostic imaging of heart and coronary circulation] Onset: 04-24-2022 Episodic Pneumonia (1 source) Pneumonia, unspecified organism; Translations: [PNEUMONIA UNSPECIFIED OR] Onset: 02-21-2016 Episodic Residual codes; unclassified (1 source) History of parathyroidectomy; Translations: [Other specified postprocedural states] Onset: 03-03-2022 03-03-2022 Episodic Skin and subcutaneous tissue infections (20 sources) Infection of skin; Translations: [Local infection of the skin and subcutaneous tissue, unspecified] Onset: 06-24-2022 Episodic Substance-related disorders (20 sources) Marijuana user; Translations: [Cannabis use, unspecified, uncomplicated] Onset: 08-28-2020 08-28-2020 Episodic Syncope (2 sources) Syncope; Translations: [Syncope and collapse] Onset: 04-24-2022 Episodic Results Test Name Value Interpretation Reference Range Facil ity Vital Signs Date Time Vital Sign Value Performing Clinician Faci lity 04-08-2023 15:37-0400 Body temperature 97.2 [degF] Zuleyka Coughlin MD Work Phone: [facility] 04-08-2023 15:37-0400 Body weight 167 kg Zuleyka Coughlin MD Work Phone: [facility] 04-08-2023 15:37-0400 Diastolic blood pressure 62 mm[Hg] Zuleyka Coughlin MD Work Phone: [facility] 04-08-2023 15:37-0400 Heart rate 97 /min Zuleyka Coughlin MD Work Phone: [facility] 04-08-2023 15:37-0400 Respiratory rate 18 /min Zuleyka Coughlin MD Work Phone: [facility] 04-08-2023 15:37-0400 SaO2% (BldA) [Mass fraction] 99 % Zuleyka Coughlin MD Work Phone: [facility] 04-08-2023 15:37-0400 Systolic blood pressure 118 mm[Hg] Zuleyka Coughlin MD Work Phone: [facility] 12-24-2022 11:25-0400 Body height 175.3 cm Festus Martin MD Work Phone: [facility] 12-24-2022 11:25-0400 Body weight 164 kg Festus Martin MD Work Phone: [facility] 08-15-2022 16:34-0400 Diastolic blood pressure 50 mm[Hg] Zeeshan Rokc MD Work Phone: [facility] 08-15-2022 16:34-0400 Heart rate 108 /min Zeeshan Rock MD Work Phone: [facility] 08-15-2022 16:34-0400 Systolic blood pressure 116 mm[Hg] Zeeshan Rock MD Work Phone: [facility] 06-23-2022 09:28-0400 Body height 172.7 cm Natalie Jurado MD Work Phone: [facility] 06-23-2022 09:28-0400 Body temperature 97.81 [degF] Natalie Jurado MD Work Phone: [facility] 06-23-2022 09:28-0400 Body weight 164.66 kg Natalie Jurado MD Work Phone: [facility] 06-23-2022 09:28-0400 Diastolic blood pressure 64 mm[Hg] Natalie Jurado MD Work Phone: [facility] 06-23-2022 09:28-0400 Heart rate 117 /min Natalie Jurado MD Work Phone: [facility] 06-23-2022 09:28-0400 SaO2% (BldA) [Mass fraction] 98 % Natalie Jurado MD Work Phone: [facility] 06-23-2022 09:28-0400 Systolic blood pressure 128 mm[Hg] Natalie Jurado MD Work Phone: [facility] 06-21-2022 08:28-0400 Body temperature 99 [degF] Ross Snow MD Work Phone: [facility] 06-21-2022 08:28-0400 Body weight 161.93 kg Ross Snow MD Work Phone: [facility] 06-21-2022 08:28-0400 Diastolic blood pressure 82 mm[Hg] Ross Snow MD Work Phone: [facility] 06-21-2022 08:28-0400 Heart rate 119 /min Ross Snow MD Work Phone: [facility] 06-21-2022 08:28-0400 Respiratory rate 22 /min Ross Snow MD Work Phone: [facility] 06-21-2022 08:28-0400 SaO2% (BldA) [Mass fraction] 97 % Ross Snow MD Work Phone: [facility] 06-21-2022 08:28-0400 Systolic blood pressure 126 mm[Hg] Ross Snow MD Work Phone: [facility] 06-12-2022 09:26-0400 Body height 172.7 cm Juan José Partida MD Work Phone: [facility] 06-12-2022 09:26-0400 Body temperature 98.71 [degF] Juan José Partida MD Work Phone: [facility] 06-12-2022 09:26-0400 Body weight 162.34 kg Juan José Partida MD Work Phone: [facility] 06-12-2022 09:26-0400 Diastolic blood pressure 68 mm[Hg] Juan José Partida MD Work Phone: [facility] 06-12-2022 09:26-0400 Heart rate 100 /min Juan José Partida MD Work Phone: [facility] 06-12-2022 09:26-0400 Respiratory rate 18 /min Juan José Partida MD Work Phone: [facility] 06-12-2022 09:26-0400 SaO2% (BldA) [Mass fraction] 97 % Juan José Partida MD Work Phone: [facility] 06-12-2022 09:26-0400 Systolic blood pressure 118 mm[Hg] Juan José Partida MD Work Phone: [facility] 05-20-2022 15:50-0400 Body height 174 cm Pacc 2 [facility] 05-20-2022 15:50-0400 Body weight 158 kg Pacc 2 [facility] 05-20-2022 15:50-0400 Heart rate 80 /min Pacc 2 [facility] 05-08-2022 09:00-0400 Diastolic blood pressure 66 mm[Hg] Juan José Partida MD Work Phone: [facility] 05-08-2022 09:00-0400 Heart rate 109 /min Juan José Partida MD Work Phone: [facility] 05-08-2022 09:00-0400 Systolic blood pressure 92 mm[Hg] Juan José Partida MD Work Phone: [facility] 04-24-2022 12:59-0400 Body height 175.3 cm Kervin Alonzo MD Work Phone: [facility] 04-24-2022 12:59-0400 Body weight 157.4 kg Kervin Alonzo MD Work Phone: [facility] 04-24-2022 12:59-0400 Diastolic blood pressure 41 mm[Hg] Kervin Alonzo MD Work Phone: [facility] 04-24-2022 12:59-0400 Heart rate 105 /min Kervin Alonzo MD Work Phone: [facility] 04-24-2022 12:59-0400 Respiratory rate 18 /min Kervin Alonzo MD Work Phone: [facility] 04-24-2022 12:59-0400 SaO2% (BldA) [Mass fraction] 97 % Kervin Alonzo MD Work Phone: [facility] 04-24-2022 12:59-0400 Systolic blood pressure 120 mm[Hg] Kervin Alonzo MD Work Phone: [facility] 03-05-2022 13:53-0400 Body weight 157.4 kg Zuleyka Coughlin MD Work Phone: [facility] 03-05-2022 13:53-0400 Diastolic blood pressure 72 mm[Hg] Zuleyka Coughlin MD Work Phone: [facility] 03-05-2022 13:53-0400 Heart rate 110 /min Zuleyka Coughlin MD Work Phone: [facility] 03-05-2022 13:53-0400 SaO2% (BldA) [Mass fraction] 98 % Zuleyka Coughlin MD Work Phone: [facility] 03-05-2022 13:53-0400 Systolic blood pressure 108 mm[Hg] Zuleyka Coughlin MD Work Phone: [facility] 02-20-2022 11:47-0400 Body height 175.3 cm Flo Garcia MD Work Phone: [facility] 02-20-2022 11:47-0400 Body temperature 97.59 [degF] Flo Garcia MD Work Phone: [facility] 02-20-2022 11:47-0400 Body weight 157.31 kg Flo Garcia MD Work Phone: [facility] 02-20-2022 11:47-0400 Diastolic blood pressure 64 mm[Hg] Flo Garcia MD Work Phone: [facility] 02-20-2022 11:47-0400 Heart rate 108 /min Flo Garcia MD Work Phone: [facility] 02-20-2022 11:47-0400 SaO2% (BldA) [Mass fraction] 99 % Flo Garcia MD Work Phone: [facility] 02-20-2022 11:47-0400 Systolic blood pressure 122 mm[Hg] Flo Garcia MD Work Phone: [facility] 02-19-2022 15:22-0400 Body temperature 98.8 [degF] Madeline Mirza APRN.CABIN CLEANER Work Phone: [facility] 02-19-2022 15:22-0400 Body weight 157.13 kg Madeline Mirza APRN.CABIN CLEANER Work Phone: [facility] 02-19-2022 15:22-0400 Diastolic blood pressure 64 mm[Hg] Madeline Mirza APRN.CABIN CLEANER Work Phone: [facility] 02-19-2022 15:22-0400 Heart rate 120 /min Madeline Mirza APRN.CABIN CLEANER Work Phone: [facility] 02-19-2022 15:22-0400 Respiratory rate 18 /min Madeline Mirza APRN.CABIN CLEANER Work Phone: [facility] 02-19-2022 15:22-0400 SaO2% (BldA) [Mass fraction] 98 % Madeline Mirza APRN.CABIN CLEANER Work Phone: [facility] 02-19-2022 15:22-0400 Systolic blood pressure 112 mm[Hg] Madeline Mirza APRN.CABIN CLEANER Work Phone: [facility] Encounters Encounter Date Encounter Type Care Provider Facility Start: 09-26-2023 Orders Only Zeeshan Rock MD Work Phone: [facility] Start: 09-12-2023 End: 09-12-2023 ambulatory [facility] Facility:[facility] Start: 06-26-2023 Telephone encounter Zeeshan pride MD Work Phone: Neurology Procedures Date Procedure Procedure Detail Performing Clinician Start: 04-24-2022 Ecg routine ecg w/le ast 12 lds w/i&r Kervin Alonzo MD Work Phone: Start: 02-20-2022 Cul bact xcpt urine blood/stool aerobic isol Flo Garcia MD Work Phone: Start: 11-01-2021 Adult depression screening assessment Madeline Mirza APRN.CABIN CLEANER Work Phone: Plan of Treatment Date Care Activity Detail Author Start: 2035 SHINGRIX VACCINE (1 of 2) MAST GRIX VACCINE (1 of 2) [facility] Start: 07-03-2026 HPV TESTING HPV TESTING [facility] Start: 07-03-2026 PAP TESTING PAP TESTING [facility] Start: 07-03-2026 Screening for malign ant neoplasm of cervix [facility] Start: 10-10-2025 Urine microalbumin profile [facility] Start: 09-12-2024 Annual PCP Team Financial Rep suzy Disease Visit Annual PCP Team Chronic Disease Visit [facility] Start: 04-08-2024 ANNUAL PCP TEAM SAP FICO ARCHITECT SUZY DISEASE VISIT ANNUAL PCP TEAM CHRONIC DISEASE VISIT [facility] Start: 04-08-2024 BP CONTROLLED (<130/80) BP CONTROLLE D (<130/80) [facility] Start: 01-13-2024 ANNUAL PCP TEAM SAP FICO ARCHITECT SUZY DISEASE VISIT ANNUAL PCP TEAM CHRONIC DISEASE VISIT [facility] Start: 12-08-2023 ANNUAL PCP TEAM SAP FICO ARCHITECT SUZY DISEASE VISIT ANNUAL PCP TEAM CHRONIC DISEASE VISIT [facility] Start: 10-11-2023 DEPRESSION ASSESSMENT DEPRESSION ASS ESSMENT [facility] Immunizations Immunization Date Immunization Notes Care Provider Fa srinivas 09-28-2022 Seasonal, quadrivale nt, recombinant, injectable influenza vaccine, preservative free Festus Martin MD Work Phone: [facility] 09-28-2022 influenza virus vacc ine, unspecified formulation Zeeshan Rock MD Work Phone: [facility] 09-26-2021 influenza, injectabl e, quadrivalent, preservative free Festus Martin MD Work Phone: [facility] 01-23-2021 COVID-19 vaccine, fu ll dose (MODERNA) Madeline Mirza APRN.CABIN CLEANER Work Phone: [facility] 12-26-2020 COVID-19 vaccine, fu ll dose (MODERNA) Madeline Mirza APRN.CABIN CLEANER Work Phone: [facility] 12-18-2020 pneumococcal polysaccharide vaccine, 23 valent Festus Martin MD Work Phone: [facility] 08-13-2020 influenza, seasonal, injectable Festus Martin MD Work Phone: [facility] 07-02-2020 influenza, injectabl e, quadrivalent, contains preservative Madeline Mirza APRN.CABIN CLEANER Work Phone: [facility] 07-22-2019 influenza, seasonal, injectable Madeline Mirza APRN.CABIN CLEANER Work Phone: [facility] 07-19-2018 hepatitis B vaccine, adult dosage Madeline Mirza APRN.CABIN CLEANER Work Phone: [facility] 04-30-2018 hepatitis B vaccine, adult dosage Madeline Hermes FORK REPAIRER.CABIN CLEANER Work Phone: [facility] 03-05-2018 hepatitis B vaccine, adult dosage Madeline Hermes FORK REPAIRER.CABIN CLEANER Work Phone: [facility] 01-29-2018 hepatitis B vaccine, adult dosage Madeline Hermes FORK REPAIRER.CABIN CLEANER Work Phone: [facility] 11-07-2016 hepatitis B vaccine, adult dosage Madeline Hermes FORK REPAIRER.CABIN CLEANER Work Phone: [facility] 09-02-2016 hepatitis B vaccine, adult dosage Madeline Hermes FORK REPAIRER.CABIN CLEANER Work Phone: [facility] 05-05-2016 hepatitis B vaccine, adult dosage Madeline Hermes FORK REPAIRER.CABIN CLEANER Work Phone: [facility] 04-04-2016 hepatitis B vaccine, adult dosage Madeline Hermes FORK REPAIRER.CABIN CLEANER Work Phone: [facility] 03-05-2016 hepatitis B vaccine, adult dosage Madeline Hermes FORK REPAIRER.CABIN CLEANER Work Phone: [facility] 10-10-2015 influenza, injectabl e, quadrivalent, contains preservative Madeline Hermes FORK REPAIRER.CABIN CLEANER Work Phone: [facility] 10-10-2015 influenza, injectabl e, quadrivalent, preservative free Madeline Hermes FORK REPAIRER.CABIN CLEANER Work Phone: [facility] Work Phone: 10-10-2015 tetanus toxoid, redu gracie diphtheria toxoid, and acellular pertussis vaccine, adsorbed Madeline Hermes FORK REPAIRER.CABIN CLEANER Work Phone: [facility] Payers Date Payer Category Payer Unknown HOSPITAL/MEDICAL GENERIC MEDICAL GENERIC [id number] 2021-Present [phone] [place] [address] Indemnity [id number] 2021 Unknown [id number] 2019 Medicaid [employer]ICA[employer] [id number] 2019-Present [phone] [address] [place] [address] Medicaid [id number] 2019 Medicaid [id number] 2018 Medicaid [id number] 2018 Medicaid [id number] 2016 Medicare MEDICARE MEDICAR E A AND B [id number] 2016-Present [phone] [place] [address] Medicare [id number] 2016 Medicare MEDICARE MEDICAR E A AND B [id number] 2016-Present [phone] [place] [address] Medicare [id number] 2016 Medicare [id number] Unknown [id number] Social History Date Type Detail Facility Start: 03-05-2021 End: 06-12-2022 Tobacco smoking status NHIS Never smoked tobacco [facility] History of tobacco use Cigarette Smoker [facility] Start: 03-05-2021 End: 06-12-2022 Tobacco use and exposure Smokeless tobacco non-user [facility] Start: 02-19-2022 End: 04-08-2023 Alcohol intake Current drinker of alcohol (finding) [facility] Start: 12-20-2021 End: 09-16-2022 History SDOH Housing Unable to Pay 3 [facility] Start: 08-28-2020 Education 12 [facility] Start: 07-26-2013 End: 06-12-2022 Tobacco Comment SOCIAL SMOKER [facility] Start: 1985 Sex Assigned At Not on file [facility] Start: 02-09-2022 End: 06-23-2022 Exposure to SARS-CoV-2 (event) Not sure [facility] Work Phone: Start: 12-20-2021 History SDOH Alcohol Frequency 98 [facility] Start: 05-20-2022 History SDOH Alcohol Comment very rarely-maybe 5 times per year [facility] Start: 09-16-2022 History SDOH Stress 5 [facility] Start: 09-16-2022 End: 02-23-2023 History of Social function [facility] Start: 09-16-2022 End: 02-23-2023 Social connection and isolation panel [facility] Frequency of Communi cation with Friends and Family Not on file [facility] Are you now , , , , never or living with a partner? Refused [facility] Do you feel stress - tense, restless, nervous, or anxious, or unable to sleep at night because your mind is troubled all the time - these days [OSQ] Very much [facility] (I/We) worried wheth er (my/our) food would run out before (I/we) got money to buy more. DK or Refused [facility] Clinical Notes 07-26-2013 to 09-12-2023 Telephone Encounter - María Sánchez LPN - 06/26/2023 1:58 PM EDTTelephone Encounter - Solange Nunn - 06/26/2023 1:38 PM EDTTelephone Encounter - Valentina Macias - 06/26/2023 10:36 AM EDT Note Date & Type Note Facility 09-12-2023 Note HNO ID: [id number] Author: ZULEYKA COUGHLIN MD Service: ? Author Type: Physician Type: Progress Notes Filed: 10/15/2023 23:56 Note Text: VIRTUAL VISIT PROGRESS NOTE This is a virtual visit using [employer] Zoom Video Visit. It required patient-provider interaction for the medical decision making as documented below. I have communicated my name and active licensure. The patient's identity and physical location were verified at the time of this visit. Either the patient or their legal field support representative has been informed of the risks and benefits of -- and alternatives to -- treatment through a remote evaluation and consents to proceed with the evaluation remotely. Ingris Saez is a 38 year old female seen for medication check in . Needs refill for Diazepam. Not sleeping and will be on BiPAP. Dr. Ang put on record that severe TUCKER. Does not have BiPAP--pushing off but been just 2 weeks. Mother has the machine. Feels like does not get a break from anything--HD, doctor's appointments, etc.Tired of all of it after doing this for 10 years. Not suicidal; just tired. Grandma , so hard year. Lost her dog Wondered about vaccines. Reviewed immunization due. Would like to travel to [facility]. HISTORY REVIEWED (electronic chart updated): PAST MEDICAL HISTORY Diagnosis Date Abnormal Pap smear of cervix Anemia 05/20/2022 ARF (acute renal failure) ([facility]) Asthma EXERCISE INDUCED ASTHMA Chlamydia 2010 Chronic back pain Chronic kidney disease, stage IV (severe) ([facility]) 07/06/2015 Dr. Vargas (gets labs drawn at outside lab frequently) ESRD (end stage renal disease) ([facility]) Focal segmental glomerulosclerosis History of blood clotting disorder Hypertension Morbid obesity with BMI of 60.0-69.9, adult ([facility]) PCOS (polycystic ovarian syndrome) Pneumonia AGE 14 X2 PAST SURGICAL HISTORY Procedure Laterality Date ARTERIOVENOUS ANASTOMOSIS OPEN DIRECT Left 02/04/2016 Left forearm cephalic vein, radial artery fistula INSJ CANNULA HEMO OTH PURPOSE SPX VEIN VEIN Right 02/14/2016 PAST SURGICAL HISTORY OF 08/2014 D and C PAST SURGICAL HISTORY OF 01/2015 IUD implanted PAST SURGICAL HISTORY OF 08/2021 hysterectomy PAST SURGICAL HISTORY OF 2018 3.5 parathyroid glands removed TONSILLECTOMY PRIMARY/SECONDARY Tonsillectomy FAMILY HISTORY Problem Relation Age of Onset Diabetes Maternal Aunt Stroke Maternal Aunt Kidney Disease Maternal Aunt Asthma Maternal Grandmother Diabetes Maternal Grandfather Heart Maternal Grandfather Hypertension Maternal Grandfather Blood Clots Other Social History Tobacco Use Smoking status: Never Smokeless tobacco: Never Tobacco comments: SOCIAL SMOKER Vaping Use Vaping Use: Never used Substance Use Topics Alcohol use: Yes Comment: very rarely-maybe 5 times per year Drug use: Yes Comment: medical marijuana PRN Current Outpatient Medications Medication Sig zonisamide (ZONEGRAN) 100 mg capsule Take 1 capsule by mouth once daily. acetaminophen 325 mg-caffeine 40 mg-butalbital 50 mg (FIORICET) per tablet Take 1 tablet by mouth every 12 hours as needed. albuterol (PROVENTIL) 2.5 mg /3 mL (0.083 %) nebulizer solution Use 3 mL via nebulizer every 4 hours as needed for wheezing/shortness of breath. Use over 5-15minutes. albuterol HFA (VENTOLIN HFA) 90 mcg/actuation inhaler Inhale 2 Puffs as instructed every 4 hours as needed for wheezing/shortness of breath. progesterone micronized (PROMETRIUM) 100 mg capsule TESTOSTERONE UNDECANOATE ORAL Take 1 mg by mouth once daily. busPIRone (BUSPAR) 5 mg tablet Take 1 tablet by mouth three times daily. midodrine (PROAMATINE) 10 mg tablet 10 mg given if hypotension occurs near the end of hemodialysis. sevelamer carbonate (RENVELA) 800 mg tablet Take 800 mg by mouth three times daily with meals. OTC PRODUCT Medical marijuana calcium carbonate (OS-ISABELA 500) 500 mg calcium (1,250 mg) tablet Take 1 tablet by mouth three times daily. acetaminophen/diphenhydramine (TYLENOL PM EXTRA STRENGTH ORAL) Take by mouth. epoetin beta, methoxy peg 75 mcg/0.3 mL syrg by INJECTION(UNSPECIFIED PARENTERAL ROUTES) route. Every 2 weeks ondansetron (ZOFRAN) 4 mg tablet Take 4 mg by mouth every 8 hours as needed for Nausea/Vomiting. FOLIC ACID/VIT BCOMP,C (RENAVIT MULTIVITAMIN ORAL) Take by mouth. No current facility-administered medications for this visit. ALLERGIES Allergen Reactions Cats Itching STUFFY NOSE Hydrocodone GI Upset REVIEW OF SYSTEMS: As noted in HPI PHYSICAL EXAMINATION: VIDEO EXAM: (if completed, performed via video enabled technology) GENERAL: alert and appropriate, in no distress and well-hydrated, well nourished HEAD: normocephalic, no abnormality or lesion noted EYES: no injection and visual acuity is grossly normal RESPIRATORY: breathing non-labored Encounter Diagnosis ICD-10-CM 1. TUCKER (obstructive sleep apnea) G47.33 Needs to get BiPAP from her (more content not included)... [facility] 06-26-2023 Miscellaneous Notes Called and spoke with patient and advised [employer] denied medication approval. Patient verbalized understanding. Received decision from insurance Nathalyna from medication zonisamide 100 mg. Scan in patient chart for review. [place] SENT TO COVER MY MEDS, WAITING OUTCOME. Received fax from [employer] stating that a prior authorization has been started for zonisamide 100 mg capsules. Scanned into [employer]. documented in this encounter [facility] 06-25-2023 Note HNO ID: [id number] Author: Zeeshan Rock MD Service: ? Author Type: Physician Type: Progress Notes Filed: 06/25/2023 10:25 AM Note Text: NEUROLOGY PROGRESS NOTE Ingris Saez is a 37 year old female. Who has a history of benign intracranial hypertension comes in for follow up. Interval History Ingris Saez is a 37 year old female, with a history of pseudotumor cerebri, hypertension, obesity, kidney disease who I'm seeing for the first time. She was diagnosed to have pseudotumor cerebri last year. Apparently in June 2017 she had been seeing these black spots in her visual field. She was eventually seen by ophthalmology at [place] and was diagnosed to have papilledema. She eventually had a therapeutic lumbar puncture that confirmed she has pseudotumor cerebri. MRI and MRV of the brain were normal. She was been seen by a colleague of [facility] who is now left our practice/institution. She's been having on and off headaches for started on Topamax but could not tolerate this so she discontinued this. Patient's headaches are well controlled on Zonegran. She takes Fioricet when needed only and has a life saver she states. Both medications will be refilled. Her vision has been the same. Comes in today for a virtual follow-up. ACTIVE PROBLEM LIST Morbid Obesity With Bmi of 50.0-59.9, Adult ([facility]) Hypertension Chronic Back Pain Esrd (End Stage Renal Disease) On Dialysis ([facility]) Lumbar Herniated Disc Iih (Idiopathic Intracranial Hypertension) Marijuana Use S/P Parathyroidectomy ([facility]) Focal Segmental Glomerulosclerosis Asthma Hypotension Anemia History of Blood Clotting Disorder Cellulitis Pcos (Polycystic Ovarian Syndrome) PAST SURGICAL HISTORY Procedure Laterality Date ARTERIOVENOUS ANASTOMOSIS OPEN DIRECT Left 02/04/2016 Left forearm cephalic vein, radial artery fistula INSJ CANNULA HEMO OTH PURPOSE SPX VEIN VEIN Right 02/14/2016 PAST SURGICAL HISTORY OF 08/2014 D and C PAST SURGICAL HISTORY OF 01/2015 IUD implanted PAST SURGICAL HISTORY OF 08/2021 hysterectomy PAST SURGICAL HISTORY OF 2018 3.5 parathyroid glands removed TONSILLECTOMY PRIMARY/SECONDARY Tonsillectomy Current Outpatient Medications on File Prior to Visit Medication Sig albuterol (PROVENTIL) 2.5 mg /3 mL (0.083 %) nebulizer solution Use 3 mL via nebulizer every 4 hours as needed for wheezing/shortness of breath. Use over 5-15minutes. diazePAM (VALIUM) 5 mg tablet Take 1-2 tablets by mouth twice daily as needed for anxiety (panic attacks) for up to 90 days. Do not start before April 11, 2023. albuterol HFA (VENTOLIN HFA) 90 mcg/actuation inhaler Inhale 2 Puffs as instructed every 4 hours as needed for wheezing/shortness of breath. progesterone micronized (PROMETRIUM) 100 mg capsule TESTOSTERONE UNDECANOATE ORAL Take 1 mg by mouth once daily. busPIRone (BUSPAR) 5 mg tablet Take 1 tablet by mouth three times daily. midodrine (PROAMATINE) 10 mg tablet 10 mg given if hypotension occurs near the end of hemodialysis. sevelamer carbonate (RENVELA) 800 mg tablet Take 800 mg by mouth three times daily with meals. OTC PRODUCT Medical marijuana calcium carbonate (OS-ISABELA 500) 500 mg calcium (1,250 mg) tablet Take 1 tablet by mouth three times daily. acetaminophen/diphenhydramine (TYLENOL PM EXTRA STRENGTH ORAL) Take by mouth. epoetin beta, methoxy peg 75 mcg/0.3 mL syrg by INJECTION(UNSPECIFIED PARENTERAL ROUTES) route. Every 2 weeks ondansetron (ZOFRAN) 4 mg tablet Take 4 mg by mouth every 8 hours as needed for Nausea/Vomiting. FOLIC ACID/VIT BCOMP,C (RENAVIT MULTIVITAMIN ORAL) Take by mouth. No current facility-administered medications on file prior to visit. Social History Tobacco Use Smoking status: Never Smokeless tobacco: Never Tobacco comments: SOCIAL SMOKER Vaping Use Vaping Use: Never used Substance Use Topics Alcohol use: Yes Comment: very rarely-maybe 5 times per year Drug use: Yes Comment: medical marijuana PRN family history includes Asthma in her maternal grandmother; Blood Clots in an other family member; Diabetes in her maternal aunt and maternal grandfather; Heart in her maternal grandfather; Hypertension in her maternal grandfather; Kidney Disease in her maternal aunt; Stroke in her maternal aunt. GENERAL:No weight loss, malaise or fevers., SEE HPI HEENT:No changes in hearing or vision, no nose bleeds or other nasal problems NECK:Negative for lumps, goiter, pain and significant neck swelling RESPIRATORY: Negative for cough, wheezing or shortness of breath. CARDIOVASCULAR: Negative for chest pain, leg swelling or palpitations. GASTROINTESTINAL: Negative for abdominal discomfort, blood in stools or black stools or change in bowel habits See HPI. All systems reviewed and are negative There were no vitals filed for this visit. PHYSICAL EXAMINATION: General appearance: well appearing, alert, in no acute distress Neck: Supple Scarlett (more content not included)... [facility] 06-25-2023 History of Present illness Narrative NEUROLOGY PROGRESS NOTE Ingris Saez is a 37 year old female. Who has a history of benign intracranial hypertension comes in for follow up. Interval History Ingris Saez is a 37 year old female, with a history of pseudotumor cerebri, hypertension, obesity, kidney disease who I'm seeing for the first time. She was diagnosed to have pseudotumor cerebri last year. Apparently in June 2017 she had been seeing these black spots in her visual field. She was eventually seen by ophthalmology at [place] and was diagnosed to have papilledema. She eventually had a therapeutic lumbar puncture that confirmed she has pseudotumor cerebri. MRI and MRV of the brain were normal. She was been seen by a colleague of [facility] who is now left our practice/institution. She's been having on and off headaches for started on Topamax but could not tolerate this so she discontinued this. Patient's headaches are well controlled on Zonegran. She takes Fioricet when needed only and has a life saver she states. Both medications will be refilled. Her vision has been the same. Comes in today for a virtual follow-up. ACTIVE PROBLEM LIST Morbid Obesity With Bmi of 50.0-59.9, Adult ([facility]) Hypertension Chronic Back Pain Esrd (End Stage Renal Disease) On Dialysis ([facility]) Lumbar Herniated Disc Iih (Idiopathic Intracranial Hypertension) Marijuana Use S/P Parathyroidectomy ([facility]) Focal Segmental Glomerulosclerosis Asthma Hypotension Anemia History of Blood Clotting Disorder Cellulitis Pcos (Polycystic Ovarian Syndrome) PAST SURGICAL HISTORY Procedure Laterality Date ARTERIOVENOUS ANASTOMOSIS OPEN DIRECT Left 02/04/2016 Left forearm cephalic vein, radial artery fistula INSJ CANNULA HEMO OTH PURPOSE SPX VEIN VEIN Right 02/14/2016 PAST SURGICAL HISTORY OF 08/2014 D and C PAST SURGICAL HISTORY OF 01/2015 IUD implanted PAST SURGICAL HISTORY OF 08/2021 hysterectomy PAST SURGICAL HISTORY OF 2018 3.5 parathyroid glands removed TONSILLECTOMY PRIMARY/SECONDARY <AGE 12 Tonsillectomy Current Outpatient Medications on File Prior to Visit Medication Sig albuterol (PROVENTIL) 2.5 mg /3 mL (0.083 %) nebulizer solution Use 3 mL via nebulizer every 4 hours as needed for wheezing/shortness of breath. Use over 5-15minutes. diazePAM (VALIUM) 5 mg tablet Take 1-2 tablets by mouth twice daily as needed for anxiety (panic attacks) for up to 90 days. Do not start before April 11, 2023. albuterol HFA (VENTOLIN HFA) 90 mcg/actuation inhaler Inhale 2 Puffs as instructed every 4 hours as needed for wheezing/shortness of breath. progesterone micronized (PROMETRIUM) 100 mg capsule TESTOSTERONE UNDECANOATE ORAL Take 1 mg by mouth once daily. busPIRone (BUSPAR) 5 mg tablet Take 1 tablet by mouth three times daily. midodrine (PROAMATINE) 10 mg tablet 10 mg given if hypotension occurs near the end of hemodialysis. sevelamer carbonate (RENVELA) 800 mg tablet Take 800 mg by mouth three times daily with meals. OTC PRODUCT Medical marijuana calcium carbonate (OS-ISABELA 500) 500 mg calcium (1,250 mg) tablet Take 1 tablet by mouth three times daily. acetaminophen/diphenhydramine (TYLENOL PM EXTRA STRENGTH ORAL) Take by mouth. epoetin beta, methoxy peg 75 mcg/0.3 mL syrg by INJECTION(UNSPECIFIED PARENTERAL ROUTES) route. Every 2 weeks ondansetron (ZOFRAN) 4 mg tablet Take 4 mg by mouth every 8 hours as needed for Nausea/Vomiting. FOLIC ACID/VIT BCOMP,C (RENAVIT MULTIVITAMIN ORAL) Take by mouth. No current facility-administered medications on file prior to visit. Social History Tobacco Use Smoking status: Never Smokeless tobacco: Never Tobacco comments: SOCIAL SMOKER Vaping Use Vaping Use: Never used Substance Use Topics Alcohol use: Yes Comment: very rarely-maybe 5 times per year Drug use: Yes Comment: medical marijuana PRN family history includes Asthma in her maternal grandmother; Blood Clots in an other family member; Diabetes in her maternal aunt and maternal grandfather; Heart in her maternal grandfather; Hypertension in her maternal grandfather; Kidney Disease in her maternal aunt; Stroke in her maternal aunt. GENERAL:No weight loss, malaise or fevers., SEE HPI HEENT:No changes in hearing or vision, no nose bleeds or other nasal problems NECK:Negative for lumps, goiter, pain and significant neck swelling RESPIRATORY: Negative for cough, wheezing or shortness of breath. CARDIOVASCULAR: Negative for chest pain, leg swelling or palpitations. GASTROINTESTINAL: Negative for abdominal discomfort, blood in stools or black stools or change in bowel habits See HPI. All systems reviewed and are negative There were no vitals filed for this visit. PHYSICAL EXAMINATION: General appearance: well appearing, alert, in no acute distress Neck: Supple Neurological exam: MENTAL STATUS: Alert, oriented to person, place and time and Follows commands CRANIAL NERVES: PERRLA, EOM's intact, Face symmetric, No dysarthria, Tongue protrudes midline, and Shoulder shrug intact and symmetric MOTOR: No drift MOTOR STRENGTH: Upper and lower extremity 5/5 bilaterally IMPRESSION: 1. Headache disorder 2. Pseudotumor cerebri PLAN: Any problems or concerns to call me or primary care physician immediately or go straight to the emergency department Return in about 6 months (around 12/24/2023). ASSESSMENT/PLAN: 1. Headache disorder - ICD9: 784.0, ICD10: R51.9 - TESNIYALEL-RAPIRDGZGHVIK-XAZAPOWD 50 MG-325 MG-40 MG TABLET Zeeshan Rock MD I spent a total of 30 minutes on the date of the service which included preparing to see the patient, [id number] patient care, completing clinical documentation, obtaining and/or reviewing separately obtained history, performing a medically appropriate examination, counseling and educating the patient/family/caregiver, and ordering medications, tests, or procedures. SIGNATURE: Zeeshan Rock MD PATIENT NAME: Ingris Saez DATE: June 25, 2023 TIME: 10:19 AM documented in this encounter [facility] 04-09-2023 Miscellaneous Notes Patient calling and states [facility] did not receive nebulizer orders. Asking for orders to be re-faxed. Orders re-faxed as requested. Geeta Mauricio RN Orders faxed to [facility] as requested. Loly Fonseca RN PCP OV yesterday. OK Dayana with [facility] called and pt took 2 prescriptions to the pharmacy and for nebulizer and nebulizer supplies. They are not able to use them. They need new scripts with the following information on them 1)nebulizer compressor E0570 dx J45.21 is good 2)nebulizer administration set A7003 needs to have 2 per month with how every many refills you would like on it. Please escript or fax: [phone]. If you have any questions please call [phone]. Karen Orozco LPN documented in this encounter [facility] 04-08-2023 Note HNO ID: [id number] Author: Zuleyka Coughlin MD Service: ? Author Type: Physician Type: Progress Notes Filed: 05/10/2023 12:00 AM Note Text: This note was created using [employer]. Subjective Ingris Saez is a 37 year old female. Patient presents with: Established Patient SUBJECTIVE: Ingris Saez is a 37 year old year old lady here today for follow up appointment for review of medical conditions. Been sick the past 4 days. Started with left ear getting clogged. Then voice affected Coughs but not productive Started Mucinex with decongestant and Zyrtec. Chest congestion was starting to feel better. Stopped everything because spiked anxiety. Pulse was 90 to 100 resting. usually 70-85. Chest always hurting from the elevated pulse. Stopped Mucinex yesterday after AM dose. Tried Valium to try to help it more than usual. Stopped helping though. 10 mg usually knocks her out but lately even after taking Tylenol PM as well, still could not rest. Tried taking Albuterol multiple times a day without any benefit.Albuterol usually needed just before activity and before a procedure or will illness. Not helping as well as usual. Nebulizer had helped before. Also noted needed more diazepam when was on higher dose testosterone and needed to titrate down. Needed it for sleep. Feels like wheezing in chest that triggers her cough. Coughing spells for like 5 minutes. Can almost make her black out. No fever spikes. Left ear still clogged. No nasal steroids--does not like. Did not like powder inhaler tried after pneumonia before. PAST MEDICAL HISTORY Diagnosis Date Abnormal Pap smear of cervix Anemia 05/20/2022 ARF (acute renal failure) ([facility]) Asthma EXERCISE INDUCED ASTHMA Chlamydia 2010 Chronic back pain Chronic kidney disease, stage IV (severe) ([facility]) 07/06/2015 Dr. Vargas (gets labs drawn at outside lab frequently) ESRD (end stage renal disease) ([facility]) Focal segmental glomerulosclerosis History of blood clotting disorder Hypertension Morbid obesity with BMI of 60.0-69.9, adult ([facility]) PCOS (polycystic ovarian syndrome) Pneumonia AGE 14 X2 Current Outpatient Medications Medication Sig diazePAM (VALIUM) 5 mg tablet Take 1-2 tablets by mouth twice daily as needed for anxiety (panic attacks) for up to 90 days. albuterol HFA (VENTOLIN HFA) 90 mcg/actuation inhaler Inhale 2 Puffs as instructed every 4 hours as needed for wheezing/shortness of breath. zonisamide (ZONEGRAN) 100 mg capsule Take 1 capsule by mouth once daily. zonisamide (ZONEGRAN) 100 mg capsule Take 1 capsule by mouth once daily. progesterone micronized (PROMETRIUM) 100 mg capsule TESTOSTERONE UNDECANOATE ORAL Take 1 mg by mouth once daily. busPIRone (BUSPAR) 5 mg tablet Take 1 tablet by mouth three times daily. midodrine (PROAMATINE) 10 mg tablet 10 mg given if hypotension occurs near the end of hemodialysis. acetaminophen 325 mg-caffeine 40 mg-butalbital 50 mg (FIORICET) per tablet Take 1 tablet by mouth every 12 hours as needed. sevelamer carbonate (RENVELA) 800 mg tablet Take 800 mg by mouth three times daily with meals. OTC PRODUCT Medical marijuana calcium carbonate (OS-ISABELA 500) 500 mg calcium (1,250 mg) tablet Take 1 tablet by mouth three times daily. acetaminophen/diphenhydramine (TYLENOL PM EXTRA STRENGTH ORAL) Take by mouth. epoetin beta, methoxy peg 75 mcg/0.3 mL syrg by INJECTION(UNSPECIFIED PARENTERAL ROUTES) route. Every 2 weeks ondansetron (ZOFRAN) 4 mg tablet Take 4 mg by mouth every 8 hours as needed for Nausea/Vomiting. FOLIC ACID/VIT BCOMP,C (RENAVIT MULTIVITAMIN ORAL) Take by mouth. No current facility-administered medications for this visit. Review of Systems Objective BP 118/62 Pulse 97 Temp 36.2 ?C (97.2 ?F) Resp 18 Wt (!) 167 kg (368 lb 2.7 oz) LMP 09/02/2021 SpO2 99% BMI 54.37 kg/m? Physical Exam Constitutional: Appearance: Normal appearance. HENT: Head: Normocephalic. Eyes: Conjunctiva/sclera: Conjunctivae normal. Cardiovascular: Rate and Rhythm: Normal rate and regular rhythm. Heart sounds: Normal heart sounds. Pulmonary: Effort: Pulmonary effort is normal. Breath sounds: Normal breath sounds. Skin: General: Skin is warm and dry. Neurological: General: No focal deficit present. Mental Status: She is alert and oriented to person, place, and time. Psychiatric: Mood and Affect: Mood normal. Behavior: Behavior normal. Thought Content: Thought content normal. Judgment: Judgment normal. Assessment and Plan Encounter Diagnosis ICD-10-CM 1. Mild intermittent asthma with acute exacerbation J45.21 NEBULIZER ADMINISTRATION SET NEBULIZER NEBULIZER NEBULIZER ADMINISTRATION SET doxycycline (VIBRA-TABS) 100 mg tablet 2. Generalized anxiety disorder with panic attacks F41.1 diazePAM (VALIUM) 5 mg tablet F41.0 Doing well on Diazepam and not needing 40 a month. Given with refills to make sure lasts past (more content not included)... [facility] 04-08-2023 History of Present illness Narrative This note was created using [employer]. Subjective Ingris Saez is a 37 year old female. Patient presents with: Established Patient SUBJECTIVE: Ingris Saez is a 37 year old year old lady here today for follow up appointment for review of medical conditions. Been sick the past 4 days. Started with left ear getting clogged. Then voice affected Coughs but not productive Started Mucinex with decongestant and Zyrtec. Chest congestion was starting to feel better. Stopped everything because spiked anxiety. Pulse was 90 to 100 resting. usually 70-85. Chest always hurting from the elevated pulse. Stopped Mucinex yesterday after AM dose. Tried Valium to try to help it more than usual. Stopped helping though. 10 mg usually knocks her out but lately even after taking Tylenol PM as well, still could not rest. Tried taking Albuterol multiple times a day without any benefit.Albuterol usually needed just before activity and before a procedure or will illness. Not helping as well as usual. Nebulizer had helped before. Also noted needed more diazepam when was on higher dose testosterone and needed to titrate down. Needed it for sleep. Feels like wheezing in chest that triggers her cough. Coughing spells for like 5 minutes. Can almost make her black out. No fever spikes. Left ear still clogged. No nasal steroids--does not like. Did not like powder inhaler tried after pneumonia before. PAST MEDICAL HISTORY Diagnosis Date Abnormal Pap smear of cervix Anemia 05/20/2022 [facility] [facility]) Asthma EXERCISE INDUCED ASTHMA Chlamydia 2010 Chronic back pain Chronic kidney disease, stage IV (severe) ([facility]) 07/06/2015 Dr. Vargas (gets labs drawn at outside lab frequently) ESRD (end stage renal disease) (HCC) Focal segmental glomerulosclerosis History of blood clotting disorder Hypertension Morbid obesity with BMI of 60.0-69.9, adult (HCC) PCOS (polycystic ovarian syndrome) Pneumonia AGE 14 X2 Current Outpatient Medications Medication Sig diazePAM (VALIUM) 5 mg tablet Take 1-2 tablets by mouth twice daily as needed for anxiety (panic attacks) for up to 90 days. albuterol HFA (VENTOLIN HFA) 90 mcg/actuation inhaler Inhale 2 Puffs as instructed every 4 hours as needed for wheezing/shortness of breath. zonisamide (ZONEGRAN) 100 mg capsule Take 1 capsule by mouth once daily. zonisamide (ZONEGRAN) 100 mg capsule Take 1 capsule by mouth once daily. progesterone micronized (PROMETRIUM) 100 mg capsule TESTOSTERONE UNDECANOATE ORAL Take 1 mg by mouth once daily. busPIRone (BUSPAR) 5 mg tablet Take 1 tablet by mouth three times daily. midodrine (PROAMATINE) 10 mg tablet 10 mg given if hypotension occurs near the end of hemodialysis. acetaminophen 325 mg-caffeine 40 mg-butalbital 50 mg (FIORICET) per tablet Take 1 tablet by mouth every 12 hours as needed. sevelamer carbonate (RENVELA) 800 mg tablet Take 800 mg by mouth three times daily with meals. OTC PRODUCT Medical marijuana calcium carbonate (OS-ISABELA 500) 500 mg calcium (1,250 mg) tablet Take 1 tablet by mouth three times daily. acetaminophen/diphenhydramine (TYLENOL PM EXTRA STRENGTH ORAL) Take by mouth. epoetin beta, methoxy peg 75 mcg/0.3 mL syrg by INJECTION(UNSPECIFIED PARENTERAL ROUTES) route. Every 2 weeks ondansetron (ZOFRAN) 4 mg tablet Take 4 mg by mouth every 8 hours as needed for Nausea/Vomiting. FOLIC ACID/VIT BCOMP,C (RENAVIT MULTIVITAMIN ORAL) Take by mouth. No current facility-administered medications for this visit. Review of Systems Objective BP 118/62 Pulse 97 Temp 36.2 C (97.2 F) Resp 18 Wt (!) 167 kg (368 lb 2.7 oz) LMP 09/02/2021 SpO2 99% BMI 54.37 kg/m Physical Exam Constitutional: Appearance: Normal appearance. HENT: Head: Normocephalic. Eyes: Conjunctiva/sclera: Conjunctivae normal. Cardiovascular: Rate and Rhythm: Normal rate and regular rhythm. Heart sounds: Normal heart sounds. Pulmonary: Effort: Pulmonary effort is normal. Breath sounds: Normal breath sounds. Skin: General: Skin is warm and dry. Neurological: General: No focal deficit present. Mental Status: She is alert and oriented to person, place, and time. Psychiatric: Mood and Affect: Mood normal. Behavior: Behavior normal. Thought Content: Thought content normal. Judgment: Judgment normal. Assessment and Plan Encounter Diagnosis ICD-10-CM 1. Mild intermittent asthma with acute exacerbation J45.21 NEBULIZER ADMINISTRATION SET NEBULIZER NEBULIZER NEBULIZER ADMINISTRATION SET doxycycline (VIBRA-TABS) 100 mg tablet 2. Generalized anxiety disorder with panic attacks F41.1 diazePAM (VALIUM) 5 mg tablet F41.0 Doing well on Diazepam and not needing 40 a month. Given with refills to make sure lasts past next follow up so will not make her more anxious. Continue Buspar 3. Surgical menopause on hormone replacement therapy E89.40 diazePAM (VALIUM) 5 mg tablet Z79.890 4. Postmenopausal disorder N95.1 diazePAM (VALIUM) 5 mg tablet 5. Morbid obesity with BMI of 50.0-59.9, adult ([facility]) E66.01 Z68.43 6. ESRD (end stage renal disease) on dialysis ([facility]) N18.6 Z99.2 Above issues addressed with patient. Patient involved in shared decision making for management of medical issues. History and medications reviewed. Epic updated as needed Refills and/or prescriptions taken care of and meds adjusted as indicated after reviewed history, exam and labs. Health Maintenance reviewed. Updated record and/or ordered tests as recorded. Encouraged on efforts at healthy diet and regular exercise and adequate sleep. Needs to keep working on diet and exercise with lifestyle changes for effective weight loss as well as prevention of DM, and control of BP and lipids. I spent a total of 33 minutes on the date of the service which included [id number] patient care, completing clinical documentation, obtaining and/or reviewing separately obtained history, performing a medically appropriate examination, counseling and educating the patient/family/caregiver, and ordering medications, tests, or procedures. Zuleyka Coughlin MD documented in this encounter [facility] 01-12-2023 Note HNO ID: [id number] Author: Zuleyka Coughlin MD Service: ? Author Type: Physician Type: Progress Notes Filed: 01/12/2023 7:13 PM Note Text: VIRTUAL VISIT PROGRESS NOTE This is a virtual visit using Zilta video visit. It required patient-provider interaction for the medical decision making as documented below. I have communicated my name and active licensure. The patient's identity and physical location were verified at the time of this visit. Either the patient or their legal field support representative has been informed of the risks and benefits of -- and alternatives to -- treatment through a remote evaluation and consents to proceed with the evaluation remotely. Ingris Saez is a 37 year old female seen for follow up. Everything steadily improving. Saw Dr. Vargas Will see VET TECH. Doing better with anxiety and 24 pills lasted the past month but was anxious about not having refill. Anxiety as increased after dog . Considering memorial tattoo of dog. Albuterol--helps to have on hand. Does not need often. Did see new weight loss specialist. Dr. Martin. Was eating my feelings --craving candy bars and before was really rare that would be an issue. Comfort food is pasta and family's recipe stuff, like cabbage rolls with some rice. Knows needs to work on portion size. Does not choose wrong foods but too much of things. Doing better with portion size. Likes veggies. Also erratic schedule. Medical marijuana used judiciously as discussed. Does not need every day. Helps with anxiety and chronic pain. Aware to avoid making any big decisions while taking medical mariajuana. Noted was on percocet for pain for about 5 years. None now. HISTORY REVIEWED (electronic chart updated): PAST MEDICAL HISTORY Diagnosis Date Abnormal Pap smear of cervix Anemia 05/20/2022 ARF (acute renal failure) (HCC) Asthma EXERCISE INDUCED ASTHMA Chlamydia 2010 Chronic back pain Chronic kidney disease, stage IV (severe) ([facility]) 07/06/2015 Dr. Vargas (gets labs drawn at outside lab frequently) ESRD (end stage renal disease) (HCC) Focal segmental glomerulosclerosis History of blood clotting disorder Hypertension Morbid obesity with BMI of 60.0-69.9, adult (HCC) PCOS (polycystic ovarian syndrome) Pneumonia AGE 14 X2 PAST SURGICAL HISTORY Procedure Laterality Date ARTERIOVENOUS ANASTOMOSIS OPEN DIRECT Left 02/04/2016 Left forearm cephalic vein, radial artery fistula INSJ CANNULA HEMO OTH PURPOSE SPX VEIN VEIN Right 02/14/2016 PAST SURGICAL HISTORY OF 08/2014 D and C PAST SURGICAL HISTORY OF 01/2015 IUD implanted PAST SURGICAL HISTORY OF 08/2021 hysterectomy PAST SURGICAL HISTORY OF 2018 3.5 parathyroid glands removed TONSILLECTOMY PRIMARY/SECONDARY Tonsillectomy FAMILY HISTORY Problem Relation Age of Onset Diabetes Maternal Aunt Stroke Maternal Aunt Kidney Disease Maternal Aunt Asthma Maternal Grandmother Diabetes Maternal Grandfather Heart Maternal Grandfather Hypertension Maternal Grandfather Blood Clots Other Social History Tobacco Use Smoking status: Never Smokeless tobacco: Never Tobacco comments: SOCIAL SMOKER Vaping Use Vaping Use: Never used Substance Use Topics Alcohol use: Yes Comment: very rarely-maybe 5 times per year Drug use: Yes Comment: medical marijuana PRN Current Outpatient Medications Medication Sig zonisamide (ZONEGRAN) 100 mg capsule Take 1 capsule by mouth once daily. zonisamide (ZONEGRAN) 100 mg capsule Take 1 capsule by mouth once daily. progesterone micronized (PROMETRIUM) 100 mg capsule TESTOSTERONE UNDECANOATE ORAL Take 2 mg by mouth once daily. busPIRone (BUSPAR) 5 mg tablet Take 1 tablet by mouth three times daily. midodrine (PROAMATINE) 10 mg tablet 10 mg given if hypotension occurs near the end of hemodialysis. acetaminophen 325 mg-caffeine 40 mg-butalbital 50 mg (FIORICET) per tablet Take 1 tablet by mouth every 12 hours as needed. sevelamer carbonate (RENVELA) 800 mg tablet Take 800 mg by mouth three times daily with meals. OTC PRODUCT Medical marijuana albuterol HFA (VENTOLIN HFA) 90 mcg/actuation inhaler Inhale 2 Puffs as instructed every 4 hours as needed for wheezing/shortness of breath. calcium carbonate (OS-ISABELA 500) 500 mg calcium (1,250 mg) tablet Take 1 tablet by mouth three times daily. acetaminophen/diphenhydramine (TYLENOL PM EXTRA STRENGTH ORAL) Take by mouth. epoetin beta, methoxy peg 75 mcg/0.3 mL syrg by INJECTION(UNSPECIFIED PARENTERAL ROUTES) route. Every 2 weeks ondansetron (ZOFRAN) 4 mg tablet Take 4 mg by mouth every 8 hours as needed for Nausea/Vomiting. FOLIC ACID/VIT BCOMP,C (RENAVIT MULTIVITAMIN ORAL) Take by mouth. No current facility-administered medications for this visit. ALLERGIES Allergen Reactions Cats Itching STUFFY NOSE Hydrocodone GI Upset REVIEW OF SYSTEMS: As noted in HPI PHYSICAL EXAMINATION: VIDEO EXAM: (if completed, performed via video lin (more content not included)... [facility] 01-12-2023 History of Present illness Narrative VIRTUAL VISIT PROGRESS NOTE This is a virtual visit using Zilta video visit. It required patient-provider interaction for the medical decision making as documented below. I have communicated my name and active licensure. The patient's identity and physical location were verified at the time of this visit. Either the patient or their legal field support representative has been informed of the risks and benefits of -- and alternatives to -- treatment through a remote evaluation and consents to proceed with the evaluation remotely. Ingris Saez is a 37 year old female seen for follow up. Everything steadily improving. Saw Dr. Vargas Will see VET TECH. Doing better with anxiety and 24 pills lasted the past month but was anxious about not having refill. Anxiety as increased after dog . Considering memorial tattoo of dog. Albuterol--helps to have on hand. Does not need often. Did see new weight loss specialist. Dr. Martin. Was eating my feelings --craving candy bars and before was really rare that would be an issue. Comfort food is pasta and family's recipe stuff, like cabbage rolls with some rice. Knows needs to work on portion size. Does not choose wrong foods but too much of things. Doing better with portion size. Likes veggies. Also erratic schedule. Medical marijuana used judiciously as discussed. Does not need every day. Helps with anxiety and chronic pain. Aware to avoid making any big decisions while taking medical mariajuana. Noted was on percocet for pain for about 5 years. None now. HISTORY REVIEWED (electronic chart updated): PAST MEDICAL HISTORY Diagnosis Date Abnormal Pap smear of cervix Anemia 05/20/2022 ARF (acute renal failure) (HCC) Asthma EXERCISE INDUCED ASTHMA Chlamydia 2010 Chronic back pain Chronic kidney disease, stage IV (severe) ([facility]) 07/06/2015 Dr. Vargas (gets labs drawn at outside lab frequently) ESRD (end stage renal disease) (HCC) Focal segmental glomerulosclerosis History of blood clotting disorder Hypertension Morbid obesity with BMI of 60.0-69.9, adult (HCC) PCOS (polycystic ovarian syndrome) Pneumonia AGE 14 X2 PAST SURGICAL HISTORY Procedure Laterality Date ARTERIOVENOUS ANASTOMOSIS OPEN DIRECT Left 02/04/2016 Left forearm cephalic vein, radial artery fistula INSJ CANNULA HEMO OTH PURPOSE SPX VEIN VEIN Right 02/14/2016 PAST SURGICAL HISTORY OF 08/2014 D and C PAST SURGICAL HISTORY OF 01/2015 IUD implanted PAST SURGICAL HISTORY OF 08/2021 hysterectomy PAST SURGICAL HISTORY OF 2018 3.5 parathyroid glands removed TONSILLECTOMY PRIMARY/SECONDARY <AGE 12 Tonsillectomy FAMILY HISTORY Problem Relation Age of Onset Diabetes Maternal Aunt Stroke Maternal Aunt Kidney Disease Maternal Aunt Asthma Maternal Grandmother Diabetes Maternal Grandfather Heart Maternal Grandfather Hypertension Maternal Grandfather Blood Clots Other Social History Tobacco Use Smoking status: Never Smokeless tobacco: Never Tobacco comments: SOCIAL SMOKER Vaping Use Vaping Use: Never used Substance Use Topics Alcohol use: Yes Comment: very rarely-maybe 5 times per year Drug use: Yes Comment: medical marijuana PRN Current Outpatient Medications Medication Sig zonisamide (ZONEGRAN) 100 mg capsule Take 1 capsule by mouth once daily. zonisamide (ZONEGRAN) 100 mg capsule Take 1 capsule by mouth once daily. progesterone micronized (PROMETRIUM) 100 mg capsule TESTOSTERONE UNDECANOATE ORAL Take 2 mg by mouth once daily. busPIRone (BUSPAR) 5 mg tablet Take 1 tablet by mouth three times daily. midodrine (PROAMATINE) 10 mg tablet 10 mg given if hypotension occurs near the end of hemodialysis. acetaminophen 325 mg-caffeine 40 mg-butalbital 50 mg (FIORICET) per tablet Take 1 tablet by mouth every 12 hours as needed. sevelamer carbonate (RENVELA) 800 mg tablet Take 800 mg by mouth three times daily with meals. OTC PRODUCT Medical marijuana albuterol HFA (VENTOLIN HFA) 90 mcg/actuation inhaler Inhale 2 Puffs as instructed every 4 hours as needed for wheezing/shortness of breath. calcium carbonate (OS-ISABELA 500) 500 mg calcium (1,250 mg) tablet Take 1 tablet by mouth three times daily. acetaminophen/diphenhydramine (TYLENOL PM EXTRA STRENGTH ORAL) Take by mouth. epoetin beta, methoxy peg 75 mcg/0.3 mL syrg by INJECTION(UNSPECIFIED PARENTERAL ROUTES) route. Every 2 weeks ondansetron (ZOFRAN) 4 mg tablet Take 4 mg by mouth every 8 hours as needed for Nausea/Vomiting. FOLIC ACID/VIT BCOMP,C (RENAVIT MULTIVITAMIN ORAL) Take by mouth. No current facility-administered medications for this visit. ALLERGIES Allergen Reactions Cats Itching STUFFY NOSE Hydrocodone GI Upset REVIEW OF SYSTEMS: As noted in HPI PHYSICAL EXAMINATION: VIDEO EXAM: (if completed, performed via video enabled technology) GENERAL: alert and appropriate, in no distress, well-hydrated, well nourished, happy, smiling, interactive, and normal affect; noted sadness when discussing recent of her dog HEAD: normocephalic, no abnormality or lesion noted EYES: no injection and visual acuity is grossly normal RESPIRATORY: breathing non-labored Encounter Diagnosis ICD-10-CM 1. Generalized anxiety disorder with panic attacks F41.1 diazePAM (VALIUM) 5 mg tablet F41.0 Doing well on Diazepam and not needing 40 a month. Given with refills to make sure lasts past next follow up so will not make her more anxious. Continue Buspar 2. Morbid obesity with BMI of 50.0-59.9, adult ([facility]) E66.01 Z68.43 3. Chronic bilateral low back pain without sciatica M54.50 G89.29 Fair control with medical marijuana 4. Surgical menopause on hormone replacement therapy E89.40 diazePAM (VALIUM) 5 mg tablet Z79.890 5. Postmenopausal disorder N95.1 diazePAM (VALIUM) 5 mg tablet 6. Wheezing R06.2 albuterol HFA (VENTOLIN HFA) 90 mcg/actuation inhaler 7. Marijuana use F12.90 Benefits outweight risks at ths time. 8. ESRD (end stage renal disease) on dialysis ([facility]) N18.6 Z99.2 Above issues addressed with patient. Patient involved in shared decision making for management of medical issues. History and medications reviewed. Epic updated as needed Refills and/or prescriptions taken care of and meds adjusted as indicated after reviewed history, exam and labs. Health Maintenance reviewed. Updated record and/or ordered tests as recorded. Encouraged on efforts at healthy diet and regular exercise and adequate sleep. Discussed that if okay with Dr. Vargas for tattoo, if needs note for artist blacksmith to do tattoo, she will let me know. Noted reputable shot with friends who had wonderful experiences. Stable with control of anxiety with diazepam and Buspar. At this time benefits outweigh risks. Continue to monitor for adverse effects and indications for decreasing dose or tapering off. Aware that also has Medical Marijuana for chronic pain--no signs of abuse of med or adverse effects or interaction with diazepam. No signs of diversion or abuse of medication(s); no adverse effects. Continue present management. Discussed she is working with Dr. Martin and pleased how she working with her to decide whether wants to work on diet or pursue surgery. Will watch Webinars and discuss with Dr. Martin at follow up. worries how liquid diet postop would be if had bypass surgery since on HD. Able to do daily since does home HD. Fluid restriction up to 64ounces per Dr. Vargas since does HDL Will continue efforts at portion control and cutting back on pasta and other simple carbs. There are no Patient Instructions on file for this visit. I spent a total of 54 minutes on the date of the service which included preparing to see the patient, [id number] patient care, completing clinical documentation, obtaining and/or reviewing separately obtained history, performing a medically appropriate examination, counseling and educating the patient/family/caregiver, and ordering medications, tests, or procedures Zuleyka Coughlin MD documented in this encounter [facility] 01-08-2023 Miscellaneous Notes The mother is calling. She just got a call that her daughters seizure medication will not be covered buy insurance anymore although their insurance company has not changed. Her daughter cannot afford to pay for this medication out of pocket. What is she supposed to do for her seizures? Are you able to call the insurance company back and push the issue a bit harder to see if it can be covered? She is running out of the medication today so this needs to be done today. The mother does not think she has tried any other anti-seizure meds in the past. Please call the mother back at the number listed in contacts. documented in this encounter [facility] 01-06-2023 Miscellaneous Notes This patient gave consent to this Medical Advice Message and is aware that it may result in a bill to their insurance, as well as the possibility of receiving a bill for a copay and/or deductible. They are an established patient, but are not seeking information exclusively about a problem treated during an in person or video visit in the last seven days. I did not recommend an in person or video visit within seven days of my reply. See the Zilta message reply for my assessment and plan. I spent a total of 10 minutes reviewing the patient's prior medical records and current request for medical advice, prescribing medications or ordering tests (if applicable), replying to the patient, and documenting the encounter. [facility] Advised to call [place] [employer] Advised to do an Administrative Review Prior Authorization zonisamide (ZONEGRAN) 100 mg capsule 1 x Daily 90 Qty 3 Refills [facility] Prior Authorization Transferred to Medicare D Team Neurology Diagnosis Code G93.2/M54 Denied: Waiting for Appeal Case # Patient's mother Chantal calling States [employer] requires prior auth Patient is completely out of medication Asking if PA can be expedited Chantal can be reached at [phone], may leave a message documented in this encounter [facility] 01-05-2023 Miscellaneous Notes Requested Prescriptions Pending Prescriptions Disp Refills zonisamide (ZONEGRAN) 100 mg capsule 90 capsule 3 Sig: Take 1 capsule by mouth once daily. documented in this encounter [facility] 12-24-2022 Note HNO ID: [id number] Author: Festus Martin MD Service: ? Author Type: Physician Type: Progress Notes Filed: 02/11/2023 12:51 PM Note Text: Festus Martin MD [facility] [address], [address] [employer] [facility] - Fourth Floor [place] [address] This Team Access Model visit is a virtual visit due to COVID -19 Pandemic . It required patient-provider interaction for the medical decision making as documented below. Consent was obtained to complete today's distance health visit. SUBJECTIVE: Ingris Saez is a 37 year old female with has a past medical history of Abnormal Pap smear of cervix, Anemia (05/20/2022), ARF (acute renal failure) ([facility]), Asthma, Chlamydia (2010), Chronic back pain, Chronic kidney disease, stage IV (severe) ([facility]) (07/06/2015), ESRD (end stage renal disease) ([facility]), Focal segmental glomerulosclerosis, History of blood clotting disorder, Hypertension, Morbid obesity with BMI of 60.0-69.9, adult (HCC), PCOS (polycystic ovarian syndrome), and Pneumonia (AGE 14). She has no past medical history of Blood dyscrasia, Breast disorder, Complication of anesthesia, Coronary artery disease, Diabetes ([facility]), Gonorrhea, Herpes simplex without mention of complication, HIV infection ([facility]), Infertility, female, Liver disease, Mental disorder, Seizure ([facility]), Sickle cell anemia ([facility]), Syphilis, Systemic lupus erythematosus ([facility]), Thyroid disease, Trauma, or Varicosities. /intracranial HTN /FSGN on dialysis of presents on December 24, 2022 for medical evaluation of Non-Surgical Metabolic Weight Management . Discussed extensively regarding bariatric surgery option but patient is not interested in bariatric surgery. As it scares her : But ready to discuss about it Age at onset - early adult years. Rate of weight gain is described as gradual over years. Family history positive for obesity in the patient?s patient. She considers ideal weight to be healthy weight.Previous treatments include self-directed dieting. Recent hysterectomy : on hormones Lifestyle Factors: Diet: Do you think that you have a healthy diet? No. Overall characterization of present diet:Unstructured and emotional eating Feb is hard month. Lost his bulldog who was with her for 11 years How have you tried to lose weight in the past? Yes. What worked? Yo-yo dieting . Routine Varies/ HD in the morning Not consistent Boyfriend works nights Crytal lite lemon water Soda Not consistency/ no specific routine Breakfast: Left over from the night before Snacks: Chips and salsa/ fruits / veggies with dips Lunch: Take out pasta /salad Cooks : if in a pinch may get a fast food Snack:what ever available Dinner: Snack: Pickles /chips and salsa Bedtime Sleeps: no specific routine Wake up: Exercise: Do you exercise ? No Are you able to walk up a flight of stairs or a small hill? No If no, why not? Limited due back pain / herniated disc . Patient's functional capacity is >4 METS. The composite complication rate of , unstable angina, CO, DVT, PE, renal failure, and stroke occurred in 16.6% of severely obese patients whose peak oxygen consumption was < 15.8 mL/kg/min but in only 2.8% of those whose cardiorespiratory fitness was >/= 15.8 mL/kg/min. By convention, 1 MET is considered equivalent to the consumption of 3.5 ml O2?kg-1?min-1 (or 3.5 ml of oxygen per kilogram of body mass per minute) and is roughly equivalent to the expenditure of 1 kcal per kilogram of body weight per hour. Sleep: Duration: > 6 hours:Yes Sleep apnea screen: S-snore:No. T-feel tired, fatigued, daytime sleepiness: Yes. O-observed patient stop breathing during sleep:No. P-does patient have, or being treated for high blood pressure:No. B-is BMI >35:Yes. A-Age >50: No N-Neck circumference >15.75 inches:Yes G-Male gender:No Stop Bang score: 3. Chest pain, SOB, or WELCH: No Stress test: yes: when 2019 Echo 22 History of eating disorders: negative Associated medical conditions: osteoarthritis and ESRD Associated medications: none Cardiovascular risk factors: obesity and sedentary life style Current Outpatient Medications on File Prior to Visit Medication Sig progesterone micronized (PROMETRIUM) 100 mg capsule busPIRone (BUSPAR) 5 mg tablet Take 1 tablet by mouth three times daily. diazePAM (VALIUM) 5 mg tablet Take 1-2 tablets by mouth twice daily as needed for anxiety (panic attacks) for up to 30 days. midodrine (PROAMATINE) 10 mg tablet 10 mg given if hypotension occurs near the end of hemodialysis. zonisamide (ZONEGRAN) 100 mg capsule Take 1 capsule by mouth once daily. acetaminophen 325 mg-caffeine 40 mg-butalbital 50 mg (FIORICET) per tablet Take 1 tablet by mouth every 12 hours as needed. sevelamer carbonate (RENVELA) 800 mg tablet Take 800 mg by mouth three times daily with meals. OTC PRODUCT Medical mari (more content not included)... [facility] 12-24-2022 Miscellaneous Notes Return in about 6 weeks (around 02/04/2023) for with Francie /please provide online seminar information No answer, lvm documented in this encounter [facility] 12-24-2022 Instructions Festus Martin MD - 12/24/2022 2:41 PM EDT TRYING TO LOSE WEIGHT? Your Body mass index is 53.39 kg/m . (Target BMI: 19-25) A person with a BMI between 25 and 29.9 is considered overweight A person with a BMI of 30 or greater is considered to be obese SETTING A WEIGHT LOSS GOAL: Last 5 Encounter Wt Readings: Date: Wt: 12/24/2022 164 kg (361 lb 8.9 oz) 08/15/2022 0 kg () 06/23/2022 162 kg (357 lb 2.3 oz) 06/23/2022 164.7 kg (363 lb) 06/21/2022 161.9 kg (357 lb) Lose 10% of body weight over six months, about 1-2 lbs per week LIFESTYLE CHANGES -- The goals of lifestyle changes are to help you change your eating habits, become more active, and be more aware of how much you eat and exercise, helping you to make healthier choices. This can be broken down into three steps: 1. Triggers to eat -- Determining what triggers you to eat involves figuring out what foods you eat and where and when you eat. To figure out what triggers you to eat, keep a record for a few days of everything you eat, the places where you eat, how often you eat, and the emotions you were feeling when you ate. For some people, the trigger is related to a certain time of day or night. For others, the trigger is related to a certain place, like sitting at a desk working. 2. Eating -- You can change your eating habits by breaking the chain of events between the trigger for eating and eating itself. There are many ways to do this. For instance, you can: Limit where you eat to a few places (eg, dining room) Restrict the number of utensils (eg, only a fork) used for eating Drink a sip of water between each bite Chew your food a certain number of times Get up and stop eating every few minutes 3. What happens after you eat -- Rewarding yourself for good eating behaviors can help you to develop better habits. This is not a reward for weight loss; instead, it is a reward for changing unhealthy behaviors. Do not use food as a reward. Some people find money, clothing, or personal care (eg, a hair cut, manicure, or massage) to be effective rewards. Treat yourself immediately after making better eating choices to reinforce the value of the good behavior. You need to have clear behavior goals, and you must have a time frame for reaching your goals. Reward small changes along the way to your final goal. Other factors that contribute to successful weight loss -- Establish a olga system -- Having a friend or family member available to provide support and reinforce good behavior is very helpful. The support person needs to understand your goals. Learn to be strong -- Learning to be strong when tempted by food is an important part of losing weight. As an example, you will need to learn how to say no and continue to say no when urged to eat at parties and social gatherings. Develop strategies for events before you go, such as eating before you go or taking low-calorie snacks and drinks with you. Develop a support system -- Having a support system is helpful when losing weight. This is why many commercial groups are successful. Family support is also essential; if your family does not support your efforts to lose weight, this can slow your progress or even keep you from losing weight. Positive thinking -- People often have conversations with themselves in their head; these conversations can be positive or negative. If you eat a piece of cake that was not planned, you may respond by thinking, Oh, you stupid idiot, you've blown your diet! and as a result, you may eat more cake. A positive thought for the same event could be, Well, I ate cake when it was not on my plan. Now I should do something to get back on track. A positive approach is much more likely to be successful than a negative one. Reduce stress -- Although stress is a part of everyday life, it can trigger uncontrolled eating in some people. It is important to find a way to get through these difficult times without eating or by eating low-calorie food, like raw vegetables. It may be helpful to imagine a relaxing place that allows you to temporarily escape from stress. With deep breaths and closed eyes, you can imagine this relaxing place for a few minutes. Self-help programs -- Self-help programs like Weight Watchers , Overeaters Anonymous , and Take Off Pounds Sensibly (TOPS) work for some people. As with all weight loss programs, you are most likely to be successful with these plans if you make long-term changes in how you eat. CHOOSING A DIET -- A calorie is a unit of energy found in food. Your body needs calories to function. The goal of any diet is to burn up more calories than you eat. How quickly you lose weight depends upon several factors, such as your age, gender, and starting weight. Older people have a slower metabolism than young people, so they lose weight more slowly. Men lose more weight than women of similar height and weight when dieting because they use more energy. People who are extremely overweight lose weight more quickly than those who are only mildly overweight. How many calories do I need? -- You can estimate the number of calories you need per day based upon your current (or target) weight, gender, and activity level for women and for men. In general, it is best to choose foods that contain enough protein, carbohydrates, essential fatty acids, and vitamins. Try not to drink alcohol or drinks with added sugar, and most sweets (candy, cakes, cookies), since they rarely contain important nutrients. Portion-controlled diets -- One simple way to diet is to buy packaged foods, like frozen low-calorie meals or meal-replacement canned drinks. A typical meal plan for 1000 to 1500 calories per day may include: A meal-replacement drink or breakfast bar for breakfast A meal-replacement drink or a frozen low-calorie (250 to 350 calories) meal for lunch A frozen low-calorie meal or other prepackaged, calorie-controlled meal, along with extra vegetables for dinner Low-fat diet -- To reduce the amount of fat in your diet, you can: Eat low-fat foods. Low-fat foods are those that contain less than 30 percent of calories from fat. Fat is listed on the food facts label Count fat grams. For a 1500 calorie diet, this would mean about 45 g or fewer of fat per day. Low-carbohydrate diet -- Low- and cfui-xpu-nnqjbgyyvdva diets (eg, Atkins diet, [employer] diet) have become popular ways to lose weight quickly. With a lani-nms-ygestohbfcrm diet, you eat between 0 and 60 grams of carbohydrates per day (a standard diet contains 200 to 300 grams of carbohydrates) With a low-carbohydrate diet, you eat between 60 and 130 grams of carbohydrates per day Carbohydrates are found in fruits, vegetables, and grains (including breads, rice, pasta, and cereal), alcoholic beverages, and in dairy products. Meat and fish do not contain carbohydrates. Side effects of zlvg-pye-xszimzfejwly diets can include constipation, headache, bad breath, muscle cramps, diarrhea, and weakness. Mediterranean diet -- The term Mediterranean diet refers to a way of eating that is common in olive-growing regions around the [place] Sea. Although there is some variation in Mediterranean diets, there are some similarities. Most Mediterranean diets include: A high level of monounsaturated fats (from olive or canola oil, walnuts, pecans, almonds) and a low level of saturated fats (from butter) A high amount of vegetables, fruits, legumes, and grains (7 to 10 servings of fruits and vegetables per day) A moderate amount of milk and dairy products, mostly in the form of cheese. Use low-fat dairy products (skim milk, fat-free yogurt, low-fat cheese). A relatively low amount of red meat and meat products. Substitute fish or poultry for red meat. For those who drink alcohol, a modest amount (mainly as red wine) may help to protect against cardiovascular disease. A modest amount is up to one (4 ounce) glass per day for women and up to two glasses per day for men. Which diet is best? -- No one diet is best for weight loss. Any diet will help you to lose weight if you stick with the diet. Therefore, it is important to choose a diet that includes foods you like. Fad diets -- Fad diets often promise quick weight loss (more than 1 to 2 pounds per week) and may claim that you do not need to exercise or give up favorite foods. Some fad diets cost a lot of money, because you have to pay for seminars or pills. Fad diets generally lack any scientific evidence that they are safe and effective, but instead rely on before and after photos or testimonials. Diets that sound too good to be true usually are. These plans are a waste of time and money and are not recommended. A doctor, nurse, or screw machine tender can help you find a safe and effective way to lose weight and keep it off. Adapted from [facility] My opinion 3 hour Rule: -last meal /snack 3 hours before sleeping ,but mostly try to be done by 7 pm --eat Rich Breakfast, high in protein hard boiled eggs/protein drinks - At least 3 hours break between each meals ,except water --sleep 7 hours at night , that means going to bed early -- drink only water ( no soda or juices) /no Alcohol consumption --cut down on coffee consumption if consuming high amounts Website :You can visit to web site for low carb recipe information as well as visual guide to low carb food: Https://www.dietdoctor.com/ ( visual guide for low carb diet) Limit carb consumption to 80- 100 grams per day. Goals: formal exercise 2-5 x/week as tolerated, start with 10 mins/day to goal of 30 minutes ( -- for exercise, you should shoot for a goal of >150 min per week initially. Depending at what level you are starting, that may seem like an unachievable task. However, the best plan is to just begin to walk or bike or do another activity that you like and track your steps per day. You do not need to pay attention to the time, but you do need to try to increase your exercise every 3 weeks. Other strength exercises, using light weights or training bands may also be useful, especially when combined with regular aerobic exercise. Studies have shown that >200min per week is best to maintain weight loss, so that would be the overall end goal.) Have 3 meals a day-protein source with each meal (structured meal planning) Food journal daily and bring it to all appointments If you want you can REPLACE one of your meals with a liquid meal or frozen meal. This is easy to start and may help with your weight. 1. Liquid meal replacement (Boost, Ensure) 2. Frozen meal (Healthy Choice, Lean Cuisine - sodium under 650mg, can always add veggies to the meal) 3. Powdered protein (Premier Protein) or meal replacement (I like a plant based meal replacement called Healthy Sko[employer] Nutrition - can mix w froz berries and almond milk) -- IN GENERAL - suggestions based on important of our sleep cycle called circadian rhythm and its influence on our gut microbiota and overall health tragetory 1) EAT MOST OF YOUR FOOD IN AM AND EARLY PM 2) NO EATING AT NIGHT 3) EXERCISE DURING DAY 4) BE CONSISTENT WITH MEAL STRUCTURE ie Meals at same time during the day. -- keep record of your food intake - it is easier for us to understand your eating habits and food preferences, looking into the amounts of protein, carbs, and fat in your diet. Good examples of apps to track calories are MyFITNESSPAL, LOSE IT. Some patient have found FOODUCATE to help with decisions around food, however choose apps that best suits you. documented in this encounter [facility] 12-24-2022 History of Present illness Narrative Images from the original note were not included. Festus Martin MD [facility] [address], [address] [facility] - Fourth Floor [place] [id number] This Team Access Model visit is a virtual visit due to COVID -19 Pandemic . It required patient-provider interaction for the medical decision making as documented below. Consent was obtained to complete today's distance health visit. SUBJECTIVE: Ingris Saez is a 37 year old female with has a past medical history of Abnormal Pap smear of cervix, Anemia (05/20/2022), ARF (acute renal failure) ([facility]), Asthma, Chlamydia (2010), Chronic back pain, Chronic kidney disease, stage IV (severe) ([facility]) (07/06/2015), ESRD (end stage renal disease) ([facility]), Focal segmental glomerulosclerosis, History of blood clotting disorder, Hypertension, Morbid obesity with BMI of 60.0-69.9, adult (HCC), PCOS (polycystic ovarian syndrome), and Pneumonia (AGE 14). She has no past medical history of Blood dyscrasia, Breast disorder, Complication of anesthesia, Coronary artery disease, Diabetes ([facility]), Gonorrhea, Herpes simplex without mention of complication, HIV infection ([facility]), Infertility, female, Liver disease, Mental disorder, Seizure ([facility]), Sickle cell anemia ([facility]), Syphilis, Systemic lupus erythematosus (HCC), Thyroid disease, Trauma, or Varicosities. /intracranial HTN /FSGN on dialysis of presents on December 24, 2022 for medical evaluation of Non-Surgical Metabolic Weight Management . Discussed extensively regarding bariatric surgery option but patient is not interested in bariatric surgery. As it scares her : But ready to discuss about it Age at onset - early adult years. Rate of weight gain is described as gradual over years. Family history positive for obesity in the patient s patient. She considers ideal weight to be healthy weight.Previous treatments include self-directed dieting. Recent hysterectomy : on hormones Lifestyle Factors: Diet: Do you think that you have a healthy diet? No. Overall characterization of present diet:Unstructured and emotional eating Feb is hard month. Lost his bulldog who was with her for 11 years How have you tried to lose weight in the past? Yes. What worked? Yo-yo dieting . Routine Varies/ HD in the morning Not consistent Boyfriend works nights Crytal lite lemon water Soda Not consistency/ no specific routine Breakfast: Left over from the night before Snacks: Chips and salsa/ fruits / veggies with dips Lunch: Take out pasta /salad Cooks : if in a pinch may get a fast food Snack:what ever available Dinner: Snack: Pickles /chips and salsa Bedtime Sleeps: no specific routine Wake up: Exercise: Do you exercise ? No Are you able to walk up a flight of stairs or a small hill? No If no, why not? Limited due back pain / herniated disc . Patient's functional capacity is >4 METS. The composite complication rate of , unstable angina, CO, DVT, PE, renal failure, and stroke occurred in 16.6% of severely obese patients whose peak oxygen consumption was < 15.8 mL/kg/min but in only 2.8% of those whose cardiorespiratory fitness was >/= 15.8 mL/kg/min. By convention, 1 MET is considered equivalent to the consumption of 3.5 ml O2 kg-1 min-1 (or 3.5 ml of oxygen per kilogram of body mass per minute) and is roughly equivalent to the expenditure of 1 kcal per kilogram of body weight per hour. Sleep: Duration: > 6 hours:Yes Sleep apnea screen: S-snore:No. T-feel tired, fatigued, daytime sleepiness: Yes. O-observed patient stop breathing during sleep:No. P-does patient have, or being treated for high blood pressure:No. B-is BMI >35:Yes. A-Age >50: No N-Neck circumference >15.75 inches:Yes G-Male gender:No Stop Bang score: 3. Chest pain, SOB, or WELCH: No Stress test: yes: when 2019 Echo 22 History of eating disorders: negative Associated medical conditions: osteoarthritis and ESRD Associated medications: none Cardiovascular risk factors: obesity and sedentary life style Current Outpatient Medications on File Prior to Visit Medication Sig progesterone micronized (PROMETRIUM) 100 mg capsule busPIRone (BUSPAR) 5 mg tablet Take 1 tablet by mouth three times daily. diazePAM (VALIUM) 5 mg tablet Take 1-2 tablets by mouth twice daily as needed for anxiety (panic attacks) for up to 30 days. midodrine (PROAMATINE) 10 mg tablet 10 mg given if hypotension occurs near the end of hemodialysis. zonisamide (ZONEGRAN) 100 mg capsule Take 1 capsule by mouth once daily. acetaminophen 325 mg-caffeine 40 mg-butalbital 50 mg (FIORICET) per tablet Take 1 tablet by mouth every 12 hours as needed. sevelamer carbonate (RENVELA) 800 mg tablet Take 800 mg by mouth three times daily with meals. OTC PRODUCT Medical marijuana albuterol HFA (VENTOLIN HFA) 90 mcg/actuation inhaler Inhale 2 Puffs as instructed every 4 hours as needed for wheezing/shortness of breath. calcium carbonate (OS-ISABELA 500) 500 mg calcium (1,250 mg) tablet Take 1 tablet by mouth three times daily. acetaminophen/diphenhydramine (TYLENOL PM EXTRA STRENGTH ORAL) Take by mouth. epoetin beta, methoxy peg 75 mcg/0.3 mL syrg by INJECTION(UNSPECIFIED PARENTERAL ROUTES) route. Every 2 weeks ondansetron (ZOFRAN) 4 mg tablet Take 4 mg by mouth every 8 hours as needed for Nausea/Vomiting. FOLIC ACID/VIT BCOMP,C (RENAVIT MULTIVITAMIN ORAL) Take by mouth. TESTOSTERONE UNDECANOATE ORAL Take 2 mg by mouth once daily. No current facility-administered medications on file prior to visit. ALLERGIES Allergen Reactions Cats Itching STUFFY NOSE Hydrocodone GI Upset PAST MEDICAL HISTORY Diagnosis Date Abnormal Pap smear of cervix Anemia 05/20/2022 ARF (acute renal failure) ([facility]) Asthma EXERCISE INDUCED ASTHMA Chlamydia 2010 Chronic back pain Chronic kidney disease, stage IV (severe) ([facility]) 07/06/2015 Dr. Vargas (gets labs drawn at outside lab frequently) ESRD (end stage renal disease) ([facility]) Focal segmental glomerulosclerosis History of blood clotting disorder Hypertension Morbid obesity with BMI of 60.0-69.9, adult ([facility]) PCOS (polycystic ovarian syndrome) Pneumonia AGE 14 X2 PAST SURGICAL HISTORY Procedure Laterality Date ARTERIOVENOUS ANASTOMOSIS OPEN DIRECT Left 02/04/2016 Left forearm cephalic vein, radial artery fistula INSJ CANNULA HEMO OTH PURPOSE SPX VEIN VEIN Right 02/14/2016 PAST SURGICAL HISTORY OF 08/2014 D and C PAST SURGICAL HISTORY OF 01/2015 IUD implanted PAST SURGICAL HISTORY OF 08/2021 hysterectomy PAST SURGICAL HISTORY OF 2018 3.5 parathyroid glands removed TONSILLECTOMY PRIMARY/SECONDARY <AGE 12 Tonsillectomy Any problems with anesthesia with the above surgeries: NA FAMILY HISTORY Problem Relation Age of Onset Diabetes Maternal Aunt Stroke Maternal Aunt Kidney Disease Maternal Aunt Asthma Maternal Grandmother Diabetes Maternal Grandfather Heart Maternal Grandfather Hypertension Maternal Grandfather Blood Clots Other Social History Tobacco Use Smoking status: Never Smokeless tobacco: Never Tobacco comments: SOCIAL SMOKER Vaping Use Vaping Use: Never used Substance Use Topics Alcohol use: Yes Comment: very rarely-maybe 5 times per year Drug use: Yes Comment: medical marijuana PRN Review of Systems Constitutional: Positive for malaise/fatigue. HENT: Negative for congestion and tinnitus. Eyes: Negative for blurred vision. No glaucoma Respiratory: Negative for shortness of breath. Cardiovascular: Negative for chest pain, palpitations, orthopnea and leg swelling. Gastrointestinal: Positive for heartburn. Negative for nausea and vomiting. Genitourinary: Negative for dysuria and frequency. No kidney stones Musculoskeletal: Positive for back pain and joint pain. Neurological: Negative for weakness. Psychiatric/Behavioral: The patient is not nervous/anxious and does not have insomnia. No previous history of pancreatitis No personal or family history of medullary thyroid cancer No Family history of MEN syndrome OBJECTIVE: Ht 175.3 cm (5' 9 ) Wt (!) 164 kg (361 lb 8.9 oz) LMP 09/02/2021 BMI 53.39 kg/m BMI = Body mass index is 53.39 kg/m . Physical Exam Constitutional:. --no issues with communication during visit and demonstrates understanding via appropriate interaction, verbalizing understanding ans she consented for this visit visit encounter HEENT: Normocephalic and atraumatic. Eyes: Conjunctiva appear normal. No scleral icterus. Hearing: Is grossly intact. Neck: Range of motion appears normal. Thyroid: appears symmetric and not enlarged. Pulmonary/Chest: Effort normal. Psychiatric: Mood, memory, affect and judgment normal. Neurological: alert and oriented to person, place, and time. ASSESSMENT/PLAN: 1. Class 3 severe obesity with serious comorbidity in adult, unspecified BMI, unspecified obesity type (HCC) - ICD9: 278.01, ICD10: E66.01 (primary diagnosis) Weight increasing - Behavioral and pharmacological intervention -Also discussed option of doing bariatric surgery that she is agreeable to look into. Online seminar information provided. -- -- counseled in length ,recommended Low carb /low sugar diet --managing maladaptive eating behaviors and adding resistance exercise. Continue low carb diet, weights/cardio exercise and increase NEAT. - HGB A1C - INSULIN ASSAY BLOOD - GLUCOSE FASTING BLD 2. PCOS (polycystic ovarian syndrome) - ICD9: 256.4, ICD10: E28.2 S/p hysterectomy Not a candidate for Metformin as ESRD May consider GLP1 as 3. Marijuana use - ICD9: 305.20, ICD10: F12.90 Medical marijuana use. Chronic back pain. Limiting physical activities. Recommended may be some walking. 4. ESRD (end stage renal disease) on dialysis (HCC) - ICD9: 585.6, V45.11, ICD10: N18.6, Z99.2 - eGFR: Stable/not a candidate for Metformin - Counseled on avoiding regular use of NSAIDs, adequate hydration, potential risk of IV dye - HGB A1C - INSULIN ASSAY BLOOD - GLUCOSE FASTING BLD 5. Focal segmental glomerulosclerosis - ICD9: 582.1, ICD10: N05.1 ESRD - On dialysis 6. Primary hypotension -on Midodrine 7. Lumbar herniated disc - ICD9: 722.10, ICD10: M51.26 Limited activities due to chronic back pain. 8. IIH (idiopathic intracranial hypertension) - ICD9: 348.2, ICD10: G93.2 Currently following with neurologist on zonisamide that we discussed may be helpful for craving control. If okay per neurologist can go up on zonisamide. 9. Chronic bilateral low back pain without sciatica - ICD9: 724.2, 338.29, ICD10: M54.50, G89.29 Chronic back pain limiting physical activities. 10. Asthma, unspecified asthma severity, unspecified whether complicated, unspecified whether persistent - ICD9: 493.90, ICD10: J45.909 - Avoidance of triggers recommended 11. Hyperglycemia - ICD9: 790.29, ICD10: R73.9 --Labs ordered after reviewing previous labs that showed hypoglycemia - HGB A1C - INSULIN ASSAY BLOOD - GLUCOSE FASTING BLD 12. Dietary counseling Reviewed principles of energy metabolism, caloric intake and expenditure, and rationale for treatment program. Also reinforced need for reduced calorie, low fat diet and increased physical activity. 13 BMI 53.39 -- counseled in length ,recommended Low carb /low sugar diet --managing maladaptive eating behaviors and adding resistance exercise. Continue low carb diet, weights/cardio exercise and increase NEAT. Festus Martin MD Reviewed principles of energy metabolism, caloric intake and expenditure, and rationale for treatment program. Also reinforced need for reduced calorie, low fat diet and increased physical activity. Festus Martin MD History Review: I have reviewed and modified as needed, the following during this visit: Allergies, Past Medical History, Past Surgical History, Past Family History, Past Social History. Counseling Visit 32 minutes for preventive counseling/IBT : including reviewing chart and finishing my notes Screening for obesity completed during initial plan of care. Patient was competent and alert at the time that counseling was provided. 5a's reviewed: Assess- I assessed behavioral health risk/factors affecting --- Asked about/assess behavioral health risk(s) and factors affecting choice of behavior change goals --- somewhat sedentry lifestyle lifestyle -eats out frequently -- Unstructured eating behavior --Lack of exercise limited due to back pain -- On dialysis Advise: clear, specific, personalized behavior change advice. -I gave very clear, specific, and personalized behavior change adviced, including information about personal health harms and benefits. Recommended add 60 to 70 ounces of plain water or lemon water Advised to get at least 60-80 g of protein daily. Next Agree: Agree: Patient agrees with selected appropriate treatment goals and methods to change behavior Assist:provided IBT w self-help, handouts, teaching skills and support Using behavior change techniques with self-help and Counseling in achieving Goals. Also discussed supplementing with adjunctive medical treatments when appropriate. Arrange- follow up scheduled, Handouts given to patient My opinion -- 3 hour Rule -last meal /snack 3 hours before sleeping ,try to be done by 7 pm --eat Rich Breakfast - At Least 3 hours break between each meals ,except water --sleep 7 hours at night , that means going to bed early -- drink only water ( no soda or juices) /no Alcohol consumption --cut down on coffee consumption if consuming high amounts Website :You can visit to web site for low carb recipe information as well as visual guide to low carb food: [employer] Limit carb consumption to 80- 100 grams per day. Goals: formal exercise 2-5 x/week as tolerated, start with 10 mins/day to goal of 30 minutes Have 3 meals a day-protein source with each meal (structured meal planning) Food journal daily and bring it to all appointments -- IN GENERAL - suggestions based on important of our sleep cycle called circadian rhythm and its influence on our gut microbiota and overall health tragetory 1) EAT MOST OF YOUR FOOD IN AM AND EARLY PM 2) NO EATING AT NIGHT 3) EXERCISE DURING DAY 4) BE CONSISTENT WITH MEAL STRUCTURE ie Meals at same time during the day. -- keep record of your food intake - it is easier for us to understand your eating habits and food preferences, looking into the amounts of protein, carbs, and fat in your diet. Good examples of apps to track calories are MyFITNESSPAL, LOSE IT. Some patient have found FOODUCATE to help with decisions around food, however choose apps that best suits you. -- for exercise, you should shoot for a goal of >150 min per week initially. Depending at what level you are starting, that may seem like an unachievable task. However, the best plan is to just begin to walk or bike or do another activity that you like and track your steps per day. You do not need to pay attention to the time, but you do need to try to increase your exercise every 3 weeks. Other strength exercises, using light weights or training bands may also be useful, especially when combined with regular aerobic exercise. Studies have shown that >200min per week is best to maintain weight loss, so that would be the overall end goal. -- One option we discussed is to REPLACE one of your meals with a liquid meal or frozen meal. This is easy to start and may help with your weight. 1. Liquid meal replacement (Boost, Ensure) 2. Frozen meal (Healthy Choice, Lean Cuisine - sodium under 650mg, can always add veggies to the meal) 3. Powdered protein (Premier Protein) or meal replacement (I like a plant based meal replacement called Spins[employer] - can mix w froz berries and almond milk) This note was partially generated using Int[employer]ua voice recognition system, and there may be some incorrect words, spellings, and punctuation that were not noted in checking the note before saving documented in this encounter [facility] 12-08-2022 Note HNO ID: [id number] Author: Zuleyka Coughlin MD Service: ? Author Type: Physician Type: Progress Notes Filed: 12/08/2022 7:26 PM Note Text: AMBULATORY TELEPHONE VISIT Ingris Saez has consented to this telephone encounter. Persons Present: patient It required patient-provider interaction for the medical decision making as documented below. Ingris Saez is a 37 year old female seen for medication follow up. Not able to do MyChart at thi time. Not needing Valium as much. Buspar has been effective. Diazepam at least a couple times a week now. Having it around helps control anxiety. Anxiety attacks no longer every day. Down to once a month with severe ones. Was not able to get appointment for follow up with me as I had planned. Lost dog of 11 years Dolores's day. Has had him since a year before got sick. Discussed does do medical marijuana.Pain control has been better. BP sometimes dropping at night time so needs midodrine at night sometimes. Dialysis has taken over midodrine. Taking after dialysis Needing to take any day out of the blue sometimes, not just HD days At least 5 nights a week. Sometimes needs up to 6 per day--told was allowed to take up to 6 per day Most of the time 3 is adequate. Gets CP if BP too low. Take BP cuff with her. Sometimes hurts when SBP 100/40 as BP dropping. Also hurts as BP is dropping. Gets when DBP 50s heading to 40. Needs 2 if BP 80s over 40s. May be improving already. Not able to push fluids since on HD. Gets more sodium sometimes to get BP up. HISTORY REVIEWED (electronic chart updated): PAST MEDICAL HISTORY Diagnosis Date Abnormal Pap smear of cervix Anemia 05/20/2022 ARF (acute renal failure) ([facility]) Asthma EXERCISE INDUCED ASTHMA Chlamydia 2010 Chronic back pain Chronic kidney disease, stage IV (severe) ([facility]) 07/06/2015 Dr. Vargas (gets labs drawn at outside lab frequently) ESRD (end stage renal disease) ([facility]) Focal segmental glomerulosclerosis History of blood clotting disorder Hypertension Morbid obesity with BMI of 60.0-69.9, adult ([facility]) PCOS (polycystic ovarian syndrome) Pneumonia AGE 14 X2 PAST SURGICAL HISTORY Procedure Laterality Date ARTERIOVENOUS ANASTOMOSIS OPEN DIRECT Left 02/04/2016 Left forearm cephalic vein, radial artery fistula INSJ CANNULA HEMO OTH PURPOSE SPX VEIN VEIN Right 02/14/2016 PAST SURGICAL HISTORY OF 08/2014 D and C PAST SURGICAL HISTORY OF 01/2015 IUD implanted PAST SURGICAL HISTORY OF 08/2021 hysterectomy PAST SURGICAL HISTORY OF 2018 3.5 parathyroid glands removed TONSILLECTOMY PRIMARY/SECONDARY Tonsillectomy FAMILY HISTORY Problem Relation Age of Onset Diabetes Maternal Aunt Stroke Maternal Aunt Kidney Disease Maternal Aunt Asthma Maternal Grandmother Diabetes Maternal Grandfather Heart Maternal Grandfather Hypertension Maternal Grandfather Blood Clots Other Social History Tobacco Use Smoking status: Never Smokeless tobacco: Never Tobacco comments: SOCIAL SMOKER Vaping Use Vaping Use: Never used Substance Use Topics Alcohol use: Yes Comment: very rarely-maybe 5 times per year Drug use: Yes Comment: medical marijuana PRN Current Outpatient Medications Medication Sig busPIRone (BUSPAR) 5 mg tablet Take 1 tablet by mouth three times daily. midodrine (PROAMATINE) 10 mg tablet 10 mg given if hypotension occurs near the end of hemodialysis. zonisamide (ZONEGRAN) 100 mg capsule Take 1 capsule by mouth once daily. acetaminophen 325 mg-caffeine 40 mg-butalbital 50 mg (FIORICET) per tablet Take 1 tablet by mouth every 12 hours as needed. sevelamer carbonate (RENVELA) 800 mg tablet Take 800 mg by mouth three times daily with meals. OTC PRODUCT Medical marijuana albuterol HFA (VENTOLIN HFA) 90 mcg/actuation inhaler Inhale 2 Puffs as instructed every 4 hours as needed for wheezing/shortness of breath. calcium carbonate (OS-ISABELA 500) 500 mg calcium (1,250 mg) tablet Take 1 tablet by mouth three times daily. acetaminophen/diphenhydramine (TYLENOL PM EXTRA STRENGTH ORAL) Take by mouth. epoetin beta, methoxy peg 75 mcg/0.3 mL syrg by INJECTION(UNSPECIFIED PARENTERAL ROUTES) route. Every 2 weeks ondansetron (ZOFRAN) 4 mg tablet Take 4 mg by mouth every 8 hours as needed for Nausea/Vomiting. FOLIC ACID/VIT BCOMP,C (RENAVIT MULTIVITAMIN ORAL) Take by mouth. No current facility-administered medications for this visit. ALLERGIES Allergen Reactions Cats Itching STUFFY NOSE Hydrocodone GI Upset REVIEW OF SYSTEMS: All other ROS: negative Data Reviewed: No new labs Assessment: (F41.1, F41.0) Generalized anxiety disorder with panic attacks (primary encounter diagnosis) (I95.9) Hypotension, unspecified hypotension type (E89.40, Z79.890) Surgical menopause on hormone replacement therapy (N95.1) Postmenopausal disorder Above issues addressed with patient. Patient involved in shared decision making for management (more content not included)... [facility] 12-08-2022 History of Present illness Narrative AMBULATORY TELEPHONE VISIT Ingris Saez has consented to this telephone encounter. Persons Present: patient It required patient-provider interaction for the medical decision making as documented below. Ingris Saez is a 37 year old female seen for medication follow up. Not able to do MyChart at thi time. Not needing Valium as much. Buspar has been effective. Diazepam at least a couple times a week now. Having it around helps control anxiety. Anxiety attacks no longer every day. Down to once a month with severe ones. Was not able to get appointment for follow up with me as I had planned. Lost dog of 11 years Bernal's day. Has had him since a year before got sick. Discussed does do medical marijuana.Pain control has been better. BP sometimes dropping at night time so needs midodrine at night sometimes. Dialysis has taken over midodrine. Taking after dialysis Needing to take any day out of the blue sometimes, not just HD days At least 5 nights a week. Sometimes needs up to 6 per day--told was allowed to take up to 6 per day Most of the time 3 is adequate. Gets CP if BP too low. Take BP cuff with her. Sometimes hurts when SBP 100/40 as BP dropping. Also hurts as BP is dropping. Gets when DBP 50s heading to 40. Needs 2 if BP 80s over 40s. May be improving already. Not able to push fluids since on HD. Gets more sodium sometimes to get BP up. HISTORY REVIEWED (electronic chart updated): PAST MEDICAL HISTORY Diagnosis Date Abnormal Pap smear of cervix Anemia 05/20/2022 ARF (acute renal failure) ([facility]) Asthma EXERCISE INDUCED ASTHMA Chlamydia 2010 Chronic back pain Chronic kidney disease, stage IV (severe) ([facility]) 07/06/2015 Dr. Vargas (gets labs drawn at outside lab frequently) ESRD (end stage renal disease) ([facility]) Focal segmental glomerulosclerosis History of blood clotting disorder Hypertension Morbid obesity with BMI of 60.0-69.9, adult ([facility]) PCOS (polycystic ovarian syndrome) Pneumonia AGE 14 X2 PAST SURGICAL HISTORY Procedure Laterality Date ARTERIOVENOUS ANASTOMOSIS OPEN DIRECT Left 02/04/2016 Left forearm cephalic vein, radial artery fistula INSJ CANNULA HEMO OTH PURPOSE SPX VEIN VEIN Right 02/14/2016 PAST SURGICAL HISTORY OF 08/2014 D and C PAST SURGICAL HISTORY OF 01/2015 IUD implanted PAST SURGICAL HISTORY OF 08/2021 hysterectomy PAST SURGICAL HISTORY OF 2018 3.5 parathyroid glands removed TONSILLECTOMY PRIMARY/SECONDARY <AGE 12 Tonsillectomy FAMILY HISTORY Problem Relation Age of Onset Diabetes Maternal Aunt Stroke Maternal Aunt Kidney Disease Maternal Aunt Asthma Maternal Grandmother Diabetes Maternal Grandfather Heart Maternal Grandfather Hypertension Maternal Grandfather Blood Clots Other Social History Tobacco Use Smoking status: Never Smokeless tobacco: Never Tobacco comments: SOCIAL SMOKER Vaping Use Vaping Use: Never used Substance Use Topics Alcohol use: Yes Comment: very rarely-maybe 5 times per year Drug use: Yes Comment: medical marijuana PRN Current Outpatient Medications Medication Sig busPIRone (BUSPAR) 5 mg tablet Take 1 tablet by mouth three times daily. midodrine (PROAMATINE) 10 mg tablet 10 mg given if hypotension occurs near the end of hemodialysis. zonisamide (ZONEGRAN) 100 mg capsule Take 1 capsule by mouth once daily. acetaminophen 325 mg-caffeine 40 mg-butalbital 50 mg (FIORICET) per tablet Take 1 tablet by mouth every 12 hours as needed. sevelamer carbonate (RENVELA) 800 mg tablet Take 800 mg by mouth three times daily with meals. OTC PRODUCT Medical marijuana albuterol HFA (VENTOLIN HFA) 90 mcg/actuation inhaler Inhale 2 Puffs as instructed every 4 hours as needed for wheezing/shortness of breath. calcium carbonate (OS-ISABELA 500) 500 mg calcium (1,250 mg) tablet Take 1 tablet by mouth three times daily. acetaminophen/diphenhydramine (TYLENOL PM EXTRA STRENGTH ORAL) Take by mouth. epoetin beta, methoxy peg 75 mcg/0.3 mL syrg by INJECTION(UNSPECIFIED PARENTERAL ROUTES) route. Every 2 weeks ondansetron (ZOFRAN) 4 mg tablet Take 4 mg by mouth every 8 hours as needed for Nausea/Vomiting. FOLIC ACID/VIT BCOMP,C (RENAVIT MULTIVITAMIN ORAL) Take by mouth. No current facility-administered medications for this visit. ALLERGIES Allergen Reactions Cats Itching STUFFY NOSE Hydrocodone GI Upset REVIEW OF SYSTEMS: All other ROS: negative Data Reviewed: No new labs Assessment: (F41.1, F41.0) Generalized anxiety disorder with panic attacks (primary encounter diagnosis) (I95.9) Hypotension, unspecified hypotension type (E89.40, Z79.890) Surgical menopause on hormone replacement therapy (N95.1) Postmenopausal disorder Above issues addressed with patient. Patient involved in shared decision making for management of medical issues. History and medications reviewed. Epic updated as needed Refills and/or prescriptions taken care of and meds adjusted as indicated after reviewed history, exam and labs. Will work with Dr. Vargas on maybe adjusting HD to help prevent orthostatic hypotension. Discussed midodrine dosing max is usually 30mg per, maybe sometimes up to 40mg per day but risk of high BP at higher dosing. Will review at next appointment and decide if need to try other meds or see cardiology in addition to nephrology for this issue. Anxiety control improved with Buspar and no severe exacerbation though lost her dog of 11years (had cancer). Other recent stressors discussed as well. Continue present management. Okay to have diazepam on hand for as needed use--down to just once or twice a week. Aware of her need for medical marijuana. At this time, benefits outweigh risks. Continue present management. Further evaluation and treatment as indicated. Total Time Spent: 29 minutes Zuleyka Coughlin MD There are no Patient Instructions on file for this visit. documented in this encounter [facility] 10-09-2022 Miscellaneous Notes Addressed Patient did get Covid Vaccine. Needing to discuss Panic attacks, valium and following up while taking the medication. Fany Mcdaniel LPN documented in this encounter [facility] 10-07-2022 Miscellaneous Notes Addended by: ZULEYKA COUGHLIN on: 10/07/2022 01:04 PM Modules accepted: Orders, Level of Service documented in this encounter [facility] 09-23-2022 History of Present illness Narrative VIRTUAL VISIT PROGRESS NOTE This is a virtual visit using Zilta video visit. It required patient-provider interaction for the medical decision making as documented below. Ingris Saez is a 37 year old female seen for concerns about anxiety abd hormones. Noted frustration with getting appointment. Had panic attack when here for August appointment. Had to leave since I was behind. Reviewed that had issues with hormones. Anxiety attacks and anxiety worse because of this. Not leaving house as much. Because on medical marijuana, not on meds for anxiety. Did see Alejandra Abreu). She checked the levels. She started here on estrogen patch and progesterone. Never filled the estrogen pill that she had requested since did not know was sent in. Severe pain in breasts worse during dialysis. Improving with first month of treatment. Not crying as often--1 or 2 days a week instead of daily. Anxiety still severe--would like short term diazepam to help get through adjustment period with HRT.. Not needing midodrine before HD and does not needing during HD most of the time (just 3 to 4 days a week). Has 10 mg pills. In the past treated with alprazolam --had horrible dreams; did not like how felt on lorazepam--horrible mood or upset stomach.. Diazepam helped without side effects. HISTORY REVIEWED (electronic chart updated): PAST MEDICAL HISTORY Diagnosis Date Abnormal Pap smear of cervix Anemia 05/20/2022 ARF (acute renal failure) ([facility]) Asthma EXERCISE INDUCED ASTHMA Chlamydia 2010 Chronic back pain Chronic kidney disease, stage IV (severe) ([facility]) 07/06/2015 Dr. Vargas (gets labs drawn at outside lab frequently) ESRD (end stage renal disease) ([facility]) Focal segmental glomerulosclerosis History of blood clotting disorder Hypertension Morbid obesity with BMI of 60.0-69.9, adult ([facility]) PCOS (polycystic ovarian syndrome) Pneumonia AGE 14 X2 PAST SURGICAL HISTORY Procedure Laterality Date ARTERIOVENOUS ANASTOMOSIS OPEN DIRECT Left 02/04/2016 Left forearm cephalic vein, radial artery fistula INSJ CANNULA HEMO OTH PURPOSE SPX VEIN VEIN Right 02/14/2016 PAST SURGICAL HISTORY OF 08/2014 D and C PAST SURGICAL HISTORY OF 01/2015 IUD implanted PAST SURGICAL HISTORY OF 08/2021 hysterectomy PAST SURGICAL HISTORY OF 2018 3.5 parathyroid glands removed TONSILLECTOMY PRIMARY/SECONDARY <AGE 12 Tonsillectomy FAMILY HISTORY Problem Relation Age of Onset Diabetes Maternal Aunt Stroke Maternal Aunt Kidney Disease Maternal Aunt Asthma Maternal Grandmother Diabetes Maternal Grandfather Heart Maternal Grandfather Hypertension Maternal Grandfather Blood Clots Other Social History Tobacco Use Smoking status: Never Smokeless tobacco: Never Tobacco comments: SOCIAL SMOKER Vaping Use Vaping Use: Never used Substance Use Topics Alcohol use: Yes Comment: very rarely-maybe 5 times per year Drug use: Yes Comment: medical marijuana PRN Current Outpatient Medications Medication Sig midodrine (PROAMATINE) 10 mg tablet 10 mg given if hypotension occurs near the end of hemodialysis. zonisamide (ZONEGRAN) 100 mg capsule Take 1 capsule by mouth once daily. acetaminophen 325 mg-caffeine 40 mg-butalbital 50 mg (FIORICET) per tablet Take 1 tablet by mouth every 12 hours as needed. sevelamer carbonate (RENVELA) 800 mg tablet Take 800 mg by mouth three times daily with meals. OTC PRODUCT Medical marijuana albuterol HFA (VENTOLIN HFA) 90 mcg/actuation inhaler Inhale 2 Puffs as instructed every 4 hours as needed for wheezing/shortness of breath. calcium carbonate (OS-ISABELA 500) 500 mg calcium (1,250 mg) tablet Take 1 tablet by mouth three times daily. acetaminophen/diphenhydramine (TYLENOL PM EXTRA STRENGTH ORAL) Take by mouth. epoetin beta, methoxy peg 75 mcg/0.3 mL syrg by INJECTION(UNSPECIFIED PARENTERAL ROUTES) route. Every 2 weeks ondansetron (ZOFRAN) 4 mg tablet Take 4 mg by mouth every 8 hours as needed for Nausea/Vomiting. FOLIC ACID/VIT BCOMP,C (RENAVIT MULTIVITAMIN ORAL) Take by mouth. No current facility-administered medications for this visit. ALLERGIES Allergen Reactions Cats Itching STUFFY NOSE Hydrocodone GI Upset REVIEW OF SYSTEMS: As noted in HPI PHYSICAL EXAMINATION: VIDEO EXAM: (if completed, performed via video enabled technology) GENERAL: alert and appropriate, in no distress, well-hydrated, well nourished, appears tired, and appears anxious HEAD: normocephalic, no abnormality or lesion noted EYES: no injection and visual acuity is grossly normal CHEST: equal chest rise with normal respiratory effort ASSESSMENT/PLAN: 1. Generalized anxiety disorder with panic attacks - ICD9: 300.02, 300.01, ICD10: - DIAZEPAM 5 MG TABLET--tolerated before. Will try twice daily as needed then adjust as needed 2. Postmenopausal disorder - ICD9: 627.9, ICD10: N95.1 Noted that hormones and severe nipple pain contribute to anxiety attakcs - DIAZEPAM 5 MG TABLET - DIAZEPAM 5 MG TABLET 3. Surgical menopause on hormone replacement therapy - ICD9: 256.2, ICD10: E89.40, Z79.890 As noted above with hormonal issues - DIAZEPAM 5 MG TABLET - DIAZEPAM 5 MG TABLET 4. Hemodialysis-associated hypotension - ICD9: 458.21, ICD10: I95.3 - MIDODRINE 10 MG TABLET - MIDODRINE 10 MG TABLET Zuleyka Coughlin MD documented in this encounter [facility] 09-23-2022 Miscellaneous Notes encounter is being closed at this time due to patient is scheduled to see pcp today Ledy has openings this week--I can tag team with her on seeing patient if needed. patient is calling in due to she missed her 200pm appointment today and has it rescheduled for next Thursday but patient is requesting to see if she can be seen sooner due to she feels like she needs valium baljinder to get things under control. please review and advise. patient needs contacted with information. documented in this encounter [facility] 08-22-2022 Miscellaneous Notes Patient stated she will have to cancel her appointment because she have a migraine. She will call back to reschedule documented in this encounter [facility] 08-22-2022 Miscellaneous Notes LVM for patient to call back and update chart and reschedule if she doesn't attend appt today documented in this encounter [facility] 08-15-2022 History of Present illness Narrative NEUROLOGY PROGRESS NOTE Ingris Saez is a 36 year old female. Who has a history of benign intracranial hypertension comes in for follow up. Interval History Ingris Saez is a 36 year old female, with a history of pseudotumor cerebri, hypertension, obesity, kidney disease who I'm seeing for the first time. She was diagnosed to have pseudotumor cerebri last year. Apparently in June 2017 she had been seeing these black spots in her visual field. She was eventually seen by ophthalmology at [place] and was diagnosed to have papilledema. She eventually had a therapeutic lumbar puncture that confirmed she has pseudotumor cerebri. MRI and MRV of the brain were normal. She was been seen by a colleague of [place] who is now left our practice/institution. She's been having on and off headaches for started on Topamax but could not tolerate this so she discontinued this. Present doing well. She has seen her power tool repair technician last time she was told that her optic disks are fine. Headaches not as bad. She is on Zonegran 100 mg a day and Fioricet as needed. She states that she still has a lot of fears that from the last prescription in December. Comes in today for follow-up visit. ACTIVE PROBLEM LIST Morbid Obesity With Bmi of 50.0-59.9, Adult ([facility]) Hypertension Chronic Back Pain Esrd (End Stage Renal Disease) On Dialysis ([facility]) Lumbar Herniated Disc Iih (Idiopathic Intracranial Hypertension) Marijuana Use S/P Parathyroidectomy ([facility]) Focal Segmental Glomerulosclerosis Asthma Hypotension Anemia History of Blood Clotting Disorder Cellulitis Pcos (Polycystic Ovarian Syndrome) PAST SURGICAL HISTORY Procedure Laterality Date ARTERIOVENOUS ANASTOMOSIS OPEN DIRECT Left 02/04/2016 Left forearm cephalic vein, radial artery fistula INSJ CANNULA HEMO OTH PURPOSE SPX VEIN VEIN Right 02/14/2016 PAST SURGICAL HISTORY OF 08/2014 D and C PAST SURGICAL HISTORY OF 01/2015 IUD implanted PAST SURGICAL HISTORY OF 08/2021 hysterectomy PAST SURGICAL HISTORY OF 2018 3.5 parathyroid glands removed TONSILLECTOMY PRIMARY/SECONDARY <AGE 12 Tonsillectomy Current Outpatient Medications on File Prior to Visit Medication Sig estrogens conjugated (PREMARIN) 0.3 mg tablet Take 3 tablets by mouth twice daily. sevelamer carbonate (RENVELA) 800 mg tablet Take 800 mg by mouth three times daily with meals. OTC PRODUCT Medical marijuana albuterol HFA (VENTOLIN HFA) 90 mcg/actuation inhaler Inhale 2 Puffs as instructed every 4 hours as needed for wheezing/shortness of breath. midodrine (PROAMATINE) 2.5 mg tablet Oral: Initial: 2.5 to 5 mg given 15 to 30 minutes prior to hemodialysis. If response is insufficient, may increase up to 10 mg given 15 to 30 minutes prior to the next hemodialysis session; if hypotension occurs near the end of hemodialysis, may give an additional 2.5 to 5 mg dose mid-dialysis provided it is administered =3 hours after pre-dialysis dose calcium carbonate (OS-ISABELA 500) 500 mg calcium (1,250 mg) tablet Take 1 tablet by mouth three times daily. acetaminophen/diphenhydramine (TYLENOL PM EXTRA STRENGTH ORAL) Take by mouth. epoetin beta, methoxy peg 75 mcg/0.3 mL syrg by INJECTION(UNSPECIFIED PARENTERAL ROUTES) route. Every 2 weeks ondansetron (ZOFRAN) 4 mg tablet Take 4 mg by mouth every 8 hours as needed for Nausea/Vomiting. FOLIC ACID/VIT BCOMP,C (RENAVIT MULTIVITAMIN ORAL) Take by mouth. No current facility-administered medications on file prior to visit. Social History Tobacco Use Smoking status: Never Smokeless tobacco: Never Tobacco comments: SOCIAL SMOKER Vaping Use Vaping Use: Never used Substance Use Topics Alcohol use: Yes Comment: very rarely-maybe 5 times per year Drug use: Yes Comment: medical marijuana PRN family history includes Asthma in her maternal grandmother; Blood Clots in an other family member; Diabetes in her maternal aunt and maternal grandfather; Heart in her maternal grandfather; Hypertension in her maternal grandfather; Kidney Disease in her maternal aunt; Stroke in her maternal aunt. GENERAL:No weight loss, malaise or fevers., SEE HPI HEENT:No changes in hearing or vision, no nose bleeds or other nasal problems NECK:Negative for lumps, goiter, pain and significant neck swelling RESPIRATORY: Negative for cough, wheezing or shortness of breath. CARDIOVASCULAR: Negative for chest pain, leg swelling or palpitations. GASTROINTESTINAL: Negative for abdominal discomfort, blood in stools or black stools or change in bowel habits See HPI. All systems reviewed and are negative There were no vitals filed for this visit. PHYSICAL EXAMINATION: General appearance: well appearing, alert, in no acute distress Neck: Supple Lungs: Lungs clear to auscultation CVS: RRR without murmur Neurological exam: MENTAL STATUS: Alert, oriented to person, place and time and Follows commands CRANIAL NERVES: PERRLA, EOM's intact, Face symmetric, and Tongue protrudes midline MOTOR: No drift MOTOR STRENGTH: Upper and lower extremity 5/5 bilaterally REFLEXES: UE and LE reflexes are equal and reactive SENSATION: Intact light touch COORDINATION: Finger-to- nose-finger intact bilaterally IMPRESSION: 1. Pseudotumor cerebri 2. Headache disorder PLAN: Fioricet and Zonegran refilled. Any problems or concerns to call me or primary care physician immediately or go straight to the emergency department Return in about 6 months (around 02/12/2023). ASSESSMENT/PLAN: 1. Pseudotumor cerebri - ICD9: 348.2, ICD10: G93.2 (primary diagnosis) 2. Headache disorder - ICD9: 784.0, ICD10: R51.9 - [id number] 50 MG-325 MG-40 MG TABLET Zeeshan Rock MD I spent a total of 30 minutes on the date of the service which included preparing to see the patient, [id number] patient care, completing clinical documentation, obtaining and/or reviewing separately obtained history, performing a medically appropriate examination, counseling and educating the patient/family/caregiver, and ordering medications, tests, or procedures. SIGNATURE: Zeeshan Rock MD PATIENT NAME: Ingris Saez DATE: August 15, 2022 TIME: 4:31 PM documented in this encounter [facility] 06-27-2022 History of Present illness Narrative POPULATION HEALTH NAVIGATION OUTREACH Action/FYI Dr. Coughlin: Pt in need of hospital follow up and wishes to see you only. Navigator unable to find opening. Pt declines appt with MARY. Can your team assist pt? Thank you. TCM eligible thru 07/10/22 Pt discharged from [facility] [place] on 06/26/22 Admitted for: Facial cellulitis Pt identified by name and : YES, via phone Outreach Outcome/Action Enc sent to PCP Did you use a PCP flex slot to schedule this appointment? N/A Reason for Outreach Community Monitoring Pool Payer: Payor: MEDICARE / Plan: MEDICARE A AND B / Product Type: Medicare / Care Gap Reviewed:: Follow-up appointment Reminder: Reminder note to check Health Maintenance for items below Health Maintenance items due: PNEUMOCOCCAL(1 - PCV) Never done SPIROMETRY Never done HIV SCREENING Never done SHINGRIX VACCINE(1 of 2) Never done INFLUENZA(1) due on 06/12/2022 Message Sent to Practice: Yes Navigation Signature: Vicki Smith MA June 27, 2022 1:02 PM TRANSITIONAL CARE MANAGEMENT (TCM) COMMUNITY MONITORING PROGRAM Provider Action/FYI: spoke with patient feeling better overall denies any new symptoms since discharge taking medication as ordered Transitions of Care Critical Issues: Doxy 14 days for facial cellulitis per ID Follow up pcp pt does not have f/u appt scheduled with pcp at this time will forward to navigator pool for scheduling please call in afternoon, has dialysis on mornings TCM eligible through 07/10/22 SUMMARY: Pt discharged from [facility] on 06/26/22 Admitted for: Facial cellulitis Contact made with patient: Yes Hi my name is Irina Christianson RN and I am calling from the [facility] on behalf of your PCP, Zuleyka Coughlin MD I understand you were recently in the hospital so I am calling to check in with you to ensure you are feeling well now that you're home. May I ask you a few questions related to your hospital stay and well-being? Yes Contact with patient post discharge, spoke to patient. Patient identified by name and . Do you feel your health is BETTER, WORSE, or the SAME since leaving the hospital? Better ACTION TAKEN: Patient indicated symptoms are better or same, no action required. Continue outreach. MEDICATIONS: Many patients have questions or concerns about their medications once they are home. Do you have any questions about taking your medications or which medication you should be on? No Do you need any medication refills at this time, including any of the medications you might take only when needed? No ACTION TAKEN: No action required For RNs or Pharmacy completing outreach ONLY, was a medication review completed? Yes SOCIAL: We would like to make sure you have what you need so that your basics needs are met - including your personal safety, food, housing and medications. Would you like to speak with a social work steam meter reader to help give you support for any of these needs? No It can be normal to feel anxious or down during a time like this. Would you like to talk to a mental health professional about how you have been feeling? No ACTION TAKEN: No action taken DISCHARGE INTRUCTIONS: Your discharge instructions / After Visit Summary (AVS) are important in guiding you through the recovery process. Do you have any questions related to your discharge instructions? No Do you have all the necessary equipment and supplies at home? Yes ACTION TAKEN: No action required I would like to help you schedule a hospital follow-up virtual or telephone visit with your PCP. This is a great way for you to connect with your provider to ensure you have safely transitioned home. If you are agreeable, I will send your request to a museum service scheduler who will contact and assist you with that appointment. This will give you an opportunity to ask any questions or address any concerns you may have with your PCP. Inform the patient that if they have any questions or concerns prior to that appointment, to call their PCP's office right away. ACTION TAKEN: Patient desires an appointment - Routed to [facility] [[id number]] for scheduling telehealth visit (telephonic, virtual visit, or Facetime) within 7 days of discharge with PCP care team. Indicate hospital follow-up appointment needed within 7 days in Provider/FYI box. End Outreach. Your doctor would like us to remind you of the recommendations regarding the coronavirus (Covid19) outbreak: Avoid public places as much as possible. Avoid close contact (within 6 feet) with others you don t live with, especially if they are sick. Stay home if you are sick. Wash your hands regularly for at least 20 seconds with soap and water. Wear a cloth mask in public places to help reduce community spread. Do not go to your Doctor s office unless instructed to do so. For any non-emergency symptoms, call your Doctor s office to get instructions on how to manage (we might recommend a telephone or virtual visit). For emergency symptoms, proceed to Emergency Department as usual but inform them of cough and fever symptoms BALJINDER if present (or call on the way if possible). TCM Home Visit Referral Source of Stratification: [facility] Hospital Admission Status: Discharged Readmission Risk Score: 22 RASHMI Score: 5 Patient meets program referral criteria: No Irina Christianson RN June 27, 2022 12:43 PM documented in this encounter [facility] 06-26-2022 Note HNO ID: [id number] Author: Sabra Huerta RN Service: Care Management Author Type: Registered Nurse Type: Care Mgt Progress Note Filed: 06/26/2022 1:14 PM Note Text: CARE MANAGEMENT DISCHARGE NOTE SERVICE DATE: 06/26/2022 SERVICE TIME: 1310 LOS: 2 days Admission Date: 06/23/2022 DISCHARGE ARRANGEMENT (list agency and phone number) Discharge Arrangement: Home with Self Care CAREGIVER ASSESSMENT: Caregiver is ready, willing and able to meet the patient's needs as recommended by the inter-professional team:: No Caregiver needed Patient's transition needs and plan for meeting these needs: DC home with self care and family support. HANDOFF COMMUNICATION: Handoff to: Primary Care Physician Primary Care Physician Name/Phone: Dr. Zuleyka Coughlin [phone] TRANSPORTATION ARRANGEMENTS: Transportation Arrangements: Car ADDITIONAL CONTACT RESOURCES: N/A Patient being discharged home today with self care and family support. Family to provide transport. No TCC needs identified at this time. SIGNATURE: Sabra Huerta RN PATIENT NAME: Ingris Saez DATE: June 26, 2022 TIME: 1:11 PM PAGER/CONTACT #: [phone] [facility] 06-25-2022 Note HNO ID: [id number] Author: Reji Hawk DO Service: Hospital Medicine Author Type: Physician Type: Progress Notes Filed: 06/25/2022 6:38 PM Note Text: HOSPITAL MEDICINE PROGRESS NOTE SERVICE DATE: June 25, 2022 SERVICE TIME: 6:36 PM Hospital Medicine/Primary Attending: Reji Hawk DO NIGHT AND WEEKEND COVERAGE: After 7pm please page [phone] CHIEF COMPLAINT: Cellulitis POA: Status not on file Morbid obesity with BMI of 50.0-59.9, adult (HCC) POA: Yes ESRD (end stage renal disease) on dialysis ([facility]) POA: Yes PCOS (polycystic ovarian syndrome) POA: Status not on file Assessment/Plan This is a 36 y/o female with prior history of ESRD and morbid obesity. She presents with pain and edema to the right side of her face above the lip. Found to have facial cellulitis *Facial cellulitis -Preliminary culture growing MRSA -Pharmacy for vancomycin management -Consult plastics: no intervention abx 48h then PO and home -CT with no collection -Follow-up on blood cultures *ESRD -Consult nephrology for dialysis management *PCOS -Continue estrogen *Morbid obesity -BMI 54 SUBJECTIVE: Pt seen and examined. Ok with going home tomorrow. No complaints Patient denies CP, SOB, fevers, chills, nausea, or emesis. OBJECTIVE: PHYSICAL EXAM: BP 119/50 Pulse 77 Temp (Src) 97.7 (Oral) Resp 18 Ht 5' 8 (1.73m) Wt 357 lb 2.3 oz (162.0kg) SpO2 100% LMP 09/02/2021 BMI 54.32 kg/(m2). Physical Exam Vitals and nursing note reviewed. Constitutional: General: She is not in acute distress. Appearance: She is obese. Eyes: General: Right eye: No discharge. Left eye: No discharge. Pulmonary: Effort: No respiratory distress. Abdominal: General: There is no distension. Tenderness: There is no guarding. Musculoskeletal: General: No swelling. Skin: Coloration: Skin is not jaundiced. Neurological: Mental Status: She is alert. Mental status is at baseline. Psychiatric: Mood and Affect: Mood normal. MEDICATIONS: Current Facility-Administered Medications Medication Dose Route Frequency NaCl 0.9% iv flush bag 20 mL INTRAVENOUS PRN vancomycin dosing and monitoring per pharmacy OTHER As Directed zonisamide 100 mg cap(s) (ZONEGRAN) 100 mg ORAL AT BEDTIME estrogens conjugated (PREMARIN) tab(s) 1.05 mg 1.05 mg ORAL BID sodium chloride 0.9 % (flush) 3-5 mL (BD POSIFLUSH) 3-5 mL INTRAVENOUS q 12 H aluminum-magnesium hydroxide-simethicone 200-200-20 mg/5 mL 30 mL (MAALOX,MYLANTA,MAG-AL PLUS) 30 mL ORAL DAILY PRN ondansetron 4 mg tab(s) (ZOFRAN) 4 mg ORAL q 6 H PRN Or ondansetron (PF) 4 mg injection (ZOFRAN) 4 mg INTRAVENOUS q 6 H PRN acetaminophen 650 mg tab(s) (TYLENOL) 650 mg ORAL q 6 H PRN heparin 5,000 Units injection 5,000 Units SUBCUTANEOUS q 12 H oxyCODONE-acetaminophen 5-325 mg 1-2 tablet (PERCOCET) 1-2 tablet ORAL q 4 H PRN sevelamer carbonate 800 mg tab(s) (RENVELA) 800 mg ORAL TID w MEALS midodrine 10 mg tab(s) (PROAMATINE) 10 mg ORAL 3 Times weekly with dialysis midodrine 5 mg tab(s) (PROAMITINE) 5 mg ORAL q 8 H PRN vancomycin 750 mg in D5W 250 mL Vial-Bag (VANCOCIN) 0.75 g INTRAVENOUS q - 1800 DATA: Diagnostic tests reviewed for today's visit: CBC: Recent Labs 06/25/22 0515 WBC 6.01 RBC 2.89* HB 9.6* HCT 29.8* PLT 208 MCV 103.1* MCH 33.2 MPV 9.6 Coags: No results for input(s): PT, INR, APTT in the last 24 hours. BMP: Recent Labs 06/25/22 0515 NA 135* K 4.3 CHLOR 94* CO2 23 BUN 63* CREAT 10.45* GLUC 112* CMP: Recent Labs 06/25/22 0515 NA 135* K 4.3 CHLOR 94* CO2 23 BUN 63* CREAT 10.45* GLUC 112* CA 7.3* ANION 18 Cardiac Enzymes: No results for input(s): CK, MB, CKMB, TROPT in the last 24 hours. Liver Function, Amylase, Lipase: No results for input(s): TPROT, ALB, ALT, AST, ALKPHOS, TBILI, AMYLASE, LIPASE, LACTATE in the last 24 hours. MG/PHOS: No results for input(s): MG, P in the last 24 hours. Renal Panel: Recent Labs 06/25/22 0515 CREAT 10.45* BUN 63* GLUC 112* CA 7.3* CHLOR 94* K 4.3 CO2 23 NA 135* Heme: No results for input(s): RETICP, ABSRETIC, LD, PRIYA, FE, TIBC, TRANSFERSAT in the last 24 hours. No results found for: UALBCR Medication and Non-Pharmacologic VTE Prophylaxis/Anticoagulants Anticoagulant AND Antiplatelet Medications (From admission, onward) Start Dose Route Frequency Last Action Ordered Stop 06/24/22 1100 heparin 5,000 Units injection (Medical Risk Categories) 5,000 Units SUBCUTANEOUS EVERY 12 HOURS Given, 06/24 212606/24/22 1045 -- 06/24/22 1045 activity - mobilize patient (ia,oh) Lines, Drains, and Airways Line Duration Peripheral 06/23/22 1902 Right Antecubital 20 Gauge 1 day Reviewed lines and needs to be continued: REASONS: Intravenous antibiotics VTE Prophylaxis: Heparin 5000 units Sub Q TID Disposition: Home Functional Status Prior to Admit: Medical Necessity for Continued Hospitalizati (more content not included)... [facility] 06-25-2022 Note HNO ID: [id number] Author: Sabra Huerta RN Service: Care Management Author Type: Registered Nurse Type: Care Mgt Progress Note Filed: 06/26/2022 1:10 PM Note Text: CARE MANAGEMENT PROGRESS NOTE SERVICE DATE: 06/25/2022 SERVICE TIME: 1309 LOS: 2 days IMM Follow Up Copy Given: Yes Copy given to: Patient Method: In Person (verbalized understanding) SIGNATURE: Sabra Huerta RN PATIENT NAME: Ingris Saez DATE: June 26, 2022 TIME: 1:09 PM PAGER/CONTACT #: [phone] [facility] 06-25-2022 Note HNO ID: [id number] Author: Saniya Boyd RN Service: Nursing Author Type: Registered Nurse Type: Nursing Progress Note Filed: 06/25/2022 8:39 AM Note Text: Other: Pt off floor for dialysis [facility] 06-23-2022 History of Present illness Narrative Ingris Saez 1985 REFERRING PHYSICIAN: MD Pedro CHIEF COMPLAINT: Consult (Facial cyst) HPI: The patient is a 36 year old female who presents with right facial abscess. She states that it began one week ago ( last Thursday ). She was given 5 days of antibiotics and she is presently on day #3. She states that the pain is unbearable in the area, she finds it difficult to even eat because of the pain. She denies fevers, but has low grade subjective temperature elevations. PAST MEDICAL HISTORY Diagnosis Date Abnormal Pap smear of cervix Anemia 05/20/2022 ARF (acute renal failure) ([facility]) Asthma EXERCISE INDUCED ASTHMA Chlamydia 2010 Chronic back pain Chronic kidney disease, stage IV (severe) ([facility]) 07/06/2015 Dr. Vargas (gets labs drawn at outside lab frequently) ESRD (end stage renal disease) ([facility]) Focal segmental glomerulosclerosis History of blood clotting disorder Hypertension Morbid obesity with BMI of 60.0-69.9, adult ([facility]) PCOS (polycystic ovarian syndrome) Pneumonia AGE 14 X2 PAST SURGICAL HISTORY Procedure Laterality Date ARTERIOVENOUS ANASTOMOSIS OPEN DIRECT Left 02/04/2016 Left forearm cephalic vein, radial artery fistula INSJ CANNULA HEMO OTH PURPOSE SPX VEIN VEIN Right 02/14/2016 PAST SURGICAL HISTORY OF 08/2014 D and C PAST SURGICAL HISTORY OF 01/2015 IUD implanted PAST SURGICAL HISTORY OF 08/2021 hysterectomy PAST SURGICAL HISTORY OF 2018 3.5 parathyroid glands removed TONSILLECTOMY PRIMARY/SECONDARY <AGE 12 Tonsillectomy Current Outpatient Medications Medication Sig sulfamethoxazole-trimethoprim (BACTRIM DS) 800-160 mg per tablet Take 1 tablet by mouth once daily for 5 days. Take after dialysis OTC PRODUCT Medical marijuana estrogens conjugated (PREMARIN) 0.3 mg tablet Take 1 mg by mouth once daily. albuterol HFA (VENTOLIN HFA) 90 mcg/actuation inhaler Inhale 2 Puffs as instructed every 4 hours as needed for wheezing/shortness of breath. midodrine (PROAMATINE) 2.5 mg tablet Oral: Initial: 2.5 to 5 mg given 15 to 30 minutes prior to hemodialysis. If response is insufficient, may increase up to 10 mg given 15 to 30 minutes prior to the next hemodialysis session; if hypotension occurs near the end of hemodialysis, may give an additional 2.5 to 5 mg dose mid-dialysis provided it is administered =3 hours after pre-dialysis dose zonisamide (ZONEGRAN) 100 mg capsule Take 1 capsule by mouth once daily. acetaminophen 325 mg-caffeine 40 mg-butalbital 50 mg (FIORICET) per tablet Take 1 tablet by mouth every 12 hours as needed. calcium carbonate (OS-ISABELA 500) 500 mg calcium (1,250 mg) tablet Take 1 tablet by mouth three times daily. acetaminophen/diphenhydramine (TYLENOL PM EXTRA STRENGTH ORAL) Take by mouth. epoetin beta, methoxy peg 75 mcg/0.3 mL syrg by INJECTION(UNSPECIFIED PARENTERAL ROUTES) route. Every 2 weeks ondansetron (ZOFRAN) 4 mg tablet Take 4 mg by mouth every 8 hours as needed for Nausea/Vomiting. FOLIC ACID/VIT BCOMP,C (RENAVIT MULTIVITAMIN ORAL) Take by mouth. oxyCODONE-acetaminophen (PERCOCET) 5-325 mg tablet Take 1 tablet by mouth every 4 hours as needed for Pain for up to 5 days. ALLERGIES: Cats and Hydrocodone PERSONAL HISTORY: Social History Tobacco Use Smoking status: Never Smokeless tobacco: Never Tobacco comments: SOCIAL SMOKER Vaping Use Vaping Use: Never used Substance Use Topics Alcohol use: Yes Comment: very rarely-maybe 5 times per year Drug use: Yes Comment: medical marijuana PRN FAMILY HISTORY Problem Relation Age of Onset Diabetes Maternal Aunt Stroke Maternal Aunt Kidney Disease Maternal Aunt Asthma Maternal Grandmother Diabetes Maternal Grandfather Heart Maternal Grandfather Hypertension Maternal Grandfather Blood Clots Other The review of systems data was entered by the nurse and reviewed by ks Nursing Notes: Francie Bonds LPN 06/23/2022 9:32 AM Signed REVIEW OF SYSTEMS: General: The patient denies fatigue, denies weight loss, denies weight gain, denies feeling hot, and denies feelings of cold. Eyes: The patient denies glaucoma, denies eye injury/surgery, wears glasses or contacts. Ear/Nose/Throat: The patient denies allergies, denies hayfever, denies ear infections, and denies bloody noses. Cardiovascular: The patient notes chest pain, denies heart disease, denies high blood pressure,denies cardiac stent, denies prior heart attack, denies irregular heart beat, denies high cholesterol, denies poor circulation, denies heart failure, other cardiac issues, denies claudication, denies cold feet, denies peripheral arterial stent. Respiratory: The patient denies tuberculosis, denies pneumonia, denies frequent cough, denies pulmonary embolism, notes shortness of breath, and denies coughing up blood. Gastrointestinal: The patient denies difficulty swallowing, denies acid reflux, denies ulcers, denies vomiting, denies jaundice/hepatitis, denies gallbladder problems, denies black or tarry stools, denies hemorrhoids, denies bleeding from rectum, denies diverticulitis, denies constipation, denies diarrhea, denies loss of stool control, and denies hernias. Kidney/Bladder: The patient denies kidney stones, notes kidney failure, denies urine infections, and denies bloody urine. Skin: The patient denies a history of skin cancer, denies bleeding/changing moles, and denies a history of skin rash. Neurologic: The patient denies a history of epilepsy/convulsions, notes headaches, denies head/spinal injuries, and denies stroke/TIA. Psychiatric: The patient denies psychiatric medications, denies depression, and denies voices, denies substance abuse. Endocrine: The patient denies thyroid disorders, denies diabetes, and denies hormonal problems. Hematologic: The patient denies a history of bruising, denies bleeding, and denies anemia, denies blood clots. Infections: The patient denies a history of measles and mumps, denies rheumatic fever, and denies sexually transmitted diseases. Musculoskeletal: The patient denies back pain/injury, denies back problems, denies sciatica, denies knee/foot trouble, denies arthritis, or denies gout. When was patient's last Mammogram screening? none Last Colonoscopy: none Francie Bonds LPN PHYSICAL EXAMINATION: General: The patient is 36 year old female, well nourished, well hydrated in apparent pain - tearful. The patient is oriented to time, place, and person. VITALS: Blood pressure 128/64, pulse 117, temperature 36.6 C (97.8 F), height 172.7 cm (5' 8 ), weight (!) 164.7 kg (363 lb), last menstrual period 09/02/2021, SpO2 98 %. Body mass index is 55.19 kg/m . Head: Normal cephalic, atraumatic Face: 1.8 cm rounded subcutaneous indurated area at prominent point of right cheek area with central area of white comedo noted - surrounding erythema extending entire right cheek area with tenderness in just touch of skin, entire right cheek appears swollen, inside right buccal mucosa with swelling protruding inside, entire area is very painful Eyes: pupils are equally round, sclera are clear/anicteric Neck is supple with no tracheal deviation Respiratory: Normal respiratory excursion and pattern. Abdominal exam: benign Extremities: no clubbing, cyanosis or edema. Neuro: non focal Psych: in obvious pain, tearful, but appropriate Assessment IMPRESSION: right facial infection/cellulitis/abscess PLAN: I have discussed the above with the patient. I am concerned that the infection encompasses her entire right cheek area and not just the 1.8 cm obvious area of infection sebaceous cyst, based on physical examination. I feel uncomfortable with a simple I&D to be done in the office. I have recommended that she proceed to the ED for admission for - at minimal - IV antibiotics. I have recommended the nearest [facility] hospital, but patient wishes to go to [facility]. The patient acknowledges the above. I have answered all questions to the patient s satisfaction and the patient has no further questions. I have confirmed and edited as necessary, the PFSH and ROS obtained by others. . Diagnoses: (L02.01) Facial abscess (primary encounter diagnosis) Medical Decision Making: Problems: Low: Acute, uncomplicated illness or injury Medical Decision Making Level: 2 - Straightforward Natalie Jurado MD documented in this encounter [facility] 06-23-2022 Nurse Note REVIEW OF SYSTEMS: General: The patient denies fatigue, denies weight loss, denies weight gain, denies feeling hot, and denies feelings of cold. Eyes: The patient denies glaucoma, denies eye injury/surgery, wears glasses or contacts. Ear/Nose/Throat: The patient denies allergies, denies hayfever, denies ear infections, and denies bloody noses. Cardiovascular: The patient notes chest pain, denies heart disease, denies high blood pressure,denies cardiac stent, denies prior heart attack, denies irregular heart beat, denies high cholesterol, denies poor circulation, denies heart failure, other cardiac issues, denies claudication, denies cold feet, denies peripheral arterial stent. Respiratory: The patient denies tuberculosis, denies pneumonia, denies frequent cough, denies pulmonary embolism, notes shortness of breath, and denies coughing up blood. Gastrointestinal: The patient denies difficulty swallowing, denies acid reflux, denies ulcers, denies vomiting, denies jaundice/hepatitis, denies gallbladder problems, denies black or tarry stools, denies hemorrhoids, denies bleeding from rectum, denies diverticulitis, denies constipation, denies diarrhea, denies loss of stool control, and denies hernias. Kidney/Bladder: The patient denies kidney stones, notes kidney failure, denies urine infections, and denies bloody urine. Skin: The patient denies a history of skin cancer, denies bleeding/changing moles, and denies a history of skin rash. Neurologic: The patient denies a history of epilepsy/convulsions, notes headaches, denies head/spinal injuries, and denies stroke/TIA. Psychiatric: The patient denies psychiatric medications, denies depression, and denies voices, denies substance abuse. Endocrine: The patient denies thyroid disorders, denies diabetes, and denies hormonal problems. Hematologic: The patient denies a history of bruising, denies bleeding, and denies anemia, denies blood clots. Infections: The patient denies a history of measles and mumps, denies rheumatic fever, and denies sexually transmitted diseases. Musculoskeletal: The patient denies back pain/injury, denies back problems, denies sciatica, denies knee/foot trouble, denies arthritis, or denies gout. When was patient's last Mammogram screening? none Last Colonoscopy: none Francie Bonds LPN documented in this encounter [facility] 06-21-2022 History of Present illness Narrative Patient presents with: Rash: Bump on right side of face, swollen lip and jaw x 6 days HPI: Location: right cheek Duration: 6 days Pain: yes, difficult to eat now because of lip and cheek swelling Change: increased swelling Bleeding/ulceration/blister/pustu le: abscess is draining some Exposure: PHx of MRSA. Recent illness: denies fever or nausea. Treatment: heating pad, alcohol and witch gino wipes, ice PAST MEDICAL HISTORY Diagnosis Date Abnormal Pap smear of cervix Anemia 05/20/2022 ARF (acute renal failure) ([facility]) Asthma EXERCISE INDUCED ASTHMA Chlamydia 2010 Chronic back pain Chronic kidney disease, stage IV (severe) ([facility]) 07/06/2015 Dr. Vargas (gets labs drawn at outside lab frequently) ESRD (end stage renal disease) ([facility]) Focal segmental glomerulosclerosis History of blood clotting disorder Hypertension Morbid obesity with BMI of 60.0-69.9, adult ([facility]) PCOS (polycystic ovarian syndrome) Pneumonia AGE 14 X2 MEDICATIONS: OTC PRODUCT Medical marijuana estrogens conjugated (PREMARIN) 0.3 mg tablet Take 1 mg by mouth once daily. albuterol HFA (VENTOLIN HFA) 90 mcg/actuation inhaler Inhale 2 Puffs as instructed every 4 hours as needed for wheezing/shortness of breath. midodrine (PROAMATINE) 2.5 mg tablet Oral: Initial: 2.5 to 5 mg given 15 to 30 minutes prior to hemodialysis. If response is insufficient, may increase up to 10 mg given 15 to 30 minutes prior to the next hemodialysis session; if hypotension occurs near the end of hemodialysis, may give an additional 2.5 to 5 mg dose mid-dialysis provided it is administered =3 hours after pre-dialysis dose zonisamide (ZONEGRAN) 100 mg capsule Take 1 capsule by mouth once daily. oxyCODONE-acetaminophen (PERCOCET) 5-325 mg tablet Take 1 tablet by mouth every 4 hours as needed for Pain for up to 5 days. acetaminophen 325 mg-caffeine 40 mg-butalbital 50 mg (FIORICET) per tablet Take 1 tablet by mouth every 12 hours as needed. calcium carbonate (OS-ISABELA 500) 500 mg calcium (1,250 mg) tablet Take 1 tablet by mouth three times daily. acetaminophen/diphenhydramine (TYLENOL PM EXTRA STRENGTH ORAL) Take by mouth. epoetin beta, methoxy peg 75 mcg/0.3 mL syrg by INJECTION(UNSPECIFIED PARENTERAL ROUTES) route. Every 2 weeks ondansetron (ZOFRAN) 4 mg tablet Take 4 mg by mouth every 8 hours as needed for Nausea/Vomiting. FOLIC ACID/VIT BCOMP,C (RENAVIT MULTIVITAMIN ORAL) Take by mouth. ALLERGIES: ALLERGIES Allergen Reactions Cats Itching STUFFY NOSE Hydrocodone GI Upset VITALS: BP 126/82 Pulse 119 Temp 37.2 C (99 F) Resp 22 Wt (!) 161.9 kg (357 lb) LMP 09/02/2021 SpO2 97% BMI 54.28 kg/m PHYSICAL EXAM: GEN: pleasant, no acute distress, alert SKIN: right cheek has edema and and induration from lateral mouth to the angle of the jaw. There is a small opening lateral to the nasolabial fold from which a small amount of white purulent material can be expressed - limited by pain. Suspect 1-2 cm subcutaneous purulent collection. ASSESSMENT/PLAN: 1. Cutaneous abscess of face - ICD9: 682.0, ICD10: L02.01 (primary diagnosis) 2. ESRD (end stage renal disease) on dialysis (HCC) - ICD9: 585.6, V45.11, ICD10: N18.6, Z99.2 - WOUND CULTURE AND GRAM STAIN Probable MRSA. Prescribed bactrim. 1/2 dose because of ESRD. Follow up in the ER if fever or worsening over the weekend. General surgery follow up offered on Thursday, she will see how she responds and schedule follow up if not improving. Ross Snow MD documented in this encounter [facility] 06-12-2022 History of Present illness Narrative She is seen today. Previously had large bulky area of thrombus within her left arm fistula which could not be extracted percutaneously and will require open thrombectomy. On cursory bedside ultrasound I do not see a thrombus today. We will get a formal ultrasound pending this will make final recommendations otherwise She has a strong thrill with no pulsatility within the access Juan José Partida MD documented in this encounter [facility] 05-20-[address] Alonzo, I saw this patient today virtually for her PACC appt, she is scheduled for surgery on Thursday05/23/2022. She is getting the following procedure with vascular Dr. Partida: LEFT CARDIO TECH BALLOON AV FISTULA ARTERIAL SIDE,INCLUSIVE OF RAD S&I She has been having difficulty with her dialysis at home and that is why she is getting this done. She recently saw you and you had ordered a stress test and a holter. Patient reports she saw you because of her hypotension and presyncopal / falling episodes - she reports the last episode of this was Thursday and these episodes occur between dialysis and running to the bathroom. She also reports h/o chest pain with walking far, when BP low or during dialysis. Pt told me you said stress test was optional - she reports her last episode a few days ago. Looks like she has cancelled her follow up appt with you. Do you feel she needs these tests prior to her procedure? Assuming they will not be done in time for surgery but wanted to see if you thought anything further was needed. Thank you, Maria Esther Perez PA-C May 20, 2022 7:50 PM documented in this encounter [facility] 05-20-2022 Instructions Maria Esther Perez PA-C - 05/20/2022 4:20 PM EDT PATIENT PREOPERATIVE INSTRUCTIONS Juan José Partida MD has scheduled you for your procedure at this surgery center: [facility]: [phone] -- [id number] [place] [address]. Please read below carefully for your personalized instructions. Dietary Restrictions: - No solid food after midnight. - You may have 12 ounces of clear liquids (water, clear juices such as apple juice or gatorade, carbonated beverages, clear tea, black coffee, jello) until 2 hours before scheduled arrival at facility. Medications: Unless instructed differently below, stay on all of your medications until your surgery. Approved medications to take the morning of surgery with a sip of water: inhaler if needed If you start any new medications after today's visit, please contact the surgeon's office. Blood Thinning Medications: - Stop NSAIDS (Ibuprofen, Advil, Aleve, Motrin, Celebrex, Mobic, etc.) 7 days before surgery, as directed by your surgeon. - Stop Aspirin 7 days before surgery, as directed by your surgeon. - Stop Vitamin E, ALL multi-vitamins, herbals and dietary supplements 7 days before surgery. - You may take Tylenol (Acetaminophen) or any of your pain medications that do not contain aspirin or NSAIDS as needed. - can stay on any kidney supplements/parathyroid supplements as prescribed Important Reminders: - If you are prescribed inhalers for breathing, continue using them. If you are on dialysis, please check with your dialysis center or [employer] administrator to see if any adjustments need to be made to your schedule for the week of your surgery - Candy, mints, and tobacco products are NOT permitted the morning of surgery. - Hearing aids, dentures and glasses may be worn the morning of surgery. - NO jewelry, body piercings, makeup, hairpins or contacts are to be worn the day of surgery. If you develop symptoms such as a fever, cold, or flu, or have other changes to your health within TWO DAYS of scheduled surgery or the morning of surgery, please contact the surgery center above. Personal Belongings: -Please have photo ID and insurance cards. -If you do not have a copy of advance directives on file with us, please bring a copy with you on the day of surgery. - Leave ALL valuables and money at home or with family members. For Outpatient Procedures: - YOU MUST HAVE A RESPONSIBLE GARAGE DOOR SERVICE TECHNICIAN TAKE YOU HOME. A MEASUREMENT ADVISOR OR REVENUE SETTLEMENTS ADMINISTRATOR CANNOT BE MADE A RESPONSIBLE GARAGE DOOR SERVICE TECHNICIAN. - We recommend that a responsible person stays with you overnight to take care of you. - You cannot stay in a hotel alone after outpatient surgery. You will not be permitted to have your surgery, if you do not have someone to take care of you. Arrival Time for Surgery: - The Surgery Center or hospital where you are having surgery will call the afternoon before surgery (or Thursday for Thursday surgery) with a scheduled arrival time. - If you have not heard by 4 pm, please contact the surgery center above. Please be aware that emergency situations arise, which may delay or change your surgical time. If this happens, we will notify you as soon as possible and regret any inconvenience. If you already have an Advance Directive, please fax a copy to [phone] or email to for it to be added to your chart. If you do not have an Advance Directive, you can find the appropriate form and more information at [email or web address]. We recommend that you complete the Advance Directive form found on the website and bring it with you the day of your surgery. It can be witnessed and scanned into your chart that day. Maria Esther Perez PA-C documented in this encounter [facility] 05-20-2022 History and physical note PREANESTHESIA CONSULT CLINIC TELEHEALTH VISIT Patient has been identified by name and date of : Yes This is a virtual visit using Zilta video visit. It require patient-provider interaction for the medical decision making as documented below. Reason for contact: PACC visit Accompanied by: Self Scheduled Surgery: LEFT CARDIO TECH BALLOON AV FISTULA ARTERIAL SIDE,INCLUSIVE OF RAD S&I Subjective CHIEF COMPLAINT: Patient presents with: Pre-Op Visit HPI: This is a 36 year old female who presents with ESRD on dialysis. Patient reports does hemodialysis 5-7 days per week at home. She follows with [employer] administrator Dr. Vargas. ACTIVE PROBLEM LIST Morbid Obesity With Bmi of 50.0-59.9, Adult ([facility]) Hypertension Chronic Back Pain Esrd (End Stage Renal Disease) On Dialysis ([facility]) Lumbar Herniated Disc Iih (Idiopathic Intracranial Hypertension) Marijuana Use S/P Parathyroidectomy ([facility]) Focal Segmental Glomerulosclerosis Asthma Hypotension Anemia History of Blood Clotting Disorder PAST MEDICAL HISTORY Diagnosis Date Abnormal Pap smear of cervix Anemia 05/20/2022 ARF (acute renal failure) ([facility]) Asthma EXERCISE INDUCED ASTHMA Chlamydia 2010 Chronic back pain Chronic kidney disease, stage IV (severe) ([facility]) 07/06/2015 Dr. Vargas (gets labs drawn at outside lab frequently) ESRD (end stage renal disease) ([facility]) Focal segmental glomerulosclerosis History of blood clotting disorder Hypertension Morbid obesity with BMI of 60.0-69.9, adult ([facility]) PCOS (polycystic ovarian syndrome) Pneumonia AGE 14 X2 PAST SURGICAL HISTORY Procedure Laterality Date ARTERIOVENOUS ANASTOMOSIS OPEN DIRECT Left 02/04/2016 Left forearm cephalic vein, radial artery fistula INSJ CANNULA HEMO OTH PURPOSE SPX VEIN VEIN Right 02/14/2016 PAST SURGICAL HISTORY OF 08/2014 D and C PAST SURGICAL HISTORY OF 01/2015 IUD implanted PAST SURGICAL HISTORY OF 08/2021 hysterectomy PAST SURGICAL HISTORY OF 2018 3.5 parathyroid glands removed TONSILLECTOMY PRIMARY/SECONDARY <AGE 12 Tonsillectomy FAMILY HISTORY Problem Relation Age of Onset Diabetes Maternal Aunt Stroke Maternal Aunt Kidney Disease Maternal Aunt Asthma Maternal Grandmother Diabetes Maternal Grandfather Heart Maternal Grandfather Hypertension Maternal Grandfather Blood Clots Other Social History Tobacco Use Smoking status: Never Smokeless tobacco: Never Tobacco comments: SOCIAL SMOKER Vaping Use Vaping Use: Never used Substance Use Topics Alcohol use: Yes Comment: very rarely-maybe 5 times per year Drug use: Yes Comment: medical marijuana PRN ALLERGIES Allergen Reactions Cats Itching STUFFY NOSE Hydrocodone GI Upset MEDICATIONS: Current Outpatient Medications Medication Sig estrogens conjugated (PREMARIN) 0.3 mg tablet Take 1 mg by mouth once daily. albuterol HFA (VENTOLIN HFA) 90 mcg/actuation inhaler Inhale 2 Puffs as instructed every 4 hours as needed for wheezing/shortness of breath. midodrine (PROAMATINE) 2.5 mg tablet Oral: Initial: 2.5 to 5 mg given 15 to 30 minutes prior to hemodialysis. If response is insufficient, may increase up to 10 mg given 15 to 30 minutes prior to the next hemodialysis session; if hypotension occurs near the end of hemodialysis, may give an additional 2.5 to 5 mg dose mid-dialysis provided it is administered =3 hours after pre-dialysis dose zonisamide (ZONEGRAN) 100 mg capsule Take 1 capsule by mouth once daily. acetaminophen 325 mg-caffeine 40 mg-butalbital 50 mg (FIORICET) per tablet Take 1 tablet by mouth every 12 hours as needed. calcium carbonate (OS-ISABELA 500) 500 mg calcium (1,250 mg) tablet Take 1 tablet by mouth three times daily. acetaminophen/diphenhydramine (TYLENOL PM EXTRA STRENGTH ORAL) Take by mouth. epoetin beta, methoxy peg 75 mcg/0.3 mL syrg by INJECTION(UNSPECIFIED PARENTERAL ROUTES) route. Every 2 weeks ondansetron (ZOFRAN) 4 mg tablet Take 4 mg by mouth every 8 hours as needed for Nausea/Vomiting. FOLIC ACID/VIT BCOMP,C (RENAVIT MULTIVITAMIN ORAL) Take by mouth. oxyCODONE-acetaminophen (PERCOCET) 5-325 mg tablet Take 1 tablet by mouth every 4 hours as needed for Pain for up to 5 days. (Patient not taking: No sig reported) No current facility-administered medications for this visit. COVID VACCINATION STATUS: Fully vaccinated REVIEW OF SYSTEMS: Pain Assessment: General: No unintentional weight loss, malaise or fevers.+morbid obesity Neuro: No history of TIA's, stroke, seizures, [facility] tumor, impaired sensorium, hemiplegia, paraplegia or quadraplegia. No other neurological symptoms or problems. +idiopathic intracranial HTN - sees neuro Zonegran for IIH Fioricet for headaches from II Last visit with Dr. Rock 10/2021: IMPRESSION: 1. Pseudotumor cerebri PLAN: Decrease Zonegran to 100 mg daily Follow-up in 6 months Any problems or concerns to call me or primary care physician immediately or go straight to the emergency department Pt reports scheduled 06/2022 for follow up with neuro Respiratory: No history of current cough or dyspnea, or pneumonia in the past 6 weeks. No history of COPD or TUCKER. + albuterol for - exercise induced asthma - last use awhile ago Cardiovascular: No history of angina, CHF, CO, cardiac surgery or stents. Denies rest pain, gangrene or revascularization/amputation for PVD. No history of cardiovascular symptoms or problems. + HTN in past, + Hypotension more recently - on midodrine Recent card visit - pt reports saw cardiology because BP was getting low and felt presyncopal/was falling - last episode of this was Fri (pt reports these episodes occur between dialysis and running to bathroom) Pt reports h/o chest pain with walking far, when BP low or during dialysis - pt reports was told stress test optional - last episode a few days ago GI: No history of GI symptoms or problems. No history of esophageal varices, recent ascites, or ETOH greater than 2 drinks per day. : No history of dysuria, frequency or incontinence, stones. +ESRD on dialysis (caused by focal segmental glomerulosclerosis) VET TECH: Negative for abnormal vaginal bleeding, abnormal vaginal discharge. : Denies, Patient's last menstrual period was 09/02/2021. Patient has had a hysterectomy. Endocrine: No history of diabetes. Has not taken steroids within the past 30 days. +s/p parathyroidectomy, follows with nephrology, + PCOS Hematology: No history of bleeding or clotting disorder. Pt is not taking anti-coagulation or platelet medications. +Anemia - follows w/ dialysis center, pt reports she thinks levels are fine right now + history of blood clotting issues - had to get plasmaphersis while 2013 (?TTP)- no issues since +on heparin with dialysis Oncology: No history of CA metastasis, chemo within 30 days, or radiotherapy within 90 days. Has not lost 10% of body wt in 6 months. No history of oncological symptoms or problems. Psych: +marijuana use - medical marijuana, + Anxiety related to dialysis Musculoskeletal: +joint pain, + herniated disc in back Skin: Negative for lesions, rash and itching. Objective PHYSICAL EXAM: Pulse 80[per pt counting method[ Ht 5' 8.5 [pt reported[ (1.74m) Wt 348 lb 5.2 oz (158.0kg) LMP 09/02/2021 BMI 52.19 kg/(m^2). VIDEO EXAM: (if completed, performed via video enabled technology) GENERAL: alert and appropriate, in no distress, well-hydrated, well nourished and happy, smiling, interactive SKIN: no rash noted HEAD: normocephalic, no abnormality or lesion noted EYES: no injection and visual acuity is grossly normal NOSE: external nose normal without rhinorrhea NECK: full ROM RESPIRATORY: breathing non-labored CHEST: equal chest rise with normal respiratory effort HEART: pt palpated radial pulse, RRR per pt counting method EXTREMITIES: pt denies any redness, tenderness, swelling or deformities in the extremities NEUROLOGIC: no obvious deficit Diagnostic tests reviewed for today's visit: Lab Value Units Date High Low HB No results within date range. HCT No results within date range. WBC No results within date range. PLT No results within date range. NA No results within date range. K No results within date range. GLUC No results within date range. BUN No results within date range. CREAT No results within date range. PTSEC No results within date range. INR No results within date range. APTT No results within date range. ALT No results within date range. AST No results within date range. TBILI No results within date range. TSH No results within date range. Lab Value Units Date High Low HCGQT No results within date range. UHCG No results within date range. HCG, BODY* No results within date range. Lab Value Units Date High Low ABORHD No results within date range. ABSCREEN No results within date range. Hemoglobin A1C (%) Date Value 08/25/2019 4.3 11/27/2013 4.8 Electrocardiogram (per cardiology note) 04/24/2022: Sinus tachycardia 102 bpm. Left anterior fascicular block. Poor R wave progression which could represent lateral infarct age undetermined. This looks similar to previous EKG from 2019. ECHO 03/20/2022 Impression CONCLUSIONS: - Technically difficult exam due to body habitus. - Exam indication: Hypotension - The left ventricle is small. There is mild concentric left ventricular hypertrophy. Left ventricular systolic function is normal. EF = 55 5% (2D 4-ch.) Grade I left ventricular diastolic dysfunction. - The right ventricle is normal in size. Right ventricular systolic function is normal. - Definity unavailable. - There are no significant valvular abnormalities. - Exam was compared with the prior [facility] echocardiographic exam performed on 01/30/2016. Stress echo 09/01/2019 CONCLUSIONS: - Technically difficult exam due to body habitus. - Exam indication: Pre-op - The dobutamine stress echo was negative for ischemia at 83 % of MPHR. No regional wall motion abnormality seen at heart rate achieved. This was a suboptimal test as target heart rate was not achieved. The patient had provocation of chest discomfort which resolved during recovery phase.there were no arrhythmias. - The left ventricle is normal in size. Left ventricular systolic function is normal. EF = 55 5% (2D biplane) Definity contrast used for endocardial border detection. Normal left ventricular diastolic function. - Exam was compared with the prior [facility] echocardiographic exam performed on 01/30/16. LV function has slightly improved. Per cardiology note 04/24/2022: Stress Test: 09/01/2019: Negative for ischemia at 83% maximal predicted heart rate. No regional wall motion abnormality seen at heart rate achieved. Suboptimal test as target heart rate was not achieved. EF 55%. Impression/Recommendations ASSESSMENT: Morbid obesity with BMI of 50.0-59.9, adult ([facility]) Assessment: BMI 52.19 IIH (idiopathic intracranial hypertension) Assessment: sees neurology Dr. Rock, on zonegran; also takes fiorcet for associated headaches Asthma Assessment: exercise-induced asthma - stable Hypotension Assessment: takes midodrine prior to and during dialysis ESRD (end stage renal disease) on dialysis ([facility]) Assessment: ESRD on dialysis (caused by focal segmental glomerulosclerosis); on heparin with dialysis S/P parathyroidectomy ([facility]) Assessment: follows with nephrology, pt reports 3.5 glands removed Anemia Assessment: follows w/ dialysis center, pt reports she thinks levels are fine right now History of blood clotting disorder Assessment: history of blood clotting issues - had to get plasmaphersis while 2013 (?TTP)- no issues since Marijuana use Assessment: medial marijuana METS: Climb a flight of stairs or walk up a hill (5.50 METs) Patient denies any chest pain or undue shortness of breath with the above physical activity. ASA Class: 3 ANESTHESIA FINDINGS: Intubation History: No history of difficult intubation Significant Anesthesia Considerations: None Airway Exam: General: Morbid obesity Mallampati Score is unable to be assessed virtually ULBT: Class II - Lower incisors can bite the upper lip below the lucas line Neck: Normal appearance and function, Distance from hyoid to mentum during neck extension is at least 3 finger breaths Mouth: Normal tongue size and Mouth opening greater than 2 finger breaths Dentition: Intact Airway History: No abnormal airway history STOP BANG Score: Criteria: Tired Hypertension BMI > 35 Neck circumference > 15.75 inches Score = 4 PLAN: This patient is optimally prepared for surgery pending cardiac optimization - telephone encounter sent to mat making machine tender. Recommend labs DOS as patient gets hemodialysis almost daily at home CONSULTS: See under plan The Following Tests/Procedures Have Been Initiated: none Planned Anesthetic: Per anesthesia choice Instructions Given to Patient: Patient given verbal instructions and voices comprehension and compliance. Copy sent electronically via My Chart, email, or mobile device. I spent more than 21-40 minutes [id number] with the patient and over half the time was devoted to counseling and/or coordination of care. This is a virtual visit. It required patient-provider interaction for the medical decision making as documented above. SIGNATURE: Maria Esther Perez PA-C PATIENT NAME: Ingris Saez DATE: 05/20/2022 TIME: 8:03 PM PAGER/CONTACT #: documented in this encounter [facility] 05-12-[address] Partida did tell her that fistulograms are no longer done at the main campus that they are done at our regional facilities bec I was in the room. If she only wants Dr Partida I'll do another cureform stating such & she can be scheduled at his next available time he's at [facility] whenever that may be. Valentina Yates RN Patients mother called and would like to discuss potential surgery dates with Dr. Partida. I informed the patient that she or her daughter had previously stated that she wanted to see Dr. Gonzalez according to previous epic notes recorded today. Patients mother denies every speaking with anyone at [facility] about an appointment and would like for the patient to be scheduled for the next available appointment with Dr. Partida. Patients mother would like a call to confirm. Stated that patient is often in dialysis majority of the day. Sharon Pillai Admitting Supervisor documented in this encounter [facility] 05-12-2022 Miscellaneous Notes Patients mother called regarding her scheduled procedure of fistulagram with Dr. Gonzalez 05/16 and stated she does not want to be seen at [facility]. Spoke with patient regarding being scheduled for fistulagram with Dr. Gonzalez patient agreed to scheduled for 05/16/22. documented in this encounter [facility] 05-08-2022 History of Present illness Narrative Patient seen today. She has been having cannulation issues on the left forearm fistula. On examination there is no pulsatility there is a strong thrill her surgical incision is well-healed there is mild ectasia with no aneurysmal dilatation no ulceration. Volume flows are greater than 1 L/min. With the cannulation issues do need fistulogram. It does not appear to be pulsatile and I have a low suspicion for an outflow lesion or an inflow lesion given the volume flows. I have given him additional cannulation zone recommendations as she may be just infiltrating in an area that somewhat smaller than the current cannulation zones follow-up in 6 months with an ultrasound Juan José Partida MD documented in this encounter [facility] 04-28-2022 Miscellaneous Notes Patients mother and would like to set up an appointment with Dr. Partida to have patients fistula checked. Patient has dialysis everyday and will need a late afternoon appointment. Patients mother would like a call to confirm the appointment. Sharno Pillai Admitting Supervisor documented in this encounter [facility] 04-24-2022 Note HNO ID: [id number] Author: Kervin Alonzo MD Service: ? Author Type: Physician Type: Progress Notes Filed: 04/24/2022 2:43 PM Note Text: Chief Complaint: Patient presents with: Cardiology Follow Up : REF FOR ABN ECHO History of Present Illness: Ingris Saez is a 36 year old female with history of ESRD on hemodialysis, morbid obesity, PCOS was referred by her linux unix administrator for syncope. Patient says for the last 3 to 4 months she has been experiencing intermittent episodes of lightheadedness almost on a daily basis. She said there have been instances where she has felt lightheaded to the point where she thought she was going to pass out so she lowered herself to the floor as her legs were giving away and would lie down. If she would lie down she would be more alert and awake. She says she has learned to minimize episodes. She does dialysis at home. Initially it was only 5 days a week but as she was removing less she has now gone to almost daily dialysis. She has talked to her linux unix administrator about removing less volume which she has tried to do over the last 1 month but her symptoms persist. She even takes midodrine 10 mg once before dialysis starts and once after the dialysis to maintain good blood pressure readings. Patient had an echocardiogram for the same situation in March of this year which showed small ventricular cavity. LV function was normal and there were no significant valvular abnormalities. Patient also describes chest tightness at rest and also chest pain when she walks. She said this is going on also for the last few months. She denies any significant palpitations apnea PND or leg edema. PAST MEDICAL HISTORY Diagnosis Date - Abnormal Pap smear of cervix - ARF (acute renal failure) ([facility]) - Asthma EXERCISE INDUCED ASTHMA - Chlamydia 2010 - Chronic back pain - Chronic kidney disease, stage IV (severe) ([facility]) 07/06/2015 Dr. Vargas (gets labs drawn at outside lab frequently) - ESRD (end stage renal disease) ([facility]) - Hypertension - Morbid obesity with BMI of 60.0-69.9, adult ([facility]) - PCOS (polycystic ovarian syndrome) - Pneumonia AGE 14 X2 PAST SURGICAL HISTORY Procedure Laterality Date - ARTERIOVENOUS ANASTOMOSIS OPEN DIRECT Left 02/04/2016 Left forearm cephalic vein, radial artery fistula - INSJ CANNULA HEMO OTH PURPOSE SPX VEIN VEIN Right 02/14/2016 - PAST SURGICAL HISTORY OF 08/2014 D and C - PAST SURGICAL HISTORY OF 01/2015 IUD implanted - TONSILLECTOMY PRIMARY/SECONDARY Tonsillectomy FAMILY HISTORY Problem Relation Age of Onset - Asthma Maternal Grandmother - Diabetes Maternal Grandfather - Heart Maternal Grandfather - Hypertension Maternal Grandfather - Diabetes Maternal Aunt - Stroke Maternal Aunt - Kidney Disease Maternal Aunt Social History Tobacco Use - Smoking status: Never Smoker - Smokeless tobacco: Never Used - Tobacco comment: SOCIAL SMOKER Vaping Use - Vaping Use: Never used Substance Use Topics - Alcohol use: Yes Comment: very rarely - Drug use: Yes Comment: medical marijuana Current Outpatient Medications Medication Sig - estrogens conjugated (PREMARIN) 0.3 mg tablet Take 1 mg by mouth once daily. - albuterol HFA (VENTOLIN HFA) 90 mcg/actuation inhaler Inhale 2 Puffs as instructed every 4 hours as needed for wheezing/shortness of breath. - midodrine (PROAMATINE) 2.5 mg tablet Oral: Initial: 2.5 to 5 mg given 15 to 30 minutes prior to hemodialysis. If response is insufficient, may increase up to 10 mg given 15 to 30 minutes prior to the next hemodialysis session; if hypotension occurs near the end of hemodialysis, may give an additional 2.5 to 5 mg dose mid-dialysis provided it is administered =3 hours after pre-dialysis dose - zonisamide (ZONEGRAN) 100 mg capsule Take 1 capsule by mouth once daily. - acetaminophen 325 mg-caffeine 40 mg-butalbital 50 mg (FIORICET) per tablet Take 1 tablet by mouth every 12 hours as needed. - calcium carbonate (OS-ISABELA 500) 500 mg calcium (1,250 mg) tablet Take 1 tablet by mouth three times daily. - acetaminophen/diphenhydramine (TYLENOL PM EXTRA STRENGTH ORAL) Take by mouth. - epoetin beta, methoxy peg (MIRCERA) 75 mcg/0.3 mL syrg by INJECTION(UNSPECIFIED PARENTERAL ROUTES) route. Every 2 weeks - FOLIC ACID/VIT BCOMP,C (RENAVIT MULTIVITAMIN ORAL) Take by mouth. - doxycycline hyclate (VIBRAMYCIN) 100 mg capsule Take 100 mg by mouth twice daily. Started 02/19/2022 (Patient not taking: Reported on 04/24/2022 ) - oxyCODONE-acetaminophen (PERCOCET) 5-325 mg tablet Take 1 tablet by mouth every 4 hours as needed for Pain for up to 5 days. (Patient not taking: Reported on 09/11/2021) - lidocaine 5 % gel Apply 1 application to affected area four times daily as needed. (Patient not taking: Reported on 04/24/2022 ) - [place]-3 Fatty Acids (FISH OIL) 300 mg cap Take 300 mg by mouth once daily. (Patient not taking: Reported on 04/24/2022 ) - ondansetron (ZOFRAN, (more content not included)... [facility] 04-24-2022 History of Present illness Narrative Chief Complaint: Patient presents with: Cardiology Follow Up : REF FOR ABN ECHO History of Present Illness: Ingris Saez is a 36 year old female with history of ESRD on hemodialysis, morbid obesity, PCOS was referred by her linux unix administrator for syncope. Patient says for the last 3 to 4 months she has been experiencing intermittent episodes of lightheadedness almost on a daily basis. She said there have been instances where she has felt lightheaded to the point where she thought she was going to pass out so she lowered herself to the floor as her legs were giving away and would lie down. If she would lie down she would be more alert and awake. She says she has learned to minimize episodes. She does dialysis at home. Initially it was only 5 days a week but as she was removing less she has now gone to almost daily dialysis. She has talked to her linux unix administrator about removing less volume which she has tried to do over the last 1 month but her symptoms persist. She even takes midodrine 10 mg once before dialysis starts and once after the dialysis to maintain good blood pressure readings. Patient had an echocardiogram for the same situation in March of this year which showed small ventricular cavity. LV function was normal and there were no significant valvular abnormalities. Patient also describes chest tightness at rest and also chest pain when she walks. She said this is going on also for the last few months. She denies any significant palpitations apnea PND or leg edema. PAST MEDICAL HISTORY Diagnosis Date Abnormal Pap smear of cervix ARF (acute renal failure) ([facility]) Asthma EXERCISE INDUCED ASTHMA Chlamydia 2010 Chronic back pain Chronic kidney disease, stage IV (severe) ([facility]) 07/06/2015 Dr. Vargas (gets labs drawn at outside lab frequently) ESRD (end stage renal disease) ([facility]) Hypertension Morbid obesity with BMI of 60.0-69.9, adult ([facility]) PCOS (polycystic ovarian syndrome) Pneumonia AGE 14 X2 PAST SURGICAL HISTORY Procedure Laterality Date ARTERIOVENOUS ANASTOMOSIS OPEN DIRECT Left 02/04/2016 Left forearm cephalic vein, radial artery fistula INSJ CANNULA HEMO OTH PURPOSE SPX VEIN VEIN Right 02/14/2016 PAST SURGICAL HISTORY OF 08/2014 D and C PAST SURGICAL HISTORY OF 01/2015 IUD implanted TONSILLECTOMY PRIMARY/SECONDARY <AGE 12 Tonsillectomy FAMILY HISTORY Problem Relation Age of Onset Asthma Maternal Grandmother Diabetes Maternal Grandfather Heart Maternal Grandfather Hypertension Maternal Grandfather Diabetes Maternal Aunt Stroke Maternal Aunt Kidney Disease Maternal Aunt Social History Tobacco Use Smoking status: Never Smoker Smokeless tobacco: Never Used Tobacco comment: SOCIAL SMOKER Vaping Use Vaping Use: Never used Substance Use Topics Alcohol use: Yes Comment: very rarely Drug use: Yes Comment: medical marijuana Current Outpatient Medications Medication Sig estrogens conjugated (PREMARIN) 0.3 mg tablet Take 1 mg by mouth once daily. albuterol HFA (VENTOLIN HFA) 90 mcg/actuation inhaler Inhale 2 Puffs as instructed every 4 hours as needed for wheezing/shortness of breath. midodrine (PROAMATINE) 2.5 mg tablet Oral: Initial: 2.5 to 5 mg given 15 to 30 minutes prior to hemodialysis. If response is insufficient, may increase up to 10 mg given 15 to 30 minutes prior to the next hemodialysis session; if hypotension occurs near the end of hemodialysis, may give an additional 2.5 to 5 mg dose mid-dialysis provided it is administered =3 hours after pre-dialysis dose zonisamide (ZONEGRAN) 100 mg capsule Take 1 capsule by mouth once daily. acetaminophen 325 mg-caffeine 40 mg-butalbital 50 mg (FIORICET) per tablet Take 1 tablet by mouth every 12 hours as needed. calcium carbonate (OS-ISABELA 500) 500 mg calcium (1,250 mg) tablet Take 1 tablet by mouth three times daily. acetaminophen/diphenhydramine (TYLENOL PM EXTRA STRENGTH ORAL) Take by mouth. epoetin beta, methoxy peg (MIRCERA) 75 mcg/0.3 mL syrg by INJECTION(UNSPECIFIED PARENTERAL ROUTES) route. Every 2 weeks FOLIC ACID/VIT BCOMP,C (RENAVIT MULTIVITAMIN ORAL) Take by mouth. doxycycline hyclate (VIBRAMYCIN) 100 mg capsule Take 100 mg by mouth twice daily. Started 02/19/2022 (Patient not taking: Reported on 04/24/2022 ) oxyCODONE-acetaminophen (PERCOCET) 5-325 mg tablet Take 1 tablet by mouth every 4 hours as needed for Pain for up to 5 days. (Patient not taking: Reported on 09/11/2021) lidocaine 5 % gel Apply 1 application to affected area four times daily as needed. (Patient not taking: Reported on 04/24/2022 ) [place]-3 Fatty Acids (FISH OIL) 300 mg cap Take 300 mg by mouth once daily. (Patient not taking: Reported on 04/24/2022 ) ondansetron (ZOFRAN, HYDROCHLORIDE,) 4 mg tablet Take 4 mg by mouth every 8 hours as needed for Nausea/Vomiting. No current facility-administered medications for this visit. ALLERGIES Allergen Reactions Cats Itching STUFFY NOSE Hydrocodone GI Upset Review of Systems: General: No weight loss, malaise, fevers, chills, or night sweats HEENT: Negative for epistaxis Neck: Negative for pain and significant neck swelling Respiratory: Negative for cough, shortness of breath at rest or on exertion, wheezing Gastrointestinal: Negative history of abdominal pain, nausea, vomiting, constipation, diarrhea, melena, or hematochezia Urinary: Negative history of dysuria, hematuria, or frequency Peripheral vascular: No claudication Musculoskeletal: Negative for joint aches/pain, neck pain, or back pain Neurologic: Negative history of dizziness/lightheadedness, vertigo, numbness/tingling of hands or feet Hematologic: Negative for easy bruising or easy bleeding. Endocrine: Negative history of obesity Skin: Negative history of rash and itching Other: The rest of the review of systems is unremarkable and negative or non-contributory Physical Examination: BP (!) 120/41 (BP Site: Right Arm, BP Position: Sitting, BP Cuff Size: Regular Adult) Pulse 105 Resp 18 Ht 5' 9 (1.753 m) Wt (!) 347 lb (157.4 kg) LMP 09/02/2021 SpO2 97% BMI 51.24 kg/m BMI 51.24 kg/(m^2) General appearance: Well appearing, alert, appears to be in no acute distress, cooperative Head: Normocephalic, atraumatic HEENT: Extraocular movements intact; mucous membranes moist; no JVD Lungs: Breath sounds equal. Clear to auscultation bilaterally, no rales, rhonchi, or wheezes Heart: RRR; normal S1/S2; no murmurs/gallops/rubs Abdomen: Abdomen soft, non-distended, non-tender. NABS Extremities: No cyanosis, clubbing or edema Skin: No rashes noted Neurologic: Grossly nonfocal Psych: Normal mood/affect Cardiac Testing and Procedures: Electrocardiogram: 04/24/2022: Sinus tachycardia 102 bpm. Left anterior fascicular block. Poor R wave progression which could represent lateral infarct age undetermined. This looks similar to previous EKG from 2019. Echocardiogram 03/20/2022: EF 55%. Grade 1 diastolic dysfunction. No significant valvular abnormalities. Stress Test: 09/01/2019: Negative for ischemia at 83% maximal predicted heart rate. No regional wall motion abnormality seen at heart rate achieved. Suboptimal test as target heart rate was not achieved. EF 55%. I have personally reviewed the Electrocardiogram. These findings and consult note will be communicated back to the referring provider MD Pedro electronically. Assessment and plan: 1. Presyncope lightheadedness This is most likely volume related. Patient says she keeps a strict chart of her volume intake. She said she limits herself to 32 ounces of fluid every day for the linux unix administrator recommendation. She tries her best to do this. She even takes a water out of the cucumber when she eats. I will talk to the linux unix administrator regarding relaxation of fluid restriction given the hypotensive episodes which are leading to lightheadedness and presyncope. Even the echocardiogram that was done last month showed that the LV cavity was small which was likely due to decreased volume. I have however given her a 48-hour Holter monitor to rule out arrhythmic cause of lightheadedness and presyncope. She is to continue current dose of midodrine as per the linux unix administrator's recommendation. 2. Chest tightness/chest pain Patient has been having the symptoms for the last few months. Only risk factor is obesity. No other traditional risk factors of CAD. Patient had a dobutamine stress echo in 2019 which was negative for ischemia at 83% maximal predicted heart rate. I have ordered a Lexiscan nuclear stress test this time. Patient is unable to walk on a treadmill and uses a wheelchair due to her episodes of lightheadedness. Orthostatic vital signs were not obtained during the office visit due to the patient's symptoms. Kervin Alonzo MD documented in this encounter [facility] 04-24-2022 Nurse Note Patient complains of sob and tightness in her chest and discomfort. documented in this encounter [facility] 04-22-2022 Miscellaneous Notes Mariposa Garth left a message on behalf of the patient to set her up for an appointment with Dr. Martin. [phone] Meenu Baeza MA April 22, 2022 11:25 AM documented in this encounter [facility] 04-21-2022 Miscellaneous Notes I left voicemail offering times Dr Alonzo provided for sooner appointment. I asked patient to call in and schedule. Nia Branham April 21, 2022 3:56 PM ----- Message from Kervin Alonzo MD sent at 04/21/2022 12:32 PM EDT ----- Kyle Kramer, The linux unix administrator, Dr Vargas just called me that this patient has been scheduled to see Dr. Varela at the end of May has requested that she be seen earlier. Can you see if there is anybody who has an opening this week or the next. If not we can call her and see if she can come in tomorrow at 8 AM or 1:20 PM. If she is not available tomorrow as she is a dialysis patient can you ask her if she can come around the same times on ? Thanks, Kervin Alonzo MD documented in this encounter [facility] 04-11-2022 Miscellaneous Notes pcp completed form from [facility] supply for wheel chair. This has been faxed back. documented in this encounter [facility] 03-28-2022 Miscellaneous Notes Faxed. Dennis Garcia Ma OV note signed All information gathered - please sign OV from 03/05 to send. Received call from patient's mother asking to have the following faxed to [facility] for patient's wheelchair. Please fax to [phone] patient's demographic page, copy of insurance card, office notes and order for wheelchair. documented in this encounter [facility] 03-25-2022 History of Present illness Narrative POPULATION HEALTH NAVIGATION OUTREACH Action/ Patient Outreach: [facility] Support - Left voicemail for patient to call back to schedule follow up with CKD. Any agent can assist with scheduling. Pt identified by name and : NO Outreach Outcome/Action Unable to reach patient: Left message Did you use a PCP flex slot to schedule this appointment? No Reason for Outreach Care Gap or Scheduling/Wellness visits Payer: Payor: MEDICARE / Plan: MEDICARE A AND B / Product Type: Medicare / Care Gap Reviewed:: Follow-up appointment Reminder: Reminder note to check Health Maintenance for items below Health Maintenance items due: PNEUMOCOCCAL(1 - PCV) Never done HIV SCREENING Never done HEMOGLOBIN/HEMATOCRIT due on 08/25/2020 SERUM CREATININE due on 03/02/2022 Message Sent to Practice: No Navigation Signature: Desirae Aiken March 25, 2022 12:44 PM documented in this encounter [facility] 03-05-2022 History of Present illness Narrative This note was created using [employer]. Subjective Ingris Saez is a 36 year old female. Patient presents with: F/U 6 months SUBJECTIVE: Ingris Saez is a 36 year old year old lady here today for 6 month follow up appointment for review of medical conditions. Hypotension: Off BP meds but BP still going down. Down to 66 during dialysis. Discussed with nurse and they said could add med. Midodrine. Has seen Dr. Vargas. He is still at [place] office. Not able to get fluid off. Reviewed midodrine dosage: Oral: Initial: 2.5 to 5 mg given 15 to 30 minutes prior to hemodialysis. If response is insufficient, may increase up to 10 mg given 15 to 30 minutes prior to the next hemodialysis session; if hypotension occurs near the end of hemodialysis, may give an additional 2.5 to 5 mg dose mid-dialysis provided it is administered ?3 hours after pre-dialysis dose Boils: Issues with boils. Had one with two beside it. Has had others. Tried to give up gluten. No flour in house. Has been on antibiotic per Dr. Vargas. But after 24 hours got worse after that. Has seen Dr. Garcia and had I&D. Now with crust in center of wound and some induration around that. Not hot and red. Not painful or tender now. Has antibiotic ointment to use. Bumps on inside of labia Had tested by Dr. Burroughs. Negative for STDs. Not noticed by Dr. Burroughs since not overtly visible. Areas gets itchy. No warty lesions. Needs wheelchair so that someone can help push her around when goes out of the home. Fall risk--has had several falls from low BP. Does not have a wheelchair. Also problems with knee pain and cannot bend or bear weight well. Not able to self propel due to arthritis. Already tried water but not adequate; still a fall risk with this. Has not done PT. PAST MEDICAL HISTORY Diagnosis Date Abnormal Pap smear of cervix ARF (acute renal failure) ([facility]) Asthma EXERCISE INDUCED ASTHMA Chlamydia 2010 Chronic back pain Chronic kidney disease, stage IV (severe) ([facility]) 07/06/2015 Dr. Vargas (gets labs drawn at outside lab frequently) ESRD (end stage renal disease) ([facility]) Hypertension Morbid obesity with BMI of 60.0-69.9, adult ([facility]) PCOS (polycystic ovarian syndrome) Pneumonia AGE 14 X2 Current Outpatient Medications Medication Sig zonisamide (ZONEGRAN) 100 mg capsule Take 1 capsule by mouth once daily. doxycycline hyclate (VIBRAMYCIN) 100 mg capsule Take 100 mg by mouth twice daily. Started 02/19/2022 zonisamide (ZONEGRAN) 25 mg capsule Take 2 capsules by mouth once daily. albuterol HFA (VENTOLIN HFA) 90 mcg/actuation inhaler Inhale 2 Puffs as instructed every 4 hours as needed for Wheezing/Shortness of Breath. oxyCODONE-acetaminophen (PERCOCET) 5-325 mg tablet Take 1 tablet by mouth every 4 hours as needed for Pain for up to 5 days. (Patient not taking: Reported on 09/11/2021) acetaminophen 325 mg-caffeine 40 mg-butalbital 50 mg (FIORICET) per tablet Take 1 tablet by mouth every 12 hours as needed. calcium carbonate (OS-ISABELA 500) 500 mg calcium (1,250 mg) tablet Take 1 tablet by mouth three times daily. acetaminophen/diphenhydramine (TYLENOL PM EXTRA STRENGTH ORAL) Take by mouth. lidocaine 5 % gel Apply 1 application to affected area four times daily as needed. epoetin beta, methoxy peg (MIRCERA) 75 mcg/0.3 mL syrg by INJECTION(UNSPECIFIED PARENTERAL ROUTES) route. Every 2 weeks [place]-3 Fatty Acids (FISH OIL) 300 mg cap Take 300 mg by mouth once daily. ondansetron (ZOFRAN, HYDROCHLORIDE,) 4 mg tablet Take 4 mg by mouth every 8 hours as needed for Nausea/Vomiting. FOLIC ACID/VIT BCOMP,C (RENAVIT MULTIVITAMIN ORAL) Take by mouth. No current facility-administered medications for this visit. Review of Systems Objective BP 108/72 Pulse 110 Wt (!) 157.4 kg (347 lb) LMP 09/02/2021 SpO2 98% BMI 51.24 kg/m Physical Exam Constitutional: Appearance: Normal appearance. She is obese. Eyes: Conjunctiva/sclera: Conjunctivae normal. Cardiovascular: Rate and Rhythm: Normal rate and regular rhythm. Pulmonary: Effort: Pulmonary effort is normal. Neurological: Mental Status: She is alert. Psychiatric: Attention and Perception: Attention and perception normal. Mood and Affect: Mood and affect normal. Speech: Speech normal. Behavior: Behavior is cooperative. Thought Content: Thought content normal. Assessment and Plan ASSESSMENT/PLAN: 1. Hemodialysis-associated hypotension - ICD9: 458.21, ICD10: I95.3 (primary diagnosis) Treatment as discussed. Reviewed midodrine - MIDODRINE 2.5 MG TABLET - HEAVY DUTY WHEELCHAIR 2. Gait instability - ICD9: 781.2, ICD10: R26.81 Discussed need for wheelchair given frequent falls. Needs wheelchair so can be mobile at home and outside of home. - HEAVY DUTY WHEELCHAIR 3. Morbid obesity with BMI of 50.0-59.9, adult (HCC) - ICD9: 278.01, V85.43, ICD10: E66.01, Z68.43 Needs to keep working on making lifestyle changes in order to lose weight - Behavioral intervention - HEAVY DUTY WHEELCHAIR 4. Wheezing - ICD9: 786.07, ICD10: R06.2 - ALBUTEROL SULFATE HFA 90 MCG/ACTUATION AEROSOL INHALER 5. Chronic bilateral low back pain without sciatica - ICD9: 724.2, 338.29, ICD10: M54.50, G89.29 Contributes to difficulty walking - HEAVY DUTY WHEELCHAIR 6. WELCH (dyspnea on exertion) - ICD9: 786.09, ICD10: R06.00 Chronic WELCH - Behavioral intervention - HEAVY DUTY WHEELCHAIR 7. Recurrent boils - ICD9: 680.9, ICD10: L02.[address] Garcia and Dr. Vargas for managment 8. Frequent falls - ICD9: V15.88, ICD10: R29.6 Need for wheelchair as discussed. Continue efforts to prevent falls and injury Zuleyka Coughlin MD documented in this encounter [facility] 02-21-2022 History of Present illness Narrative HISTORY AND PHYSICAL Ingris Saez 1985 REFERRING PHYSICIAN: Madeline Mirza APRN.* CHIEF COMPLAINT: Consult (abscess on stomach) HPI: Ingris is a 36 year old female with a complaint of a abdominal wall abscess. The patient has a history of multiple previous abdominal abscesses. She has noticed this area of redness for least a week but initially thought it was just a cellulitis that would respond to antibiotics. For the last few days she has felt this is changed to an abscess. she denies purulent discharge from the abscess. she denies a history of diabetes. The patient was seen by her primary care physician and was started on oral antibiotics -Keflex on February 10. She was then changed to doxycycline on February 19 after visit to urgent care. She was referred to our office.. The patient is being seen by me today at the request of Madeline Mirza APRN.* my opinion and advice regarding abdominal wall abscess. SIGNIFICANT MEDICAL PROBLEMS: PAST MEDICAL HISTORY Diagnosis Date Abnormal Pap smear of cervix ARF (acute renal failure) (HCC) Asthma EXERCISE INDUCED ASTHMA Chlamydia 2010 Chronic back pain Chronic kidney disease, stage IV (severe) (HCC) 07/06/2015 Dr. Vargas (gets labs drawn at outside lab frequently) ESRD (end stage renal disease) (HCC) Hypertension Morbid obesity with BMI of 60.0-69.9, adult (HCC) PCOS (polycystic ovarian syndrome) Pneumonia AGE 14 X2 OPERATIONS: PAST SURGICAL HISTORY Procedure Laterality Date ARTERIOVENOUS ANASTOMOSIS OPEN DIRECT Left 02/04/2016 Left forearm cephalic vein, radial artery fistula INSJ CANNULA HEMO OTH PURPOSE SPX VEIN VEIN Right 02/14/2016 PAST SURGICAL HISTORY OF 08/2014 D and C PAST SURGICAL HISTORY OF 01/2015 IUD implanted TONSILLECTOMY PRIMARY/SECONDARY <AGE 12 Tonsillectomy CURRENT MEDICATIONS: Current Outpatient Medications Medication Sig Dispense Refill doxycycline hyclate (VIBRAMYCIN) 100 mg capsule Take 100 mg by mouth twice daily. Started 02/19/2022 doxycycline monohydrate 100 mg tablet Take 1 tablet by mouth twice daily for 5 days. 10 tablet 0 zonisamide (ZONEGRAN) 100 mg capsule Take 1 capsule by mouth once daily. 90 capsule 1 albuterol HFA (VENTOLIN HFA) 90 mcg/actuation inhaler Inhale 2 Puffs as instructed every 4 hours as needed for Wheezing/Shortness of Breath. 6.7 g 2 acetaminophen 325 mg-caffeine 40 mg-butalbital 50 mg (FIORICET) per tablet Take 1 tablet by mouth every 12 hours as needed. 30 tablet 2 calcium carbonate (OS-ISABELA 500) 500 mg calcium (1,250 mg) tablet Take 1 tablet by mouth three times daily. acetaminophen/diphenhydramine (TYLENOL PM EXTRA STRENGTH ORAL) Take by mouth. lidocaine 5 % gel Apply 1 application to affected area four times daily as needed. 30 g 0 epoetin beta, methoxy peg (MIRCERA) 75 mcg/0.3 mL syrg by INJECTION(UNSPECIFIED PARENTERAL ROUTES) route. Every 2 weeks [place]-3 Fatty Acids (FISH OIL) 300 mg cap Take 300 mg by mouth once daily. ondansetron (ZOFRAN, HYDROCHLORIDE,) 4 mg tablet Take 4 mg by mouth every 8 hours as needed for Nausea/Vomiting. FOLIC ACID/VIT BCOMP,C (RENAVIT MULTIVITAMIN ORAL) Take by mouth. zonisamide (ZONEGRAN) 25 mg capsule Take 2 capsules by mouth once daily. 180 capsule 1 oxyCODONE-acetaminophen (PERCOCET) 5-325 mg tablet Take 1 tablet by mouth every 4 hours as needed for Pain for up to 5 days. (Patient not taking: Reported on 09/11/2021) 20 tablet 0 No current facility-administered medications for this visit. ALLERGIES: Cats and Hydrocodone PERSONAL HISTORY: Social History Tobacco Use Smoking status: Never Smoker Smokeless tobacco: Never Used Tobacco comment: SOCIAL SMOKER Vaping Use Vaping Use: Never used Substance Use Topics Alcohol use: Yes Comment: very rarely Drug use: Yes Comment: medical marijuana FAMILY HISTORY: FAMILY HISTORY Problem Relation Age of Onset Asthma Maternal Grandmother Diabetes Maternal Grandfather Heart Maternal Grandfather Hypertension Maternal Grandfather Diabetes Maternal Aunt Stroke Maternal Aunt Kidney Disease Maternal Aunt REVIEW OF SYMPTOMS: The review of systems data was entered by the nurse and reviewed by me Nursing Notes: Antonietta Jimenez RN 02/20/2022 11:56 AM Signed REVIEW OF SYSTEMS: General: The patient NOTES fatigue, denies weight loss, denies weight gain, denies feeling hot, and denies feelings of cold. Eyes: The patient denies glaucoma, denies eye injury/surgery, wears glasses or contacts. Ear/Nose/Throat: The patient NOTES allergies, denies hayfever, denies ear infections, and denies bloody noses. Cardiovascular: The patient NOTES chest pain, denies heart disease, denies high blood pressure,denies cardiac stent, denies prior heart attack, denies irregular heart beat, denies high cholesterol, denies poor circulation, denies heart failure, other cardiac issues, denies claudication, denies cold feet, denies peripheral arterial stent. Respiratory: The patient denies tuberculosis, denies pneumonia, denies frequent cough, denies pulmonary embolism, NOTES shortness of breath, and denies coughing up blood. Gastrointestinal: The patient denies difficulty swallowing, denies acid reflux, denies ulcers, denies vomiting, denies jaundice/hepatitis, denies gallbladder problems, denies black or tarry stools, NOTES hemorrhoids, denies bleeding from rectum, denies diverticulitis, NOTES constipation, NOTES diarrhea, denies loss of stool control, and denies hernias. Kidney/Bladder: The patient denies kidney stones, denies urine infections, and denies bloody urine. Skin: The patient denies a history of skin cancer, denies bleeding/changing moles, and denies a history of skin rash. Neurologic: The patient denies a history of epilepsy/convulsions, NOTES headaches, NOTES head/spinal injuries, and denies stroke/TIA. Psychiatric: The patient denies psychiatric medications, denies depression, and denies voices, denies substance abuse. Endocrine: The patient denies thyroid disorders, denies diabetes, and NOTES hormonal problems. Hematologic: The patient denies a history of bruising, denies bleeding, and NOTES anemia, denies blood clots. Infections: The patient denies a history of measles and mumps, denies rheumatic fever, and denies sexually transmitted diseases. Musculoskeletal: The patient denies back pain/injury, denies back problems, denies sciatica, denies knee/foot trouble, denies arthritis, or denies gout. When was patient's last Mammogram screening? N/A Last Colonoscopy: None Antonietta Jimenez RN PHYSICAL EXAMINATION: General: The patient is 36 year old female, well nourished, well hydrated in no acute distress. The patient is oriented to time, place, and person. VITALS: Blood pressure 122/64, pulse 108, temperature 36.4 C (97.6 F), height 175.3 cm (5' 9 ), weight (!) 157.3 kg (346 lb 12.8 oz), last menstrual period 09/02/2021, SpO2 99 %. Body mass index is 51.21 kg/m . HEENT: Normal cephalic, atraumatic, pupils are equally round, sclera are anicteric, mucous membranes are moist, oropharynx is clear. Neck has no masses, asymmetry or lymphadenopathy. Thyroid is unremarkable. Respiratory: Clear to auscultation and percussion. Normal respiratory excursion and pattern. Cardiac: Examination is regular rate and rhythm. Abdominal exam: Soft, nontender, with no palpable masses. No hepatosplenomegaly. No palpable hernias. Rectal exam: Normal external anatomy, no significant hemorrhoids or masses. Digital rectal exam - normal tone, no masses or other abnormalities, stool in vault, hemoccult negative. Extremities: no clubbing, cyanosis or edema. No adenopathy. Other: Anterior abdominal wall abscess - a 3cm x 3cm area of fluctuance with a 6cm x 7cm area of surrounding erythema. The skin overlying the point of maximal fluctance is viable. LABORATORY VALUES: As Noted RADIOLOGIC STUDIES: As Noted PROCEDURE: INCISION AND DRAINAGE OF ABDOMINAL WALL ABSCESS After consent was obtained and the site, person, and procedure verified, the patient`s skin was prepped and draped in the usual fashion. A combination of Lidocaine and Marcaine was injected into the skin. A linear incision was made over the point of maximal fluctuance. A medium amount of purulent materal was drained. Material was aspirated prior to incision and drainage was sent for culture . The abscess was then unroofed. The cavity was packed with iodoform gauze. The patient tolerated the procedure well. Assessment IMPRESSION: STATUS POST INCISION AND DRAINAGE OF ABDOMINAL WALL ABSCESS PLAN: Ingris is instructed to remove the packing in 1 days. If the dressing becomes soaked or had significant drainage, the dressing should be changed. If there is minor bleeding from this skin edge, the patient should hold pressure on the incision. If there is continued bleeding, the patient should contact our office immediately. The patient should wash the wound with gentle soap and water. she may shower. The wound should not be immersed in a pool, bathtub, or even hot tub. My findings have been communicated to [facility] via shared medical record. This note will be forwarded to Zuleyka Coughlin MD. Diagnoses: (L02.211) Cutaneous abscess of abdominal wall (primary encounter diagnosis) Return to Clinic: The patient is instructed to follow-up with me as needed. Flo Garcia MD UNIVERSAL PROTOCOL / SAFETY CHECKLIST Procedure to be Performed: Incision and Drainage of Abdominal Wall infected Sebaceous Cyst Sign In: A Moment of CARE was completed. Personnel directly involved with the procedure wore the appropriate PPE (Personal Protective Equipment). Patient/Surrogate Stated/Verified: PATIENT VERIFIED(optional for EMERGENT procedures): Patient name, Date of , Relevant allergies and The intended procedure Time Out Communication: Intended patient and procedure match the source documents. Consent documented and matches the intended procedure. Sign Out: SIGN OUT (optional for EMERGENT procedures): All specimen containers correctly labeled. Luisana Arrieta documented in this encounter [facility] 02-20-2022 Nurse Note REVIEW OF SYSTEMS: General: The patient NOTES fatigue, denies weight loss, denies weight gain, denies feeling hot, and denies feelings of cold. Eyes: The patient denies glaucoma, denies eye injury/surgery, wears glasses or contacts. Ear/Nose/Throat: The patient NOTES allergies, denies hayfever, denies ear infections, and denies bloody noses. Cardiovascular: The patient NOTES chest pain, denies heart disease, denies high blood pressure,denies cardiac stent, denies prior heart attack, denies irregular heart beat, denies high cholesterol, denies poor circulation, denies heart failure, other cardiac issues, denies claudication, denies cold feet, denies peripheral arterial stent. Respiratory: The patient denies tuberculosis, denies pneumonia, denies frequent cough, denies pulmonary embolism, NOTES shortness of breath, and denies coughing up blood. Gastrointestinal: The patient denies difficulty swallowing, denies acid reflux, denies ulcers, denies vomiting, denies jaundice/hepatitis, denies gallbladder problems, denies black or tarry stools, NOTES hemorrhoids, denies bleeding from rectum, denies diverticulitis, NOTES constipation, NOTES diarrhea, denies loss of stool control, and denies hernias. Kidney/Bladder: The patient denies kidney stones, denies urine infections, and denies bloody urine. Skin: The patient denies a history of skin cancer, denies bleeding/changing moles, and denies a history of skin rash. Neurologic: The patient denies a history of epilepsy/convulsions, NOTES headaches, NOTES head/spinal injuries, and denies stroke/TIA. Psychiatric: The patient denies psychiatric medications, denies depression, and denies voices, denies substance abuse. Endocrine: The patient denies thyroid disorders, denies diabetes, and NOTES hormonal problems. Hematologic: The patient denies a history of bruising, denies bleeding, and NOTES anemia, denies blood clots. Infections: The patient denies a history of measles and mumps, denies rheumatic fever, and denies sexually transmitted diseases. Musculoskeletal: The patient denies back pain/injury, denies back problems, denies sciatica, denies knee/foot trouble, denies arthritis, or denies gout. When was patient's last Mammogram screening? N/A Last Colonoscopy: None Antonietta Jimenez RN documented in this encounter [facility] 02-19-2022 History of Present illness Narrative Images from the original note were not included. Subjective Patient came in with complaints of possible abdominal abscess. Patient said she does frequently get them. Patient said her [employer] administrator prescribed keflex bid for 7 days. patient did finish medication but wound seems to be getting worse. Is uncomfortable when palpated. Usually they go away with treatment patient has never had one not go away. patient said she has a low grade fever. The history is provided by the patient. No embossed or impressed lettering painter was used. Review of Systems Constitutional: Negative. Skin: Negative. Objective Physical Exam Constitutional: Appearance: Normal appearance. Pulmonary: Effort: Pulmonary effort is normal. Skin: General: Skin is warm. Comments: Patient has redness about 12 cm......Not indurated. Mildly tender when palpated. Neurological: Mental Status: She is alert. PAST MEDICAL HISTORY Diagnosis Date Abnormal Pap smear of cervix ARF (acute renal failure) ([facility]) Asthma EXERCISE INDUCED ASTHMA Chlamydia 2010 Chronic back pain Chronic kidney disease, stage IV (severe) ([facility]) 07/06/2015 Dr. Vargas (gets labs drawn at outside lab frequently) ESRD (end stage renal disease) ([facility]) Hypertension Morbid obesity with BMI of 60.0-69.9, adult ([facility]) PCOS (polycystic ovarian syndrome) Pneumonia AGE 14 X2 PAST SURGICAL HISTORY Procedure Laterality Date ARTERIOVENOUS ANASTOMOSIS OPEN DIRECT Left 02/04/2016 Left forearm cephalic vein, radial artery fistula INSJ CANNULA HEMO OTH PURPOSE SPX VEIN VEIN Right 02/14/2016 PAST SURGICAL HISTORY OF 08/2014 D and C PAST SURGICAL HISTORY OF 01/2015 IUD implanted TONSILLECTOMY PRIMARY/SECONDARY <AGE 12 Tonsillectomy ALLERGIES Cats and Hydrocodone MEDICATIONS zonisamide (ZONEGRAN) 100 mg capsule Take 1 capsule by mouth once daily. albuterol HFA (VENTOLIN HFA) 90 mcg/actuation inhaler Inhale 2 Puffs as instructed every 4 hours as needed for Wheezing/Shortness of Breath. acetaminophen 325 mg-caffeine 40 mg-butalbital 50 mg (FIORICET) per tablet Take 1 tablet by mouth every 12 hours as needed. acetaminophen/diphenhydramine (TYLENOL PM EXTRA STRENGTH ORAL) Take by mouth. epoetin beta, methoxy peg (MIRCERA) 75 mcg/0.3 mL syrg by INJECTION(UNSPECIFIED PARENTERAL ROUTES) route. Every 2 weeks ondansetron (ZOFRAN, HYDROCHLORIDE,) 4 mg tablet Take 4 mg by mouth every 8 hours as needed for Nausea/Vomiting. zonisamide (ZONEGRAN) 25 mg capsule Take 2 capsules by mouth once daily. oxyCODONE-acetaminophen (PERCOCET) 5-325 mg tablet Take 1 tablet by mouth every 4 hours as needed for Pain for up to 5 days. calcium carbonate (OS-ISABELA 500) 500 mg calcium (1,250 mg) tablet Take 1 tablet by mouth three times daily. lidocaine 5 % gel Apply 1 application to affected area four times daily as needed. [place]-3 Fatty Acids (FISH OIL) 300 mg cap Take 300 mg by mouth once daily. FOLIC ACID/VIT BCOMP,C (RENAVIT MULTIVITAMIN ORAL) Take by mouth. FAMILY HISTORY Problem Relation Age of Onset Asthma Maternal Grandmother Diabetes Maternal Grandfather Heart Maternal Grandfather Hypertension Maternal Grandfather Diabetes Maternal Aunt Stroke Maternal Aunt Kidney Disease Maternal Aunt Social History Tobacco Use Smoking status: Never Smoker Smokeless tobacco: Never Used Tobacco comment: SOCIAL SMOKER Vaping Use Vaping Use: Never used Substance Use Topics Alcohol use: Yes Comment: very rarely Drug use: Yes Comment: medical marijuana ASSESSMENT/PLAN: 1. Skin infection - ICD9: 686.9, ICD10: L08.9 At this time patient being placed on doxycycline 2 times a day for 5 days. Due to failed keflex. Patient wants to be on an antibiotic while she waits to see general surgery. instructed that the research said that some cases of doxy can affect IIH. Patient has been on before. Will follow up in the morning with general surgery. Talked with them on the phone seeing patient at 1140am. Patient was okay with this care plan. Will go tot ER if worsens over night. Madeline Mirza APRN.DECLAN documented in this encounter [facility] documented as of this encounter (statuses as of 03/25/2022) [facility]09-25-2015 History of Past illness Narrative* Problem Noted Date Resolved Date Chronic kidney disease, stage IV (severe) 201403/03/2022 with uncertain dates 07/26/2013 0 07/06/2015 Overview: 07/26/2013 Patient states that her last menstrual period was June 04, 2013. She states that she did not have intercourse after that menses. Ultrasound ordered for uncertain dates by Dr. Emily Dent. TKRN Patient requested diagnostic testing 07/26/2013 07/06/2015 Overview: 07/26/2013Patient considering early screening in . Discussed that this would need to be done between 11 weeks and 13 weeks 6 days. She is advised that when she has the ultrasound for dating, she will need to let the doctor know if she wishes to proceed with this test if she falls within the appropriate gestational age.TKRN documented as of this encounter (statuses as of 03/27/2022) [facility] History of Past illness Narrative* Problem Noted Date Resolved Date Chronic kidney disease, stage IV (severe) 201403/03/2022 with uncertain dates 07/26/2013 0 07/06/2015 Overview: 07/26/2013 Patient states that her last menstrual period was June 04, 2013. She states that she did not have intercourse after that menses. Ultrasound ordered for uncertain dates by Dr. Emily Dent. TKRN Patient requested diagnostic testing 07/26/2013 07/06/2015 Overview: 07/26/2013Patient considering early screening in . Discussed that this would need to be done between 11 weeks and 13 weeks 6 days. She is advised that when she has the ultrasound for dating, she will need to let the doctor know if she wishes to proceed with this test if she falls within the appropriate gestational age.TKRN documented as of this encounter (statuses as of 03/28/2022) [facility] History of Past illness Narrative* Problem Noted Date Resolved Date Chronic kidney disease, stage IV (severe) 201403/03/2022 with uncertain dates 07/26/2013 0 07/06/2015 Overview: 07/26/2013 Patient states that her last menstrual period was June 04, 2013. She states that she did not have intercourse after that menses. Ultrasound ordered for uncertain dates by Dr. Emily Dent. TKRN Patient requested diagnostic testing 07/26/2013 07/06/2015 Overview: 07/26/2013Patient considering early screening in . Discussed that this would need to be done between 11 weeks and 13 weeks 6 days. She is advised that when she has the ultrasound for dating, she will need to let the doctor know if she wishes to proceed with this test if she falls within the appropriate gestational age.TKRN documented as of this encounter (statuses as of 04/11/2022) [facility] History of Past illness Narrative* Problem Noted Date Resolved Date Chronic kidney disease, stage IV (severe) 201403/03/2022 with uncertain dates 07/26/2013 0 07/06/2015 Overview: 07/26/2013 Patient states that her last menstrual period was June 04, 2013. She states that she did not have intercourse after that menses. Ultrasound ordered for uncertain dates by Dr. Emily Dent. TKRN Patient requested diagnostic testing 07/26/2013 07/06/2015 Overview: 07/26/2013Patient considering early screening in . Discussed that this would need to be done between 11 weeks and 13 weeks 6 days. She is advised that when she has the ultrasound for dating, she will need to let the doctor know if she wishes to proceed with this test if she falls within the appropriate gestational age.TKRN documented as of this encounter (statuses as of 04/21/2022) [facility] History of Past illness Narrative* Problem Noted Date Resolved Date Chronic kidney disease, stage IV (severe) 201403/03/2022 with uncertain dates 07/26/2013 0 07/06/2015 Overview: 07/26/2013 Patient states that her last menstrual period was June 04, 2013. She states that she did not have intercourse after that menses. Ultrasound ordered for uncertain dates by Dr. Emily Dent. TKRN Patient requested diagnostic testing 07/26/2013 07/06/2015 Overview: 07/26/2013Patient considering early screening in . Discussed that this would need to be done between 11 weeks and 13 weeks 6 days. She is advised that when she has the ultrasound for dating, she will need to let the doctor know if she wishes to proceed with this test if she falls within the appropriate gestational age.TKRN documented as of this encounter (statuses as of 04/22/2022) [facility] History of Past illness Narrative* Problem Noted Date Resolved Date Chronic kidney disease, stage IV (severe) 201403/03/2022 with uncertain dates 07/26/2013 0 07/06/2015 Overview: 07/26/2013 Patient states that her last menstrual period was June 04, 2013. She states that she did not have intercourse after that menses. Ultrasound ordered for uncertain dates by Dr. Emily Dent. TKRN Patient requested diagnostic testing 07/26/2013 07/06/2015 Overview: 07/26/2013Patient considering early screening in . Discussed that this would need to be done between 11 weeks and 13 weeks 6 days. She is advised that when she has the ultrasound for dating, she will need to let the doctor know if she wishes to proceed with this test if she falls within the appropriate gestational age.TKRN documented as of this encounter (statuses as of 04/24/2022) [facility] History of Past illness Narrative* Problem Noted Date Resolved Date Chronic kidney disease, stage IV (severe) 201403/03/2022 with uncertain dates 07/26/2013 0 07/06/2015 Overview: 07/26/2013 Patient states that her last menstrual period was June 04, 2013. She states that she did not have intercourse after that menses. Ultrasound ordered for uncertain dates by Dr. Emily Dent. TKRN Patient requested diagnostic testing 07/26/2013 07/06/2015 Overview: 07/26/2013Patient considering early screening in . Discussed that this would need to be done between 11 weeks and 13 weeks 6 days. She is advised that when she has the ultrasound for dating, she will need to let the doctor know if she wishes to proceed with this test if she falls within the appropriate gestational age.TKRN documented as of this encounter (statuses as of 04/28/2022) [facility] History of Past illness Narrative* Problem Noted Date Resolved Date Chronic kidney disease, stage IV (severe) 201403/03/2022 with uncertain dates 07/26/2013 0 07/06/2015 Overview: 07/26/2013 Patient states that her last menstrual period was June 04, 2013. She states that she did not have intercourse after that menses. Ultrasound ordered for uncertain dates by Dr. Emily Dent. TKRN Patient requested diagnostic testing 07/26/2013 07/06/2015 Overview: 07/26/2013Patient considering early screening in . Discussed that this would need to be done between 11 weeks and 13 weeks 6 days. She is advised that when she has the ultrasound for dating, she will need to let the doctor know if she wishes to proceed with this test if she falls within the appropriate gestational age.TKRN documented as of this encounter (statuses as of 04/28/2022) [facility]2015 History of Past illness Narrative* Problem Noted Date Resolved Date Chronic kidney disease, stage IV (severe) 201403/03/2022 with uncertain dates 07/26/2013 0 07/06/2015 Overview: 07/26/2013 Patient states that her last menstrual period was June 04, 2013. She states that she did not have intercourse after that menses. Ultrasound ordered for uncertain dates by Dr. Emily Dent. TKRN Patient requested diagnostic testing 07/26/2013 07/06/2015 Overview: 07/26/2013Patient considering early screening in . Discussed that this would need to be done between 11 weeks and 13 weeks 6 days. She is advised that when she has the ultrasound for dating, she will need to let the doctor know if she wishes to proceed with this test if she falls within the appropriate gestational age.TKRN documented as of this encounter (statuses as of 05/08/2022) [facility]2015 History of Past illness Narrative* Problem Noted Date Resolved Date Chronic kidney disease, stage IV (severe) 201403/03/2022 with uncertain dates 07/26/2013 0 07/06/2015 Overview: 07/26/2013 Patient states that her last menstrual period was June 04, 2013. She states that she did not have intercourse after that menses. Ultrasound ordered for uncertain dates by Dr. Emily Dent. TKRN Patient requested diagnostic testing 07/26/2013 07/06/2015 Overview: 07/26/2013Patient considering early screening in . Discussed that this would need to be done between 11 weeks and 13 weeks 6 days. She is advised that when she has the ultrasound for dating, she will need to let the doctor know if she wishes to proceed with this test if she falls within the appropriate gestational age.TKRN documented as of this encounter (statuses as of 05/08/2022) [facility]2015 History of Past illness Narrative* Problem Noted Date Resolved Date Chronic kidney disease, stage IV (severe) 201403/03/2022 with uncertain dates 07/26/2013 0 07/06/2015 Overview: 07/26/2013 Patient states that her last menstrual period was June 04, 2013. She states that she did not have intercourse after that menses. Ultrasound ordered for uncertain dates by Dr. Emily Dent. TKRN Patient requested diagnostic testing 07/26/2013 07/06/2015 Overview: 07/26/2013Patient considering early screening in . Discussed that this would need to be done between 11 weeks and 13 weeks 6 days. She is advised that when she has the ultrasound for dating, she will need to let the doctor know if she wishes to proceed with this test if she falls within the appropriate gestational age.TKRN documented as of this encounter (statuses as of 05/08/2022) [facility]2015 History of Past illness Narrative* Problem Noted Date Resolved Date Chronic kidney disease, stage IV (severe) 201403/03/2022 with uncertain dates 07/26/2013 0 07/06/2015 Overview: 07/26/2013 Patient states that her last menstrual period was June 04, 2013. She states that she did not have intercourse after that menses. Ultrasound ordered for uncertain dates by Dr. Emily Dent. TKRN Patient requested diagnostic testing 07/26/2013 07/06/2015 Overview: 07/26/2013Patient considering early screening in . Discussed that this would need to be done between 11 weeks and 13 weeks 6 days. She is advised that when she has the ultrasound for dating, she will need to let the doctor know if she wishes to proceed with this test if she falls within the appropriate gestational age.TKRN documented as of this encounter (statuses as of 05/12/2022) [facility]2015 History of Past illness Narrative* Problem Noted Date Resolved Date Chronic kidney disease, stage IV (severe) 201403/03/2022 with uncertain dates 07/26/2013 0 07/06/2015 Overview: 07/26/2013 Patient states that her last menstrual period was June 04, 2013. She states that she did not have intercourse after that menses. Ultrasound ordered for uncertain dates by Dr. Emily Dent. TKRN Patient requested diagnostic testing 07/26/2013 07/06/2015 Overview: 07/26/2013Patient considering early screening in . Discussed that this would need to be done between 11 weeks and 13 weeks 6 days. She is advised that when she has the ultrasound for dating, she will need to let the doctor know if she wishes to proceed with this test if she falls within the appropriate gestational age.TKRN documented as of this encounter (statuses as of 05/12/2022) [facility] History of Past illness Narrative* Problem Noted Date Resolved Date Chronic kidney disease, stage IV (severe) 201403/03/2022 with uncertain dates 07/26/2013 0 07/06/2015 Overview: 07/26/2013 Patient states that her last menstrual period was June 04, 2013. She states that she did not have intercourse after that menses. Ultrasound ordered for uncertain dates by Dr. Emily Dent. TKRN Patient requested diagnostic testing 07/26/2013 07/06/2015 Overview: 07/26/2013Patient considering early screening in . Discussed that this would need to be done between 11 weeks and 13 weeks 6 days. She is advised that when she has the ultrasound for dating, she will need to let the doctor know if she wishes to proceed with this test if she falls within the appropriate gestational age.TKRN documented as of this encounter (statuses as of 05/20/2022) [facility]2015 History of Past illness Narrative* Problem Noted Date Resolved Date Chronic kidney disease, stage IV (severe) 201403/03/2022 with uncertain dates 07/26/2013 0 07/06/2015 Overview: 07/26/2013 Patient states that her last menstrual period was June 04, 2013. She states that she did not have intercourse after that menses. Ultrasound ordered for uncertain dates by Dr. Emily Dent. TKRN Patient requested diagnostic testing 07/26/2013 07/06/2015 Overview: 07/26/2013Patient considering early screening in . Discussed that this would need to be done between 11 weeks and 13 weeks 6 days. She is advised that when she has the ultrasound for dating, she will need to let the doctor know if she wishes to proceed with this test if she falls within the appropriate gestational age.TKRN documented as of this encounter (statuses as of 05/21/2022) [facility] History of Past illness Narrative* Problem Noted Date Resolved Date Chronic kidney disease, stage IV (severe) 201403/03/2022 with uncertain dates 07/26/2013 0 07/06/2015 Overview: 07/26/2013 Patient states that her last menstrual period was June 04, 2013. She states that she did not have intercourse after that menses. Ultrasound ordered for uncertain dates by Dr. Emily Dent. TKRN Patient requested diagnostic testing 07/26/2013 07/06/2015 Overview: 07/26/2013Patient considering early screening in . Discussed that this would need to be done between 11 weeks and 13 weeks 6 days. She is advised that when she has the ultrasound for dating, she will need to let the doctor know if she wishes to proceed with this test if she falls within the appropriate gestational age.TKRN documented as of this encounter (statuses as of 06/05/2022) [facility] History of Past illness Narrative* Problem Noted Date Resolved Date Chronic kidney disease, stage IV (severe) 201403/03/2022 with uncertain dates 07/26/2013 0 07/06/2015 Overview: 07/26/2013 Patient states that her last menstrual period was June 04, 2013. She states that she did not have intercourse after that menses. Ultrasound ordered for uncertain dates by Dr. Emily Dent. TKRN Patient requested diagnostic testing 07/26/2013 07/06/2015 Overview: 07/26/2013Patient considering early screening in . Discussed that this would need to be done between 11 weeks and 13 weeks 6 days. She is advised that when she has the ultrasound for dating, she will need to let the doctor know if she wishes to proceed with this test if she falls within the appropriate gestational age.TKRN documented as of this encounter (statuses as of 06/12/2022) [facility]2015 History of Past illness Narrative* Problem Noted Date Resolved Date Chronic kidney disease, stage IV (severe) 201403/03/2022 with uncertain dates 07/26/2013 0 07/06/2015 Overview: 07/26/2013 Patient states that her last menstrual period was June 04, 2013. She states that she did not have intercourse after that menses. Ultrasound ordered for uncertain dates by Dr. Emily Dent. TKRN Patient requested diagnostic testing 07/26/2013 07/06/2015 Overview: 07/26/2013Patient considering early screening in . Discussed that this would need to be done between 11 weeks and 13 weeks 6 days. She is advised that when she has the ultrasound for dating, she will need to let the doctor know if she wishes to proceed with this test if she falls within the appropriate gestational age.TKRN documented as of this encounter (statuses as of 06/12/2022) [facility] History of Past illness Narrative* Problem Noted Date Resolved Date Chronic kidney disease, stage IV (severe) 201403/03/2022 with uncertain dates 07/26/2013 0 07/06/2015 Overview: 07/26/2013 Patient states that her last menstrual period was June 04, 2013. She states that she did not have intercourse after that menses. Ultrasound ordered for uncertain dates by Dr. Emily Dent. TKRN Patient requested diagnostic testing 07/26/2013 07/06/2015 Overview: 07/26/2013Patient considering early screening in . Discussed that this would need to be done between 11 weeks and 13 weeks 6 days. She is advised that when she has the ultrasound for dating, she will need to let the doctor know if she wishes to proceed with this test if she falls within the appropriate gestational age.TKRN documented as of this encounter (statuses as of 06/21/2022) [facility] History of Past illness Narrative* Problem Noted Date Resolved Date Chronic kidney disease, stage IV (severe) 201403/03/2022 with uncertain dates 07/26/2013 0 07/06/2015 Overview: 07/26/2013 Patient states that her last menstrual period was June 04, 2013. She states that she did not have intercourse after that menses. Ultrasound ordered for uncertain dates by Dr. Emily Dent. TKRN Patient requested diagnostic testing 07/26/2013 07/06/2015 Overview: 07/26/2013Patient considering early screening in . Discussed that this would need to be done between 11 weeks and 13 weeks 6 days. She is advised that when she has the ultrasound for dating, she will need to let the doctor know if she wishes to proceed with this test if she falls within the appropriate gestational age.TKRN documented as of this encounter (statuses as of 06/23/2022) [facility] History of Past illness Narrative* Problem Noted Date Resolved Date Chronic kidney disease, stage IV (severe) 201403/03/2022 with uncertain dates 07/26/2013 0 07/06/2015 Overview: 07/26/2013 Patient states that her last menstrual period was June 04, 2013. She states that she did not have intercourse after that menses. Ultrasound ordered for uncertain dates by Dr. Emily Dent. TKRN Patient requested diagnostic testing 07/26/2013 07/06/2015 Overview: 07/26/2013Patient considering early screening in . Discussed that this would need to be done between 11 weeks and 13 weeks 6 days. She is advised that when she has the ultrasound for dating, she will need to let the doctor know if she wishes to proceed with this test if she falls within the appropriate gestational age.TKRN documented as of this encounter (statuses as of 06/27/2022) [facility] History of Past illness Narrative* Problem Noted Date Resolved Date Chronic kidney disease, stage IV (severe) 201403/03/2022 with uncertain dates 07/26/2013 0 07/06/2015 Overview: 07/26/2013 Patient states that her last menstrual period was June 04, 2013. She states that she did not have intercourse after that menses. Ultrasound ordered for uncertain dates by Dr. Emily Dent. TKRN Patient requested diagnostic testing 07/26/2013 07/06/2015 Overview: 07/26/2013Patient considering early screening in . Discussed that this would need to be done between 11 weeks and 13 weeks 6 days. She is advised that when she has the ultrasound for dating, she will need to let the doctor know if she wishes to proceed with this test if she falls within the appropriate gestational age.TKRN documented as of this encounter (statuses as of 08/18/2022) [facility] History of Past illness Narrative* Problem Noted Date Resolved Date Chronic kidney disease, stage IV (severe) 201403/03/2022 with uncertain dates 07/26/2013 0 07/06/2015 Overview: 07/26/2013 Patient states that her last menstrual period was June 04, 2013. She states that she did not have intercourse after that menses. Ultrasound ordered for uncertain dates by Dr. Emily Dent. TKRN Patient requested diagnostic testing 07/26/2013 07/06/2015 Overview: 07/26/2013Patient considering early screening in . Discussed that this would need to be done between 11 weeks and 13 weeks 6 days. She is advised that when she has the ultrasound for dating, she will need to let the doctor know if she wishes to proceed with this test if she falls within the appropriate gestational age.TKRN documented as of this encounter (statuses as of 08/22/2022) [facility]2015 History of Past illness Narrative* Problem Noted Date Resolved Date Chronic kidney disease, stage IV (severe) 201403/03/2022 with uncertain dates 07/26/2013 0 07/06/2015 Overview: 07/26/2013 Patient states that her last menstrual period was June 04, 2013. She states that she did not have intercourse after that menses. Ultrasound ordered for uncertain dates by Dr. Emily Dent. TKRN Patient requested diagnostic testing 07/26/2013 07/06/2015 Overview: 07/26/2013Patient considering early screening in . Discussed that this would need to be done between 11 weeks and 13 weeks 6 days. She is advised that when she has the ultrasound for dating, she will need to let the doctor know if she wishes to proceed with this test if she falls within the appropriate gestational age.TKRN documented as of this encounter (statuses as of 09/23/2022) [facility] History of Past illness Narrative* Problem Noted Date Resolved Date Chronic kidney disease, stage IV (severe) 201403/03/2022 with uncertain dates 07/26/2013 0 07/06/2015 Overview: 07/26/2013 Patient states that her last menstrual period was June 04, 2013. She states that she did not have intercourse after that menses. Ultrasound ordered for uncertain dates by Dr. Emily Dent. TKRN Patient requested diagnostic testing 07/26/2013 07/06/2015 Overview: 07/26/2013Patient considering early screening in . Discussed that this would need to be done between 11 weeks and 13 weeks 6 days. She is advised that when she has the ultrasound for dating, she will need to let the doctor know if she wishes to proceed with this test if she falls within the appropriate gestational age.TKRN documented as of this encounter (statuses as of 10/13/2022) [facility] History of Past illness Narrative* Problem Noted Date Resolved Date Chronic kidney disease, stage IV (severe) 201403/03/2022 with uncertain dates 07/26/2013 0 07/06/2015 Overview: 07/26/2013 Patient states that her last menstrual period was June 04, 2013. She states that she did not have intercourse after that menses. Ultrasound ordered for uncertain dates by Dr. Emily Dent. TKRN Patient requested diagnostic testing 07/26/2013 07/06/2015 Overview: 07/26/2013Patient considering early screening in . Discussed that this would need to be done between 11 weeks and 13 weeks 6 days. She is advised that when she has the ultrasound for dating, she will need to let the doctor know if she wishes to proceed with this test if she falls within the appropriate gestational age.TKRN documented as of this encounter (statuses as of 10/15/2022) [facility] History of Past illness Narrative* Problem Noted Date Resolved Date Chronic kidney disease, stage IV (severe) 201403/03/2022 with uncertain dates 07/26/2013 0 07/06/2015 Overview: 07/26/2013 Patient states that her last menstrual period was June 04, 2013. She states that she did not have intercourse after that menses. Ultrasound ordered for uncertain dates by Dr. Emily Dent. TKRN Patient requested diagnostic testing 07/26/2013 07/06/2015 Overview: 07/26/2013Patient considering early screening in . Discussed that this would need to be done between 11 weeks and 13 weeks 6 days. She is advised that when she has the ultrasound for dating, she will need to let the doctor know if she wishes to proceed with this test if she falls within the appropriate gestational age.TKRN documented as of this encounter (statuses as of 12/09/2022) [facility] History of Past illness Narrative* Problem Noted Date Resolved Date Chronic kidney disease, stage IV (severe) 201403/03/2022 with uncertain dates 07/26/2013 0 07/06/2015 Overview: 07/26/2013 Patient states that her last menstrual period was June 04, 2013. She states that she did not have intercourse after that menses. Ultrasound ordered for uncertain dates by Dr. Emily Dent. TKRN Patient requested diagnostic testing 07/26/2013 07/06/2015 Overview: 07/26/2013Patient considering early screening in . Discussed that this would need to be done between 11 weeks and 13 weeks 6 days. She is advised that when she has the ultrasound for dating, she will need to let the doctor know if she wishes to proceed with this test if she falls within the appropriate gestational age.TKRN documented as of this encounter (statuses as of 12/24/2022) [facility] History of Past illness Narrative* Problem Noted Date Resolved Date Chronic kidney disease, stage IV (severe) 201403/03/2022 with uncertain dates 07/26/2013 0 07/06/2015 Overview: 07/26/2013 Patient states that her last menstrual period was June 04, 2013. She states that she did not have intercourse after that menses. Ultrasound ordered for uncertain dates by Dr. Emily Dent. TKRN Patient requested diagnostic testing 07/26/2013 07/06/2015 Overview: 07/26/2013Patient considering early screening in . Discussed that this would need to be done between 11 weeks and 13 weeks 6 days. She is advised that when she has the ultrasound for dating, she will need to let the doctor know if she wishes to proceed with this test if she falls within the appropriate gestational age.TKRN documented as of this encounter (statuses as of 12/25/2022) [facility] History of Past illness Narrative* Problem Noted Date Resolved Date Chronic kidney disease, stage IV (severe) 201403/03/2022 with uncertain dates 07/26/2013 0 07/06/2015 Overview: 07/26/2013 Patient states that her last menstrual period was June 04, 2013. She states that she did not have intercourse after that menses. Ultrasound ordered for uncertain dates by Dr. Emily Dent. TKRN Patient requested diagnostic testing 07/26/2013 07/06/2015 Overview: 07/26/2013Patient considering early screening in . Discussed that this would need to be done between 11 weeks and 13 weeks 6 days. She is advised that when she has the ultrasound for dating, she will need to let the doctor know if she wishes to proceed with this test if she falls within the appropriate gestational age.TKRN documented as of this encounter (statuses as of 01/05/2023) [facility] History of Past illness Narrative* Problem Noted Date Resolved Date Chronic kidney disease, stage IV (severe) 201403/03/2022 with uncertain dates 07/26/2013 0 07/06/2015 Overview: 07/26/2013 Patient states that her last menstrual period was June 04, 2013. She states that she did not have intercourse after that menses. Ultrasound ordered for uncertain dates by Dr. Emily Dent. TKRN Patient requested diagnostic testing 07/26/2013 07/06/2015 Overview: 07/26/2013Patient considering early screening in . Discussed that this would need to be done between 11 weeks and 13 weeks 6 days. She is advised that when she has the ultrasound for dating, she will need to let the doctor know if she wishes to proceed with this test if she falls within the appropriate gestational age.TKRN documented as of this encounter (statuses as of 01/07/2023) [facility] History of Past illness Narrative* Problem Noted Date Resolved Date Chronic kidney disease, stage IV (severe) 201403/03/2022 with uncertain dates 07/26/2013 0 07/06/2015 Overview: 07/26/2013 Patient states that her last menstrual period was June 04, 2013. She states that she did not have intercourse after that menses. Ultrasound ordered for uncertain dates by Dr. Emily Dent. TKRN Patient requested diagnostic testing 07/26/2013 07/06/2015 Overview: 07/26/2013Patient considering early screening in . Discussed that this would need to be done between 11 weeks and 13 weeks 6 days. She is advised that when she has the ultrasound for dating, she will need to let the doctor know if she wishes to proceed with this test if she falls within the appropriate gestational age.TKRN documented as of this encounter (statuses as of 01/13/2023) [facility] History of Past illness Narrative* Problem Noted Date Resolved Date Chronic kidney disease, stage IV (severe) 201403/03/2022 with uncertain dates 07/26/2013 0 07/06/2015 Overview: 07/26/2013 Patient states that her last menstrual period was June 04, 2013. She states that she did not have intercourse after that menses. Ultrasound ordered for uncertain dates by Dr. Emily Dent. TKRN Patient requested diagnostic testing 07/26/2013 07/06/2015 Overview: 07/26/2013Patient considering early screening in . Discussed that this would need to be done between 11 weeks and 13 weeks 6 days. She is advised that when she has the ultrasound for dating, she will need to let the doctor know if she wishes to proceed with this test if she falls within the appropriate gestational age.TKRN documented as of this encounter (statuses as of 01/17/2023) [facility] History of Past illness Narrative* Problem Noted Date Resolved Date Chronic kidney disease, stage IV (severe) 201403/03/2022 with uncertain dates 07/26/2013 0 07/06/2015 Overview: 07/26/2013 Patient states that her last menstrual period was June 04, 2013. She states that she did not have intercourse after that menses. Ultrasound ordered for uncertain dates by Dr. Emily Dent. TKRN Patient requested diagnostic testing 07/26/2013 07/06/2015 Overview: 07/26/2013Patient considering early screening in . Discussed that this would need to be done between 11 weeks and 13 weeks 6 days. She is advised that when she has the ultrasound for dating, she will need to let the doctor know if she wishes to proceed with this test if she falls within the appropriate gestational age.TKRN documented as of this encounter (statuses as of 04/09/2023) [facility] History of Past illness Narrative* Problem Noted Date Diagnosed Date Resolved Date Chronic kidney disease, stage IV (severe) 07/06/2015 03/03/2022 with uncertain dates 07/26/2013 07/06/2015 Overview: 07/26/2013 Patient states that her last menstrual period was June 04, 2013. She states that she did not have intercourse after that menses. Ultrasound ordered for uncertain dates by Dr. Emily Dent. TKRN Patient requested diagnostic testing 07/26/2013 07/06/2015 Overview: 07/26/2013Patient considering early screening in . Discussed that this would need to be done between 11 weeks and 13 weeks 6 days. She is advised that when she has the ultrasound for dating, she will need to let the doctor know if she wishes to proceed with this test if she falls within the appropriate gestational age.TKRN documented as of this encounter (statuses as of 05/10/2023) [facility] History of Past illness Narrative* Problem Noted Date Diagnosed Date Resolved Date Chronic kidney disease, stage IV (severe) 07/06/2015 03/03/2022 with uncertain dates 07/26/2013 07/06/2015 Overview: 07/26/2013 Patient states that her last menstrual period was June 04, 2013. She states that she did not have intercourse after that menses. Ultrasound ordered for uncertain dates by Dr. Emily Dent. TKRN Patient requested diagnostic testing 07/26/2013 07/06/2015 Overview: 07/26/2013Patient considering early screening in . Discussed that this would need to be done between 11 weeks and 13 weeks 6 days. She is advised that when she has the ultrasound for dating, she will need to let the doctor know if she wishes to proceed with this test if she falls within the appropriate gestational age.TKRN documented as of this encounter (statuses as of 06/25/2023) [facility] History of Past illness Narrative* Problem Noted Date Diagnosed Date Resolved Date Chronic kidney disease, stage IV (severe) 07/06/2015 03/03/2022 with uncertain dates 07/26/2013 07/06/2015 Overview: 07/26/2013 Patient states that her last menstrual period was June 04, 2013. She states that she did not have intercourse after that menses. Ultrasound ordered for uncertain dates by Dr. Emily Dent. TKRN Patient requested diagnostic testing 07/26/2013 07/06/2015 Overview: 07/26/2013Patient considering early screening in . Discussed that this would need to be done between 11 weeks and 13 weeks 6 days. She is advised that when she has the ultrasound for dating, she will need to let the doctor know if she wishes to proceed with this test if she falls within the appropriate gestational age.TKRN documented as of this encounter (statuses as of 2023) [facility] History of Past illness Narrative* Problem Noted Date Diagnosed Date Resolved Date Chronic kidney disease, stage IV (severe) 07/06/2015 03/03/2022 with uncertain dates 07/26/2013 07/06/2015 Overview: 07/26/2013 Patient states that her last menstrual period was June 04, 2013. She states that she did not have intercourse after that menses. Ultrasound ordered for uncertain dates by Dr. Emily Dent. TKRN Patient requested diagnostic testing 07/26/2013 07/06/2015 Overview: 07/26/2013Patient considering early screening in . Discussed that this would need to be done between 11 weeks and 13 weeks 6 days. She is advised that when she has the ultrasound for dating, she will need to let the doctor know if she wishes to proceed with this test if she falls within the appropriate gestational age.TKRN documented as of this encounter (statuses as of 09/26/2023) [facility] History of Past illness Narrative* Problem Noted Date Resolved Date with uncertain dates 07/26/2013 0 07/06/2015 Overview: 07/26/2013 Patient states that her last menstrual period was June 04, 2013. She states that she did not have intercourse after that menses. Ultrasound ordered for uncertain dates by Dr. Emily Dent. TKRN Patient requested diagnostic testing 07/26/2013 07/06/2015 Overview: 07/26/2013Patient considering early screening in . Discussed that this would need to be done between 11 weeks and 13 weeks 6 days. She is advised that when she has the ultrasound for dating, she will need to let the doctor know if she wishes to proceed with this test if she falls within the appropriate gestational age.TKRN documented as of this encounter (statuses as of 02/19/2022) [facility] History of Past illness Narrative* Problem Noted Date Resolved Date with uncertain dates 07/26/2013 0 07/06/2015 Overview: 07/26/2013 Patient states that her last menstrual period was June 04, 2013. She states that she did not have intercourse after that menses. Ultrasound ordered for uncertain dates by Dr. Emily Dent. TKRN Patient requested diagnostic testing 07/26/2013 07/06/2015 Overview: 07/26/2013Patient considering early screening in . Discussed that this would need to be done between 11 weeks and 13 weeks 6 days. She is advised that when she has the ultrasound for dating, she will need to let the doctor know if she wishes to proceed with this test if she falls within the appropriate gestational age.TKRN documented as of this encounter (statuses as of 02/21/2022) [facility] Skin infection- Primary Unspecified local infection of skin and subcutaneous tissue [facility] Diagnosis Cutaneous abscess of abdominal wall- Primary Cellulitis and abscess of trunk [facility] Hemodialysis-associated hypotension- Primary Hypotension of hemodialysis Gait instability Abnormality of gait Morbid obesity with BMI of 50.0-59.9, adult (HCC) Morbid obesity Wheezing Chronic bilateral low back pain without sciatica WELCH (dyspnea on exertion) Other dyspnea and respiratory abnormality Recurrent boils Carbuncle and furuncle of unspecified site Frequent falls Personal history of fall [facility] Diagnosis Syncope, unspecified syncope type- Primary Abnormal echocardiogram Nonspecific (abnormal) findings on radiological and other examination of other intrathoracic organs Precordial pain Lightheadedness Dizziness and giddiness [facility] Diagnosis ESRD (end stage renal disease) on dialysis (HCC)- Primary End stage renal disease 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) Aneurysm of artery of lower extremity [facility] Diagnosis ESRD on dialysis (HCC)- Primary End stage renal disease [facility] Diagnosis ESRD (end stage renal disease) on dialysis (HCC)- Primary End stage renal disease [facility] Diagnosis ESRD (end stage renal disease) on dialysis (HCC)- Primary End stage renal disease [facility] Diagnosis Pre-op evaluation- Primary Preoperative examination, unspecified ESRD (end stage renal disease) on dialysis (HCC) End stage renal disease Morbid obesity with BMI of 50.0-59.9, adult ([facility]) Morbid obesity IIH (idiopathic intracranial hypertension) Benign intracranial hypertension Asthma, unspecified asthma severity, unspecified whether complicated, unspecified whether persistent Hypotension, unspecified hypotension type S/P parathyroidectomy ([facility]) Other postprocedural status Anemia, unspecified type History of blood clotting disorder Personal history of diseases of blood and blood-forming organs Marijuana use Cannabis abuse, unspecified ESRD (end stage renal disease) on dialysis ([facility]) End stage renal disease [facility] Diagnosis Pre-op testing- Primary Preoperative examination, unspecified Other specified conditions associated with female genital organs and menstrual cycle [facility] Diagnosis ESRD (end stage renal disease) on dialysis ([facility])- Primary End stage renal disease Stage 5 chronic kidney disease on chronic dialysis ([facility]) [facility]* Diagnosis ESRD (end stage renal disease) on dialysis ([facility])- Primary End stage renal disease Stage 5 chronic kidney disease on chronic dialysis ([facility]) [facility] Diagnosis Cutaneous abscess of face- Primary Cellulitis and abscess of face ESRD (end stage renal disease) on dialysis ([facility]) End stage renal disease [facility] Diagnosis Facial abscess- Primary Cellulitis and abscess of face [facility] Diagnosis Pseudotumor cerebri- Primary Benign intracranial hypertension Headache disorder Headache [facility] Diagnosis Generalized anxiety disorder with panic attacks- Primary Postmenopausal disorder Unspecified menopausal and postmenopausal disorder Surgical menopause on hormone replacement therapy Hemodialysis-associated hypotension Hypotension of hemodialysis [facility] Diagnosis Generalized anxiety disorder with panic attacks- Primary Hypotension, unspecified hypotension type Surgical menopause on hormone replacement therapy Postmenopausal disorder Unspecified menopausal and postmenopausal disorder ESRD (end stage renal disease) on dialysis ([facility]) End stage renal disease [facility] Diagnosis Class 3 severe obesity with serious comorbidity in adult, unspecified BMI, unspecified obesity type ([facility])- Primary PCOS (polycystic ovarian syndrome) Polycystic ovaries ESRD (end stage renal disease) on dialysis ([facility]) End stage renal disease 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 Primary hypertension Unspecified essential hypertension Lumbar herniated disc Displacement of lumbar intervertebral disc without myelopathy IIH (idiopathic intracranial hypertension) Benign intracranial hypertension Chronic bilateral low back pain without sciatica Asthma, unspecified asthma severity, unspecified whether complicated, unspecified whether persistent Hyperglycemia Other abnormal glucose Medical marijuana use Encounter for long-term (current) use of other medications Dietary counseling and surveillance Dietary surveillance and counseling Body mass index 50.0-59.9, adult ([facility]) Body Mass Index 50.0-59.9, adult documented in this encounter [facility]* Diagnosis Generalized anxiety disorder with panic attacks- Primary Morbid obesity with BMI of 50.0-59.9, adult ([facility]) Morbid obesity Chronic bilateral low back pain without sciatica Surgical menopause on hormone replacement therapy Postmenopausal disorder Unspecified menopausal and postmenopausal disorder Wheezing Marijuana use Cannabis abuse, unspecified ESRD (end stage renal disease) on dialysis ([facility]) End stage renal disease documented in this encounter [facility]* Diagnosis Mild intermittent asthma with acute exacerbation- Primary Unspecified asthma, with exacerbation documented in this encounter [facility]* Diagnosis Mild intermittent asthma with acute exacerbation- Primary Unspecified asthma, with exacerbation Generalized anxiety disorder with panic attacks Surgical menopause on hormone replacement therapy Postmenopausal disorder Unspecified menopausal and postmenopausal disorder Morbid obesity with BMI of 50.0-59.9, adult ([facility]) Morbid obesity ESRD (end stage renal disease) on dialysis ([facility]) End stage renal disease documented in this encounter [facility] note* Diagnosis Headache disorder Headache documented in this encounter [facility] for referral (narrative)* Diagnostic Procedure Only (Routine) - Pending Review Specialty Diagnoses / Procedures Referred By Contac t Referred To Contact [facility] Diagnoses Precordial pain Procedures NM CARDIAC PERF STRESS/PHARM MYOCARDIAL SPECT MULTIPLE STUDIES Kervin Alonzo MD [address] [place] [address] [facility] [address] [place] [address] Referral ID Status Reason Start Date Expiration Date Visits Requested Visits Authorized [id number] Pending Review Auto-Generat ed Referral 04/24/2022 05/24/2023 1 1 [facility] for referral (narrative)* Outpatient Procedure (Routine) - Authorized Specialty Diagnoses / Procedures Referred By Contac t Referred To Contact 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 [place] Diagnoses ESRD on dialysis (HCC) Procedures US A/V FISTULA GRAFT UNL VAS LAB DUPLEX SCAN HEMODIALYSIS ACCESS Juan José Partida MD [address] [place] [address] [address] Referral ID Status Reason Start Date Expiration Date Visits Requested Visits Authorized [id number] Pending Review Auto-Generat ed Referral 05/08/2022 05/08/2023 1 1 [facility] for referral (narrative)* Outpatient Procedure (Routine) - Pending Review Specialty Diagnoses / Procedures Referred By Contac t Referred To Contact [facility] [place] Diagnoses Pre-op testing Procedures ECG COMPLETE ECG ROUTINE ECG W/LEAST 12 LDS W/I&R Charity Abdalla, [employer]K REPA[employer]ER.C[employer]IN CLEANER [address] [place] [address] [facility] [address] [address] Referral ID Status Reason Start Date Expiration Date Visits Requested Visits Authorized [id number] Pending Review Auto-Generat ed Referral 06/05/2022 06/05/2023 1 1 [facility] Procedure (Routine) - Closed Specialty Diagnoses / Procedures Referred By Yeni tucker Referred To Contact [facility] Diagnoses ESRD (end stage renal disease) on dialysis (HCC) Procedures US A/V FISTULA GRAFT UNL VAS LAB DUPLEX SCAN HEMODIALYSIS ACCESS Juan José Partida MD [address] [place] [address] [facility] [place] [address] [place] [address] Referral ID Status Reason Start Date Expiration Date V isits Requested Visits Authorized [id number] Closed Auto-Generate d Referral 06/12/2022 06/12/2023 1 1 [facility] Summary Purpose Family History No Family History Records FoundNo Family History Records FoundNo Family History Records FoundNo Family History Records FoundNo Family History Records FoundNo Family History Records Found Advance Directives No Advanced Directives Records FoundDocuments on File Type Date Recorded Patient [employer] Expl anation Advance Directive(s) 09/21/2019 8:52 AM Advance Directive(s) 12/03/2018 1:32 PM Advance Directive(s) 11/12/2018 8:54 AM Advance Directive(s) 04/01/2016 8:33 AM Advance Directive(s) 03/28/2016 7:38 AM Advance Directive(s) 01/30/2016 9:42 AM Documents on File Type Date Recorded Patient [employer] Expl anation Advance Directive(s) 09/21/2019 8:52 AM Advance Directive(s) 12/03/2018 1:32 PM Advance Directive(s) 11/12/2018 8:54 AM Advance Directive(s) 04/01/2016 8:33 AM Advance Directive(s) 03/28/2016 7:38 AM Advance Directive(s) 01/30/2016 9:42 AM Reason for Referral Specialty Diagnoses / Procedures Referred By Yeni tucker Referred To Contact Diagnoses Generalized anxiety disorder with panic attacks Surgical menopause on hormone replacement therapy Postmenopausal disorder Zuleyka Coughlin MD [address] [place] [address] Referral ID Status Reason Start Date Expiration Date Visits Re quested Visits Authorized [id number] Closed 1 1 Specialty Diagnoses / Procedures Referred By Contac t Referred To Contact Zuleyka Coughlin MD [address] [place] [address] Referral ID Status Reason Start Date Expiration Date Visits Re quested Visits Authorized [id number] Closed 1 1 Specialty Diagnoses / Procedures Referred By Contac t [place] [address] [place] [address] Referral ID Status Reason Start Date Expiration Date Visits Re quested Visits Authorized [id number] Closed 1 1 Additional Source Comments INFORMATION SOURCE (unrecogn ized section and content) DATE CREATED AUTHOR AUTHOR'S ORGANIZ ATION 09/05/2019 [facility] DATE CREATED AUTHOR AUTHOR'S ORGANIZ ATION 05/24/2022 [facility] DATE CREATED AUTHOR AUTHOR'S ORGANIZ ATION 02/12/2023 [facility] DATE CREATED AUTHOR AUTHOR'S ORGANIZ ATION 2023 [facility] DATE CREATED AUTHOR AUTHOR'S ORGANIZ ATION 10/17/2023 [facility] Source Comments (unrecognize d section and content) In the event this informatio n is protected by the Federal Confidentiality of Alcohol and Drug Abuse Patient Records regulations: The Federal rules restrict any use of the information to criminally investigate or prosecute any alcohol or drug abuse patient.[facility] the event this information is protected by the Federal Confidentiality of Alcohol and Drug Abuse Patient Records regulations: The Federal rules restrict any use of the information to criminally investigate or prosecute any alcohol or drug abuse patient.[facility] the event this information is protected by the Federal Confidentiality of Alcohol and Drug Abuse Patient Records regulations: The Federal rules restrict any use of the information to criminally investigate or prosecute any alcohol or drug abuse patient.[facility] the event this information is protected by the Federal Confidentiality of Alcohol and Drug Abuse Patient Records regulations: The Federal rules restrict any use of the information to criminally investigate or prosecute any alcohol or drug abuse patient.[facility] the event this information is protected by the Federal Confidentiality of Alcohol and Drug Abuse Patient Records regulations: The Federal rules restrict any use of the information to criminally investigate or prosecute any alcohol or drug abuse patient.[facility] the event this information is protected by the Federal Confidentiality of Alcohol and Drug Abuse Patient Records regulations: The Federal rules restrict any use of the information to criminally investigate or prosecute any alcohol or drug abuse patient.[facility] the event this information is protected by the Federal Confidentiality of Alcohol and Drug Abuse Patient Records regulations: The Federal rules restrict any use of the information to criminally investigate or prosecute any alcohol or drug abuse patient.[facility] the event this information is protected by the Federal Confidentiality of Alcohol and Drug Abuse Patient Records regulations: The Federal rules restrict any use of the information to criminally investigate or prosecute any alcohol or drug abuse patient.[facility] the event this information is protected by the Federal Confidentiality of Alcohol and Drug Abuse Patient Records regulations: The Federal rules restrict any use of the information to criminally investigate or prosecute any alcohol or drug abuse patient.[facility] the event this information is protected by the Federal Confidentiality of Alcohol and Drug Abuse Patient Records regulations: The Federal rules restrict any use of the information to criminally investigate or prosecute any alcohol or drug abuse patient.[facility] the event this information is protected by the Federal Confidentiality of Alcohol and Drug Abuse Patient Records regulations: The Federal rules restrict any use of the information to criminally investigate or prosecute any alcohol or drug abuse patient.[facility] the event this information is protected by the Federal Confidentiality of Alcohol and Drug Abuse Patient Records regulations: The Federal rules restrict any use of the information to criminally investigate or prosecute any alcohol or drug abuse patient.[facility] the event this information is protected by the Federal Confidentiality of Alcohol and Drug Abuse Patient Records regulations: The Federal rules restrict any use of the information to criminally investigate or prosecute any alcohol or drug abuse patient.[facility] the event this information is protected by the Federal Confidentiality of Alcohol and Drug Abuse Patient Records regulations: The Federal rules restrict any use of the information to criminally investigate or prosecute any alcohol or drug abuse patient.[facility] the event this information is protected by the Federal Confidentiality of Alcohol and Drug Abuse Patient Records regulations: The Federal rules restrict any use of the information to criminally investigate or prosecute any alcohol or drug abuse patient.[facility] the event this information is protected by the Federal Confidentiality of Alcohol and Drug Abuse Patient Records regulations: The Federal rules restrict any use of the information to criminally investigate or prosecute any alcohol or drug abuse patient.[facility] the event this information is protected by the Federal Confidentiality of Alcohol and Drug Abuse Patient Records regulations: The Federal rules restrict any use of the information to criminally investigate or prosecute any alcohol or drug abuse patient.[facility] the event this information is protected by the Federal Confidentiality of Alcohol and Drug Abuse Patient Records regulations: The Federal rules restrict any use of the information to criminally investigate or prosecute any alcohol or drug abuse patient.[facility] the event this information is protected by the Federal Confidentiality of Alcohol and Drug Abuse Patient Records regulations: The Federal rules restrict any use of the information to criminally investigate or prosecute any alcohol or drug abuse patient.[facility] the event this information is protected by the Federal Confidentiality of Alcohol and Drug Abuse Patient Records regulations: The Federal rules restrict any use of the information to criminally investigate or prosecute any alcohol or drug abuse patient.[facility] the event this information is protected by the Federal Confidentiality of Alcohol and Drug Abuse Patient Records regulations: The Federal rules restrict any use of the information to criminally investigate or prosecute any alcohol or drug abuse patient.[facility] the event this information is protected by the Federal Confidentiality of Alcohol and Drug Abuse Patient Records regulations: The Federal rules restrict any use of the information to criminally investigate or prosecute any alcohol or drug abuse patient.[facility] the event this information is protected by the Federal Confidentiality of Alcohol and Drug Abuse Patient Records regulations: The Federal rules restrict any use of the information to criminally investigate or prosecute any alcohol or drug abuse patient.[facility] the event this information is protected by the Federal Confidentiality of Alcohol and Drug Abuse Patient Records regulations: The Federal rules restrict any use of the information to criminally investigate or prosecute any alcohol or drug abuse patient.[facility] the event this information is protected by the Federal Confidentiality of Alcohol and Drug Abuse Patient Records regulations: The Federal rules restrict any use of the information to criminally investigate or prosecute any alcohol or drug abuse patient.[facility] the event this information is protected by the Federal Confidentiality of Alcohol and Drug Abuse Patient Records regulations: The Federal rules restrict any use of the information to criminally investigate or prosecute any alcohol or drug abuse patient.[facility] the event this information is protected by the Federal Confidentiality of Alcohol and Drug Abuse Patient Records regulations: The Federal rules restrict any use of the information to criminally investigate or prosecute any alcohol or drug abuse patient.[facility] the event this information is protected by the Federal Confidentiality of Alcohol and Drug Abuse Patient Records regulations: The Federal rules restrict any use of the information to criminally investigate or prosecute any alcohol or drug abuse patient.[facility] the event this information is protected by the Federal Confidentiality of Alcohol and Drug Abuse Patient Records regulations: The Federal rules restrict any use of the information to criminally investigate or prosecute any alcohol or drug abuse patient.[facility] HealthIn the event this information is protected by the Federal Confidentiality of Alcohol and Drug Abuse Patient Records regulations: The Federal rules restrict any use of the information to criminally investigate or prosecute any alcohol or drug abuse patient.[facility] HealthIn the event this information is protected by the Federal Confidentiality of Alcohol and Drug Abuse Patient Records regulations: The Federal rules restrict any use of the information to criminally investigate or prosecute any alcohol or drug abuse patient.[facility] HealthIn the event this information is protected by the Federal Confidentiality of Alcohol and Drug Abuse Patient Records regulations: The Federal rules restrict any use of the information to criminally investigate or prosecute any alcohol or drug abuse patient.[facility] HealthIn the event this information is protected by the Federal Confidentiality of Alcohol and Drug Abuse Patient Records regulations: The Federal rules restrict any use of the information to criminally investigate or prosecute any alcohol or drug abuse patient.[facility] HealthIn the event this information is protected by the Federal Confidentiality of Alcohol and Drug Abuse Patient Records regulations: The Federal rules restrict any use of the information to criminally investigate or prosecute any alcohol or drug abuse patient.[facility] HealthIn the event this information is protected by the Federal Confidentiality of Alcohol and Drug Abuse Patient Records regulations: The Federal rules restrict any use of the information to criminally investigate or prosecute any alcohol or drug abuse patient.[facility] HealthIn the event this information is protected by the Federal Confidentiality of Alcohol and Drug Abuse Patient Records regulations: The Federal rules restrict any use of the information to criminally investigate or prosecute any alcohol or drug abuse patient.[facility] HealthIn the event this information is protected by the Federal Confidentiality of Alcohol and Drug Abuse Patient Records regulations: The Federal rules restrict any use of the information to criminally investigate or prosecute any alcohol or drug abuse patient.[facility] HealthIn the event this information is protected by the Federal Confidentiality of Alcohol and Drug Abuse Patient Records regulations: The Federal rules restrict any use of the information to criminally investigate or prosecute any alcohol or drug abuse patient.[facility] HealthIn the event this information is protected by the Federal Confidentiality of Alcohol and Drug Abuse Patient Records regulations: The Federal rules restrict any use of the information to criminally investigate or prosecute any alcohol or drug abuse patient.[facility] HealthIn the event this information is protected by the Federal Confidentiality of Alcohol and Drug Abuse Patient Records regulations: The Federal rules restrict any use of the information to criminally investigate or prosecute any alcohol or drug abuse patient.[facility] HealthIn the event this information is protected by the Federal Confidentiality of Alcohol and Drug Abuse Patient Records regulations: The Federal rules restrict any use of the information to criminally investigate or prosecute any alcohol or drug abuse patient.[facility] HealthIn the event this information is protected by the Federal Confidentiality of Alcohol and Drug Abuse Patient Records regulations: The Federal rules restrict any use of the information to criminally investigate or prosecute any alcohol or drug abuse patient.[facility] HealthIn the event this information is protected by the Federal Confidentiality of Alcohol and Drug Abuse Patient Records regulations: The Federal rules restrict any use of the information to criminally investigate or prosecute any alcohol or drug abuse patient.[facility] Reason for Visit (unrecogniz ed section and content) Reason Comments Consult abscess on stomach Reason Comments F/U 6 months Reason Comments Patient Request Reason Comments Forms Reason Comments Appointment Reason Comments Cardiology Follow Up REF FOR ABN ECHO Reason Comments Established Patient Reason Comments Patient Update Reason Comments Pre-Op Visit Reason Comments Post Op Pre-Op Exam Reason Comments Rash Bump on right side o f face, swollen lip and jaw x 6 days Reason Comments Consult Facial cyst Reason Onset Date Comments Transition Of Care 06/27/2022 initial encou nter post hospital discharge 06/26/22 Reason Comments Appointment Pre-checkin Reason Comments Appointment Cancel Reason Comments Anxiety Rx Refills Reason Comments Follow Up Anxiety, etc Reason Comments New Patient Evaluation Reason Onset Date Comments Refill Request 01/05/2023 Reason Comments Insurance Authorization Reason Comments Anxiety Follow Up Reason Onset Date Comments Medication Problem 01/08/2023 Reason Comments Orders Reason Comments Established Patient Reason Comments Headaches Reason Comments Insurance Authorization PA started for z onisamide Care Teams (unrecognized sec tion and content) Turnstile Attendant Relationship Specialty Start Date End Date Zuleyka Coughlin MD [address] [place] [address] PCP - General Internal Medicine 10/10/15 Andres Vargas MD Surgical Aide Nephrology 09/03/20 Turnstile Attendant Relationship Specialty Start Date End Date Zuleyka Coughlin MD [address] [place] [address] PCP - General Internal Medicine 10/10/15 Andres Vargas MD Surgical Aide Nephrology 09/03/20 Turnstile Attendant Relationship Specialty Start Date End Date Zuleyka Coughlin MD [address] [place] [address] PCP - General Internal Medicine 10/10/15 Andres Vargas MD Surgical Aide Nephrology 09/03/20 Turnstile Attendant Relationship Specialty Start Date End Date Zuleyka Coughlin MD [address] [place] [address] PCP - General Internal Medicine 10/10/15 Andres Vargas MD Surgical Aide Nephrology 09/03/20 Turnstile Attendant Relationship Specialty Start Date End Date Zuleyka Coughlin MD [address] [place] [address] PCP - General Internal Medicine 10/10/15 Andres Vargas MD Surgical Aide Nephrology 09/03/20 Turnstile Attendant Relationship Specialty Start Date End Date Zuleyka Coughlin MD [address] [place] [address] PCP - General Internal Medicine 10/10/15 Andres Vargas MD Surgical Aide Nephrology 09/03/20 Turnstile Attendant Relationship Specialty Start Date End Date Zuleyka Coughlin MD [facility] [place] [address] PCP - General Internal Medicine 10/10/15 Andres Vargas MD Surgical Aide Nephrology 09/03/20 Turnstile Attendant Relationship Specialty Start Date End Date Zuleyka Coughlin MD [facility] [place] [address] PCP - General Internal Medicine 10/10/15 Andres Vargas MD Surgical Aide Nephrology 09/03/20 Turnstile Attendant Relationship Specialty Start Date End Date Zuleyka Coughlin MD [address] [place] [address] PCP - General Internal Medicine 10/10/15 Andres Vargas MD Surgical Aide Nephrology 09/03/20 Turnstile Attendant Relationship Specialty Start Date End Date Zuleyka Coughlin MD [address] [place] [address] PCP - General Internal Medicine 10/10/15 Andres Vargas MD Surgical Aide Nephrology 09/03/20 Turnstile Attendant Relationship Specialty Start Date End Date Zuleyka Coughlin MD [address] [place] [address] PCP - General Internal Medicine 10/10/15 Andres Vargas MD Surgical Aide Nephrology 09/03/20 Turnstile Attendant Relationship Specialty Start Date End Date Zuleyka Coughlin MD [address] [place] [address] PCP - General Internal Medicine 10/10/15 Andres Vargas MD Surgical Aide Nephrology 09/03/20 Turnstile Attendant Relationship Specialty Start Date End Date Zuleyka Coughlin MD [facility] [place] [address] PCP - General Internal Medicine 10/10/15 Andres Vargas MD Surgical Aide Nephrology 09/03/20 Turnstile Attendant Relationship Specialty Start Date End Date Zuleyka Coughlin MD [address] [place] [place] [address] PCP - General Internal Medicine 10/10/15 Andres Vargas MD Surgical Aide Nephrology 09/03/20 Turnstile Attendant Relationship Specialty Start Date End Date Zuleyka Coughlin MD [address] [place] [place] [address] PCP - General Internal Medicine 10/10/15 Andres Vargas MD Surgical Aide Nephrology 09/03/20 Turnstile Attendant Relationship Specialty Start Date End Date Zuleyka Coughlin MD [address] [place] [address] PCP - General Internal Medicine 10/10/15 Andres Vargas MD Surgical Aide Nephrology 09/03/20 Turnstile Attendant Relationship Specialty Start Date End Date Zuleyka Coughlin MD [address] [place] [address] PCP - General Internal Medicine 10/10/15 Andres Vargas MD Surgical Aide Nephrology 09/03/20 Turnstile Attendant Relationship Specialty Start Date End Date Zuleyka Coughlin MD [address] [place] [address] PCP - General Internal Medicine 10/10/15 Andres Vargas MD Surgical Aide Nephrology 09/03/20 Turnstile Attendant Relationship Specialty Start Date End Date Zuleyka Coughlin MD [address] [place] [address] PCP - General Internal Medicine 10/10/15 Andres Vargas MD Surgical Aide Nephrology 09/03/20 Turnstile Attendant Relationship Specialty Start Date End Date Zulekya Coughlin MD [address] [place] [address] PCP - General Internal Medicine 10/10/15 Andres Vargas MD [address] [place] [address] Surgical Aide Nephrology 09/03/20 Turnstile Attendant Relationship Specialty Start Date End Date Zuleyka Coughlin MD [address] [place] [address] PCP - General Internal Medicine 10/10/15 Andres Vargas MD [address] [place] [address] Surgical Aide Nephrology 09/03/20 Turnstile Attendant Relationship Specialty Start Date End Date Zuleyka Coughlin MD [address] [place] [address] PCP - General Internal Medicine 10/10/15 Andres Vargas MD [address] [place] [address] Surgical Aide Nephrology 09/03/20 Turnstile Attendant Relationship Specialty Start Date End Date Zuleyka Coughlin MD [facility] [place] [address] PCP - General Internal Medicine 10/10/15 Andres Vargas MD [facility] [place] [address] Surgical Aide Nephrology 09/03/20 Turnstile Attendant Relationship Specialty Start Date End Date Zuleyka Coughlin MD [address] [place] [address] PCP - General Internal Medicine 10/10/15 Andres Vargas MD [facility] [place] [address] Surgical Aide Nephrology 09/03/20 Turnstile Attendant Relationship Specialty Start Date End Date Zuleyka Coughlin MD [address] [place] [address] PCP - General Internal Medicine 10/10/15 Andres Vargas MD [address] [place] [address] Surgical Aide Nephrology 09/03/20 Turnstile Attendant Relationship Specialty Start Date End Date Zuleyka Coughlin MD [address] [place] [address] PCP - General Internal Medicine 10/10/15 Andres Vargas MD [address] [place] [address] Surgical Aide Nephrology 09/03/20 Turnstile Attendant Relationship Specialty Start Date End Date Zuleyka Coughlin MD [address] [place] [address] PCP - General Internal Medicine 10/10/15 Andres Vargas MD [address] [place] [address] Surgical Aide Nephrology 09/03/20 Turnstile Attendant Relationship Specialty Start Date End Date Zuleyka Coughlin MD [address] [place] [address] PCP - General Internal Medicine 10/10/15 Andres Vargas MD [address] [place] [address] Surgical Aide Nephrology 09/03/20 Turnstile Attendant Relationship Specialty Start Date End Date Zuleyka Coughlin MD [address] [place] [address] PCP - General Internal Medicine 10/10/15 Andres Vargas MD [address] [place] [address] Surgical Aide Nephrology 09/03/20 Turnstile Attendant Relationship Specialty Start Date End Date Zuleyka Coughlin MD [address] [place] [address] PCP - General Internal Medicine 10/10/15 Andres Vargas MD [address] [place] [address] Surgical Aide Nephrology 09/03/20 Turnstile Attendant Relationship Specialty Start Date End Date Zuleyka Coughlin MD [address] [place], [place] [address] PCP - General Internal Medicine 10/10/15 Andres Vargas MD [address] [place], [place] [address] Surgical Aide Nephrology 09/03/20 FOR RECORDS PERTAINING TO PATIENTS WHO ARE OR HAVE BEEN ENROLLED IN A CHEMICAL DEPENDENCY/SUBSTANCEABUSE PROGRAM, SOME INFORMATION MAY BE OMITTED. This clinical summary was aggregated from multiple sources. Caution should be exercised in using it in the provision of clinical care. This summary normalizes information from multiple sources, and as a consequence, information in this document may materially change the coding, format and clinical context of patient data. In addition, data may be omitted in some cases. CLINICAL DECISIONS SHOULD BE BASED ON THE PRIMARY CLINICAL RECORDS. [employer] provides no warranty or guarantee of the accuracy or completeness of information in this document.
[2023-10-22 12:38] LABS: ALB/GLOB Ratio 0.9 RATIO (0.9-2.4); AST(SGOT) 14 U/L (15-37); Alanine Aminotransfer ALT/SGPT 38 U/L (13-56); Albumin, Serum 3.7 g/dL (3.2-5.0); Alkaline Phosphatase 84 U/L (45-117); Anion Gap 13 (5-15); BUN 72 mg/dL (7-18); BUN/Creat Ratio 6.6 RATIO (10-20); Calcium,Total 7.5 mg/dL (8.5-10.1); Chloride 96 mmol/L (98-107); EST Glomerular Filtration Rate 4 mL/min (>60); Est Glom Filt Rate - Afr Amer 5 mL/min (>60); Estradiol 58.6 pg/mL; Glucose 148 mg/dL (74-106); Potassium 4.2 mmol/L (3.5-5.1); Protein, Total 7.7 g/dL (6.4-8.2); Sodium Level 135 mmol/L (136-145)
[2023-10-31 09:08] LABS: Testosterone, Free 0.13 ng/dL (0.10-0.85); Testosterone, Total 4 ng/dL (8-60)
== END | disposition home or self-care (01) ==
PROVIDERS: PCP Internal Medicine; Referring Provider Obstetrics & Gynecology; Visit Provider Obstetrics & Gynecology
DX: R53.83 Other fatigue (principal); Z79.890 Hormone replacement therapy
CPT/HCPCS: 36415; 80053; 82670; 84144; 84402; 84403; 85027

== ENCOUNTER 2025-04-24 16:00 | Outpatient (RCR) | payer MEDICARE, MEDICAID, SELFPAY ==
--- NOTE | 2025-03-09 09:00 | HP.PTEVAL_ITS ---
Patient's Visit Information Visit Information Visit Information: LOBO REYES is a 39 year old F referred to Physical Therapy by ODILON Mariee with a diagnosis of Chronic Bilateral LBP. Date of Evaluation: 03/09/25 Physical Therapist: Mary Gracia DPT Visit Plan Frequency: 2x /Week Duration: 4 Weeks Plan: Aquatics- focus on LE and core strength/stabilization, flex and muscular endurance Subjective Subjective: Patient reports that she has had back pain for a really long time- she thinks it happened when she went in for surgery. She had to get a catheter put in for dialysis and came back from surgery and couldn't walk. What finally brought her in is that she turns 40 this year and she is going to [employer] and she wants to be able to do more. She wants to get stronger and lose weight and be able to do more- they leave Aug 11. The back pain is there all the time- she can't stand for long periods of time it makes her nauseated. She can't walk around the block without sitting down due to pain. She has a regular wheelchair that she uses. Worst: 8/10. She feels that she hovers around a 5-7 all the time. She uses medical marijuana and can still feel it. Agg: everything. They live their life around their back pain. She goes to the salon to have her hair washed. Eases: laying down- on her left side, recliner. Pain is in the middle of the back down. The pain does not radiate down to the legs. Describes the pain in her back as constant dull and sharp. No N/T in the toes but does feel they are more sensitive. No injections. She has dialysis daily at home. No issues with bowel or bladder. Sleep: side sleeper but does not sleep well. Recent x-ray but no MRI. PMHX/Meds: update in chart from Neurologist Objective Objective: Posture: forward head, rounded shoulders, can correct with verbal cues but does not maintain- guarded Gait: slow and holds onto significant other for balance- shortness of breath after walking to room from waiting room HR/TR: able but reports hard to do SLS: weight shift but unable to SLS without UE A ROM: Lumbar: flexion: hands to knees- extn: WFL, SB: decreased by 50% Rot: WFL all with increased discomfort- LE: WNL Strength: Core: poor, Hip: 4+/5 throughout, Knee: 5/5 Ankle: 5/5 Flex: HS: moderate, Gastroc: moderate Balance/Special Test Scores Oswestry Low Back Score: 33 Goals Goal 1:: Patient will be I with HEP and progression Goal Time Frame: 4-6 Weeks Goal 2:: Patient will ambulate >300 feet without pain Goal Time Frame: 4-6 Weeks Goal 3:: Patient will SLS for 5 seconds on each limb Goal Time Frame: 4-6 Weeks Goal 4:: Patient will maintain proper posture t/o tx session to demo increased core s/s Goal Time Frame: 4-6 Weeks Goal 5:: Patient will report 80% improvement Goal Time Frame: 4-6 Weeks Rehabilitation Potential Physical Therapy Diagnosis: Patient presents with hypomobility- she has decreased LE and core strength/stabilization, flexibility and muscular endurance leading to poor posture and decreased ability to perform ADL's Anticipated Interventions Therapeutic Exercise to Include: Strength training, Endurance training, Balance training, Coordination, Agility training, Body mechanics, Postural training, Flexibilty training, Gait and locomotor training, Neuromotor development, In an aquatic setting, Dynamic Lumbar Stabilization and Scapular Strength/Stabilization For the Purpose of:: To improve muscle performance and motor function Text: Thank you for the opportunity to evaluate your patient. For Medicare and Medicare HMO plans, please review the plan of care and approve it. It will need to be FAXED BACK to us at [phone] for Medicare purposes. For Medicare only, by signing this I certify the plan of care. Please let me know if there are questions or concerns regarding this plan of care. Physician Signature: Date:
--- NOTE | 2025-04-24 16:26 | HP.PTREVAL_ITS ---
Re-Evaluation Intro: Anaid Motta, JIAN-C, It has been my pleasure to treat LOBO REYES over the last 9 visits for Chronic Bilateral LBP. Please see the progress note below for an update on the physical therapy plan of care! Subjective Subjective: Patient reports that she is walking better but she still has a lot of pain. She has people tell her that she is walking better/standing taller and is reaching for pain medication less. Objective Objective/Function: Posture: forward head, rounded shoulders, can correct with verbal cues but does not maintain- much more fluid movements Gait: does not hold onto partner and can ambulate >150 feet without SOB HR/TR: able but reports hard to do SLS: weight shift but unable to SLS without UE A ROM: Lumbar: flexion: hands to knees- extn: WFL, SB: decreased by 50% Rot: WFL all with increased discomfort- LE: WNL Strength: Core: poor, Hip: 4+/5 throughout, Knee: 5/5 Ankle: 5/5 Flex: HS: moderate, Gastroc: moderate Plan Plan Plan: 04/24/25: Continue 1x a week every other week for 8 weeks- progression of HEP and climbing pool ladder. Aquatics- focus on LE and core strength/stabilization, flex and muscular endurance Balance/Gait/Functional tests Balance/Special Test Scores Oswestry Low Back Score: 33 Goals Goals Goal 1:: Patient will be I with HEP and progression Goal Time Frame: 4-6 Weeks Goal Progress: Progressing Goal 2:: Patient will ambulate >300 feet without pain Goal Time Frame: 4-6 Weeks Goal Progress: Progressing Goal 3:: Patient will SLS for 5 seconds on each limb Goal Time Frame: 4-6 Weeks Goal Progress: Progressing Goal 4:: Patient will maintain proper posture t/o tx session to demo increased core s/s Goal Time Frame: 4-6 Weeks Goal Progress: Progressing Goal 5:: Patient will report 80% improvement Goal Time Frame: 4-6 Weeks Goal Progress: Progressing Anticipated Interventions Anticipated Interventions Therapeutic Exercise to Include: Strength training, Endurance training, Balance training, Coordination, Agility training, Body mechanics, Postural training, Flexibilty training, Gait and locomotor training, Neuromotor development, In an aquatic setting, Dynamic Lumbar Stabilization and Scapular Str ength/Stabilization For the Purpose of:: To improve muscle performance and motor function Re-Evaluation Ending Re-evaluation ending: Please do not hesitate to contact me at [phone] by phone or if you have questions or concerns regarding this new plan of care! Sincerely, OVI CampbellT
== END 2025-04-24 19:00 | disposition home or self-care (01) ==
LOC: PT 16:00
PROVIDERS: PCP Internal Medicine; Referring Provider Nurse Practitioner Family; Visit Provider Nurse Practitioner Family
DX: M54.50 Low back pain, unspecified (principal); G89.29 Other chronic pain
CPT/HCPCS: 97113; 97162; 97530